=== PATIENT | male | born 1955 | race Caucasian/White ===

== ENCOUNTER 2020-10-16 17:35 | Inpatient (IN) | payer MEDICARE, OTHER ==
[2020-10-16] MEDS ORDERED: SODIUM CHLORIDE 0.9% 500 ML 500 ML IV STA (18:11)
[2020-10-16] MEDS ORDERED: LORazepam 2 MG/ML INJ IV STA (18:20)
--- NOTE | 2020-10-16 18:21 | ED ---
General Adult HPI - General Chief complaint: Back Pain/Injury Stated complaint: Kidney Failure Time Seen by Provider: 10/16/20 17:59 Source: patient, RN notes reviewed, old records reviewed Mode of arrival: ambulatory Limitations: no limitations - History of Present Illness Initial comments: 65-year-old male presenting from outside hospital with abnormal CT findings and concern for new diagnosis of cancer. He was seen at [facility] yesterday was transferred to [place]. He did leave AGAINST MEDICAL ADVICE. He states he is very anxious about this new diagnosis. He had initially developed right flank pain and has had an 11 pound weight loss over the last 2 weeks. He's had no appetite. He is able to urinate but is only getting very small amounts of urine out. - Related Data Home Medications Medication Instructions Recorded Confirmed Famotidine [Pepcid AC] 10 mg PO DAILY PRN 10/16/20 10/16/20 Allergies Allergy/AdvReac Type Severity Reaction Status Date / Time meperidine [From Demerol] Allergy head felt Verified 10/16/20 20:04 big Review of Systems ROS Statement: Those systems with pertinent positive or pertinent negative responses have been documented in the HPI. ROS Other: All systems not noted in ROS Statement are negative. Past Medical History Past Medical History: GERD/Reflux, Hypertension History of Any Multi-Drug Resistant Organisms: None Reported Past Surgical History: Hernia Repair Past Psychological History: Anxiety Smoking Status: Never smoker Past Alcohol Use History: None Reported Past Drug Use History: Marijuana General Exam Limitations: no limitations General appearance: alert, in no apparent distress ENT exam: Present: mucous membranes dry Neck exam: Present: normal inspection. Absent: tenderness, meningismus Respiratory exam: Present: normal lung sounds bilaterally. Absent: respiratory distress, wheezes Cardiovascular Exam: Present: regular rate, normal rhythm GI/Abdominal exam: Present: soft, distended, tenderness Extremities exam: Present: normal inspection, normal capillary refill. Absent: pedal edema Back exam: Present: normal inspection, CVA tenderness (R) Neurological exam: Present: alert, oriented X3, CN II-XII intact. Absent: motor sensory deficit Psychiatric exam: Present: anxious Skin exam: Present: warm, dry, intact. Absent: cyanosis, diaphoretic Course Vital Signs 10/16/20 17:39 Temperature 98.8 F Pulse Rate 70 Respiratory 18 Rate Blood Pressure 169/93 O2 Sat by Pulse 99 Oximetry Medical Decision Making - Medical Decision Making 65-year-old male with new diagnosis of abdominal mass and bladder mass. Imaging is repeated in this emergency department. As well as laboratory testing. He is anemic with acute renal failure. CT shows no bladder mass which is likely obstructing and a distended bladder. Additionally he has an abdominal mass with right-sided hydronephrosis. Estrada catheter, 14-Greenlandic is placed in the emergency department to relieve obstruction. I did discuss case with Dr. Kohli who will admit. Urology, Dr. Gan has been contacted, patient will be kept nothing by mouth. - Lab Data Result diagrams: 10/16/20 18:44 10/16/20 18:44 Lab Results 10/16/20 10/16/20 10/16/20 Range/Units 18:30 18:35 18:44 WBC 7.4 (3.8-10.6) k/uL RBC 4.49 (4.30-5.90) m/uL Hgb 8.8 L (13.0-17.5) gm/dL Hct 27.8 L (39.0-53.0) % MCV 62.0 L (80.0-100.0) fL MCH 19.5 L (25.0-35.0) pg MCHC 31.5 (31.0-37.0) g/dL RDW 17.3 H (11.5-15.5) % Plt Count 409 (150-450) k/uL MPV 7.0 Neutrophils % 72 % Lymphocytes % 14 % Monocytes % 9 % Eosinophils % 3 % Basophils % 1 % Neutrophils # 5.4 (1.3-7.7) k/uL Lymphocytes # 1.0 (1.0-4.8) k/uL Monocytes # 0.6 (0-1.0) k/uL Eosinophils # 0.2 (0-0.7) k/uL Basophils # 0.1 (0-0.2) k/uL Hypochromasia Marked Anisocytosis Slight Microcytosis Marked PT (9.0-12.0) sec INR (<1.2) APTT (22.0-30.0) sec Sodium (137-145) mmol/L Potassium (3.5-5.1) mmol/L Chloride (98-107) mmol/L Carbon Dioxide (22-30) mmol/L Anion Gap mmol/L BUN (9-20) mg/dL Creatinine (0.66-1.25) mg/dL Est GFR (CKD-EPI)AfAm (>60 ml/min/1.73 sqM) Est GFR (CKD-EPI)NonAf (>60 ml/min/1.73 sqM) Glucose (74-99) mg/dL Plasma Lactic Acid Lucian (0.7-2.0) mmol/L Calcium (8.4-10.2) mg/dL Total Bilirubin (0.2-1.3) mg/dL AST (17-59) U/L ALT (4-49) U/L Alkaline Phosphatase (38-126) U/L Total Protein (6.3-8.2) g/dL Albumin (3.5-5.0) g/dL Amylase (30-110) U/L Lipase (23-300) U/L Urine Color Urine Appearance (Clear) Urine pH (5.0-8.0) Ur Specific [place] (1.001-1.035) Urine Protein (Negative) Urine Glucose (UA) (Negative) Urine Ketones (Negative) Urine Blood (Negative) Urine Nitrite (Negative) Urine Bilirubin (Negative) Urine Urobilinogen (<2.0) mg/dL Ur Leukocyte Esterase (Negative) Urine RBC (0-5) /hpf Urine WBC (0-5) /hpf Blood Type A Negative Blood Type Confirm A Negative Blood Type Recheck No Previous Record Bld Type Recheck Status CABO Indicated Antibody Screen NEGATIVE Spec Expiration Date 10/19/2020234310/16/20 10/16/20 10/16/20 Range/Units 18:44 18:44 18:44 WBC (3.8-10.6) k/uL RBC (4.30-5.90) m/uL Hgb (13.0-17.5) gm/dL Hct (39.0-53.0) % MCV (80.0-100.0) fL MCH (25.0-35.0) pg MCHC (31.0-37.0) g/dL RDW (11.5-15.5) % Plt Count (150-450) k/uL MPV Neutrophils % % Lymphocytes % % Monocytes % % Eosinophils % % Basophils % % Neutrophils # (1.3-7.7) k/uL Lymphocytes # (1.0-4.8) k/uL Monocytes # (0-1.0) k/uL Eosinophils # (0-0.7) k/uL Basophils # (0-0.2) k/uL Hypochromasia Anisocytosis Microcytosis PT 10.9 (9.0-12.0) sec INR 1.0 (<1.2) APTT 22.8 (22.0-30.0) sec Sodium 137 (137-145) mmol/L Potassium 5.1 (3.5-5.1) mmol/L Chloride 108 H (98-107) mmol/L Carbon Dioxide 16 L (22-30) mmol/L Anion Gap 13 mmol/L BUN 85 H (9-20) mg/dL Creatinine 4.92 H (0.66-1.25) mg/dL Est GFR (CKD-EPI)AfAm 13 (>60 ml/min/1.73 sqM) Est GFR (CKD-EPI)NonAf 11 (>60 ml/min/1.73 sqM) Glucose 97 (74-99) mg/dL Plasma Lactic Acid Lucian (0.7-2.0) mmol/L Calcium 9.4 (8.4-10.2) mg/dL Total Bilirubin 0.2 (0.2-1.3) mg/dL AST 23 (17-59) U/L ALT 14 (4-49) U/L Alkaline Phosphatase 87 (38-126) U/L Total Protein 7.0 (6.3-8.2) g/dL Albumin 3.9 (3.5-5.0) g/dL Amylase 125 H (30-110) U/L Lipase 300 (23-300) U/L Urine Color Light Yellow Urine Appearance Clear (Clear) Urine pH 5.0 (5.0-8.0) Ur Specific [place] 1.011 (1.001-1.035) Urine Protein Trace H (Negative) Urine Glucose (UA) Negative (Negative) Urine Ketones Negative (Negative) Urine Blood Large H (Negative) Urine Nitrite Negative (Negative) Urine Bilirubin Negative (Negative) Urine Urobilinogen <2.0 (<2.0) mg/dL Ur Leukocyte Esterase Negative (Negative) Urine RBC 9 H (0-5) /hpf Urine WBC 2 (0-5) /hpf Blood Type Blood Type Confirm Blood Type Recheck Bld Type Recheck Status Antibody Screen Spec Expiration Date 10/16/20 Range/Units 18:44 WBC (3.8-10.6) k/uL RBC (4.30-5.90) m/uL Hgb (13.0-17.5) gm/dL Hct (39.0-53.0) % MCV (80.0-100.0) fL MCH (25.0-35.0) pg MCHC (31.0-37.0) g/dL RDW (11.5-15.5) % Plt Count (150-450) k/uL MPV Neutrophils % % Lymphocytes % % Monocytes % % Eosinophils % % Basophils % % Neutrophils # (1.3-7.7) k/uL Lymphocytes # (1.0-4.8) k/uL Monocytes # (0-1.0) k/uL Eosinophils # (0-0.7) k/uL Basophils # (0-0.2) k/uL Hypochromasia Anisocytosis Microcytosis PT (9.0-12.0) sec INR (<1.2) APTT (22.0-30.0) sec Sodium (137-145) mmol/L Potassium (3.5-5.1) mmol/L Chloride (98-107) mmol/L Carbon Dioxide (22-30) mmol/L Anion Gap mmol/L BUN (9-20) mg/dL Creatinine (0.66-1.25) mg/dL Est GFR (CKD-EPI)AfAm (>60 ml/min/1.73 sqM) Est GFR (CKD-EPI)NonAf (>60 ml/min/1.73 sqM) Glucose (74-99) mg/dL Plasma Lactic Acid Lucian 0.7 (0.7-2.0) mmol/L Calcium (8.4-10.2) mg/dL Total Bilirubin (0.2-1.3) mg/dL AST (17-59) U/L ALT (4-49) U/L Alkaline Phosphatase (38-126) U/L Total Protein (6.3-8.2) g/dL Albumin (3.5-5.0) g/dL Amylase (30-110) U/L Lipase (23-300) U/L Urine Color Urine Appearance (Clear) Urine pH (5.0-8.0) Ur Specific [place] (1.001-1.035) Urine Protein (Negative) Urine Glucose (UA) (Negative) Urine Ketones (Negative) Urine Blood (Negative) Urine Nitrite (Negative) Urine Bilirubin (Negative) Urine Urobilinogen (<2.0) mg/dL Ur Leukocyte Esterase (Negative) Urine RBC (0-5) /hpf Urine WBC (0-5) /hpf Blood Type Blood Type Confirm Blood Type Recheck Bld Type Recheck Status Antibody Screen Spec Expiration Date Disposition Clinical Impression: Acute renal failure, Bladder mass, Colonic mass Disposition: ADMITTED IP TO THIS [facility] Condition: Stable Is patient prescribed a controlled substance at d/c from ED?: No Referrals: None,Stated [Primary Care Provider] - 1-2 days Decision to Admit Reason: Admit from EC Decision Date: 10/16/20 Decision Time: 21:05
[2020-10-16 18:58] LABS: Anisocytosis Slight; Basophils # (A) 0.1 k/uL (0-0.2); Basophils % (A) 1 %; Eosinophils # (A) 0.2 k/uL (0-0.7); Eosinophils % (A) 3 %; HCT 27.8 % (39.0-53.0); HGB 8.8 gm/dL (13.0-17.5); Hypochromasia Marked; Lymphocytes % (A) 14 %; MCH 19.5 pg (25.0-35.0); MCHC 31.5 g/dL (31.0-37.0); Microcytosis Marked; Monocytes # (A) 0.6 k/uL (0-1.0); Monocytes % (A) 9 %; Neutrophils # (A) 5.4 k/uL (1.3-7.7); Neutrophils % (A) 72 %; Platelet Count 409 k/uL (150-450); RBC 4.49 m/uL (4.30-5.90); RDW 17.3 % (11.5-15.5); WBC 7.4 k/uL (3.8-10.6)
[2020-10-16 19:06] LABS: Partial Thromboplastin Time 22.8 sec (22.0-30.0); Prothrombin Time 10.9 sec (9.0-12.0)
[2020-10-16 19:09] LABS: Albumin 3.9 g/dL (3.5-5.0); Calcium 9.4 mg/dL (8.4-10.2); Potassium 5.1 mmol/L (3.5-5.1); Total Bilirubin 0.2 mg/dL (0.2-1.3)
[2020-10-16 19:33] LABS: Appearance,Urine Clear (Clear); Bilirubin,Urine Negative (Negative); Blood,Urine Large (Negative); Color,Urine Light Yellow; Glucose,Urine (UA) Negative (Negative); Ketones,Urine Negative (Negative); Leukocyte Esterase,Urine Negative (Negative); Nitrite,Urine Negative (Negative); Protein,Urine Trace (Negative); RBC,Urine 9 /hpf (0-5); Specific Gravity,Urine 1.011 (1.001-1.035); Urobilinogen,Urine <2.0 mg/dL (<2.0); WBC,Urine 2 /hpf (0-5)
--- NOTE | 2020-10-16 20:32 | CT ---
EXAMINATION TYPE: CT abdomen pelvis wo con DATE OF EXAM: 10/16/2020 COMPARISON: None HISTORY: abd pain CT DLP: 572.3 mGycm Automated exposure control for dose reduction was used. Images obtained from the diaphragm to the floor the pelvis without contrast. Lung bases are clear. There is no pleural effusion. Heart size is top normal. There is no pericardial effusion. There is hiatal hernia. Gallbladder is intact. Stomach is intact. Spleen is intact. There is no evidence of pancreatic mass. There is a large irregular soft tissue density mass in the right mid abdomen. This appears to be jan ing from the splenic flexure of the colon and measures 11 cm in diameter. The cecum is not well seen. This mass appears to also involve the cecum. Appendix is not seen. The terminal ileum is not dilated . There is no adrenal mass. There is 4 cm cortical cyst upper pole left kidney. There is left renal cor tical thinning. There is left-sided hydronephrosis and hydroureter. The right kidney shows mild to mo derate hydronephrosis and hydroureter. Prostate is enlarged with irregular rounded mass extending int o the urinary bladder from the prostate the base of the urinary bladder. This measures 4.6 cm in diam eter and probably tumor of the prostate gland. There is no inguinal hernia. There is no free fluid in the abdomen. There are some sigmoid diverticula without diverticulitis. The re is no ascites. There is some fat stranding in the right paracolic gutter. There is no evidence of free air. The lumbar vertebra have normal alignment. There is no compression fracture. The posterior elements a re intact. Hip joints are intact. There is no hip dysplasia. IMPRESSION: Large irregular mass involving the ascending colon and hepatic flexure of the colon and cecum that co uld be primary tumor. Acute extensive hemorrhage involving the right colon is also possible. There is bilateral hydronephrosis with more severe involvement of the left side with left renal signi ficant atrophy. There is mass in the urinary bladder at the base that could be tumor arising from the prostate. Distal ureteral obstruction is suspected secondary to the bladder mass.
[2020-10-16] MEDS ORDERED: HYDROmorphone 0.5 MG/0.5 ML SYRINGE IVP PRN (20:56)
[2020-10-16] MEDS ORDERED: HYDROmorphone 1 MG/ML 1 ML SYRINGE IVP PRN (20:56)
[2020-10-16] MEDS ORDERED: LORazepam 2 MG/ML INJ IV PRN (20:56)
[2020-10-16] MEDS ORDERED: NALOXONE 0.4 MG/ML 1 ML VIAL IV PRN (20:56)
[2020-10-16] MEDS: SODIUM CHLORIDE 0.9% 1,000 ML IV SCH (21:57)
--- NOTE | 2020-10-16 22:44 | P.HPIM ---
History of Present Illness H&P Date: 10/16/20 The patient is a 65 yo M with a PMH of HTN who presented to the ED w/ complaints of abdominal pain and difficulty urinating. The patient initially presented to [facility] yesterday and was subsequently transferred to [facility]. He however was supposedly not happy with the care and left AMA and presented at [place] emergency room. The patient reports that the symptoms started 2 weeks ago when he developed a right-sided cramping abdominal discomfort with radiation down to his groin. The pain was 8 out of 10 at maximal intensity, intermittent, with no clear alleviating or exacerbating features. Patient also reports that during this time he has had difficulty urinating and this having to strain more and more. Also reports poor appetite with subsequent 10-15 pound weight loss. He further reports noticing that his stools were dark black in color. Denied any of these symptoms prior to 2 weeks. Reports that he has not seen a physician in over 10 years. Reports undergoing a colonoscopy at age 39, but denied any history of colon cancer in the family. Did report a significant family history of bladder and kidney cancer with multiple first-degree relatives dying from the above. Denied noticing blood or clots in the urine. Denied chest pain, shortness of breath, fever, nausea, or vomiting. Reports having bowel movements daily. At time of interview, the patient reported that his right-sided abdominal pain had almost resolved. In the emergency room, CT abdomen and pelvis without contrast revealed a large irregular mass involving the ascending colon at the hepatic flexure along with bilateral hydronephrosis with left renal atrophy with a mass in the urinary bladder, possibly arising from the prostate. Vital signs were reviewed with BP 160/93, pulse 70, temp 98.8, and SpO2 99% on room air. Laboratory evaluation was remarkable for hemoglobin of 8.8, platelets 409, sodium 137, potassium 5.1, chloride 108, CO2 16, BUN 85, and creatinine 4.92. UA was positive for blood and RBCs. Review of systems: Pertinent positives and negatives as discussed in HPI, a complete review of systems was performed and all other systems are negative. Physical examination: General: non toxic, no distress, appears at stated age, normal weight Derm: no unusual rashes/lesions no unusual ecchymoses, warm, dry Head: atraumatic, normocephalic, symmetric Eyes: EOMI, no lid lag, anicteric sclera, pupils equal round reactive to light ENT: Nose and ears atraumatic, no thrush, no pharyngeal erythema Neck: No thyromegaly, no cervical lymphadenopathy, trachea midline, supple Mouth: no lip lesion, mucus membranes moist Cardiovascular: S1S2 reg, no murmur, positive posterior tibial pulse bilateral, no edema, capillary refill less than 2 seconds Lungs: CTA bilateral, no rhonchi, no rales , no accessory muscle use Abdominal: soft, right-sided tenderness to palpation with some nodularity palpated, some guarding, normal bowel sounds Ext: no gross muscle atrophy, muscle strength 5 out of 5 in all 4 extremities grossly, no contractures, Neuro: CN II-XI grossly intact, light touch intact all 4 extremities, finger to nose within normal limits, Psych: Alert, oriented, appropriate affect Assessment/plan Microcytic anemia, likely due to acute GI bleeding in setting of colonic mass -Continue to monitor CBC -Surgery consulted -Transfuse as needed -Nothing by mouth for now -IV fluids Newly diagnosed colonic and bladder masses -Estrada catheter inserted, patient passing urine -Urology consulted for nephrostomy tube insertion -Oncology consulted Kidney injury, acute versus chronic, likely secondary to bladder outlet obstruction -Monitor BMP -Status post Estrada insertion -Urology consulted as above DVT prophylaxis -IPCDs The patient is admitted with an anticipated greater than 2 midnight stay for evaluation of newly diagnosed malignancy CODE STATUS: Full Code Discussed with: Patient Anticipated discharge date: 3-[address]: Home A total of 55 minutes was spent on the care of this complex patient more than 50% of the time was spent in counseling and care coordination. Past Medical History Past Medical History: GERD/Reflux, Hypertension History of Any Multi-Drug Resistant Organisms: None Reported Past Surgical History: Hernia Repair Past Psychological History: Anxiety Smoking Status: Never smoker Past Alcohol Use History: None Reported Past Drug Use History: Marijuana Medications and Allergies Home Medications Medication Instructions Recorded Confirmed Type Famotidine [Pepcid AC] 10 mg PO DAILY PRN 10/16/20 10/16/20 History Allergies Allergy/AdvReac Type Severity Reaction Status Date / Time meperidine [From Demerol] Allergy head felt Verified 10/16/20 20:04 big Physical Exam Vitals: Vital Signs Temp Pulse Resp BP Pulse Ox 10/16/20 17:39 98.8 F 70 18 169/93 99 Intake and Output 10/16/20 10/16/20 10/16/20 06:59 14:59 22:59 Output Total 700 Balance -700 Output: Urine 700 Uretheral (Estrada) 700 Other: Weight 78.471 kg Results CBC & Chem 7: 10/16/20 18:44 10/16/20 18:44 Labs: Abnormal Lab Results - Last 24 Hours (Table) 10/16/20 10/16/20 10/16/20 Range/Units 18:44 18:44 18:44 Hgb 8.8 L (13.0-17.5) gm/dL Hct 27.8 L (39.0-53.0) % MCV 62.0 L (80.0-100.0) fL MCH 19.5 L (25.0-35.0) pg RDW 17.3 H (11.5-15.5) % Chloride 108 H (98-107) mmol/L Carbon Dioxide 16 L (22-30) mmol/L BUN 85 H (9-20) mg/dL Creatinine 4.92 H (0.66-1.25) mg/dL Amylase 125 H (30-110) U/L Urine Protein Trace H (Negative) Urine Blood Large H (Negative) Urine RBC 9 H (0-5) /hpf
[2020-10-17 05:47] LABS: Anisocytosis Slight; HCT 27.4 % (39.0-53.0); HGB 8.2 gm/dL (13.0-17.5); Hypochromasia Marked; MCH 18.9 pg (25.0-35.0); MCHC 30.1 g/dL (31.0-37.0); MCV 62.9 fL (80.0-100.0); Mean Platelet Volume 6.8; Microcytosis Marked; Platelet Count 423 k/uL (150-450); RBC 4.35 m/uL (4.30-5.90); RDW 17.6 % (11.5-15.5); WBC 6.2 k/uL (3.8-10.6)
[2020-10-17] MEDS: TAMSULOSIN 0.4 MG CAP.ER.24H PO SCH (08:46)
[2020-10-17] MEDS: FINASTERIDE 5 MG TAB PO SCH (08:46)
[2020-10-17 09:41] LABS: African American GFR (CKD) 16.4 (60.0-200.0); Albumin 3.6 g/dL (3.80-4.90); Albumin/Globulin Ratio 1.33 (1.60-3.17); Anion Gap 9.6 mmol/L (4.00-12.00); BUN/Creat Ratio 21.95 Ratio (12.00-20.00); Calcium 8.6 mg/dL (8.7-10.3); Carbon Dioxide 17.4 mmol/L (21.6-31.8); Globulin 2.7 g/dL (1.6-3.3); Non-African American GFR(CKD) 14.2 (60.0-200.0); Total Bilirubin 0.2 mg/dL (0.3-1.2); Total Protein 6.3 g/dL (6.2-8.2)
--- NOTE | 2020-10-17 11:45 | P.PN ---
Subjective Progress Note Date: 10/17/20 No new complaints today. Pending surgery for mass, oncology consult. Objective - Vital Signs Vital signs: Vital Signs Temp 98.5 F 10/17/20 04:49 Pulse 70 10/17/20 04:49 Resp 18 10/17/20 06:20 BP 175/87 10/17/20 04:49 Pulse Ox 97 10/17/20 04:49 Intake & Output 10/16/20 10/17/20 10/17/20 18:59 06:59 18:59 Output Total 1800 Balance -1800 Weight 78.471 kg 78.471 kg Output: Urine 1800 Uretheral (Serrano) 700 Other: Voiding Method Indwelling Catheter Indwelling Catheter - Exam Gen: awake, alert HEENT: normocephalic, atraumatic, good hearing acuity, moist mucous membranes Resp: good air exchange, breathing comfortably with no accessory muscle use CVS: good distal perfusion x 4, GI: soft, NTTP, ND : no SPT, no CVAT, serrano catheter not present MSK: no pitting edema, no clubbing Neuro: non-focal, moving all extremities Psych: cooperative, euthymic mood - Labs CBC & Chem 7: 10/17/20 05:32 10/17/20 05:32 Labs: Abnormal Lab Results - Last 24 Hours (Table) 10/16/20 10/16/20 10/16/20 Range/Units 18:44 18:44 18:44 Hgb 8.8 L (13.0-17.5) gm/dL Hct 27.8 L (39.0-53.0) % MCV 62.0 L (80.0-100.0) fL MCH 19.5 L (25.0-35.0) pg MCHC (31.0-37.0) g/dL RDW 17.3 H (11.5-15.5) % Chloride 108 H (98-107) mmol/L Carbon Dioxide 16 L (22-30) mmol/L BUN 85 H (9-20) mg/dL Creatinine 4.92 H (0.66-1.25) mg/dL Est GFR (CKD-EPI)AfAm (60.0-200.0) Est GFR (CKD-EPI)NonAf (60.0-200.0) BUN/Creatinine Ratio (12.00-20.00) Ratio Glucose (70-110) mg/dL Calcium (8.7-10.3) mg/dL Total Bilirubin (0.3-1.2) mg/dL AST (14-35) U/L Albumin (3.80-4.90) g/dL Albumin/Globulin Ratio (1.60-3.17) g/dL Amylase 125 H (30-110) U/L Urine Protein Trace H (Negative) Urine Blood Large H (Negative) Urine RBC 9 H (0-5) /hpf 10/17/20 10/17/20 Range/Units 05:32 05:32 Hgb 8.2 L (13.0-17.5) gm/dL Hct 27.4 L (39.0-53.0) % MCV 62.9 L (80.0-100.0) fL MCH 18.9 L (25.0-35.0) pg MCHC 30.1 L (31.0-37.0) g/dL RDW 17.6 H (11.5-15.5) % Chloride 112 H (98-107) mmol/L Carbon Dioxide 17.4 L (22-30) mmol/L BUN 90.0 H (9-20) mg/dL Creatinine 4.1 H (0.66-1.25) mg/dL Est GFR (CKD-EPI)AfAm 16.4 L (60.0-200.0) Est GFR (CKD-EPI)NonAf 14.2 L (60.0-200.0) BUN/Creatinine Ratio 21.95 H (12.00-20.00) Ratio Glucose 143 H (70-110) mg/dL Calcium 8.6 L (8.7-10.3) mg/dL Total Bilirubin 0.2 L (0.3-1.2) mg/dL AST 12 L (14-35) U/L Albumin 3.60 L (3.80-4.90) g/dL Albumin/Globulin Ratio 1.33 L (1.60-3.17) g/dL Amylase (30-110) U/L Urine Protein (Negative) Urine Blood (Negative) Urine RBC (0-5) /hpf Assessment and Plan Assessment: Lower GI Bleeding Colonic Mass Bladder Mass -Continue to monitor CBC daily -Surgery consulted -colectomy planned tomorrow AM -Transfuse as needed for Hgb > 7 -CLD --> NPO at midnight -IV fluids -Oncology consulted Acute Kidney injury Obstructive Uropathy -Monitor BMP daily -Serrano catheter inserted, patient passing urine -Urology consulted for nephrostomy tube insertion DVT prophylaxis -IPCDs CODE STATUS: Full Code Anticipated discharge place: Home
--- NOTE | 2020-10-17 12:44 | ECHOF ---
Referral Reason:Hypertensive heart disease MEASUREMENTS -------- HEIGHT: 175.3 cm WEIGHT: 78.5 kg BP: 175/87 RVIDd: 3.6 cm (< 3.3) IVSd: 1.3 cm (0.6 - 1.1) LVIDd: 4.3 cm (3.9 - 5.3) LVPWd: 1.2 cm (0.6 - 1.1) IVSs: 1.6 cm LVIDs: 3.8 cm LVPWs: 1.5 cm LA Diam: 4.4 cm (2.7 - 3.8) LAESV Index (A-L): 56.24 ml/m Ao Diam: 3.1 cm (2.0 - 3.7) AV Cusp: 1.8 cm (1.5 - 2.6) MV EXCURSION: 18.069 mm (> 18.000) MV EF SLOPE: 37 mm/s (70 - 150) EPSS: 1.4 cm MV E Roby: 1.10 m/s MV DecT: 232 ms MV A Roby: 1.11 m/s MV E/A Ratio: 0.99 AV maxP.43 mmHg AV maxP.43 mmHg AV meanP.06 mmHg RAP: 5.00 mmHg RVSP: 43.50 mmHg FINDINGS -------- Resting bradycardia (HR<60bpm). This was a technically good study. The left ventricular size is normal. There is mild concentric left ventricular hypertrophy. Overa ll left ventricular systolic function is low-normal with, an EF between 50 - 55 %. The right ventricle is mildly enlarged. LA is severely dilated >40 ml/m2 The right atrium is normal in size. Interatrial and interventricular septum intact. Aortic valve is trileaflet and is mildly thickened. There is mild to moderate aortic valve sclerosi s. Trace amount of aortic regurgitation. There is mild aortic stenosis present. Mild mitral annular calcification present. Mild mitral regurgitation is present. Trace tricuspid regurgitation present. There is mild pulmonary hypertension. The right ventricula r systolic pressure, as measured by Doppler, is 43.50mmHg. Trace/mild (physiologic) pulmonic regurgitation. The aortic root size is normal. Normal inferior vena cava with normal inspiratory collapse consistent with estimated right atrial pre ssure of 5 mmHg. The inferior vena cava is mildly dilated. There is no pericardial effusion. CONCLUSIONS -------- 1. Resting bradycardia (HR<60bpm). 2. The left ventricular size is normal. 3. There is mild concentric left ventricular hypertrophy. 4. Overall left ventricular systolic function is low-normal with, an EF between 50 - 55 %. 5. The right ventricle is mildly enlarged. 6. LA is severely dilated >40 ml/m2 7. Aortic valve is trileaflet and is mildly thickened. 8. Trace amount of aortic regurgitation. 9. There is mild aortic stenosis present. 10. Mild mitral annular calcification present. 11. Mild mitral regurgitation is present. 12. Trace tricuspid regurgitation present. 13. There is mild pulmonary hypertension. 14. The right ventricular systolic pressure, as measured by Doppler, is 43.50mmHg. 15. Trace/mild (physiologic) pulmonic regurgitation. 16. The inferior vena cava is mildly dilated. 17. There is no pericardial effusion. [employer]: Hallie Acosta RDCS
[2020-10-17 12:48] LABS: African American GFR (CKD) 18 (>60 ml/min/1.73 sqM); Anion Gap 6 mmol/L; Blood Urea Nitrogen 73 mg/dL (9-20); Calcium 8.4 mg/dL (8.4-10.2); Carbon Dioxide 19 mmol/L (22-30); Chloride 113 mmol/L (98-107); Glucose 113 mg/dL (74-99); Non-African American GFR(CKD) 15 (>60 ml/min/1.73 sqM); Potassium 4.6 mmol/L (3.5-5.1); Sodium 138 mmol/L (137-145)
--- NOTE | 2020-10-17 13:02 | P.GSCN ---
History of Present Illness Consult date: 10/17/20 Reason for Consult: Urinary retention, right sided hydronephrosis History of present illness: This is a 65 yo male present to the hospital with right sided abdominal pain, wt loss and difficulty voiding. He indicated he is been having significant straining with urination, weak stream and sensation of incomplete emptying for the past 2 weeks. Denies any dysuria or gross hematuria. on presentation he underwent a CT abd/pelvis which showed right sided colonic mass, distended bladder, bilateral hydronephrosis, possible bladder vs prostate mass. No family hx of malignancy. In the ED a serrano catheter was placed with return of 700 ml of urine. his Creat was 4.92 on presentation, baseline unknown, repeat BMP this am is 4.1. He had good urine output since serrano placement Review of Systems - Constitutional Reports weakness, Reports weight loss - EENT Ears, nose, mouth and throat: Denies dysphagia - Cardiovascular Denies chest pain, Denies shortness of breath - Respiratory Denies cough, Denies 7 - Gastrointestinal Reports abdominal pain, Reports hematochezia - Genitourinary Reports flank pain, Reports urinary retention, Denies incontinence - Neurological Denies headaches, Denies syncope Past Medical History Past Medical History: GERD/Reflux, Hypertension History of Any Multi-Drug Resistant Organisms: None Reported Past Surgical History: Hernia Repair Past Anesthesia/Blood Transfusion Reactions: No Reported Reaction Past Psychological History: Anxiety Smoking Status: Never smoker Past Alcohol Use History: None Reported Past Drug Use History: Marijuana Medications and Allergies Home Medications Medication Instructions Recorded Confirmed Type Famotidine [Pepcid AC] 10 mg PO DAILY PRN 10/16/20 10/16/20 History Allergies Allergy/AdvReac Type Severity Reaction Status Date / Time meperidine [From Demerol] Allergy head felt Verified 10/16/20 20:04 big Surgical - Exam Vital Signs Temp Pulse Resp BP Pulse Ox 98.8 F 70 18 169/93 99 10/16/20 17:39 10/16/20 17:39 10/16/20 17:39 10/16/20 17:39 10/16/20 17:39 - General well developed, well nourished, no distress, no pain - ENT normal nares, normal mucosa - Respiratory normal expansion, normal respiratory effort - Abdomen Abdomen: soft, tender (Right quadrant ) - Genitourinary serrano draining clear yellow urine - Psychiatric oriented to time, oriented to person, oriented to place Results - Labs 10/17/20 05:32 10/17/20 12:10 Abnormal Lab Results - Last 24 Hours (Table) 10/16/20 10/16/20 10/16/20 Range/Units 18:44 18:44 18:44 Hgb 8.8 L (13.0-17.5) gm/dL Hct 27.8 L (39.0-53.0) % MCV 62.0 L (80.0-100.0) fL MCH 19.5 L (25.0-35.0) pg MCHC (31.0-37.0) g/dL RDW 17.3 H (11.5-15.5) % Chloride 108 H (98-107) mmol/L Carbon Dioxide 16 L (22-30) mmol/L BUN 85 H (9-20) mg/dL Creatinine 4.92 H (0.66-1.25) mg/dL Est GFR (CKD-EPI)AfAm (60.0-200.0) Est GFR (CKD-EPI)NonAf (60.0-200.0) BUN/Creatinine Ratio (12.00-20.00) Ratio Glucose (70-110) mg/dL Calcium (8.7-10.3) mg/dL Total Bilirubin (0.3-1.2) mg/dL AST (14-35) U/L Albumin (3.80-4.90) g/dL Albumin/Globulin Ratio (1.60-3.17) g/dL Amylase 125 H (30-110) U/L Urine Protein Trace H (Negative) Urine Blood Large H (Negative) Urine RBC 9 H (0-5) /hpf 10/17/20 10/17/20 Range/Units 05:32 05:32 Hgb 8.2 L (13.0-17.5) gm/dL Hct 27.4 L (39.0-53.0) % MCV 62.9 L (80.0-100.0) fL MCH 18.9 L (25.0-35.0) pg MCHC 30.1 L (31.0-37.0) g/dL RDW 17.6 H (11.5-15.5) % Chloride 112 H (98-107) mmol/L Carbon Dioxide 17.4 L (22-30) mmol/L BUN 90.0 H (9-20) mg/dL Creatinine 4.1 H (0.66-1.25) mg/dL Est GFR (CKD-EPI)AfAm 16.4 L (60.0-200.0) Est GFR (CKD-EPI)NonAf 14.2 L (60.0-200.0) BUN/Creatinine Ratio 21.95 H (12.00-20.00) Ratio Glucose 143 H (70-110) mg/dL Calcium 8.6 L (8.7-10.3) mg/dL Total Bilirubin 0.2 L (0.3-1.2) mg/dL AST 12 L (14-35) U/L Albumin 3.60 L (3.80-4.90) g/dL Albumin/Globulin Ratio 1.33 L (1.60-3.17) g/dL Amylase (30-110) U/L Urine Protein (Negative) Urine Blood (Negative) Urine RBC (0-5) /hpf Diabetes panel 10/16/20 10/17/20 Range/Units 18:44 05:32 Sodium 137 139 (137-145) mmol/L Potassium 5.1 5.0 (3.5-5.1) mmol/L Chloride 108 H 112 H (98-107) mmol/L Carbon Dioxide 16 L 17.4 L (22-30) mmol/L BUN 85 H 90.0 H (9-20) mg/dL Creatinine 4.92 H 4.1 H (0.66-1.25) mg/dL Glucose 97 143 H (74-99) mg/dL Calcium 9.4 8.6 L (8.4-10.2) mg/dL AST 23 12 L (17-59) U/L ALT 14 11 (4-49) U/L Alkaline Phosphatase 87 78 (38-126) U/L Total Protein 7.0 6.3 (6.3-8.2) g/dL Albumin 3.9 3.60 L (3.5-5.0) g/dL Calcium panel 10/16/20 10/17/20 Range/Units 18:44 05:32 Calcium 9.4 8.6 L (8.4-10.2) mg/dL Albumin 3.9 3.60 L (3.5-5.0) g/dL Pituitary panel 10/16/20 10/17/20 Range/Units 18:44 05:32 Sodium 137 139 (137-145) mmol/L Potassium 5.1 5.0 (3.5-5.1) mmol/L Chloride 108 H 112 H (98-107) mmol/L Carbon Dioxide 16 L 17.4 L (22-30) mmol/L BUN 85 H 90.0 H (9-20) mg/dL Creatinine 4.92 H 4.1 H (0.66-1.25) mg/dL Glucose 97 143 H (74-99) mg/dL Calcium 9.4 8.6 L (8.4-10.2) mg/dL Adrenal panel 10/16/20 10/17/20 Range/Units 18:44 05:32 Sodium 137 139 (137-145) mmol/L Potassium 5.1 5.0 (3.5-5.1) mmol/L Chloride 108 H 112 H (98-107) mmol/L Carbon Dioxide 16 L 17.4 L (22-30) mmol/L BUN 85 H 90.0 H (9-20) mg/dL Creatinine 4.92 H 4.1 H (0.66-1.25) mg/dL Glucose 97 143 H (74-99) mg/dL Calcium 9.4 8.6 L (8.4-10.2) mg/dL Total Bilirubin 0.2 0.2 L (0.2-1.3) mg/dL AST 23 12 L (17-59) U/L ALT 14 11 (4-49) U/L Alkaline Phosphatase 87 78 (38-126) U/L Total Protein 7.0 6.3 (6.3-8.2) g/dL Albumin 3.9 3.60 L (3.5-5.0) g/dL Assessment and Plan Assessment: This is a 65 yo male present to the hospital with right sided abdominal pain, wt loss and difficulty voiding. He underwent a CT abd/pelvis which showed right sided colonic mass, distended bladder, bilateral hydronephrosis, left atrophic kidney possible bladder vs prostate mass. No family hx of malignancy. In the ED a serrano catheter was placed with return of 700 ml of urine. his Creat was 4 .92 on presentation, baseline unknown, repeat BMP this am is 4.1. He had good urine output since serrano placement. I reviewed the CT the ureter is dilated to the bladder, hydronephrosis is unlikely to be from colonic mass given the dilated ureter distal to the mass. The finding on CT is more likely an enlarged median lobe protruding into the bladder rather than a bladder mass -Keep serrano 7-10 days given volume of retention and renal failure, will start flomax and proscar -Continue to trend creat with bladder decompression. Will need RBUS in 72 hours to assess improvement of hydronephrosis with bladder decompression -will need cystoscopy as an outpatient given microscopic hematuria and to c onfirm finding of bladder mass vs median lobe. Will obtain PSA as an outpatient.
[2020-10-17] MEDS: amLODIPine 5 MG TAB PO SCH (13:45)
--- NOTE | 2020-10-17 13:57 | P.GSCN ---
<Leidy Stafford - Last Filed: 10/17/20 13:42> History of Present Illness Consult date: 10/17/20 History of present illness: CHIEF COMPLAINT: Abdominal pain and difficulty urinating HISTORY OF PRESENT ILLNESS: This is a 65-year-old male with a known past medical history of hypertension, GERD and hernia repair. Patient presented to the emergency room with complaints of right-sided abdominal pain and difficulty with urinating. Patient initially presented to [facility] and was transferred to [facility] yesterday. However patient left AGAINST MEDICAL ADVICE and came to [place] emergency room. Patient has had right-sided abdominal pain for about 2 weeks. He has been having difficulty with urinating. Patient also reported 11 pound weight loss over the last 2 weeks. It is been about 10 years since he seen a primary care physician. He apparently had a colonoscopy 8 age 39. He does have a family history of bladder and kidney cancer in multiple first-degree relatives. Patient's computed tomography scan of the abdomen and pelvis shows a large irregular mass involving the ascending colon and hepatic flexure of the colon and cecum that could be primary tumor. Active extensive hemorrhage involving the right colon is also possible. There is bilateral hydronephrosis with more severe involvement of the left side with left renal significant atrophy. There is a mass in the urinary bladder at the base that could be tumor arising from the prostate. Distal ureteral obstruction is suspected secondary to the bladder mass. Patient did require Estrada catheter to be inserted. Since then urine output has improved. Patient is also followed by urology. Oncology has also been consult at. Patient reports improvement in his right-sided pain. He denies any nausea or vomiting. He is anemic with a hemoglobin of 8.2 down from 8.8. Creatinine on admission was 4.42. Patient denies any fever, chills or sweats. He denies any difficulty with bowel movements. Denies any nausea or vomiting. PAST MEDICAL HISTORY: See list. PAST SURGICAL HISTORY: See list. MEDICATIONS: See list. ALLERGIES: See list. SOCIAL HISTORY: No illicit drug use. REVIEW OF SYSTEMS: CONSTITUTIONAL: Denies fever or chills. HEENT: Denies blurred vision, vision changes, or eye pain. Denies hemoptysis ENDOCRINE: Denies heat or cold intolerance. CARDIOVASCULAR: Denies chest pain or pressure. RESPIRATORY: No shortness of breath. GASTROINTESTINAL: Refer to HPI NEURO: Denies history of seizures. PSYCH: No depression or suicidal ideation HEMATOLOGIC: Denies bleeding disorders. LYMPHATIC: The patient denies any lumps and bumps around the neck. GENITOURINARY: Denies any blood in urine or increased urinary frequency. MUSCULOSKELETAL: Denies myalgias. Denies joint swelling. Denies decreased range of motion beyond patients baseline. SKIN: Denies pruitis. Denies rash. PHYSICAL EXAM: VITAL SIGNS: Reviewed GENERAL: Well-developed in no acute distress. HEENT: No sclera icterus. Extraocular movements grossly intact. Moist buccal mucosa. Head is atraumatic, normocephalic. Hears conversational speech. No nasal drainage. NECK: Supple without lymphadenopathy. CHEST: Non-labored respirations and equal bilateral excursions. CARDIOVASCULAR: Palpable 2+ radial pulses. ABDOMEN: Soft. Nondistended. MUSCULOSKELETAL: No clubbing or cyanosis. NEUROLOGIC: No focal or lateralizing signs. Cranial nerves II through XII grossly intact. PSYCH: Appropriate affect. Alert and oriented to person, place and time. SKIN: Well perfused. Good skin turgor. LABORATORY DATA: WBC is 6.2 hemoglobin is 8.2 platelets are 423 sodium is 138 potassium is 4.6 creatinine has come down from 4.92-3.83 AST 23 ALT 14 lipase 300 amylase 125 urinalysis shows a large amount of blood IMAGING: computed tomography scan of the abdomen and pelvis shows a large irregular mass involving the ascending colon and hepatic flexure of the colon and cecum that could be primary tumor. Active extensive hemorrhage involving the right colon is also possible. There is bilateral hydronephrosis with more severe involvement of the left side with left renal significant atrophy. There is a mass in the urinary bladder at the base that could be tumor arising from the prostate. Distal ureteral obstruction is suspected secondary to the bladder mass. ASSESSMENT: 1. Right-sided abdominal pain 2. Colon mass involving the ascending colon and hepatic flexure of the colon and cecum 3. Possible bladder mass 4. Bilateral hydronephrosis 5. Acute kidney injury due to obstructive uropathy PLAN: -Patient tentatively scheduled for open right colectomy with possible ostomy tomorrow, 10/18/[address] Pinzon -Cardiology consult for cardiac risk assessment -Check EKG and 2-D echo -Check tumor markers including CEA, AFP, PSA -Okay for regular diet today -Nothing by mouth after midnight Thank you for this consultation Physician Contracting Support Specialist note has been reviewed by physician. Signing provider agrees with the documented findings, assessment, and plan of care. Past Medical History Past Medical History: GERD/Reflux, Hypertension History of Any Multi-Drug Resistant Organisms: None Reported Past Surgical History: Hernia Repair Past Anesthesia/Blood Transfusion Reactions: No Reported Reaction Past Psychological History: Anxiety Smoking Status: Never smoker Past Alcohol Use History: None Reported Past Drug Use History: Marijuana Medications and Allergies Home Medications Medication Instructions Recorded Confirmed Type Famotidine [Pepcid AC] 10 mg PO DAILY PRN 10/16/20 10/16/20 History Allergies Allergy/AdvReac Type Severity Reaction Status Date / Time meperidine [From Demerol] Allergy head felt Verified 10/16/20 20:04 big Surgical - Exam Vital Signs Temp Pulse Resp BP Pulse Ox 98.8 F 70 18 169/93 99 10/16/20 17:39 10/16/20 17:39 10/16/20 17:39 10/16/20 17:39 10/16/20 17:39 Results - Labs 10/17/20 05:32 10/17/20 12:10 Abnormal Lab Results - Last 24 Hours (Table) 10/16/20 10/16/20 10/16/20 Range/Units 18:44 18:44 18:44 Hgb 8.8 L (13.0-17.5) gm/dL Hct 27.8 L (39.0-53.0) % MCV 62.0 L (80.0-100.0) fL MCH 19.5 L (25.0-35.0) pg MCHC (31.0-37.0) g/dL RDW 17.3 H (11.5-15.5) % Chloride 108 H (98-107) mmol/L Carbon Dioxide 16 L (22-30) mmol/L BUN 85 H (9-20) mg/dL Creatinine 4.92 H (0.66-1.25) mg/dL Est GFR (CKD-EPI)AfAm (60.0-200.0) Est GFR (CKD-EPI)NonAf (60.0-200.0) BUN/Creatinine Ratio (12.00-20.00) Ratio Glucose (70-110) mg/dL Calcium (8.7-10.3) mg/dL Total Bilirubin (0.3-1.2) mg/dL AST (14-35) U/L Albumin (3.80-4.90) g/dL Albumin/Globulin Ratio (1.60-3.17) g/dL Amylase 125 H (30-110) U/L Urine Protein Trace H (Negative) Urine Blood Large H (Negative) Urine RBC 9 H (0-5) /hpf 10/17/20 10/17/20 10/17/20 Range/Units 05:32 05:32 12:10 Hgb 8.2 L (13.0-17.5) gm/dL Hct 27.4 L (39.0-53.0) % MCV 62.9 L (80.0-100.0) fL MCH 18.9 L (25.0-35.0) pg MCHC 30.1 L (31.0-37.0) g/dL RDW 17.6 H (11.5-15.5) % Chloride 112 H 113 H (98-107) mmol/L Carbon Dioxide 17.4 L 19 L (22-30) mmol/L BUN 90.0 H 73 H (9-20) mg/dL Creatinine 4.1 H 3.83 H (0.66-1.25) mg/dL Est GFR (CKD-EPI)AfAm 16.4 L (60.0-200.0) Est GFR (CKD-EPI)NonAf 14.2 L (60.0-200.0) BUN/Creatinine Ratio 21.95 H (12.00-20.00) Ratio Glucose 143 H 113 H (70-110) mg/dL Calcium 8.6 L (8.7-10.3) mg/dL Total Bilirubin 0.2 L (0.3-1.2) mg/dL AST 12 L (14-35) U/L Albumin 3.60 L (3.80-4.90) g/dL Albumin/Globulin Ratio 1.33 L (1.60-3.17) g/dL Amylase (30-110) U/L Urine Protein (Negative) Urine Blood (Negative) Urine RBC (0-5) /hpf Diabetes panel 10/16/20 10/17/20 10/17/20 Range/Units 18:44 05:32 12:10 Sodium 137 139 138 (137-145) mmol/L Potassium 5.1 5.0 4.6 (3.5-5.1) mmol/L Chloride 108 H 112 H 113 H (98-107) mmol/L Carbon Dioxide 16 L 17.4 L 19 L (22-30) mmol/L BUN 85 H 90.0 H 73 H (9-20) mg/dL Creatinine 4.92 H 4.1 H 3.83 H (0.66-1.25) mg/dL Glucose 97 143 H 113 H (74-99) mg/dL Calcium 9.4 8.6 L 8.4 (8.4-10.2) mg/dL AST 23 12 L (17-59) U/L ALT 14 11 (4-49) U/L Alkaline Phosphatase 87 78 (38-126) U/L Total Protein 7.0 6.3 (6.3-8.2) g/dL Albumin 3.9 3.60 L (3.5-5.0) g/dL Calcium panel 10/16/20 10/17/20 10/17/20 Range/Units 18:44 05:32 12:10 Calcium 9.4 8.6 L 8.4 (8.4-10.2) mg/dL Albumin 3.9 3.60 L (3.5-5.0) g/dL Pituitary panel 10/16/20 10/17/20 10/17/20 Range/Units 18:44 05:32 12:10 Sodium 137 139 138 (137-145) mmol/L Potassium 5.1 5.0 4.6 (3.5-5.1) mmol/L Chloride 108 H 112 H 113 H (98-107) mmol/L Carbon Dioxide 16 L 17.4 L 19 L (22-30) mmol/L BUN 85 H 90.0 H 73 H (9-20) mg/dL Creatinine 4.92 H 4.1 H 3.83 H (0.66-1.25) mg/dL Glucose 97 143 H 113 H (74-99) mg/dL Calcium 9.4 8.6 L 8.4 (8.4-10.2) mg/dL Adrenal panel 10/16/20 10/17/20 10/17/20 Range/Units 18:44 05:32 12:10 Sodium 137 139 138 (137-145) mmol/L Potassium 5.1 5.0 4.6 (3.5-5.1) mmol/L Chloride 108 H 112 H 113 H (98-107) mmol/L Carbon Dioxide 16 L 17.4 L 19 L (22-30) mmol/L BUN 85 H 90.0 H 73 H (9-20) mg/dL Creatinine 4.92 H 4.1 H 3.83 H (0.66-1.25) mg/dL Glucose 97 143 H 113 H (74-99) mg/dL Calcium 9.4 8.6 L 8.4 (8.4-10.2) mg/dL Total Bilirubin 0.2 0.2 L (0.2-1.3) mg/dL AST 23 12 L (17-59) U/L ALT 14 11 (4-49) U/L Alkaline Phosphatase 87 78 (38-126) U/L Total Protein 7.0 6.3 (6.3-8.2) g/dL Albumin 3.9 3.60 L (3.5-5.0) g/dL <Deanna Pinzon N - Last Filed: 10/17/20 18:42> History of Present Illness History of present illness: As above. Patient seen and evaluated with above. CHIEF COMPLAINT: Colon mass HISTORY OF PRESENT ILLNESS: The patient is a 65 year old male admitted to the hospital with right-sided abdominal pain. CT of the abdomen pelvis demonstrated new colon mass. Patient also presented with acute renal failure. Patient's been seen by urology. Patient also presented with new anemia. He reports no prior follow-up with a primary care provider in over 10 years. He also reports multiple family members with urological cancers including of the kidney. Denies any recollection of family members with colon cancer. He has no colonoscopy over 10+ years. As a result of finding a computed tomography scan, Gen. surgery consulted. PAST MEDICAL HISTORY: See list and reviewed PAST SURGICAL HISTORY: See list and reviewed MEDICATIONS: See list and reviewed ALLERGIES: See list and reviewed SOCIAL HISTORY: See list and reviewed FAMILY HISTORY: See list and reviewed REVIEW OF ORGAN SYSTEMS: CONSTITUTIONAL: No fevers or chills. EYES: Denies any trouble with vision. No glasses. HEENT: No difficulties with hearing. No nosebleeds. No difficulty swallowing. RESPIRATORY: Denies pneumonia. Denies any troubles with breathing or dyspnea on exertion. CARDIOVASCULAR: Denies any chest pain, palpitations, or recent heart attacks. GASTROINTESTINAL: Denies fatty food intolerance. Reports change in bowel habits or blood in stools and dark stools. Also with abdominal pain per GENITOURINARY: Has blood in urine and increased urinary frequency. NEUROLOGICAL: Denies any numbness or tingling along the distal extremities. No seizure disorders or headaches. MUSCULOSKELETAL: Has back pain, stiffness or joint arthritis. SKIN: No current skin cancer. No rash. PSYCHIATRIC: Denies current depression or suicidal thoughts. Has anxiety. ENDOCRINE: Denies current thyroid disorders. Denies any blood sugar glucose intolerance. HEME/LYMPHATIC: Denies any lumps and bumps around the neck. No recent deep alyssa ous thrombosis. ALLERGY/IMMUNOLOGY: No immunoglobulin therapy. No immune deficiencies. BREAST: Denies current breast lumps, pain or nipple discharge. PHYSICAL EXAM: VITALS: Reviewed CONSTITUTIONAL: Well developed and in no acute distress. EYES: Conjuctivae without sclera icterus. Extraocular movements grossly intact. HEAD, EARS, NOSE, THROAT: Moist buccal mucosa. Head is atraumatic, normoce phalic. Hears conversational speech. No nasal drainage. NECK: Supple. No JV distention. No thyroidomegaly. RESPIRATORY: Non-labored respirations and equal bilateral excursions. No gross wheezes. CARDIOVASCULAR: Regular rate and rhythm. Extremities without moderate edema. Palpable 2+ radial pulses. ABDOMEN: No peritonitis. MUSCULOSKELETAL: No clubbing, cyanosis, or edema. SKIN: Warm and well perfused with good skin turgor. NEUROLOGIC: Cranial nerves II through XII grossly intact. No focal or lateralizing signs. PSYCH: Appropriate affect. Alert and oriented to person, place and time. Displays appropriate insight. CLINCAL LABS: Reviewed. WBC normal 6.2. Hemoglobin low 8.8 to 8.2. BUN and creatinine elevated 85 and 4.92 on admission. IMAGING: Independently reviewed CT of the abdomen and pelvis with over 8 cm mass involving the hepatic flexure to proximal transverse colon. Multiple lesions in the liver identified questionable for metastatic disease. Mass or tumor along the base of the bladder also identified. This is my independent interpretation. RADIOLOGY: Report reviewed of CT abdomen and pelvis with hydroureter along the right side. 11 cm colonic mass along the right upper abdomen. A large prostate almost 5 cm. Acute hemorrhage of the colonic mass identified. ASSESSMENT: 1. Right colon mass/hepatic flexure tumor 2. Bladder mass 3. Anemia PLAN: 1. On computed tomography scan, he has new lesion of the colon with possibility of metastatic disease, open colectomy described with possible ostomy creation as hemorrhagic lesion found. 2. Elevated tumor markers including CEA levels obtained. 3. Patient reports no prior medical management or workup. Recommend cardiac risk assessment. Echo has been ordered including 12-lead EKG. 4. Iron panel advised. Will need type and screen including iron infusion may be of benefit pending iron studies. 5. With bladder mass and a large prostate, urology following. 6. Regular diet with nothing by mouth after midnight reviewed. 7. Benefits and risks of surgical intervention thoroughly discussed. All questions were addressed. ADVANCE DIRECTIVE: Patient reports he has one that he has started. Thank you for this kind consultation. Surgical - Exam Vital Signs Temp Pulse Resp BP Pulse Ox 98.8 F 70 18 169/93 99 10/16/20 17:39 10/16/20 17:39 10/16/20 17:39 10/16/20 17:39 10/16/20 17:39 Results - Labs 10/17/20 05:32 10/17/20 12:10 Abnormal Lab Results - Last 24 Hours (Table) 10/16/20 10/16/20 10/16/20 Range/Units 18:44 18:44 18:44 Hgb 8.8 L (13.0-17.5) gm/dL Hct 27.8 L (39.0-53.0) % MCV 62.0 L (80.0-100.0) fL MCH 19.5 L (25.0-35.0) pg MCHC (31.0-37.0) g/dL RDW 17.3 H (11.5-15.5) % Chloride 108 H (98-107) mmol/L Carbon Dioxide 16 L (22-30) mmol/L BUN 85 H (9-20) mg/dL Creatinine 4.92 H (0.66-1.25) mg/dL Est GFR (CKD-EPI)AfAm (60.0-200.0) Est GFR (CKD-EPI)NonAf (60.0-200.0) BUN/Creatinine Ratio (12.00-20.00) Ratio Glucose (70-110) mg/dL Calcium (8.7-10.3) mg/dL Total Bilirubin (0.3-1.2) mg/dL AST (14-35) U/L Albumin (3.80-4.90) g/dL Albumin/Globulin Ratio (1.60-3.17) g/dL Amylase 125 H (30-110) U/L Urine Protein Trace H (Negative) Urine Blood Large H (Negative) Urine RBC 9 H (0-5) /hpf 10/17/20 10/17/20 10/17/20 Range/Units 05:32 05:32 12:10 Hgb 8.2 L (13.0-17.5) gm/dL Hct 27.4 L (39.0-53.0) % MCV 62.9 L (80.0-100.0) fL MCH 18.9 L (25.0-35.0) pg MCHC 30.1 L (31.0-37.0) g/dL RDW 17.6 H (11.5-15.5) % Chloride 112 H 113 H (98-107) mmol/L Carbon Dioxide 17.4 L 19 L (22-30) mmol/L BUN 90.0 H 73 H (9-20) mg/dL Creatinine 4.1 H 3.83 H (0.66-1.25) mg/dL Est GFR (CKD-EPI)AfAm 16.4 L (60.0-200.0) Est GFR (CKD-EPI)NonAf 14.2 L (60.0-200.0) BUN/Creatinine Ratio 21.95 H (12.00-20.00) Ratio Glucose 143 H 113 H (70-110) mg/dL Calcium 8.6 L (8.7-10.3) mg/dL Total Bilirubin 0.2 L (0.3-1.2) mg/dL AST 12 L (14-35) U/L Albumin 3.60 L (3.80-4.90) g/dL Albumin/Globulin Ratio 1.33 L (1.60-3.17) g/dL Amylase (30-110) U/L Urine Protein (Negative) Urine Blood (Negative) Urine RBC (0-5) /hpf Diabetes panel 10/16/20 10/17/20 10/17/20 Range/Units 18:44 05:32 12:10 Sodium 137 139 138 (137-145) mmol/L Potassium 5.1 5.0 4.6 (3.5-5.1) mmol/L Chloride 108 H 112 H 113 H (98-107) mmol/L Carbon Dioxide 16 L 17.4 L 19 L (22-30) mmol/L BUN 85 H 90.0 H 73 H (9-20) mg/dL Creatinine 4.92 H 4.1 H 3.83 H (0.66-1.25) mg/dL Glucose 97 143 H 113 H (74-99) mg/dL Calcium 9.4 8.6 L 8.4 (8.4-10.2) mg/dL AST 23 12 L (17-59) U/L ALT 14 11 (4-49) U/L Alkaline Phosphatase 87 78 (38-126) U/L Total Protein 7.0 6.3 (6.3-8.2) g/dL Albumin 3.9 3.60 L (3.5-5.0) g/dL Calcium panel 10/16/20 10/17/20 10/17/20 Range/Units 18:44 05:32 12:10 Calcium 9.4 8.6 L 8.4 (8.4-10.2) mg/dL Albumin 3.9 3.60 L (3.5-5.0) g/dL Pituitary panel 10/16/20 10/17/20 10/17/20 Range/Units 18:44 05:32 12:10 Sodium 137 139 138 (137-145) mmol/L Potassium 5.1 5.0 4.6 (3.5-5.1) mmol/L Chloride 108 H 112 H 113 H (98-107) mmol/L Carbon Dioxide 16 L 17.4 L 19 L (22-30) mmol/L BUN 85 H 90.0 H 73 H (9-20) mg/dL Creatinine 4.92 H 4.1 H 3.83 H (0.66-1.25) mg/dL Glucose 97 143 H 113 H (74-99) mg/dL Calcium 9.4 8.6 L 8.4 (8.4-10.2) mg/dL Adrenal panel 10/16/20 10/17/20 10/17/20 Range/Units 18:44 05:32 12:10 Sodium 137 139 138 (137-145) mmol/L Potassium 5.1 5.0 4.6 (3.5-5.1) mmol/L Chloride 108 H 112 H 113 H (98-107) mmol/L Carbon Dioxide 16 L 17.4 L 19 L (22-30) mmol/L BUN 85 H 90.0 H 73 H (9-20) mg/dL Creatinine 4.92 H 4.1 H 3.83 H (0.66-1.25) mg/dL Glucose 97 143 H 113 H (74-99) mg/dL Calcium 9.4 8.6 L 8.4 (8.4-10.2) mg/dL Total Bilirubin 0.2 0.2 L (0.2-1.3) mg/dL AST 23 12 L (17-59) U/L ALT 14 11 (4-49) U/L Alkaline Phosphatase 87 78 (38-126) U/L Total Protein 7.0 6.3 (6.3-8.2) g/dL Albumin 3.9 3.60 L (3.5-5.0) g/dL Assessment and Plan (1) Anemia Current Visit: Yes Status: Acute Code(s): D64.9 - ANEMIA, UNSPECIFIED SNOMED Code(s): 405797994 (2) Nonadministration of surgical and medical care Current Visit: Yes Status: Acute Code(s): Y66 - NONADMINISTRATION OF SURGICAL AND MEDICAL CARE SNOMED Code(s): 510101655 (3) Acute renal failure Current Visit: Yes Status: Acute Code(s): N17.9 - ACUTE KIDNEY FAILURE, UNSPECIFIED SNOMED Code(s): 52708395 (4) Bladder mass Current Visit: Yes Status: Acute Code(s): N32.89 - OTHER SPECIFIED DISORDERS OF BLADDER SNOMED Code(s): 487452727 (5) Colonic mass Current Visit: Yes Status: Acute Code(s): K63.89 - OTHER SPECIFIED DISEASES OF INTESTINE SNOMED Code(s): 483075163
[2020-10-17] MEDS: LORazepam 0.5 MG TAB PO PRN ×2 (14:18→21:48)
[2020-10-17] MEDS: FAMOTIDINE 20 MG TAB PO PRN (14:18)
[2020-10-17] MEDS: LACTATED RINGERS 1,000 ML IV SCH (16:51)
[2020-10-17] MEDS: SODIUM CHLORIDE 0.9% 1,000 ML IV SCH (21:48)
--- NOTE | 2020-10-18 00:54 | P.CONS ---
History of Present Illness - Reason for Consult Consult date: 10/17/20 Colon mass, Prostate mass, hydronephrosis - History of Present Illness the patient is a 65-year-old white male, was not seen a doctor for several years. The patient states that he was in his usual state of health until about 2-3 weeks ago. At that time he developed some cramping pain in the right abdomen, that was associated with difficulty in urinating. There also appeared to be some exacerbation with eating and bowel movements. Patient noted that he will have to strain.The pain became progressively more severe and persistent. He noted some black stools, as well as decrease in appetite. He lost about 10 pounds over the last past 2-3 weeks. [facility] and was apparently transferred to [facility]. However he left AMA as he was in today not satisfied with the care and came into the ER here. He had a CT of the abdomen and pelvis that showed a large mass, 11 cm plus associated with the right colon, involving the cecum and the hepatic flexure with possibly some associated perilesional hemorrhage. In addition he was noted to have a large wound of the prostate with masslike projection into the base of the bladder. Bilateral hydronephrosis, greater on the left compared to the right was noted. Patient was also noted to be in renal failure with creatinine greater than 4. He was therefore admitted for further management. He denied any prior history of malignancy. Last colonoscopy was at age 39. He Is not aware if he has ever had a PSA. Review of Systems Constitutional: Reports weakness, Reports weight loss Eyes: denies blurred vision, denies pain Ears: deny: decreased hearing, ear discharge, earache, tinnitus Ears, nose, mouth and throat: Denies headache, Denies sore throat Cardiovascular: Denies chest pain, Denies shortness of breath Respiratory: Denies cough Gastrointestinal: Reports abdominal pain, Reports change in bowel habits Genitourinary: Reports as per HPI, Reports urinary hesitancy Musculoskeletal: Denies myalgias Integumentary: Denies pruritus, Denies rash Neurological: Denies numbness, Denies weakness Psychiatric: Denies anxiety, Denies depression Endocrine: Reports fatigue, Reports weight change Hematologic/Lymphatic: Reports as per HPI Past Medical History Past Medical History: GERD/Reflux, Hypertension History of Any Multi-Drug Resistant Organisms: None Reported Past Surgical History: Hernia Repair Past Anesthesia/Blood Transfusion Reactions: No Reported Reaction Past Psychological History: Anxiety Smoking Status: Never smoker Past Alcohol Use History: None Reported Past Drug Use History: Marijuana Medications and Allergies Home Medications Medication Instructions Recorded Confirmed Type Famotidine [Pepcid AC] 10 mg PO DAILY PRN 10/16/20 10/16/20 History Allergies Allergy/AdvReac Type Severity Reaction Status Date / Time meperidine [From Demerol] Allergy head felt Verified 10/16/20 20:04 big Physical Exam Vitals: Vital Signs Temp Pulse Pulse Resp BP BP Pulse Ox 10/17/20 12:06 98.5 F 61 16 172/71 98 10/17/20 06:20 18 10/17/20 04:49 98.5 F 70 18 175/87 97 10/16/20 23:50 97.9 F 55 L 16 176/85 97 10/16/20 23:36 139/76 10/16/20 23:00 98.1 F 68 14 139/80 97 10/16/20 22:22 73 14 155/99 97 Intake and Output 10/17/20 10/17/20 10/17/20 06:59 14:59 22:59 Intake Total 600 Output Total 1100 1000 1000 Balance -1100 -1000 -400 Intake: Intake, IV Titration 600 Amount Sodium Chloride 0.9% 1, 600 000 ml @ 50 mls/hr IV . Q20H [facility] Rx#:[id number] Output: Urine 1100 1000 1000 Uretheral (Estrada) 1000 1000 Other: Voiding Method Indwelling Catheter Indwelling Catheter - Constitutional General appearance: no acute distress - EENT Eyes: EOMI, PERRLA ENT: hearing grossly normal, normal oropharynx - Neck Neck: no lymphadenopathy Thyroid: bilateral: normal size - Respiratory Respiratory: bilateral: CTA - Cardiovascular Rhythm: regular Heart sounds: normal: S1, S2 - Gastrointestinal General gastrointestinal: normal bowel sounds, soft Localized gastrointestinal: mass: RUQ (large indistinct mass occupying the right upper two thirds of the abdomen, mildly tender) - Integumentary Integumentary: normal - Neurologic Neurologic: CNII-XII intact - Musculoskeletal Musculoskeletal: generalized weakness, strength equal bilaterally - Psychiatric Psychiatric: A&O x's 3, intact judgment & insight Results CBC & Chem 7: 10/17/20 05:32 10/17/20 12:10 Labs: Abnormal Lab Results - Last 24 Hours (Table) 10/16/20 10/16/20 10/17/20 Range/Units 18:44 18:44 05:32 Hgb 8.2 L (13.0-17.5) gm/dL Hct 27.4 L (39.0-53.0) % MCV 62.9 L (80.0-100.0) fL MCH 18.9 L (25.0-35.0) pg MCHC 30.1 L (31.0-37.0) g/dL RDW 17.6 H (11.5-15.5) % Chloride 108 H (98-107) mmol/L Carbon Dioxide 16 L (22-30) mmol/L BUN 85 H (9-20) mg/dL Creatinine 4.92 H (0.66-1.25) mg/dL Est GFR (CKD-EPI)AfAm (60.0-200.0) Est GFR (CKD-EPI)NonAf (60.0-200.0) BUN/Creatinine Ratio (12.00-20.00) Ratio Glucose (70-110) mg/dL Calcium (8.7-10.3) mg/dL Total Bilirubin (0.3-1.2) mg/dL AST (14-35) U/L Albumin (3.80-4.90) g/dL Albumin/Globulin Ratio (1.60-3.17) g/dL Amylase 125 H (30-110) U/L Urine Protein Trace H (Negative) Urine Blood Large H (Negative) Urine RBC 9 H (0-5) /hpf 10/17/20 10/17/20 Range/Units 05:32 12:10 Hgb (13.0-17.5) gm/dL Hct (39.0-53.0) % MCV (80.0-100.0) fL MCH (25.0-35.0) pg MCHC (31.0-37.0) g/dL RDW (11.5-15.5) % Chloride 112 H 113 H (98-107) mmol/L Carbon Dioxide 17.4 L 19 L (22-30) mmol/L BUN 90.0 H 73 H (9-20) mg/dL Creatinine 4.1 H 3.83 H (0.66-1.25) mg/dL Est GFR (CKD-EPI)AfAm 16.4 L (60.0-200.0) Est GFR (CKD-EPI)NonAf 14.2 L (60.0-200.0) BUN/Creatinine Ratio 21.95 H (12.00-20.00) Ratio Glucose 143 H 113 H (70-110) mg/dL Calcium 8.6 L (8.7-10.3) mg/dL Total Bilirubin 0.2 L (0.3-1.2) mg/dL AST 12 L (14-35) U/L Albumin 3.60 L (3.80-4.90) g/dL Albumin/Globulin Ratio 1.33 L (1.60-3.17) g/dL Amylase (30-110) U/L Urine Protein (Negative) Urine Blood (Negative) Urine RBC (0-5) /hpf CT scan - abdomen: report reviewed CT scan - pelvis: report reviewed Assessment and Plan (1) Colonic mass Narrative/Plan: patient's imaging results and implications were discussed in detail with him. Clinical picture is highly suspicious for right-sided colon cancer. - Management recommendations for guidelines discussed with the patient. He was advised that typically if there was no evidence of metastatic disease on CT of the abdomen and pelvis, surgery would be the first line of treatment. However if metastatic disease were present, then surgery would be preferably avoided unless there was obstruction or uncontrolled bleeding. - And CT of the abdomen and pelvis does not show any obvious metastatic disease. However this was a noncontrast study, as the patient's creatinine was elevated. I my assessment the patient doesn't appear to be having obstruction or uncontrolled bleeding. Consult has been placed. If surgery is comfortable with the same, it would be reasonable to perform a contrast study first (once the patient's creatinine hopefully improves with placement of the Estrada catheter) prior to making a surgical decision. -Patient was advised that if he is a surgical candidate, then the need for any additional treatment would be determined by the pathologic stage. Current Visit: Yes Status: Acute Code(s): K63.89 - OTHER SPECIFIED DISEASES OF INTESTINE SNOMED Code(s): 840926131 (2) Bladder mass Narrative/Plan: based on the CAT scan this is more likely to be prostate enlargement involving the base of the bladder. This is also most likely the cause of the bilateral hydronephrosis, and not the colonic mass, since the colon mass is present on the right side only and the uterus appears to be dilated even distal to the mass. - Patient has had a Estrada placed, with drainage of clear urine. This will ho pefully help to improve his creatinine. Check PSA and bone scan. Urology consult has been requested Current Visit: Yes Status: Acute Code(s): N32.89 - OTHER SPECIFIED DISORDERS OF BLADDER SNOMED Code(s): 019400855 (3) Anemia Narrative/Plan: based on the patient's presentation this is likely due to blood loss and/or renal insufficiency. Iron studies will be ordered. hemoglobin is still in a safe range. Transfuse to keep above 7 Current Visit: Yes Status: Acute Code(s): D64.9 - ANEMIA, UNSPECIFIED SNOMED Code(s): 736204107
[2020-10-18 05:03] LABS: Anisocytosis Slight; Basophils % (A) 1 %; Eosinophils # (A) 0.1 k/uL (0-0.7); Eosinophils % (A) 2 %; HCT 24.2 % (39.0-53.0); HGB 7.7 gm/dL (13.0-17.5); Hypochromasia Marked; Lymphocytes # (A) 0.9 k/uL (1.0-4.8); Lymphocytes % (A) 16 %; MCH 19.7 pg (25.0-35.0); MCHC 31.8 g/dL (31.0-37.0); MCV 61.8 fL (80.0-100.0); Mean Platelet Volume 7.7; Microcytosis Marked; Monocytes # (A) 0.5 k/uL (0-1.0); Monocytes % (A) 8 %; Neutrophils # (A) 4.1 k/uL (1.3-7.7); Neutrophils % (A) 71 %; Platelet Count 330 k/uL (150-450); RBC 3.92 m/uL (4.30-5.90); RDW 17.7 % (11.5-15.5); WBC 5.8 k/uL (3.8-10.6)
[2020-10-18] MEDS ORDERED: Antibiotics per Pharmacy 1 EACH MISC MISCELLANE PRN (06:23)
[2020-10-18] MEDS ORDERED: HEPARIN SODIUM,PORCINE/PF 5,000 UNIT/0.5 ML SYRINGE SQ PRN (06:23)
[2020-10-18] MEDS ORDERED: metroNIDAZOLE-NS PMX 500 MG in SALINE 100 100ML.BAG IVPB PRN (07:00)
[2020-10-18] MEDS ORDERED: ACETAMINOPHEN TAB 500 MG TAB PO PRN (07:00)
[2020-10-18] MEDS ORDERED: ALVIMOPAN 12 MG CAPSULE PO PRN (07:00)
[2020-10-18] MEDS: TAMSULOSIN 0.4 MG CAP.ER.24H PO SCH (08:44)
[2020-10-18] MEDS: FINASTERIDE 5 MG TAB PO SCH (08:44)
[2020-10-18] MEDS: amLODIPine 5 MG TAB PO SCH ×2 (09:01→21:23)
[2020-10-18] MEDS: METOPROLOL TARTRATE 12.5 MG TAB PO SCH ×2 (09:01→21:23)
[2020-10-18] MEDS: LORazepam 0.5 MG TAB PO PRN ×3 (09:03→21:39)
[2020-10-18 09:41] LABS: % Iron Saturation 2.05 (15.00-50.00); African American GFR (CKD) 22.2 (60.0-200.0); Anion Gap 6.6 mmol/L (4.00-12.00); BUN/Creat Ratio 22.81 Ratio (12.00-20.00); Calcium 7.9 mg/dL (8.7-10.3); Carbon Dioxide 19.4 mmol/L (21.6-31.8); Magnesium 1.6 mg/dL (1.5-2.4); Non-African American GFR(CKD) 19.1 (60.0-200.0); Potassium 4.3 mmol/L (3.5-5.5)
[2020-10-18 09:54] LABS: Ferritin 22.2 ng/mL (22.0-322.0); PSA Annual Screen 4.2 ng/mL (0.0-4.0)
[2020-10-18] MEDS ORDERED: hydrALAZINE HCL 20 MG/ML 1 ML VIAL IVP PRN (12:40)
--- NOTE | 2020-10-18 12:40 | P.CRDCN ---
History of Present Illness History of present illness: HISTORY OF PRESENTING ILLNESS This is a pleasant 65-year-old male past medical history significant for hypertension. He does not follow with a disability benefits specialist. We have been asked to see in consultation for cardiac clearance. Patient presents emergency department with complaints of abdominal pain and difficulty urinating. He states that he initially presented to [facility] and was transferred his second hospital. He was not happy with the care there and left AMA percent to [facility] emergency room. Patient states that 2 weeks ago he developed a right-sided cramping abdominal discomfort with radiation down to his groin. He also has had difficulty urinating and this having to strain more. Also reports poor appetite with 10-15 pound un-intentional weight loss. CT abdomen and pelvis without contrast revealed a large irregular mass involving the ascending colon at the hepatic flexure along with bilateral hydronephrosis with left renal atrophy with a mass in the urinary bladder, possibly arising from the prostate. Estrada catheter was inserted. Urology consulted. Surgery is consulted for possible surgery on 10/18/2020. Patient denies any cardiac history. He has never seen a disability benefits specialist. He is never undergone a stress test or echocardiogram. He states he does have a history of hypertension and was on medication however stopped taking this medication on his own. He denies history of coronary artery disease, NE, diabetes, stroke. He denies family history of cardiac disease. He is a non/never smoker. He has used marijuana. He denies alcohol use. Denies illicit drug use. DIAGNOSTICS EKG reveals sinus rhythm, heart rate 73, premature atrial complexes, T-wave inversions in anterior lateral leads. LVH. Prolonged QT 489 ms Echocardiogram revealed an EF of 50-55%, RV is mildly enlarged, LA severely dilated, trace aortic regurgitation, mild to moderate aortic valve sclerosis, mild aortic stenosis, mild mitral regurgitation, trace tricuspid regurgitation, mild pulmonary hypertension with an RVSP of 43 mmHg Laboratory reviewed, WBC 6.2, hemoglobin 8.2, platelets 423, sodium 139, potassium 5.0, chloride 112, carbon dioxide 17.4, BUN 90, serum creatinine 4.1 Current home medications include Pepcid 10 mg when necessary REVIEW OF SYSTEMS At the time of my exam: CONSTITUTIONAL: Denies fever or chills. +weight loss CARDIOVASCULAR: Denies chest pain, shortness of breath, orthopnea, PND or palpitations. RESPIRATORY: Denies cough. GASTROINTESTINAL: +abdominal pain Denies diarrhea, constipation, nausea or vomiting. : Positive urinary retention MUSCULOSKELETAL: Denies myalgias. NEUROLOGIC: Denies numbness, tingling, headacbe or weakness. ENDOCRINE: Denies fatigue, weight change, polydipsia or polyurina. GENITOURINARY: Denies burning, hematuria or urgency with micturation. HEMATOLOGIC: Anemia PHYSICAL EXAMINATION Blood pressure 172/71 heart rate 61 afebrile and maintaining oxygen saturation 98% on room air CONSTITUTIONAL: No apparent distress. HEENT: Head is normocephalic. Pupils are equal, round. Sclerae anicteric. Mucous membranes of the mouth are moist. No JVD. No carotid bruit. CHEST EXAMINATION: Lungs are clear to auscultation. No chest wall tenderness is noted on palpation or with deep breathing. HEART EXAMINATION: Regular rate and rhythm. S1, S2 heard. Systolic murmur noted at right sternal border ABDOMEN: Soft, nontender. Positive bowel sounds. EXTREMITIES: 2+ peripheral pulses, no lower extremity edema and no calf tenderness. NEUROLOGIC EXAMINATION: Patient is awake, alert and oriented x3. ASSESSMENT Newly diagnosed colonic mass Newly diagnosed bladder mass, hydronephrosis Abnormal EKG Acute Kidney Injury Hypertension Anemia PLAN Continue amlodipine, Patient cannot have MEME/ARB due to renal function Start metoprolol tartrate 12.5mg BID From a cardiology perspective, patient is at high risk for surgery. At this time surgery has been placed on hold. Echocardiogram completed and reviewed. We will perform a Lexiscan stress test on Wednesday, prior to cardiac clearance for surgery Further recommendations based on clinical course Nurse Practitioner note has been reviewed, I agree with a documented findings and plan of care. Patient was seen and examined. Past Medical History Past Medical History: GERD/Reflux, Hypertension History of Any Multi-Drug Resistant Organisms: None Reported Past Surgical History: Hernia Repair Past Anesthesia/Blood Transfusion Reactions: No Reported Reaction Past Psychological History: Anxiety Smoking Status: Never smoker Past Alcohol Use History: None Reported Past Drug Use History: Marijuana Medications and Allergies Home Medications Medication Instructions Recorded Confirmed Type Famotidine [Pepcid AC] 10 mg PO DAILY PRN 10/16/20 10/16/20 History Allergies Allergy/AdvReac Type Severity Reaction Status Date / Time meperidine [From Demerol] Allergy head felt Verified 10/16/20 20:04 big hydromorphone [From Dilaudid] AdvReac Mild Nausea Verified 10/18/20 01:44 Physical Exam Vitals: Vital Signs Temp Pulse Pulse Resp BP BP Pulse Ox 10/17/20 12:06 98.5 F 61 16 172/71 98 10/17/20 06:20 18 10/17/20 04:49 98.5 F 70 18 175/87 97 10/16/20 23:50 97.9 F 55 L 16 176/85 97 10/16/20 23:36 139/76 10/16/20 23:00 98.1 F 68 14 139/80 97 10/16/20 22:22 73 14 155/99 97 10/16/20 17:39 98.8 F 70 18 169/93 99 Intake and Output 10/16/20 10/17/20 10/17/20 22:59 06:59 14:59 Output Total 700 1100 Balance -700 -1100 Output: Urine 700 1100 Uretheral (Estrada) 700 Other: Voiding Method Indwelling Catheter Indwelling Catheter Weight 78.471 kg Results 10/18/20 04:48 10/18/20 04:48 Cardiac Enzymes 10/16/20 10/17/20 Range/Units 18:44 05:32 AST 23 12 L (17-59) U/L Coagulation 10/16/20 Range/Units 18:44 PT 10.9 (9.0-12.0) sec APTT 22.8 (22.0-30.0) sec CBC 10/16/20 10/17/20 Range/Units 18:44 05:32 WBC 7.4 6.2 (3.8-10.6) k/uL RBC 4.49 4.35 (4.30-5.90) m/uL Hgb 8.8 L 8.2 L (13.0-17.5) gm/dL Hct 27.8 L 27.4 L (39.0-53.0) % Plt Count 409 423 (150-450) k/uL Comprehensive Metabolic Panel 10/16/20 10/17/20 Range/Units 18:44 05:32 Sodium 137 139 (137-145) mmol/L Potassium 5.1 5.0 (3.5-5.1) mmol/L Chloride 108 H 112 H (98-107) mmol/L Carbon Dioxide 16 L 17.4 L (22-30) mmol/L BUN 85 H 90.0 H (9-20) mg/dL Creatinine 4.92 H 4.1 H (0.66-1.25) mg/dL Glucose 97 143 H (74-99) mg/dL Calcium 9.4 8.6 L (8.4-10.2) mg/dL AST 23 12 L (17-59) U/L ALT 14 11 (4-49) U/L Alkaline Phosphatase 87 78 (38-126) U/L Total Protein 7.0 6.3 (6.3-8.2) g/dL Albumin 3.9 3.60 L (3.5-5.0) g/dL Current Medications Generic Name Dose Route Start Last Admin Trade Name Freq PRN Reason Stop Dose Admin Acetaminophen 650 mg 10/16/20 20:56 Acetaminophen Tab 325 Mg Tab PO Q6HR PRN Mild Pain or Fever > 100.5 Finasteride 5 mg 10/17/20 09:00 10/17/20 08:46 Finasteride 5 Mg Tab PO 5 mg DAILY DONG Administration Hydromorphone HCl 0.5 mg 10/16/20 20:56 Hydromorphone 0.5 Mg/0.5 Ml Syringe IVP Q3HR PRN Moderate Pain Hydromorphone HCl 1 mg 10/16/20 20:56 10/16/20 21:55 Hydromorphone 1 Mg/Ml 1 Ml Syringe IVP 1 mg Q3HR PRN Administration Severe Pain Sodium Chloride 1,000 mls @ 50 mls/hr 10/16/20 21:00 10/16/20 21:57 Saline 0.9% IV 50 mls/hr .Q20H DONG Administration Lorazepam 0.5 mg 10/16/20 20:56 10/17/20 05:26 Lorazepam 2 Mg/Ml Inj IV 0.5 mg Q6HR PRN Administration Anxiety Naloxone HCl 0.2 mg 10/16/20 20:56 Naloxone 0.4 Mg/Ml 1 Ml Vial IV Q2M PRN Opioid Reversal Tamsulosin HCl 0.8 mg 10/17/20 08:30 10/17/20 08:46 Tamsulosin 0.4 Mg Cap.Er.24h PO 0.8 mg [id number] DONG Administration Intake and Output 10/16/20 10/17/20 10/17/20 22:59 06:59 14:59 Output Total 700 1100 Balance -700 -1100 Output: Urine 700 1100 Uretheral (Estrada) 700 Other: Voiding Method Indwelling Catheter Indwelling Catheter Weight 78.471 kg 10/17/20 05:32 10/17/20 05:32
--- NOTE | 2020-10-18 12:43 | P.NPCON ---
History of Present Illness - Reason for Consult acute renal failure - History of Present Illness Reason for consultation: Acute kidney injury History of present illness: Patient is a 65-year-old female seen in renal consultation for acute kidney injury. Patient's creatinine on admission was 4.92 and is down to 3.2 today. Patient was recently diagnosed with colon cancer. CAT scan also showed bilateral hydronephrosis and he's being followed by urology. Currently is a Estrada catheter for the hydronephrosis and the urinary retention. Urine output is good. No vomiting. Doesn't loose bowel movements. Denies any prior history of kidney disease. Denies family history of kidney disease. Denies use of nonsteroidals. No fever or chills. No chest pain or shortness of breath. No edema. Denies any gross hematuria. He is currently maintained on IV fluids. Vital signs are stable. General: The patient appeared well nourished and normally developed. HEENT: Head exam is unremarkable. LUNGS: Breath sounds decreased. HEART: Rate and Rhythm are regular. ABDOMEN: Soft, no distention. EXTREMITITES: No edema. Past Medical History Past Medical History: GERD/Reflux, Hypertension History of Any Multi-Drug Resistant Organisms: None Reported Past Surgical History: Hernia Repair Past Anesthesia/Blood Transfusion Reactions: No Reported Reaction Past Psychological History: Anxiety Smoking Status: Never smoker Past Alcohol Use History: None Reported Past Drug Use History: Marijuana Medications and Allergies Home Medications Medication Instructions Recorded Confirmed Type Famotidine [Pepcid AC] 10 mg PO DAILY PRN 10/16/20 10/16/20 History Allergies Allergy/AdvReac Type Severity Reaction Status Date / Time meperidine [From Demerol] Allergy head felt Verified 10/16/20 20:04 big hydromorphone [From Dilaudid] AdvReac Mild Nausea Verified 10/18/20 01:44 Physical Exam Vitals: Vital Signs Temp Pulse Resp BP Pulse Ox 10/18/20 04:57 98.9 F 69 16 169/85 96 10/17/20 19:15 98.2 F 58 L 16 164/81 96 Intake and Output 10/17/20 10/18/20 10/18/20 22:59 06:59 14:59 Intake Total 600 600 Output Total 1000 2950 Balance -400 -2350 Intake: Intake, IV Titration 600 600 Amount Sodium Chloride 0.9% 1, 600 600 000 ml @ 50 mls/hr IV . Q20H [facility] Rx#:[id number] Output: Urine 1000 2950 Uretheral (Estrada) 1000 1200 Other: Voiding Method Indwelling Catheter Indwelling Catheter Results - Lab Results Most recent lab results Calcium 7.9 mg/dL (8.7-10.3) L 10/18/20 04:48 Magnesium 1.6 mg/dL (1.5-2.4) 10/18/20 04:48 10/18/20 04:48 10/18/20 04:48 Assessment and Plan Plan: Assessment: 1. Acute kidney injury secondary to obstructive uropathy and urinary retention. Creatinine was 4.921 admission and is down to 3.2 today. Unknown baseline renal function. 2. Recently diagnosed colon mass. 3. Metabolic acidosis secondary to acute kidney injury and IVFs. 4. Anemia. Severe iron deficiency noted. 5. Benign hypertension. Plan: Maintain IV fluids. Add IV iron. Add oral sodium bicarb. Maintain Estrada catheter per urology recommendations. Continue to monitor renal function and urine output. Increase amlodipine dose to 5 mg twice a day. Thank you for the consultation. I will continue to follow the patient with you during his hospital stay.
--- NOTE | 2020-10-18 13:06 | P.PN ---
<Leidy Stafford - Last Filed: 10/18/20 12:56> Subjective Progress Note Date: 10/18/20 CHIEF COMPLAINT: Abdominal pain HISTORY OF PRESENT ILLNESS: Surgical service is following in regards to patient's colon mass. Patient is lying in bed comfortably. Pain is controlled. Denies any nausea or vomiting. Patient seen by cardiology they're planning a stress test on Wednesday. Patient seen by oncology and appreciate their recommendations. At this time we are holding off on surgery. Continue to monitor patient's kidney function. Creatinine is trending down. Urine output is good. Patient is afebrile. WBC is 5.8 hemoglobin 7.7 platelets 3:30 sodium 138 potassium 4.3 creatinine down to 3.2 CEA 1.5 AST 3.3 and PSA 4.2 PHYSICAL EXAM: VITAL SIGNS: Reviewed GENERAL: Well-developed in no acute distress. HEENT: No sclera icterus. Extraocular movements grossly intact. Moist buccal mucosa. Head is atraumatic, normocephalic. Hears conversational speech. No nasal drainage. NECK: Supple without lymphadenopathy. CHEST: Non-labored respirations and equal bilateral excursions. CARDIOVASCULAR: Palpable 2+ radial pulses. ABDOMEN: Soft. Nondistended. MUSCULOSKELETAL: No clubbing or cyanosis. NEUROLOGIC: No focal or lateralizing signs. Cranial nerves II through XII grossly intact. PSYCH: Appropriate affect. Alert and oriented to person, place and time. SKIN: Well perfused. Good skin turgor. ASSESSMENT: 1. Right-sided abdominal pain 2. Colon mass involving the ascending colon and hepatic flexure of the colon and cecum 3. Possible bladder mass 4. Bilateral hydronephrosis 5. Acute kidney injury due to obstructive uropathy 6. Anemia PLAN: -Start patient on regular diet -We'll hold off on surgery at this time -Appreciate oncology recommendations and agree with proceeding with a computed tomography scan with contrast when patient's creatinine improves -Nephrology consult was regarding patient's acute kidney injury -Patient scheduled for stress test on Wednesday by cardiology -Continue Estrada catheter per urology -Patient can be discharged from a surgical standpoint and have further workup completed outpatient when medically cleared Physician Supervisor Residential note has been reviewed by physician. Signing provider agrees with the documented findings, assessment, and plan of care. Objective - Vital Signs Vital signs: Vital Signs Temp 98.9 F 10/18/20 04:57 Pulse 69 10/18/20 04:57 Resp 16 10/18/20 04:57 BP 169/85 10/18/20 04:57 Pulse Ox 96 10/18/20 04:57 Intake & Output 10/17/20 10/18/20 10/18/20 18:59 06:59 18:59 Intake Total 600 600 Output Total 1999 2950 Balance -1400 -2350 Intake: Intake, IV Titration 600 600 Amount Sodium Chloride 0.9% 1, 600 600 000 ml @ 50 mls/hr IV . [facility]H [facility] Rx[facility][id number] Output: Urine 1999 2950 Uretheral (Estrada) 1999 1200 Other: Voiding Method Indwelling Catheter Indwelling Catheter Indwelling Catheter - Labs CBC & Chem 7: 10/18/20 04:48 10/18/20 04:48 Labs: Abnormal Lab Results - Last 24 Hours (Table) 10/18/20 10/18/20 Range/Units 04:48 04:48 RBC 3.92 L (4.30-5.90) m/uL Hgb 7.7 L (13.0-17.5) gm/dL Hct 24.2 L (39.0-53.0) % MCV 61.8 L (80.0-100.0) fL MCH 19.7 L (25.0-35.0) pg RDW 17.7 H (11.5-15.5) % Lymphocytes # 0.9 L (1.0-4.8) k/uL Chloride 112 H (96-109) mmol/L Carbon Dioxide 19.4 L (21.6-31.8) mmol/L BUN 73.0 H (9.0-27.0) mg/dL Creatinine 3.2 H (0.6-1.5) mg/dL Est GFR (CKD-EPI)AfAm 22.2 L (60.0-200.0) Est GFR (CKD-EPI)NonAf 19.1 L (60.0-200.0) BUN/Creatinine Ratio 22.81 H (12.00-20.00) Ratio Calcium 7.9 L (8.7-10.3) mg/dL Iron 6 L (65-175) ug/dL % Saturation 2.05 L (15.00-50.00) PSA Screen 4.2 H (0.0-4.0) ng/mL <Deanna Pinzon N - Last Filed: 10/18/20 21:38> Subjective As above. Patient seen and evaluated with above. CHIEF COMPLAINT: Colon mass HISTORY OF PRESENT ILLNESS: The patient is a 65 year old male admitted to the hospital with right-sided abdominal pain. CT consistent with both colon mass including bladder mass. Patient denies any moderate abdominal pain today. Recommendations of oncology, including additional workup signs of metastatic disease. Additionally, discussion with cardiology recommended a stress test. REVIEW OF ORGAN SYSTEMS: No fevers or chills. No nausea or vomiting. PHYSICAL EXAM: VITALS: Reviewed CONSTITUTIONAL: Well developed and in no acute distress. EYES: Conjuctivae without sclera icterus. Extraocular movements grossly intact. HEAD, EARS, NOSE, THROAT: Moist buccal mucosa. Head is atraumatic, normocephalic. Hears conversational speech. No nasal drainage. RESPIRATORY: Non-labored respirations and equal bilateral excursions. No gross wheezes. CARDIOVASCULAR: Regular rate and rhythm. Extremities without moderate edema. Palpable 2+ radial pulses. ABDOMEN: No peritonitis. : Estrada present and clear. MUSCULOSKELETAL: No clubbing, cyanosis, or edema. SKIN: Warm and well perfused with good skin turgor. NEUROLOGIC: Cranial nerves II through XII grossly intact. No focal or lateralizing signs. PSYCH: Appropriate affect. Alert and oriented to person, place and time. Displays appropriate insight. CLINCAL LABS: Reviewed. Tumor markers within normal limits with exception of elevated prostate, PSA. Hemoglobin dropped 7.7. No signs of bleeding. ASSESSMENT: 1. Right colon mass/hepatic flexure tumor 2. Bladder mass 3. Anemia PLAN: 1. Upon discussion with cardiology including per oncology recommendation, surgery on hold. 2. Overall, patient demonstrates no overt signs of bleeding. 3. Agree with additional workup which may also be done as outpatient as he stable. 4. We'll defer surgical intervention pending additional workup. Objective - Vital Signs Vital signs: Vital Signs Temp 97.8 F 10/18/20 19:22 Pulse 59 L 10/18/20 19:22 Resp 16 10/18/20 19:22 BP 148/80 10/18/20 19:22 Pulse Ox 98 10/18/20 19:22 Intake & Output 10/18/20 10/18/2021 06:59 18:59 06:59 Intake Total 600 Output Total 2950 1500 Balance -2350 -1500 Intake: Intake, IV Titration 600 Amount Sodium Chloride 0.9% 1, 600 000 ml @ 50 mls/hr IV . Q20H [facility] Rx#:[id number] Output: Urine 2950 1500 Uretheral (Estrada) 1200 Other: Voiding Method Indwelling Catheter Indwelling Catheter - Labs CBC & Chem 7: 10/18/20 04:48 10/18/20 04:48 Labs: Abnormal Lab Results - Last 24 Hours (Table) 10/18/20 10/18/20 Range/Units 04:48 04:48 RBC 3.92 L (4.30-5.90) m/uL Hgb 7.7 L (13.0-17.5) gm/dL Hct 24.2 L (39.0-53.0) % MCV 61.8 L (80.0-100.0) fL MCH 19.7 L (25.0-35.0) pg RDW 17.7 H (11.5-15.5) % Lymphocytes # 0.9 L (1.0-4.8) k/uL Chloride 112 H (96-109) mmol/L Carbon Dioxide 19.4 L (21.6-31.8) mmol/L BUN 73.0 H (9.0-27.0) mg/dL Creatinine 3.2 H (0.6-1.5) mg/dL Est GFR (CKD-EPI)AfAm 22.2 L (60.0-200.0) Est GFR (CKD-EPI)NonAf 19.1 L (60.0-200.0) BUN/Creatinine Ratio 22.81 H (12.00-20.00) Ratio Calcium 7.9 L (8.7-10.3) mg/dL Iron 6 L (65-175) ug/dL % Saturation 2.05 L (15.00-50.00) PSA Screen 4.2 H (0.0-4.0) ng/mL Assessment and Plan (1) Anemia Current Visit: Yes Status: Acute Code(s): D64.9 - ANEMIA, UNSPECIFIED SNOMED Code(s): 525087208 (2) Nonadministration of surgical and medical care Current Visit: Yes Status: Acute Code(s): Y66 - NONADMINISTRATION OF SURGICAL AND MEDICAL CARE SNOMED Code(s): 930342853 (3) Acute renal failure Current Visit: Yes Status: Acute Code(s): N17.9 - ACUTE KIDNEY FAILURE, UNSPECIFIED SNOMED Code(s): 54441390 (4) Bladder mass Current Visit: Yes Status: Acute Code(s): N32.89 - OTHER SPECIFIED DISORDERS OF BLADDER SNOMED Code(s): 172028619 (5) Colonic mass Current Visit: Yes Status: Acute Code(s): K63.89 - OTHER SPECIFIED DISEASES OF INTESTINE SNOMED Code(s): 018834315
[2020-10-18] MEDS: SODIUM FERRIC GLUCONAT-SUCROSE 125 MG in SODIUM CHLORIDE 0.9% 100 ML IVPB SCH (13:26)
[2020-10-18] MEDS: SODIUM BICARBONATE TAB 650 MG TAB PO SCH ×2 (13:26→21:23)
--- NOTE | 2020-10-18 14:21 | P.PN ---
Subjective Progress Note Date: 10/18/20 No new complaints today. Kidney function ipmroving. Plan for CT A/P with IV contrast when Cr is improved, then discussion of surgical options. Objective - Vital Signs Vital signs: Vital Signs Temp 98.9 F 10/18/20 04:57 Pulse 69 10/18/20 04:57 Resp 16 10/18/20 04:57 BP 169/85 10/18/20 04:57 Pulse Ox 96 10/18/20 04:57 Intake & Output 10/17/20 10/18/20 10/18/20 18:59 06:59 18:59 Intake Total 600 600 Output Total 1999 2950 Balance -1400 -2350 Intake: Intake, IV Titration 600 600 Amount Sodium Chloride 0.9% 1, 600 600 000 ml @ 50 mls/hr IV . Q20H [facility] Rx#:[id number] Output: Urine 19990 Uretheral (Serrano) 1999 1200 Other: Voiding Method Indwelling Catheter Indwelling Catheter Indwelling Catheter - Exam Gen: awake, alert HEENT: normocephalic, atraumatic, good hearing acuity, moist mucous membranes Resp: good air exchange, breathing comfortably with no accessory muscle use CVS: good distal perfusion x 4, GI: soft, NTTP, ND : no SPT, no CVAT, serrano catheter not present MSK: no pitting edema, no clubbing Neuro: non-focal, moving all extremities Psych: cooperative, euthymic mood - Labs CBC & Chem 7: 10/18/20 04:48 10/18/20 04:48 Labs: Abnormal Lab Results - Last 24 Hours (Table) 10/18/20 10/18/20 Range/Units 04:48 04:48 RBC 3.92 L (4.30-5.90) m/uL Hgb 7.7 L (13.0-17.5) gm/dL Hct 24.2 L (39.0-53.0) % MCV 61.8 L (80.0-100.0) fL MCH 19.7 L (25.0-35.0) pg RDW 17.7 H (11.5-15.5) % Lymphocytes # 0.9 L (1.0-4.8) k/uL Chloride 112 H (96-109) mmol/L Carbon Dioxide 19.4 L (21.6-31.8) mmol/L BUN 73.0 H (9.0-27.0) mg/dL Creatinine 3.2 H (0.6-1.5) mg/dL Est GFR (CKD-EPI)AfAm 22.2 L (60.0-200.0) Est GFR (CKD-EPI)NonAf 19.1 L (60.0-200.0) BUN/Creatinine Ratio 22.81 H (12.00-20.00) Ratio Calcium 7.9 L (8.7-10.3) mg/dL Iron 6 L (65-175) ug/dL % Saturation 2.05 L (15.00-50.00) PSA Screen 4.2 H (0.0-4.0) ng/mL Assessment and Plan Assessment: Lower GI Bleeding Colonic Mass Bladder Mass -Continue to monitor CBC daily -Surgery consulted -Transfuse as needed for Hgb > 7 -CLD --> regular diet -IV fluids -Oncology consulted -CT A/P with IV contrast when Cr < 2.0 Acute Kidney injury Obstructive Uropathy -Monitor BMP daily, improving Cr -Serrano catheter inserted, patient passing urine -Urology consulted DVT prophylaxis -IPCDs CODE STATUS: Full Code Anticipated discharge place: Home
[2020-10-18] MEDS: ACETAMINOPHEN TAB 325 MG TAB PO PRN (14:59)
[2020-10-18] MEDS: LACTATED RINGERS 1,000 ML IV SCH (17:50)
--- NOTE | 2020-10-18 18:12 | P.PN ---
Progress Note - Text Progress Note Date: 10/18/20 The patient appeared comfortable when seen this morning. His serum creatinine level has decreased to 3.2. The Estrada catheter is draining clear yellow urine. He is currently taking tamsulosin. The Estrada catheter shall remain in place for approximately 1 week to allow detrusor function to return.
[2020-10-18] MEDS: FAMOTIDINE 20 MG TAB PO PRN (19:40)
[2020-10-18] MEDS ORDERED: ALPRAZolam 0.5 MG TAB PO STA (21:30)
--- NOTE | 2020-10-19 01:11 | P.PN ---
Subjective Progress Note Date: 10/18/20 the patient reports improvement in right-sided abdominal pain. For catheter remains in situ with drainage of clear yellow urine. Urine output is good. No nausea, vomiting, or blood in the stool or urine. Objective - Vital Signs Vital signs: Vital Signs Temp 97.8 F 10/18/20 19:22 Pulse 59 L 10/18/20 19:22 Resp 16 10/18/20 19:22 BP 148/80 10/18/20 19:22 Pulse Ox 98 10/18/20 19:22 Intake & Output 10/18/20 10/18/20 10/19/20 06:59 18:59 06:59 Intake Total 600 Output Total 2950 1500 Balance -2350 -1500 Intake: Intake, IV Titration 600 Amount Sodium Chloride 0.9% 1, 600 000 ml @ 50 mls/hr IV . Q20H [facility] Rx#:[id number] Output: Urine 2950 1500 Uretheral (Estrada) 1200 Other: Voiding Method Indwelling Catheter Indwelling Catheter Indwelling Catheter - Constitutional General appearance: Present: no acute distress - EENT Eyes: Present: EOMI ENT: Present: hearing grossly normal, normal oropharynx - Respiratory Respiratory: bilateral: CTA - Cardiovascular Rhythm: regular Heart sounds: normal: S1, S2 - Gastrointestinal General gastrointestinal: Present: soft Localized gastrointestinal: mass: RUQ - Integumentary Integumentary: Present: normal - Neurologic Neurologic: Present: CNII-XII intact - Musculoskeletal Musculoskeletal: Present: generalized weakness, strength equal bilaterally - Labs CBC & Chem 7: 10/18/20 04:48 10/18/20 04:48 Labs: Abnormal Lab Results - Last 24 Hours (Table) 10/17/20 10/18/20 10/18/20 Range/Units 12:14 04:48 04:48 RBC 3.92 L (4.30-5.90) m/uL Hgb 7.7 L (13.0-17.5) gm/dL Hct 24.2 L (39.0-53.0) % MCV 61.8 L (80.0-100.0) fL MCH 19.7 L (25.0-35.0) pg RDW 17.7 H (11.5-15.5) % Lymphocytes # 0.9 L (1.0-4.8) k/uL Chloride 112 H (96-109) mmol/L Carbon Dioxide 19.4 L (21.6-31.8) mmol/L BUN 73.0 H (9.0-27.0) mg/dL Creatinine 3.2 H (0.6-1.5) mg/dL Est GFR (CKD-EPI)AfAm 22.2 L (60.0-200.0) Est GFR (CKD-EPI)NonAf 19.1 L (60.0-200.0) BUN/Creatinine Ratio 22.81 H (12.00-20.00) Ratio Calcium 7.9 L (8.7-10.3) mg/dL Iron 6 L (65-175) ug/dL % Saturation 2.05 L (15.00-50.00) PSA Screen 4.2 H (0.0-4.0) ng/mL Total PSA 5.8 H (<=4.0) ng/mL Assessment and Plan Assessment: from the oncology standpoint, it was recommended in the initial consult that i t would be preferable to avoid surgery for the colonic mass, unless there was an emergent reason, so as to allow proper staging with a contrast scan. For that the patient's renal function has to improve. This is improving since placement of the Estrada catheter with creatinine down to 3.1 versus 4.9. - Clinically, at this time the patient doesn't appear to have any reasons for emergent surgery. He has no signs or symptoms of obstruction. There is no evidence of uncontrolled bleeding though he likely has had some blood loss from, and around the tumor. - Surgery note reviewed and there decision to hold off on surgery at this time greatly appreciated. - The rationale for the above was discussed in detail with the patient, and his family. Their questions were answered in detail. They expressed understanding of the rationale. - Order CT scan of the chest abdomen and pelvis with contrast as well as creatinine is sufficiently improved. If this is negative for evidence of metastatic disease, plan for surgical removal. Monitor for any evidence of developing obstruction and/or uncontrolled bleeding, in which case the patient will require surgery as soon as possible (1) Colonic mass Current Visit: Yes Status: Acute Code(s): K63.89 - OTHER SPECIFIED DISEASES OF INTESTINE SNOMED Code(s): 306694315 (2) Bladder mass Narrative/Plan: the patient's PSA was only mildly elevated. Therefore benign prostatic hypertrophy as well as early-stage prostate cancer are both in the differential. Urology is following. Defer to them as to type and timing of additional workup. The patient has responded well to poorly catheter placement with good urine output, and improvement in creatinine. Current Visit: Yes Status: Acute Code(s): N32.89 - OTHER SPECIFIED DISORDERS OF BLADDER SNOMED Code(s): 452091996 (3) Anemia Current Visit: Yes Status: Acute Code(s): D64.9 - ANEMIA, UNSPECIFIED SNOMED Code(s): 084812286
[2020-10-19] MEDS: SODIUM CHLORIDE 0.9% 1,000 ML IV SCH ×2 (01:48→11:34)
[2020-10-19 07:44] LABS: African American GFR (CKD) 29 (>60 ml/min/1.73 sqM); Anion Gap 5 mmol/L; Blood Urea Nitrogen 54 mg/dL (9-20); Calcium 8.7 mg/dL (8.4-10.2); Carbon Dioxide 22 mmol/L (22-30); Chloride 114 mmol/L (98-107); Glucose 101 mg/dL (74-99); Magnesium 1.6 mg/dL (1.6-2.3); Non-African American GFR(CKD) 25 (>60 ml/min/1.73 sqM); Potassium 4.5 mmol/L (3.5-5.1); Sodium 141 mmol/L (137-145)
[2020-10-19] MEDS: amLODIPine 5 MG TAB PO SCH ×2 (08:01→20:56)
[2020-10-19] MEDS: TAMSULOSIN 0.4 MG CAP.ER.24H PO SCH (08:01)
[2020-10-19] MEDS: FINASTERIDE 5 MG TAB PO SCH (08:01)
[2020-10-19] MEDS: ACETAMINOPHEN TAB 325 MG TAB PO PRN ×2 (08:03→20:58)
[2020-10-19] MEDS: SODIUM BICARBONATE TAB 650 MG TAB PO SCH ×2 (08:04→20:55)
[2020-10-19] MEDS: METOPROLOL TARTRATE 12.5 MG TAB PO SCH ×2 (08:04→20:55)
[2020-10-19] MEDS: SODIUM FERRIC GLUCONAT-SUCROSE 125 MG in SODIUM CHLORIDE 0.9% 100 ML IVPB SCH (08:34)
--- NOTE | 2020-10-19 10:26 | P.PN ---
Subjective Patient is seen in follow for acute kidney injury. Renal function continues to improve. Nonoliguric. Has a Estrada catheter. Oral intake is good. No chest pain or shortness of breath. Vital signs are stable. General: The patient appeared well nourished and normally developed. HEENT: Head exam is unremarkable. Neck is without jugular venous distension. LUNGS: Breath sounds decreased. HEART: Rate and Rhythm are regular. ABDOMEN: Soft, no distention. EXTREMITITES: No edema. Objective - Vital Signs Vital signs: Vital Signs Temp 98.1 F 10/19/20 05:05 Pulse 72 10/19/20 05:05 Resp 16 10/19/20 05:05 BP 158/82 10/19/20 05:05 Pulse Ox 97 10/19/20 05:05 Intake & Output 10/18/20 10/19/20 10/19/20 18:59 06:59 18:59 Output Total 1500 1200 Balance -1500 -1200 Output: Urine 1500 1200 Other: Voiding Method Indwelling Catheter Indwelling Catheter - Labs CBC & Chem 7: 10/18/20 04:48 10/19/20 07:04 Labs: Abnormal Lab Results - Last 24 Hours (Table) 10/17/20 10/19/20 Range/Units 12:14 07:04 Chloride 114 H (98-107) mmol/L BUN 54 H (9-20) mg/dL Creatinine 2.53 H (0.66-1.25) mg/dL Glucose 101 H (74-99) mg/dL Total PSA 5.8 H (<=4.0) ng/mL Assessment and Plan Plan: Assessment: 1. Acute kidney injury secondary to obstructive uropathy and urinary retention. Creatinine was 4.92 on admission and is down to 2.53 today. Unknown baseline renal function. 2. Recently diagnosed colon mass. 3. Metabolic acidosis secondary to acute kidney injury and IVFs. Maintain on oral bicarb. Better. 4. Anemia. Severe iron deficiency noted. 5. Benign hypertension. 6. Hypomagnesemia from poor intake. Plan: Hep-Lock IV fluids. Maintain IV iron. Maintain Estrada catheter per urology recommendations. Continue to monitor renal function and urine output. Encourage oral intake. Add oral magnesium oxide
--- NOTE | 2020-10-19 11:18 | P.PN ---
Subjective Progress Note Date: 10/19/20 Principal diagnosis: Colon mass Patient having an echo done currently. Denies abdominal pain. 2 bowel movement yesterday nonbloody. Creatinine improved at 2.5. Objective - Vital Signs Vital signs: Vital Signs Temp 98.1 F 10/19/20 05:05 Pulse 72 10/19/20 05:05 Resp 16 10/19/20 05:05 BP 158/82 10/19/20 05:05 Pulse Ox 97 10/19/20 05:05 Intake & Output 10/18/20 10/19/20 10/19/20 18:59 06:59 18:59 Output Total 1500 1200 Balance -1500 -1200 Output: Urine 1500 1200 Other: Voiding Method Indwelling Catheter Indwelling Catheter - Exam Abdomen: Soft, mild distention, mild right-sided tenderness - Labs CBC & Chem 7: 10/18/20 04:48 10/19/20 07:04 Labs: Abnormal Lab Results - Last 24 Hours (Table) 10/17/20 10/19/20 Range/Units 12:14 07:04 Chloride 114 H (98-107) mmol/L BUN 54 H (9-20) mg/dL Creatinine 2.53 H (0.66-1.25) mg/dL Glucose 101 H (74-99) mg/dL Total PSA 5.8 H (<=4.0) ng/mL Assessment and Plan (1) Colonic mass Narrative/Plan: Patient doing fairly well. Creatinine seems to be improving. Await nephrology clearance for CT chest abdomen and pelvis with contrast. We'll follow. Current Visit: Yes Status: Acute Code(s): K63.89 - OTHER SPECIFIED DISEASES OF INTESTINE SNOMED Code(s): 106203843
[2020-10-19] MEDS: MAGNESIUM OXIDE 400 MG TAB PO SCH ×2 (11:33→20:55)
--- NOTE | 2020-10-19 11:57 | P.PN ---
Progress Note - Text Progress Note Date: 10/19/20 The Estrada catheter continues to drain clear yellow urine. The serum creatinine level has improved to 2.53 today. Patient is awaiting a CT scan of the abdomen and pelvis for further evaluation of his colonic mass.
--- NOTE | 2020-10-19 13:06 | ECHOF ---
Referral Reason:Irregular EKG MEASUREMENTS -------- HEIGHT: 175.3 cm WEIGHT: 78.5 kg BP: IVSd: 1.3 cm (0.6 - 1.1) LVIDd: 5.2 cm (3.9 - 5.3) LVPWd: 1.4 cm (0.6 - 1.1) IVSs: 1.5 cm LVIDs: 4.0 cm LVPWs: 2.0 cm LAESV Index (A-L): 50.19 ml/m Ao Diam: 3.3 cm (2.0 - 3.7) AV Cusp: 1.7 cm (1.5 - 2.6) LA Diam: 4.3 cm (2.7 - 3.8) MV EXCURSION: 18.742 mm (> 18.000) MV EF SLOPE: 43 mm/s (70 - 150) EPSS: 1.4 cm MV E Roby: 0.74 m/s MV DecT: 364 ms MV A Roby: 0.94 m/s MV E/A Ratio: 0.79 RAP: 5.00 mmHg RVSP: 35.72 mmHg FINDINGS -------- Sinus rhythm. This was a technically good study. The left ventricular size is normal. There is borderline concentric left ventricular hypertrophy. Overall left ventricular systolic function is low-normal with, an EF between 50 - 55 %. Echo don :Repeat echo for irregular EKG. The right ventricle is normal in size. LA is severely dilated >40 ml/m2 The right atrial size is normal. The aortic valve is trileaflet, and appears structurally normal. No aortic stenosis or regurgitation. There is mild aortic valve sclerosis. Mild mitral regurgitation is present. Mild tricuspid regurgitation present. Right ventricular systolic pressure is normal at < 35 mmHg. There is no pulmonic regurgitation present. There is no pericardial effusion. CONCLUSIONS -------- 1. The left ventricular size is normal. 2. There is borderline concentric left ventricular hypertrophy. 3. Overall left ventricular systolic function is low-normal with, an EF between 50 - 55 %. 4. Echo don 10/18/20:Repeat echo for irregular EKG. 5. The right ventricle is normal in size. 6. LA is severely dilated >40 ml/m2 7. The right atrial size is normal. 8. The aortic valve is trileaflet, and appears structurally normal. No aortic stenosis or regurgitati on. 9. There is mild aortic valve sclerosis. 10. Mild mitral regurgitation is present. 11. Mild tricuspid regurgitation present. 12. There is no pulmonic regurgitation present. 13. There is no pericardial effusion. ROLL OFF DRIVER: Angelique Sweeney RDCS
--- NOTE | 2020-10-19 13:36 | P.PN ---
Subjective Progress Note Date: 10/19/20 No new complaints today. Cr improving. Pending CT A/P w contrast Objective - Vital Signs Vital signs: Vital Signs Temp 98.1 F 10/19/20 05:05 Pulse 72 10/19/20 05:05 Resp 16 10/19/20 05:05 BP 158/82 10/19/20 05:05 Pulse Ox 97 10/19/20 05:05 Intake & Output 10/18/20 10/19/20 10/19/20 18:59 06:59 18:59 Output Total 1500 1200 Balance -1500 -1200 Output: Urine 1500 1200 Other: Voiding Method Indwelling Catheter Indwelling Catheter Indwelling Catheter - Exam Gen: awake, alert HEENT: normocephalic, atraumatic, good hearing acuity, moist mucous membranes Resp: good air exchange, breathing comfortably with no accessory muscle use CVS: good distal perfusion x 4, GI: soft, NTTP, ND : no SPT, no CVAT, serrano catheter not present MSK: no pitting edema, no clubbing Neuro: non-focal, moving all extremities Psych: cooperative, euthymic mood - Labs CBC & Chem 7: 10/18/20 04:48 10/19/20 07:04 Labs: Abnormal Lab Results - Last 24 Hours (Table) 10/17/20 10/19/20 Range/Units 12:14 07:04 Chloride 114 H (98-107) mmol/L BUN 54 H (9-20) mg/dL Creatinine 2.53 H (0.66-1.25) mg/dL Glucose 101 H (74-99) mg/dL Total PSA 5.8 H (<=4.0) ng/mL Assessment and Plan Assessment: Lower GI Bleeding Colonic Mass Bladder Mass -Continue to monitor CBC daily -Surgery consulted -Transfuse as needed for Hgb > 7 -CLD --> regular diet -IV fluids -Oncology consulted -CT A/P with IV contrast when Cr < 2.0 Acute Kidney injury Obstructive Uropathy -Monitor BMP daily, improving Cr -Serrano catheter inserted, patient passing urine -Urology consulted DVT prophylaxis -IPCDs CODE STATUS: Full Code Anticipated discharge place: Home
--- NOTE | 2020-10-19 13:56 | CONS ---
CONSULTATION CHIEF COMPLAINT: Preop cardiac evaluation. HISTORY: Seymour is a 65-year-old gentleman with no significant past medical history is admitted to hospital with abdominal discomfort and underwent evaluation and was found to have colonic mass for which he was to undergo colon surgery, and Cardiology has been consulted for the same. At the time of my evaluation this morning patient appears comfortable at rest. He is ambulating without any issues. An EKG on him shows sinus rhythm with changes of left ventricular hypertrophy. He had an echocardiogram that showed normal LV systolic function with mild aortic stenosis and concentric left ventricular hypertrophy with mild pulmonary hypertension. The patient does not have any chest pain, difficulty in breathing, leg edema, PND or orthopnea. There is no prior history of coronary artery disease or congestive heart failure. PAST MEDICAL HISTORY: Negative for hypertension, diabetes or dyslipidemia. MEDICATIONS: None. ALLERGIES: To Demerol and Dilaudid. FAMILY HISTORY: Negative for premature coronary artery disease. SOCIAL HISTORY: Negative for smoking, EtOH abuse, or drug abuse. REVIEW OF SYSTEMS: HEENT is unremarkable. Cardiorespiratory as described above. Respiratory negative. GI as described above. Genitourinary negative. Allergy negative. Skin negative. Musculoskeletal significant for arthritis. Psychosocial negative. Endocrine negative. Constitutional and oncological negative. Rest of the system review is negative. EXAM: At rest heart rate is 72 beats per minute. Blood pressure is 158/80, respiratory rate is 16. There is no jugular venous distention. Chest exam reveals good air entry bilaterally. Heart exam reveals first and second heart sounds. Abdomen is soft. Extremities did not reveal any edema. Peripheral pulses are felt. LABS: Labs show BUN is elevated at 54, creatinine is 2.5. Hemoglobin is low at 7.7. ASSESSMENT: 1. Preop cardiac evaluation. 2. Hypertension. 3. Abnormal EKG. PLAN: I believe blood pressure will be better controlled as renal function improves. I do not see any contraindications for surgery under anesthesia at this time as the patient is not having ongoing chest pain heart failure. If we have more time than we can consider doing a Lexiscan on him as outpatient. MMODL / IJN: [id number] /
[2020-10-19] MEDS: LACTATED RINGERS 1,000 ML IV SCH (17:43)
[2020-10-19] MEDS: LORazepam 0.5 MG TAB PO PRN (20:58)
[2020-10-20 05:47] LABS: African American GFR (CKD) 31 (>60 ml/min/1.73 sqM); Anion Gap 5 mmol/L; Blood Urea Nitrogen 44 mg/dL (9-20); Calcium 8.5 mg/dL (8.4-10.2); Carbon Dioxide 24 mmol/L (22-30); Chloride 110 mmol/L (98-107); Glucose 101 mg/dL (74-99); Magnesium 1.6 mg/dL (1.6-2.3); Non-African American GFR(CKD) 27 (>60 ml/min/1.73 sqM); Potassium 4.1 mmol/L (3.5-5.1); Sodium 139 mmol/L (137-145)
[2020-10-20] MEDS: SODIUM BICARBONATE TAB 650 MG TAB PO SCH ×2 (07:56→23:06)
[2020-10-20] MEDS: TAMSULOSIN 0.4 MG CAP.ER.24H PO SCH (07:56)
[2020-10-20] MEDS: METOPROLOL TARTRATE 12.5 MG TAB PO SCH ×2 (07:57→23:05)
[2020-10-20] MEDS: amLODIPine 5 MG TAB PO SCH ×2 (07:57→23:05)
[2020-10-20] MEDS: MAGNESIUM OXIDE 400 MG TAB PO SCH ×2 (07:57→23:05)
[2020-10-20] MEDS: FINASTERIDE 5 MG TAB PO SCH (07:57)
[2020-10-20] MEDS: ACETAMINOPHEN TAB 325 MG TAB PO PRN ×2 (07:59→17:51)
[2020-10-20] MEDS: SODIUM FERRIC GLUCONAT-SUCROSE 125 MG in SODIUM CHLORIDE 0.9% 100 ML IVPB SCH (09:14)
--- NOTE | 2020-10-20 09:40 | P.PN ---
Subjective Progress Note Date: 10/20/20 Principal diagnosis: Colon mass Patient seems to be doing better today. He is ambulating in the room. Urinary function slightly improved. Urine is clear. He had 2 bowel movement yesterday. No bleeding. Tolerating regular diet. Objective - Vital Signs Vital signs: Vital Signs Temp 98.2 F 10/20/20 05:00 Pulse 57 L 10/20/20 05:00 Resp 16 10/20/20 05:00 BP 142/76 10/20/20 05:00 Pulse Ox 97 10/20/20 05:00 Intake & Output 10/19/20 10/20/20 10/20/20 18:59 06:59 18:59 Output Total 1400 1500 Balance -1400 -1500 Output: Urine 1400 1500 Other: Voiding Method Indwelling Catheter Indwelling Catheter # Voids 1 - Exam Abdomen: Soft, nondistended, mild right-sided tenderness - Labs CBC & Chem 7: 10/18/20 04:48 10/20/20 05:00 Labs: Abnormal Lab Results - Last 24 Hours (Table) 10/20/20 Range/Units 05:00 Chloride 110 H (98-107) mmol/L BUN 44 H (9-20) mg/dL Creatinine 2.40 H (0.66-1.25) mg/dL Glucose 101 H (74-99) mg/dL Assessment and Plan (1) Colonic mass Narrative/Plan: Patient doing better today. Continue regular diet. Monitor urinary function. Await CT chest abdomen and pelvis. Current Visit: Yes Status: Acute Code(s): K63.89 - OTHER SPECIFIED DISEASES OF INTESTINE SNOMED Code(s): 042747588
[2020-10-20 10:01] LABS: Anisocytosis Slight; Basophils # (A) 0.1 k/uL (0-0.2); Basophils % (A) 1 %; Eosinophils # (A) 0.4 k/uL (0-0.7); Eosinophils % (A) 6 %; HCT 24.9 % (39.0-53.0); HGB 7.7 gm/dL (13.0-17.5); Hypochromasia Marked; Lymphocytes # (A) 1.1 k/uL (1.0-4.8); Lymphocytes % (A) 17 %; MCH 19.7 pg (25.0-35.0); MCHC 30.8 g/dL (31.0-37.0); MCV 63.9 fL (80.0-100.0); Mean Platelet Volume 7.4; Microcytosis Marked; Monocytes # (A) 0.6 k/uL (0-1.0); Monocytes % (A) 9 %; Neutrophils # (A) 4.3 k/uL (1.3-7.7); Neutrophils % (A) 65 %; Platelet Count 353 k/uL (150-450); RBC 3.89 m/uL (4.30-5.90); RDW 18.8 % (11.5-15.5); WBC 6.7 k/uL (3.8-10.6)
--- NOTE | 2020-10-20 10:08 | P.PN ---
Subjective Patient is seen in follow for acute kidney injury. Renal function continues to improve. Nonoliguric. Has a Estrada catheter. Oral intake is good. No chest pain or shortness of breath. No changes overnight. Vital signs are stable. General: The patient appeared well nourished and normally developed. HEENT: Head exam is unremarkable. Neck is without jugular venous distension. LUNGS: Breath sounds decreased. HEART: Rate and Rhythm are regular. ABDOMEN: Soft, no distention. EXTREMITITES: No edema. Objective - Vital Signs Vital signs: Vital Signs Temp 98.2 F 10/20/20 05:00 Pulse 57 L 10/20/20 05:00 Resp 16 10/20/20 05:00 BP 142/76 10/20/20 05:00 Pulse Ox 97 10/20/20 05:00 Intake & Output 10/19/20 10/20/20 10/20/20 18:59 06:59 18:59 Output Total 1400 1500 Balance -1400 -1500 Output: Urine 1400 1500 Other: Voiding Method Indwelling Catheter Indwelling Catheter # Voids 1 - Labs CBC & Chem 7: 10/18/20 04:48 10/20/20 05:00 Labs: Abnormal Lab Results - Last 24 Hours (Table) 10/20/20 Range/Units 05:00 Chloride 110 H (98-107) mmol/L BUN 44 H (9-20) mg/dL Creatinine 2.40 H (0.66-1.25) mg/dL Glucose 101 H (74-99) mg/dL Assessment and Plan Plan: Assessment: 1. Acute kidney injury secondary to obstructive uropathy and urinary retention. Creatinine was 4.92 on admission and is down to 2.4 today. Unknown baseline renal function. 2. Recently diagnosed colon mass. Surgery following. CT pending. 3. Metabolic acidosis secondary to acute kidney injury and IVFs. Maintain on oral bicarb. Better. 4. Anemia. Severe iron deficiency noted. 5. Benign hypertension. 6. Hypomagnesemia from poor intake. Maintained on magnesium oxide. Plan: Remains off IV fluids. Maintain IV iron. Maintain Estrada catheter per urology recommendations. Continue to monitor renal function and urine output. Encourage oral intake.
--- NOTE | 2020-10-20 12:28 | P.PN ---
Subjective Progress Note Date: 10/20/20 No new complaints today Objective - Vital Signs Vital signs: Vital Signs Temp 98.2 F 10/20/20 05:00 Pulse 57 L 10/20/20 05:00 Resp 16 10/20/20 05:00 BP 142/76 10/20/20 05:00 Pulse Ox 97 10/20/20 05:00 Intake & Output 10/19/20 10/20/20 10/20/20 18:59 06:59 18:59 Output Total 1400 1500 Balance -1400 -1500 Output: Urine 1400 1500 Other: Voiding Method Indwelling Catheter Indwelling Catheter Indwelling Catheter # Voids 1 - Exam Gen: awake, alert HEENT: normocephalic, atraumatic, good hearing acuity, moist mucous membranes Resp: good air exchange, breathing comfortably with no accessory muscle use CVS: good distal perfusion x 4, GI: soft, NTTP, ND : no SPT, no CVAT, serrano catheter not present MSK: no pitting edema, no clubbing Neuro: non-focal, moving all extremities Psych: cooperative, euthymic mood - Labs CBC & Chem 7: 10/20/20 05:00 10/20/20 05:00 Labs: Abnormal Lab Results - Last 24 Hours (Table) 10/20/20 10/20/20 Range/Units 05:00 05:00 RBC 3.89 L (4.30-5.90) m/uL Hgb 7.7 L (13.0-17.5) gm/dL Hct 24.9 L (39.0-53.0) % MCV 63.9 L (80.0-100.0) fL MCH 19.7 L (25.0-35.0) pg MCHC 30.8 L (31.0-37.0) g/dL RDW 18.8 H (11.5-15.5) % Chloride 110 H (98-107) mmol/L BUN 44 H (9-20) mg/dL Creatinine 2.40 H (0.66-1.25) mg/dL Glucose 101 H (74-99) mg/dL Assessment and Plan Assessment: Lower GI Bleeding Colonic Mass Bladder Mass -Continue to monitor CBC daily -Surgery consulted -Transfuse as needed for Hgb > 7 -CLD --> regular diet -IV fluids -Oncology consulted -CT A/P with IV contrast when Cr < 2.0 Acute Kidney injury Obstructive Uropathy -Monitor BMP daily, improving Cr -Serrano catheter inserted, patient passing urine -Urology consulted DVT prophylaxis -IPCDs CODE STATUS: Full Code Anticipated discharge place: Home
--- NOTE | 2020-10-20 15:47 | P.PN ---
Subjective Progress Note Date: 10/20/20 UP in chair, anxious for discharge. Family at bedside. no new or acute complaints. We re-discussed the need of further imaging and then biopsy proven diagnosis. Objective - Vital Signs Vital signs: Vital Signs Temp 98.2 F 10/20/20 05:00 Pulse 57 L 10/20/20 05:00 Resp 16 10/20/20 05:00 BP 142/76 10/20/20 05:00 Pulse Ox 97 10/20/20 05:00 Intake & Output 10/19/20 10/20/20 10/20/20 18:59 06:59 18:59 Output Total 1400 1500 Balance -1400 -1500 Output: Urine 1400 1500 Other: Voiding Method Indwelling Catheter Indwelling Catheter # Voids 1 - Exam - Constitutional General appearance: Present: no acute distress - EENT Eyes: Present: EOMI ENT: Present: hearing grossly normal, normal oropharynx - Respiratory Respiratory: bilateral: CTA - Cardiovascular Rhythm: regular Heart sounds: normal: S1, S2 - Gastrointestinal General gastrointestinal: Present: soft Localized gastrointestinal: mass: RUQ - Integumentary Integumentary: Present: normal - Neurologic Neurologic: Present: CNII-XII intact - Musculoskeletal Musculoskeletal: Present: generalized weakness, strength equal bilaterally - Labs CBC & Chem 7: 10/20/20 05:00 10/20/20 05:00 Labs: Abnormal Lab Results - Last 24 Hours (Table) 10/20/20 Range/Units 05:00 Chloride 110 H (98-107) mmol/L BUN 44 H (9-20) mg/dL Creatinine 2.40 H (0.66-1.25) mg/dL Glucose 101 H (74-99) mg/dL Assessment and Plan Plan: Assessment and Plan (1) Colonic mass Current Visit: Yes Status: Acute Code(s): K63.89 - OTHER SPECIFIED DISEASES OF INTESTINE SNOMED Code(s): 186196997 (2) Bladder mass Narrative/Plan: - PSA was only mildly elevated. Therefore benign prostatic hypertrophy as well as early-stage prostate cancer are both in the differential. Urology is following. Defer to them as to type and timing of additional workup. - The patient has responded well to poorly catheter placement with good urine output, and improvement in creatinine. Current Visit: Yes Status: Acute Code(s): N32.89 - OTHER SPECIFIED DISORDERS OF BLADDER SNOMED Code(s): 503444326 (3) Anemia - COmponent of Iron Deficiency per labs, Parental Iron Ordered and infusing - Repeat CBC today and monitor daily Current Visit: Yes Status: Acute Code(s): D64.9 - ANEMIA, UNSPECIFIED SNOMED Code(s): 987019971 Urine is draining CLear, No complaints of pain, Renal function continues to trend down.
[2020-10-20] MEDS: LACTATED RINGERS 1,000 ML IV SCH (17:52)
[2020-10-21] MEDS ORDERED: REGADENOSON 0.4 MG/5 ML SYRINGE IV PRN (07:00)
[2020-10-21] MEDS ORDERED: CAFFEINE CITRATE 60 MG/3 ML VIAL IV PRN (07:00)
[2020-10-21] MEDS ORDERED: AMINOPHYLLINE 500 MG/20 ML VIAL IV PRN (07:00)
[2020-10-21 07:07] LABS: Anisocytosis Slight; Basophils % (A) 1 %; Eosinophils # (A) 0.3 k/uL (0-0.7); Eosinophils % (A) 5 %; HCT 26.4 % (39.0-53.0); HGB 8.1 gm/dL (13.0-17.5); Hypochromasia Marked; Lymphocytes # (A) 0.9 k/uL (1.0-4.8); Lymphocytes % (A) 14 %; MCH 19.4 pg (25.0-35.0); MCHC 30.9 g/dL (31.0-37.0); Mean Platelet Volume 6.8; Microcytosis Marked; Monocytes # (A) 0.5 k/uL (0-1.0); Monocytes % (A) 7 %; Neutrophils # (A) 4.8 k/uL (1.3-7.7); Neutrophils % (A) 71 %; Platelet Count 372 k/uL (150-450); RBC 4.19 m/uL (4.30-5.90); RDW 18.6 % (11.5-15.5); WBC 6.7 k/uL (3.8-10.6)
[2020-10-21 07:31] LABS: ALT 9 U/L (4-49); AST 17 U/L (17-59); African American GFR (CKD) 35 (>60 ml/min/1.73 sqM); Alkaline Phosphatase 68 U/L (38-126); Anion Gap 5 mmol/L; Blood Urea Nitrogen 37 mg/dL (9-20); Carbon Dioxide 25 mmol/L (22-30); Chloride 110 mmol/L (98-107); Globulin 2.9 g/dL; Glucose 100 mg/dL (74-99); Non-African American GFR(CKD) 30 (>60 ml/min/1.73 sqM); Potassium 4.5 mmol/L (3.5-5.1); Sodium 140 mmol/L (137-145); Total Bilirubin 0.1 mg/dL (0.2-1.3); Total Protein 5.9 g/dL (6.3-8.2)
[2020-10-21] MEDS: METOPROLOL TARTRATE 12.5 MG TAB PO SCH (07:57)
[2020-10-21] MEDS: FINASTERIDE 5 MG TAB PO SCH (07:58)
[2020-10-21] MEDS: SODIUM BICARBONATE TAB 650 MG TAB PO SCH (07:58)
[2020-10-21] MEDS: TAMSULOSIN 0.4 MG CAP.ER.24H PO SCH (07:58)
[2020-10-21] MEDS: amLODIPine 5 MG TAB PO SCH (07:58)
[2020-10-21] MEDS: MAGNESIUM OXIDE 400 MG TAB PO SCH (07:58)
[2020-10-21 08:03] VITALS: BP 144/85; PULSE 66; RESP 18; TEMP 98.1
[2020-10-21] MEDS: SODIUM FERRIC GLUCONAT-SUCROSE 125 MG in SODIUM CHLORIDE 0.9% 100 ML IVPB SCH (08:21)
[2020-10-21] MEDS: LORazepam 0.5 MG TAB PO PRN (08:24)
--- NOTE | 2020-10-21 13:22 | P.DS ---
Providers Date of admission: 10/16/20 20:57 Expected date of discharge: 10/21/20 Attending physician: Donna Kohli MD Consults: 10/16/20 21:00 Consult Physician Routine Consulting Provider: Brendan Saldaña Consult Reason/Comments: Colonic mass, bladder mass Do you want consulting provider notified?: Yes Consult Physician Routine Consulting Provider: Deanna Pinzon Consult Reason/Comments: Abdominal mass Do you want consulting provider notified?: Yes Consult Physician Urgent Consulting Provider: Jayro Gan Consult Reason/Comments: Bladder mass, obstruction Do you want consulting provider notified?: Yes 10/17/20 11:35 Consult Physician Urgent Consulting Provider: Ciaran Orlando Consult Reason/Comments: surgical clearance Do you want consulting provider notified?: Yes 10/18/20 06:25 Consult Physician Routine Consulting Provider: [facility] Consult Reason/Comments: Epidural Do you want consulting provider notified?: Yes 10/18/20 10:46 Consult Physician Routine Consulting Provider: Domo Olivas Consult Reason/Comments: BELTRAN Do you want consulting provider notified?: Yes Primary care physician: Stated None Hospital Course: Lower GI Bleeding Colonic Mass Bladder Mass Patient was admitted with Lower GI Bleeding, and was found to have a colonic mass on CT A/P without contrast. Oncology and general surgery consulted on the patient. Initial plan was to repeat CT A/P with contrast to ensure no metastasis, then to proceed with surgical removal of mass, however, due to ongoing kidney issues, patient was discharged with plan for outpatient follow up for continued management. Patient was started on iron for anemia from bleeding. Acute Kidney injury Obstructive Uropathy Patient was seen by urology and nephrology. Patient had serrano catheter placed for hydroureter bilaterally and BELTRAN. Patients kidney function improved daily, but was still at Creatining of 2.2 on day of discharge. Patient was started on tamsulosin and finasteride by urology as well as bicarb by nephrology. Discharged with serrano catheter in place with urology follow up. HTN Patient was started on amlodipine and metoprolol I spent 35 minutes coordinating this discharge. Assessment: Gen: awake, alert HEENT: normocephalic, atraumatic, good hearing acuity, moist mucous membranes Resp: good air exchange, breathing comfortably with no accessory muscle use CVS: good distal perfusion x 4, GI: soft, NTTP, ND : no SPT, no CVAT, serrano catheter not present MSK: no pitting edema, no clubbing Neuro: non-focal, moving all extremities Psych: cooperative, euthymic mood Patient Condition at Discharge: Stable Plan - Discharge Summary New Discharge Prescriptions: New Ferrous Gluconate 324 mg PO DAILY #30 tablet Tamsulosin [Flomax] 0.8 mg PO PC-BRKFST #30 cap.er.24h amLODIPine [Norvasc] 5 mg PO BID #60 tab Sodium Bicarbonate Tab 650 mg PO BID #60 tab Metoprolol Tartrate [Lopressor] 12.5 mg PO BID #60 tab Finasteride [Proscar] 5 mg PO DAILY #30 tab Continue Famotidine [Pepcid AC] 10 mg PO DAILY PRN PRN Reason: Heartburn Discharge Medication List Famotidine [Pepcid AC] 10 mg PO DAILY PRN 10/16/20 [History] Ferrous Gluconate 324 mg PO DAILY #30 tablet 10/21/20 [Rx] Finasteride [Proscar] 5 mg PO DAILY #30 tab 10/21/20 [Rx] Metoprolol Tartrate [Lopressor] 12.5 mg PO BID #60 tab 10/21/20 [Rx] Sodium Bicarbonate Tab 650 mg PO BID #60 tab 10/21/20 [Rx] Tamsulosin [Flomax] 0.8 mg PO PC-BRKFST #30 cap.er.24h 10/21/20 [Rx] amLODIPine [Norvasc] 5 mg PO BID #60 tab 10/21/20 [Rx] Follow up Appointment(s)/Referral(s): Jayro Gan MD [STAFF PHYSICIAN] - 2 Weeks (OFFICE WILL CALL YOU WITH APPOINTMENT DATE & TIME) Deanna Pinzon MD [STAFF PHYSICIAN] - 10/29/20 5:00 pm None,Stated [Primary Care Provider] - 1-2 days Rupesh Ugalde MD [STAFF PHYSICIAN] - 1 Week (OFFICE WILL CALL YOU WITH APPOINTMENT DATE & TIME) Patient Instructions/Handouts: Acute Kidney Injury (DC), Urinary Retention in Men (ED), Serrano Catheter Placement and Care (DC), Hydronephrosis (DC) Activity/Diet/Wound Care/Special Instructions: keep serrano catheter in at discharge, leg bag and education provided. Discharge Disposition: HOME SELF-CARE
--- NOTE | 2020-10-21 13:22 | P.PN ---
Subjective Progress Note Date: 10/21/20 CHIEF COMPLAINT: Abdominal pain HISTORY OF PRESENT ILLNESS: Surgical service is following in regards to gela bonds's colon mass. Patient is sitting in bedside chair. He denies any abdominal pain. He is tolerating diet. He has had no nausea or vomiting. He is having bowel movements. Patient would like to be discharged home and to complete workup outpatient. He refused stress test today because it made him very anxious. Afebrile. WBC 6.7 hemoglobin 8.1 platelets 372 creatinine to 2.19 he has Estrada catheter in place urine output adequate. PHYSICAL EXAM: VITAL SIGNS: Reviewed GENERAL: Well-developed in no acute distress. HEENT: No sclera icterus. Extraocular movements grossly intact. Moist buccal mucosa. Head is atraumatic, normocephalic. Hears conversational speech. No nasal drainage. NECK: Supple without lymphadenopathy. CHEST: Non-labored respirations and equal bilateral excursions. CARDIOVASCULAR: Palpable 2+ radial pulses. ABDOMEN: Soft. Nondistended. MUSCULOSKELETAL: No clubbing or cyanosis. NEUROLOGIC: No focal or lateralizing signs. Cranial nerves II through XII grossly intact. PSYCH: Appropriate affect. Alert and oriented to person, place and time. SKIN: Well perfused. Good skin turgor. ASSESSMENT: 1. Right-sided abdominal pain 2. Colon mass involving the ascending colon and hepatic flexure of the colon and cecum 3. Possible bladder mass 4. Bilateral hydronephrosis 5. Acute kidney injury due to obstructive uropathy 6. Anemia PLAN: -Patient can be discharge from surgical standpoint -Recommend surgical workup to be completed outpatient -Recommend repeat computed tomography scan abdomen and pelvis with contrast when patient's creatinine improves -Patient to continue to follow-up with urology and oncology -Patient following up with cardiology outpatient for stress test -We'll hold off on surgery at this time Physician Teacher'S Assistant note has been reviewed by physician. Signing provider agrees with the documented findings, assessment, and plan of care. Objective - Vital Signs Vital signs: Vital Signs Temp 98.1 F 10/21/20 08:01 Pulse 66 10/21/20 08:01 Resp 18 10/21/20 08:01 BP 144/85 10/21/20 08:01 Pulse Ox 98 10/21/20 08:01 Intake & Output 10/20/20 10/21/20 10/21/20 18:59 06:59 18:59 Intake Total 540 100 Output Total 1100 Balance 540 -1000 Intake: Oral 540 100 Output: Urine 1100 Uretheral (Estrada) 1100 Other: Voiding Method Indwelling Catheter Indwelling Catheter Indwelling Catheter # Voids 200 - Labs CBC & Chem 7: 10/21/20 06:25 10/21/20 06:25 Labs: Abnormal Lab Results - Last 24 Hours (Table) 10/21/20 10/21/20 Range/Units 06:25 06:25 RBC 4.19 L (4.30-5.90) m/uL Hgb 8.1 L (13.0-17.5) gm/dL Hct 26.4 L (39.0-53.0) % MCV 63.0 L (80.0-100.0) fL MCH 19.4 L (25.0-35.0) pg MCHC 30.9 L (31.0-37.0) g/dL RDW 18.6 H (11.5-15.5) % Lymphocytes # 0.9 L (1.0-4.8) k/uL Chloride 110 H (98-107) mmol/L BUN 37 H (9-20) mg/dL Creatinine 2.19 H (0.66-1.25) mg/dL Glucose 100 H (74-99) mg/dL Total Bilirubin 0.1 L (0.2-1.3) mg/dL Total Protein 5.9 L (6.3-8.2) g/dL Albumin 3.0 L (3.5-5.0) g/dL
--- NOTE | 2020-10-21 17:33 | PN ---
PROGRESS NOTE Patient is seen for followup for acute kidney injury. His renal function continues to improve. Serum creatinine is down to 2.1 today. PHYSICAL EXAMINATION: Blood pressure 150/74, heart rate 57 per minute. Patient is afebrile. Examination of the heart S1, S2. Examination of the lungs, bilateral breath sounds are heard. Abdomen is soft, nontender. Examination of lower extremities shows chronic skin changes, edema 1+ bilaterally. OIL DRILLING ENGINEER exam grossly intact. LAB: Show sodium 140, potassium 4.5, chloride 110, BUN 37, creatinine 2.19, hemoglobin 8.1 g/dL. ASSESSMENT: 1. Acute kidney injury associated with obstructive uropathy and urine retention currently with indwelling Estrada catheter with improving renal function. Continue with the Estrada catheter. Followup as outpatient. 2. Recently diagnosed colon mass, being followed by Surgery. 3. Metabolic acidosis associated with acute kidney injury. Maintained on oral sodium bicarb. 4. Benign hypertension. 5. Anemia with severe iron deficiency. 6. Hypomagnesemia status post replacement. PLAN: Repeat labs in a.m. As long as renal function continues to improve, we can proceed with CT with IV contrast with IV hydration. However, patient is reluctant at this time. MMODL / IJN: [id number] /
[2020-10-21] MEDS ORDERED: SODIUM CHLORIDE 0.9% 1,000 ML IV SCH (18:00)
== END 2020-10-21 14:18 | disposition home or self-care (01) | DRG 723 ==
LOC: EC 17:35 → 5NMEDONC 20:57
PROVIDERS: ADMIT Internal Medicine; ATTEND Internal Medicine
DX: C61 Malignant neoplasm of prostate (principal); N13.30 Unspecified hydronephrosis; K92.2 Gastrointestinal hemorrhage, unspecified; N17.9 Acute kidney failure, unspecified; N13.8 Other obstructive and reflux uropathy; C78.5 Secondary malignant neoplasm of large intestine and rectum; N13.1 Hydronephrosis with ureteral stricture, not elsewhere classified; E87.2 Acidosis; I10 Essential (primary) hypertension; R10.9 Unspecified abdominal pain; R63.0 Anorexia; R63.4 Abnormal weight loss; I35.0 Nonrheumatic aortic (valve) stenosis; I27.20 Pulmonary hypertension, unspecified; N32.9 Bladder disorder, unspecified; K21.9 Gastro-esophageal reflux disease without esophagitis; E83.42 Hypomagnesemia; N28.89 Other specified disorders of kidney and ureter; F41.9 Anxiety disorder, unspecified; R33.8 Other retention of urine; D50.9 Iron deficiency anemia, unspecified; R39.12 Poor urinary stream; N40.0 Benign prostatic hyperplasia without lower urinary tract symptoms; I49.1 Atrial premature depolarization; Z80.51 Family history of malignant neoplasm of kidney; Z88.5 Allergy status to narcotic agent; Z88.8 Allergy status to other drugs, medicaments and biological substances; Z87.19 Personal history of other diseases of the digestive system
CPT/HCPCS: 36415; 74176; 80048; 80053; 81001; 82105; 82150; 82378; 82728; 83540; 83550; 83605; 83690; 83735; 84153; 84154; 85025; 85027; 85610; 85730; 86850; 86900; 86901; 93005; 93306; 96361; 96374; 96375; 99285

== ENCOUNTER 2020-10-26 17:00 | Emergency (ER) | payer MEDICARE, OTHER ==
[2020-10-26 17:04] VITALS: BP 131/67; RESP 22; TEMP 98
[2020-10-26] MEDS ORDERED: BACITRACIN OINT 1 EACH PACKET TOPICAL ONE (17:52)
[2020-10-26 17:53] LABS: Anisocytosis Moderate; Basophils # (A) 0.1 k/uL (0-0.2); Basophils % (A) 1 %; Eosinophils # (A) 0.4 k/uL (0-0.7); Eosinophils % (A) 5 %; HCT 30.2 % (39.0-53.0); Hypochromasia Marked; Lymphocytes # (A) 1.5 k/uL (1.0-4.8); Lymphocytes % (A) 17 %; MCH 19.4 pg (25.0-35.0); MCHC 29.8 g/dL (31.0-37.0); Mean Platelet Volume 6.6; Microcytosis Marked; Monocytes # (A) 0.7 k/uL (0-1.0); Monocytes % (A) 8 %; Neutrophils # (A) 5.6 k/uL (1.3-7.7); Neutrophils % (A) 65 %; Platelet Count 485 k/uL (150-450); RBC 4.65 m/uL (4.30-5.90); RDW 20.7 % (11.5-15.5); WBC 8.6 k/uL (3.8-10.6)
[2020-10-26 18:07] LABS: Potassium 4.7 mmol/L (3.5-5.1)
[2020-10-26 18:08] LABS: Albumin 3.7 g/dL (3.5-5.0); Calcium 9.4 mg/dL (8.4-10.2); Total Bilirubin 0.2 mg/dL (0.2-1.3); Total Protein 6.9 g/dL (6.3-8.2)
--- NOTE | 2020-10-26 18:19 | ED ---
General Adult HPI - General Chief complaint: Recheck/Abnormal Lab/Rx Stated complaint: catheter problems Source: family, RN notes reviewed, old records reviewed Mode of arrival: ambulatory Limitations: no limitations - History of Present Illness Initial comments: 65-year-old well-appearing alert and oriented white male presents to the emergency room with his complaining of urinary catheter pain at the insertion site and not draining. Patient states that he was discharged on October 21 and has not had any drainage from the catheter since he left. Patient states that he is urinating around the catheter but nothing into the bag. He denies any fevers flank pain or abdominal pain. No nausea vomiting or diarrhea. He denies any hematuria. He states that the catheter has been pulling at his penis and is very sore. Catheter was placed for mass in his bladder which may have originated in his prostate in addition to a mass in his ascending colon. Patient states he has an appointment with urology and his surgeon on Wednesday. -: days(s) (5) Location: genitals (Penis) Radiation: non-radiation Severity scale (1-10): 9 Quality: burning, constant Consistency: constant Improves with: none Worsens with: movement (Palpation), other Associated Symptoms: denies other symptoms Treatments Prior to Arrival: none - Related Data Home Medications Medication Instructions Recorded Confirmed Famotidine [Pepcid AC] 10 mg PO DAILY PRN 10/16/20 10/16/20 Previous Rx's Medication Instructions Recorded Ferrous Gluconate 324 mg PO DAILY #30 tablet 10/21/20 Finasteride [Proscar] 5 mg PO DAILY #30 tab 10/21/20 Metoprolol Tartrate [Lopressor] 12.5 mg PO BID #60 tab 10/21/20 Sodium Bicarbonate Tab 650 mg PO BID #60 tab 10/21/20 Tamsulosin [Flomax] 0.8 mg PO PC-BRKFST #30 cap.er.24h 10/21/20 amLODIPine [Norvasc] 5 mg PO BID #60 tab 10/21/20 Allergies Allergy/AdvReac Type Severity Reaction Status Date / Time meperidine [From Demerol] Allergy head felt Verified 10/26/20 17:03 big hydromorphone [From Dilaudid] AdvReac Mild Nausea Verified 10/26/20 17:03 Review of Systems ROS Statement: Those systems with pertinent positive or pertinent negative responses have been documented in the HPI. ROS Other: All systems not noted in ROS Statement are negative. Past Medical History Past Medical History: GERD/Reflux, Hypertension History of Any Multi-Drug Resistant Organisms: None Reported Past Surgical History: Hernia Repair Past Anesthesia/Blood Transfusion Reactions: No Reported Reaction Past Psychological History: Anxiety Smoking Status: Never smoker Past Alcohol Use History: None Reported Past Drug Use History: Marijuana General Exam Limitations: no limitations General appearance: alert, in no apparent distress Head exam: Present: atraumatic, normocephalic, normal inspection Eye exam: Present: normal appearance, PERRL, EOMI. Absent: scleral icterus, conjunctival injection, periorbital swelling Pupils: Present: normal accommodation ENT exam: Present: normal exam, normal oropharynx, mucous membranes moist Neck exam: Present: normal inspection, full ROM. Absent: tenderness, meningismus, lymphadenopathy, thyromegaly Respiratory exam: Present: normal lung sounds bilaterally. Absent: respiratory distress, wheezes, rales, rhonchi, stridor, chest wall tenderness, accessory muscle use, decreased breath sounds, prolonged expiratory Cardiovascular Exam: Present: tachycardia. Absent: JVD GI/Abdominal exam: Present: soft, distended, normal bowel sounds. Absent: tenderness, guarding, rebound, rigid, mass exam: Present: urethral discharge (Erythema with clear exudate the urethral meatus), circumcision. Absent: testicular tenderness, scrotal swelling Extremities exam: Present: normal inspection, full ROM, normal capillary refill. Absent: tenderness, pedal edema, joint swelling, calf tenderness Back exam: Present: normal inspection, full ROM. Absent: tenderness, CVA tenderness (R), CVA tenderness (L), muscle spasm, paraspinal tenderness, vertebral tenderness Neurological exam: Present: alert, oriented X3, CN II-XII intact Psychiatric exam: Present: normal affect, normal mood Skin exam: Present: warm, dry, intact, normal color. Absent: rash, cyanosis, diaphoretic, erythema, petechiae, pallor, mottled Course Vital Signs 10/26/20 17:01 Temperature 98 F Pulse Rate 104 H Respiratory 22 Rate Blood Pressure 131/67 O2 Sat by Pulse 97 Oximetry Medical Decision Making - Medical Decision Making Estrada catheter bag was clamped upon patient's arrival. He had been urinating around the catheter site at the urethral meatus but not draining into the bag. Clamp was removed and the urine flow steph in color. Patient has been denying any fevers, nausea or vomiting. He denies any flank pain or abdominal pain. There is some erythema and exudate coming from the urethral meatus which appears to have related to catheter tugging. Bacetracin was placed to the site and the catheter secure tape was repositioned. WBC count is 8.6, hemoglobin and hematocrit is 9 and 30 respectively, BUN is 45 and creatinine is 2.41, no significant changes from October 21. Patient does have an appointment on Wednesday with urology and surgery. He'll be directed to continue his medications as previously prescribed return to the emergency room with any increased pain, fevers, hematuria, nausea vomiting. Spoke with Dr. Owens who recommended not treating urine with antibiotics, and discharging patient home. Patient is comfortable going home and returning with any complications. Case discussed with Dr. Ponce. - Lab Data Result diagrams: 10/26/20 17:45 10/26/20 17:45 Lab Results 10/26/20 10/26/20 10/26/20 Range/Units 17:45 17:45 18:07 WBC 8.6 (3.8-10.6) k/uL RBC 4.65 (4.30-5.90) m/uL Hgb 9.0 L (13.0-17.5) gm/dL Hct 30.2 L (39.0-53.0) % MCV 65.0 L (80.0-100.0) fL MCH 19.4 L (25.0-35.0) pg MCHC 29.8 L (31.0-37.0) g/dL RDW 20.7 H (11.5-15.5) % Plt Count 485 H (150-450) k/uL MPV 6.6 Neutrophils % 65 % Lymphocytes % 17 % Monocytes % 8 % Eosinophils % 5 % Basophils % 1 % Neutrophils # 5.6 (1.3-7.7) k/uL Lymphocytes # 1.5 (1.0-4.8) k/uL Monocytes # 0.7 (0-1.0) k/uL Eosinophils # 0.4 (0-0.7) k/uL Basophils # 0.1 (0-0.2) k/uL Hypochromasia Marked Anisocytosis Moderate Microcytosis Marked Sodium 139 (137-145) mmol/L Potassium 4.7 (3.5-5.1) mmol/L Chloride 104 (98-107) mmol/L Carbon Dioxide 25 (22-30) mmol/L Anion Gap 10 mmol/L BUN 45 H (9-20) mg/dL Creatinine 2.41 H (0.66-1.25) mg/dL Est GFR (CKD-EPI)AfAm 31 (>60 ml/min/1.73 sqM) Est GFR (CKD-EPI)NonAf 27 (>60 ml/min/1.73 sqM) Glucose 117 H (74-99) mg/dL Calcium 9.4 (8.4-10.2) mg/dL Total Bilirubin 0.2 (0.2-1.3) mg/dL AST 20 (17-59) U/L ALT 16 (4-49) U/L Alkaline Phosphatase 81 (38-126) U/L Total Protein 6.9 (6.3-8.2) g/dL Albumin 3.7 (3.5-5.0) g/dL Urine Color Yellow Urine Appearance Clear (Clear) Urine pH 5.5 (5.0-8.0) Ur Specific [place] 1.013 (1.001-1.035) Urine Protein 1+ H (Negative) Urine Glucose (UA) Negative (Negative) Urine Ketones Negative (Negative) Urine Blood Small H (Negative) Urine Nitrite Positive (Negative) Urine Bilirubin Negative (Negative) Urine Urobilinogen <2.0 (<2.0) mg/dL Ur Leukocyte Esterase Moderate H (Negative) Urine RBC 23 H (0-5) /hpf Urine WBC 9 H (0-5) /hpf Ur Squamous Epith Cells <1 (0-4) /hpf Urine Bacteria Rare H (None) /hpf Hyaline Casts 1 (0-2) /lpf Urine Mucus Rare H (None) /hpf Disposition Clinical Impression: Estrada catheter problem Disposition: HOME SELF-CARE Condition: Fair Additional Instructions: Return to the emergency room with fever, abdominal pain, nausea vomiting or no drainage in Estrada catheter. Keep your appointment with urology and surgery on Wednesday as already scheduled. Continue your home medications. Is patient prescribed a controlled substance at d/c from ED?: No Referrals: None,Stated [Primary Care Provider] - 1-2 days Time of Disposition: 19:03
[2020-10-26 18:25] LABS: Appearance,Urine Clear (Clear); Bacteria,Urine Rare /hpf; Bilirubin,Urine Negative (Negative); Blood,Urine Small (Negative); Color,Urine Yellow; Glucose,Urine (UA) Negative (Negative); Hyaline Casts,Urine 1 /lpf (0-2); Ketones,Urine Negative (Negative); Leukocyte Esterase,Urine Moderate (Negative); Mucus,Urine Rare /hpf; Nitrite,Urine Positive (Negative); PH, Urine 5.5 (5.0-8.0); Protein,Urine 1+ (Negative); RBC,Urine 23 /hpf (0-5); Specific Gravity,Urine 1.013 (1.001-1.035); Squamous Epithelial Cell,Urine <1 /hpf (0-4); Urobilinogen,Urine <2.0 mg/dL (<2.0); WBC,Urine 9 /hpf (0-5)
[2020-10-26] MEDS ORDERED: cefTRIAXone IN SWFI 1,000 MG/10 ML SYRINGE IVP STA (18:47)
[2020-10-26 19:34] VITALS: PULSE 85
== END 2020-10-26 19:34 | disposition home or self-care (01) ==
LOC: EC 17:00
DX: T83.098A Other mechanical complication of other urinary catheter, initial encounter (principal); K21.9 Gastro-esophageal reflux disease without esophagitis; I10 Essential (primary) hypertension; Z88.5 Allergy status to narcotic agent
CPT/HCPCS: 36415; 80053; 81001; 85025; 99283

== ENCOUNTER 2021-01-03 11:29 | Inpatient (IN) | payer MEDICARE, OTHER ==
[~2021-01-03 11:29] MED LIST: LACTATED RINGERS 1,000 ML IV ONE
[2021-01-03] MEDS ORDERED: LORazepam 2 MG/ML INJ IV STA (12:10)
[2021-01-03] MEDS ORDERED: MORPHINE SULFATE 4 MG/ML SYRINGE IVP STA (12:10)
[2021-01-03] MEDS ORDERED: ONDANSETRON 4 MG/2 ML VIAL IVP STA (12:10)
[2021-01-03] MEDS ORDERED: SODIUM CHLORIDE 0.9% 1,000 ML IV STA (12:11)
[2021-01-03 13:03] LABS: Albumin 3.4 g/dL (3.5-5.0); Calcium 9.2 mg/dL (8.4-10.2); Potassium 3.7 mmol/L (3.5-5.1); Total Bilirubin 0.8 mg/dL (0.2-1.3); Total Protein 6.6 g/dL (6.3-8.2)
[2021-01-03 13:07] LABS: INR 1.2 (<1.2); Partial Thromboplastin Time 25.2 sec (22.0-30.0); Prothrombin Time 12.6 sec (9.0-12.0)
[2021-01-03 13:23] LABS: Anisocytosis Moderate; HCT 33.5 % (39.0-53.0); HGB 10.3 gm/dL (13.0-17.5); Hypochromasia Slight; MCH 23.8 pg (25.0-35.0); MCHC 30.9 g/dL (31.0-37.0); MCV 77.1 fL (80.0-100.0); Mean Platelet Volume 7.8; Microcytosis Moderate; Platelet Count 342 k/uL (150-450); RBC 4.34 m/uL (4.30-5.90); RDW 22.2 % (11.5-15.5)
[2021-01-03 13:57] LABS: Band Neutrophils % 15 %; Lymphocytes # (M) 0.88 k/uL (1.0-4.8); Metamyelocytes # (M) 0.24 k/uL (0); Metamyelocytes % 3 %; Neutrophils % (M) 68 %; Nucleated Red Blood Cells 0 /100 WBC (0-0); Total Cells Counted 200
[2021-01-03] MEDS ORDERED: fentaNYL (PF) 50 MCG/ML 2 ML AMP IVP STA (14:01)
[2021-01-03] MEDS ORDERED: HYDROmorphone 0.5 MG/0.5 ML SYRINGE IVP STA (15:00)
--- NOTE | 2021-01-03 16:00 | CT ---
EXAMINATION TYPE: CT abdomen pelvis wo con DATE OF EXAM: 01/03/2021 HISTORY: severe abdominal pain CT DLP: 687.7 mGycm. Automated Exposure Control for Dose Reduction was Utilized. TECHNIQUE: CT scan of the abdomen and pelvis is performed without oral or IV contrast. COMPARISON: CT abdomen and pelvis October 16, 2020 FINDINGS: Within the limitations of a non-contrast study, the following observations are made. LUNG BASES: No significant abnormality is appreciated. LIVER/GB: New Pneumobilia. Finding likely on basis of new free air. A few hypodense lesions in the he patic dome presumed simple thin-walled cysts are redemonstrated. PANCREAS: Suboptimal visualization on noncontrast imaging. SPLEEN: No significant abnormality is seen. ADRENALS: Stable slight thickening to left adrenal gland.. KIDNEYS: Severe left-sided hydronephrosis redemonstrated. Abnormal hyperdense material in the dilated left ureter again seen. BOWEL: Suboptimal evaluation of bowel without enteric contrast. Large irregular thick walled right ce roberto mass occupying majority of the mid to lower abdomen just right of midline is redemonstrated with interval growth. This measures approximately 15 x 12 x 17 cm axial image 68 and coronal image 47 curr ent study. Some new fluid along the right aspect of mass. Significant new pneumoperitoneum secondary to suspected perforation along the superior left aspect axial image 51 and coronal image 45. This is near the site of greatest amount of free air. Occasional distal colonic diverticula. No suspicious sm all bowel dilatation. Small amount free fluid in the pelvis GENITAL ORGANS: Enlarged prostate consistent with BPH. There is either significant intraluminal exten vijay into the bladder posterior-inferior aspect, this is favored over bladder mass. LYMPH NODES: No greater than 1cm abdominal or pelvic lymph nodes are appreciated. OSSEOUS STRUCTURES: Straightening of spine. OTHER: No significant additional abnormality is seen. IMPRESSION: Enlarging cavitary mid to lower abdominal mass consistent with neoplasm of colonic origin shows new wall perforation and free air. Overall poor prognosis. Critical result called to emergency room given to time analysis clerk since the ER doctor was busy.
[2021-01-03] MEDS ORDERED: PIPERACILLIN-TAZOBACTAM 3.375 GM in SODIUM CHLORIDE 0.9% 100 ML IVPB STA (16:18)
--- NOTE | 2021-01-03 16:19 | ED ---
Abdominal Pain HPI - General Chief Complaint: Abdominal Pain Stated Complaint: Abdominal Pain Source: patient, family Mode of arrival: wheelchair Limitations: no limitations - History of Present Illness Initial Comments: 65-year-old male with diagnosed history of colon cancer in October of this year resents to the emergency department with diffuse abdominal pain. Patient states that he is supposed to be having surgery on January [address] Pinzon. He was diagnosed with colon cancer however has not had any chemo, radiation or surgical treatment. He is not on any medications. He had issues with urinary retention. States he no longer needs a catheter as he has been urinating on his own. He admits to nausea with vomiting for the past several hours. No hematemesis. Denies any changes in his bowel or bladder habits. No fevers. No other alleviating, precipitating or modifying factors - Related Data Home Medications Medication Instructions Recorded Confirmed Tamsulosin [Flomax] 0.4 mg PO BID 01/03/21 01/03/21 Previous Rx's Medication Instructions Recorded Finasteride [Proscar] 5 mg PO DAILY #30 tab 10/21/20 Ciprofloxacin HCl 500 mg PO BID 4 Days #8 tab 01/13/21 Ferrous Sulfate [Iron (65 MG 325 mg PO BID-W/MEALS #60 tab 01/13/21 Elemental)] HYDROcodone/APAP 7.5-325MG [[place] 1 tab PO Q4H PRN 3 Days #18 tab 01/13/21 7.5-325] Metoprolol Tartrate [Lopressor] 50 mg PO BID #60 tab 01/13/21 dilTIAZem HCL [dilTIAZem HCL 24Hr 180 mg PO DAILY #30 cap 01/13/21 ER (Xr)] metroNIDAZOLE [Flagyl] 500 mg PO TID 4 Days #12 tab 01/13/21 Allergies Allergy/AdvReac Type Severity Reaction Status Date / Time meperidine [From Demerol] Allergy head felt Verified 01/03/21 11:57 big hydromorphone [From Dilaudid] AdvReac Mild Nausea Verified 01/03/21 11:57 Review of Systems ROS Statement: Those systems with pertinent positive or pertinent negative responses have been documented in the HPI. ROS Other: All systems not noted in ROS Statement are negative. Past Medical History Past Medical History: Cancer, GERD/Reflux, Hypertension Additional Past Medical History / Comment(s): colon cancer History of Any Multi-Drug Resistant Organisms: None Reported Past Surgical History: Hernia Repair Additional Past Surgical History / Comment(s): jaw surgery Past Anesthesia/Blood Transfusion Reactions: No Reported Reaction Past Psychological History: Anxiety Smoking Status: Never smoker Past Alcohol Use History: None Reported Past Drug Use History: Marijuana - Past Family History Father Family Medical History: Unable to Obtain General Exam Limitations: no limitations General appearance: alert, in distress Head exam: Present: atraumatic, normocephalic, normal inspection Eye exam: Present: normal appearance, PERRL, EOMI. Absent: scleral icterus, conjunctival injection, periorbital swelling ENT exam: Present: normal exam, mucous membranes moist Neck exam: Present: normal inspection. Absent: tenderness, meningismus, lymphadenopathy Respiratory exam: Present: normal lung sounds bilaterally. Absent: respiratory distress, wheezes, rales, rhonchi, stridor Cardiovascular Exam: Present: regular rate, normal rhythm, normal heart sounds. Absent: systolic murmur, diastolic murmur, rubs, gallop, clicks GI/Abdominal exam: Present: distended, tenderness, guarding, rigid, hypoactive bowel sounds. Absent: rebound Extremities exam: Present: normal inspection, full ROM, normal capillary refill. Absent: tenderness, pedal edema, joint swelling, calf tenderness Back exam: Present: normal inspection Neurological exam: Present: alert, oriented X3, CN II-XII intact Psychiatric exam: Present: normal affect, normal mood Skin exam: Present: warm, dry, intact, normal color. Absent: rash Course Vital Signs 01/03/21 01/03/21 01/03/21 11:54 14:18 16:31 Temperature 98.6 F 98.8 F Pulse Rate 64 51 L 61 Pulse Rate [ Pulse Oximetery ] Respiratory 20 20 18 Rate Blood Pressure 104/69 113/69 96/58 Blood Pressure [Left Arm] O2 Sat by Pulse 99 98 96 Oximetry 01/03/21 16:41 Temperature 98.1 F Pulse Rate Pulse Rate [ 71 Pulse Oximetery ] Respiratory 16 Rate Blood Pressure Blood Pressure 120/70 [Left Arm] O2 Sat by Pulse 97 Oximetry - Reevaluation(s) Reevaluation #1: 01/03/21 16:[address] Nicole - viewing studies and will call back. Patient NPO and being prepped for OR Medical Decision Making - Medical Decision Making Arrival patient is placed into room 6. A thorough history and physical was performed. IV is established the patient is given 4 mg of morphine. Laboratory studies were conducted. Patient requesting Ativan and therefore is given 1 mg. Patient is reevaluated and continues to have abdominal pain therefore is given 50 mics of fentanyl. We did attempt to take the patient over for CT however he is refusing saying that he is unable to lay flat. Patient has a Dilaudid ALLERGY however did request to give him a half dose as I do need to have the CT performed to understand further the etiology of the patient's abdominal pain. He does agree to a half dose and we are able to get the CT completed. I did receive a call from radiology stating that the patient has diffuse free air secondary to perforation due to lower abdominal mass. I did speak with in regards to this. He given a dose of Zosyn, remains nothing by mouth and will be taken to the OR. Spoke with Dr. Peralta for medical management - Lab Data Result diagrams: 01/13/21 07:11 01/13/21 07:11 Lab Results 01/03/21 01/03/21 01/03/21 Range/Units 12:40 12:41 12:41 WBC 8.0 (3.8-10.6) k/uL RBC 4.34 (4.30-5.90) m/uL Hgb 10.3 L (13.0-17.5) gm/dL Hct 33.5 L (39.0-53.0) % MCV 77.1 L (80.0-100.0) fL MCH 23.8 L (25.0-35.0) pg MCHC 30.9 L (31.0-37.0) g/dL RDW 22.2 H (11.5-15.5) % Plt Count 342 (150-450) k/uL MPV 7.8 Neutrophils % (Manual) 68 % Band Neuts % (Manual) 15 % Lymphocytes % (Manual) 11 % Monocytes % (Manual) 5 % Metamyelocytes % 3 % Neutrophils # (Manual) 6.60 (1.3-7.7) k/uL Lymphocytes # (Manual) 0.88 L (1.0-4.8) k/uL Monocytes # (Manual) 0.40 (0-1.0) k/uL Metamyelocytes # (Man) 0.24 H (0) k/uL Nucleated RBCs 0 (0-0) /100 WBC Manual Slide Review Performed Hypochromasia Slight Anisocytosis Moderate Microcytosis Moderate PT 12.6 H (9.0-12.0) sec INR 1.2 H (<1.2) APTT 25.2 (22.0-30.0) sec Sodium (137-145) mmol/L Potassium (3.5-5.1) mmol/L Chloride (98-107) mmol/L Carbon Dioxide (22-30) mmol/L Anion Gap mmol/L BUN (9-20) mg/dL Creatinine (0.66-1.25) mg/dL Est GFR (CKD-EPI)AfAm (>60 ml/min/1.73 sqM) Est GFR (CKD-EPI)NonAf (>60 ml/min/1.73 sqM) Glucose (74-99) mg/dL Lactic Ac Sepsis Rflx Plasma Lactic Acid Lucian (0.7-2.0) mmol/L Calcium (8.4-10.2) mg/dL Total Bilirubin (0.2-1.3) mg/dL AST (17-59) U/L ALT (4-49) U/L Alkaline Phosphatase (38-126) U/L Total Protein (6.3-8.2) g/dL Albumin (3.5-5.0) g/dL Lipase (23-300) U/L Blood Type A Negative Blood Type Recheck A Neg Bld Type Recheck Status No Antibody Screen NEGATIVE Spec Expiration Date 01/06/2021 - 233901/03/21 01/03/21 01/03/21 Range/Units 12:41 12:41 13:14 WBC (3.8-10.6) k/uL RBC (4.30-5.90) m/uL Hgb (13.0-17.5) gm/dL Hct (39.0-53.0) % MCV (80.0-100.0) fL MCH (25.0-35.0) pg MCHC (31.0-37.0) g/dL RDW (11.5-15.5) % Plt Count (150-450) k/uL MPV Neutrophils % (Manual) % Band Neuts % (Manual) % Lymphocytes % (Manual) % Monocytes % (Manual) % Metamyelocytes % % Neutrophils # (Manual) (1.3-7.7) k/uL Lymphocytes # (Manual) (1.0-4.8) k/uL Monocytes # (Manual) (0-1.0) k/uL Metamyelocytes # (Man) (0) k/uL Nucleated RBCs (0-0) /100 WBC Manual Slide Review Hypochromasia Anisocytosis Microcytosis PT (9.0-12.0) sec INR (<1.2) APTT (22.0-30.0) sec Sodium 137 (137-145) mmol/L Potassium 3.7 (3.5-5.1) mmol/L Chloride 105 (98-107) mmol/L Carbon Dioxide 19 L (22-30) mmol/L Anion Gap 13 mmol/L BUN 52 H (9-20) mg/dL Creatinine 3.02 H (0.66-1.25) mg/dL Est GFR (CKD-EPI)AfAm 24 (>60 ml/min/1.73 sqM) Est GFR (CKD-EPI)NonAf 21 (>60 ml/min/1.73 sqM) Glucose 130 H (74-99) mg/dL Lactic Ac Sepsis Rflx Y Plasma Lactic Acid Lucian 3.1 H* (0.7-2.0) mmol/L Calcium 9.2 (8.4-10.2) mg/dL Total Bilirubin 0.8 (0.2-1.3) mg/dL AST 50 (17-59) U/L ALT 22 (4-49) U/L Alkaline Phosphatase 113 (38-126) U/L Total Protein 6.6 (6.3-8.2) g/dL Albumin 3.4 L (3.5-5.0) g/dL Lipase 27 (23-300) U/L Blood Type Blood Type Recheck Bld Type Recheck Status Antibody Screen Spec Expiration Date Critical Care Time Critical Care Time: Yes Critical Care Time: 35 mins Disposition Clinical Impression: Acute abdomen, Colonic mass, Pneumoperitoneum Disposition: ADMITTED IP TO THIS [facility] Condition: Stable Is patient prescribed a controlled substance at d/c from ED?: No Decision to Admit Reason: Admit from EC Decision Date: 01/03/21 Decision Time: 16:22
[2021-01-03] MEDS ORDERED: NALOXONE 0.4 MG/ML 1 ML VIAL IV PRN (16:22)
[2021-01-03] MEDS ORDERED: fentaNYL PCA 500 MCG/50 ML BAG IV PRN (16:32)
[2021-01-03] MEDS: SODIUM CHLORIDE 0.9% 1,000 ML IV SCH (16:33)
[2021-01-03] MEDS ORDERED: METOPROLOL TARTRATE 5 MG/5 ML VIAL IVP SCH (16:45)
[2021-01-03 16:53] LABS: Anisocytosis Moderate; HCT 34.4 % (39.0-53.0); HGB 10.5 gm/dL (13.0-17.5); Hypochromasia Slight; MCH 24.1 pg (25.0-35.0); MCHC 30.6 g/dL (31.0-37.0); MCV 78.8 fL (80.0-100.0); Mean Platelet Volume 7.7; Microcytosis Moderate; Platelet Count 331 k/uL (150-450); RBC 4.37 m/uL (4.30-5.90); RDW 22.2 % (11.5-15.5); WBC 5.8 k/uL (3.8-10.6)
--- NOTE | 2021-01-03 16:58 | P.CONS ---
History of Present Illness - Reason for Consult Consult date: 01/03/21 - Chief Complaint Abdominal Pain - History of Present Illness 65 year old man with history of HTN, CKD III, BPH, abdominal mass who presented with abdominal pain. Pt was scheduled for surgery with Dr. Xiao on Jan 24, but started to develop abdominal pain over the last several days which got acutely worse in the last 24 hours. This is associated with n/v. Denies f/c, cp, palps, syncope, dysuria, dyschezia, numbness/weakness. Pt had trouble with obstructive uropathy from bladder mass and BPH during his prior admission in October which caused acute kidney dysfunction, and consequently, plan for his colonic mass removal was deferred to outpatient. However, patient returned today prior to scheduled elective procedure with CT A/P concerning for bowel perforation and free air. Medicine was consulted by surgery for medical management. Review of Systems All Systems reviewed and pertinent positives and negatives noted in HPI, all other symptoms are negative Past Medical History Past Medical History: Cancer, GERD/Reflux, Hypertension Additional Past Medical History / Comment(s): colon cancer History of Any Multi-Drug Resistant Organisms: None Reported Past Surgical History: Hernia Repair Additional Past Surgical History / Comment(s): jaw surgery Past Anesthesia/Blood Transfusion Reactions: No Reported Reaction Past Psychological History: Anxiety Smoking Status: Never smoker Past Alcohol Use History: None Reported Past Drug Use History: Marijuana Medications and Allergies Home Medications Medication Instructions Recorded Confirmed Type RX: Finasteride [Proscar] 5 mg PO DAILY #30 tab 10/21/20 01/03/21 Rx RX: amLODIPine [Norvasc] 5 mg PO BID #60 tab 10/21/20 01/03/21 Rx Metoprolol Tartrate [Lopressor] 12.5 mg PO BID 01/03/21 01/03/21 History RX: Tamsulosin [Flomax] 0.4 mg PO BID 01/03/21 01/03/21 History Allergies Allergy/AdvReac Type Severity Reaction Status Date / Time meperidine [From Demerol] Allergy head felt Verified 01/03/21 11:57 big hydromorphone [From Dilaudid] AdvReac Mild Nausea Verified 01/03/21 11:57 Physical Exam Osteopathic Statement: *. No significant issues noted on an osteopathic structural exam other than those noted in the History and Physical/Consult. Vitals: Vital Signs Temp Pulse Resp BP Pulse Ox 01/03/21 16:31 98.8 F 61 18 96/58 96 01/03/21 14:18 51 L 20 113/69 98 01/03/21 11:54 98.6 F 64 20 104/69 99 Intake and Output 01/03/21 01/03/21 01/03/21 06:59 14:59 22:59 Other: Weight 72.575 kg Gen: awake, alert HEENT: normocephalic, atraumatic, good hearing acuity, moist mucous membranes Resp: good air exchange, breathing comfortably with no accessory muscle use, CTAB no wheezes or crackles CVS: good distal perfusion x 4, RRR, no murmurs GI: Exquisitely tender to palpation diffusely, distended, rebound tenderness present, involuntary guarding : no SPT, no CVAT, serrano catheter not present MSK: no pitting edema, no clubbing Neuro: non-focal, moving all extremities Results CBC & Chem 7: 01/03/21 12:41 01/03/21 12:41 Labs: Abnormal Lab Results - Last 24 Hours (Table) 01/03/21 01/03/21 01/03/21 Range/Units 12:41 12:41 12:41 Hgb 10.3 L (13.0-17.5) gm/dL Hct 33.5 L (39.0-53.0) % MCV 77.1 L (80.0-100.0) fL MCH 23.8 L (25.0-35.0) pg MCHC 30.9 L (31.0-37.0) g/dL RDW 22.2 H (11.5-15.5) % Lymphocytes # (Manual) 0.88 L (1.0-4.8) k/uL Metamyelocytes # (Man) 0.24 H (0) k/uL PT 12.6 H (9.0-12.0) sec INR 1.2 H (<1.2) Carbon Dioxide 19 L (22-30) mmol/L BUN 52 H (9-20) mg/dL Creatinine 3.02 H (0.66-1.25) mg/dL Glucose 130 H (74-99) mg/dL Plasma Lactic Acid Lucian (0.7-2.0) mmol/L Albumin 3.4 L (3.5-5.0) g/dL 01/03/21 Range/Units 12:41 Hgb (13.0-17.5) gm/dL Hct (39.0-53.0) % MCV (80.0-100.0) fL MCH (25.0-35.0) pg MCHC (31.0-37.0) g/dL RDW (11.5-15.5) % Lymphocytes # (Manual) (1.0-4.8) k/uL Metamyelocytes # (Man) (0) k/uL PT (9.0-12.0) sec INR (<1.2) Carbon Dioxide (22-30) mmol/L BUN (9-20) mg/dL Creatinine (0.66-1.25) mg/dL Glucose (74-99) mg/dL Plasma Lactic Acid Lucian 3.1 H* (0.7-2.0) mmol/L Albumin (3.5-5.0) g/dL Assessment and Plan Assessment: Perforated Bowel Colonic Mass -surgery team to take pt to OR -strict NPO -hold all oral home meds; will not convert metoprolol to IV at this time given borderline low HR -fentanyl [employer] started for pain control -zosyn started, consider adding fluconazole Left Hydronephrosis CKD III -urology, nephrology consults -avoid nephrotoxins -IVF HTN BPH -holding home meds as above Medicine will continue to follow. Please reach out to a member of [employer] via [employer] if there are any questions/concerns.
[2021-01-03 17:03] LABS: Calcium 8.7 mg/dL (8.4-10.2); Magnesium 1.9 mg/dL (1.6-2.3); Potassium 4.5 mmol/L (3.5-5.1)
[2021-01-03 17:53] LABS: Band Neutrophils % 31 %; Lymphocytes # (M) 0.64 k/uL (1.0-4.8); Metamyelocytes # (M) 0.23 k/uL (0); Metamyelocytes % 4 %; Monocytes # (M) 0.29 k/uL (0-1.0); Neutrophils % (M) 49 %; Nucleated Red Blood Cells 0 /100 WBC (0-0); Total Cells Counted 100
[2021-01-03] MEDS: HYDROmorphone 0.5 MG/0.5 ML SYRINGE IVP PRN (17:53)
[2021-01-03] MEDS ORDERED: SODIUM CHLORIDE 0.9% 1,000 ML IV ONE (20:11)
[2021-01-03 20:33] LABS: Glucose,Whole Blood 104 mg/dL (75-99)
[2021-01-03] MEDS ORDERED: METOPROLOL TARTRATE 25 MG TAB PO SCH (21:00)
[2021-01-03] MEDS ORDERED: TAMSULOSIN 0.4 MG CAP.ER.24H PO SCH (21:00)
--- NOTE | 2021-01-03 21:11 | P.GSCN ---
History of Present Illness Consult date: 01/03/21 Reason for Consult: Left hydronephrosis Requesting physician: Braulio Nicole History of present illness: The patient is a 65 yo male hospitalized in October 2020 with right-sided abdominal pain, weight loss, and difficulty voiding. He reported a weak urinary stream, straining, and feeling of incomplete bladder emptying. A computed tomography scan revealed a right-sided colonic mass, bladder distention, and bilateral hy dronephrosis. Additionally, there was a possible bladder mass, but cystoscopy performed by Dr. mcfadden in 10/29/2020 revealed this to be a large intravesical prostatic median lobe. The serum creatinine level was 4.92 at the time of admission in October, but with Estrada catheter drainage the serum creatinine level decreased to 2.53. He was scheduled to undergo colon surgery next month, but is now admitted with increased abdominal pain. He was last seen in our office on November 06. He was taking finasteride and tamsulosin at that time, and the postvoid residual was 276 mL. Review of Systems - Constitutional Reports weight loss, Denies chills, Denies fever - Gastrointestinal Reports abdominal pain - Genitourinary Reports as per HPI Past Medical History Past Medical History: Cancer, GERD/Reflux, Hypertension Additional Past Medical History / Comment(s): colon cancer History of Any Multi-Drug Resistant Organisms: None Reported Past Surgical History: Hernia Repair Additional Past Surgical History / Comment(s): jaw surgery Past Anesthesia/Blood Transfusion Reactions: No Reported Reaction Past Psychological History: Anxiety Smoking Status: Never smoker Past Alcohol Use History: None Reported Past Drug Use History: Marijuana Medications and Allergies Home Medications Medication Instructions Recorded Confirmed Type Finasteride [Proscar] 5 mg PO DAILY #30 tab 10/21/20 01/03/21 Rx amLODIPine [Norvasc] 5 mg PO BID #60 tab 10/21/20 01/03/21 Rx Metoprolol Tartrate [Lopressor] 12.5 mg PO BID 01/03/21 01/03/21 History Tamsulosin [Flomax] 0.4 mg PO BID 01/03/21 01/03/21 History Allergies Allergy/AdvReac Type Severity Reaction Status Date / Time meperidine [From Demerol] Allergy head felt Verified 01/03/21 11:57 big hydromorphone [From Dilaudid] AdvReac Mild Nausea Verified 01/03/21 11:57 Surgical - Exam Vital Signs Temp Pulse Resp BP Pulse Ox 98.6 F 64 20 104/69 99 01/03/21 11:54 01/03/21 11:54 01/03/21 11:54 01/03/21 11:54 01/03/21 11:54 - General well developed, well nourished, moderate distress - Respiratory normal respiratory effort - Abdomen Soft, diffusely tender, mildly distended. - Genitourinary normal penis with no external lesions, testicles non-tender - Psychiatric oriented to time, oriented to person, oriented to place, speech is normal, memory intact Results - Labs 01/03/21 16:32 01/03/21 16:32 Abnormal Lab Results - Last 24 Hours (Table) 01/03/21 01/03/21 01/03/21 Range/Units 12:41 12:41 12:41 Hgb 10.3 L (13.0-17.5) gm/dL Hct 33.5 L (39.0-53.0) % MCV 77.1 L (80.0-100.0) fL MCH 23.8 L (25.0-35.0) pg MCHC 30.9 L (31.0-37.0) g/dL RDW 22.2 H (11.5-15.5) % Lymphocytes # (Manual) 0.88 L (1.0-4.8) k/uL Metamyelocytes # (Man) 0.24 H (0) k/uL PT 12.6 H (9.0-12.0) sec INR 1.2 H (<1.2) Carbon Dioxide 19 L (22-30) mmol/L BUN 52 H (9-20) mg/dL Creatinine 3.02 H (0.66-1.25) mg/dL Glucose 130 H (74-99) mg/dL Plasma Lactic Acid Lucian (0.7-2.0) mmol/L Albumin 3.4 L (3.5-5.0) g/dL 01/03/21 01/03/21 01/03/21 Range/Units 12:41 16:32 16:32 Hgb 10.5 L (13.0-17.5) gm/dL Hct 34.4 L (39.0-53.0) % MCV 78.8 L (80.0-100.0) fL MCH 24.1 L (25.0-35.0) pg MCHC 30.6 L (31.0-37.0) g/dL RDW 22.2 H (11.5-15.5) % Lymphocytes # (Manual) 0.64 L (1.0-4.8) k/uL Metamyelocytes # (Man) 0.23 H (0) k/uL PT (9.0-12.0) sec INR (<1.2) Carbon Dioxide 18 L (22-30) mmol/L BUN 55 H (9-20) mg/dL Creatinine 3.28 H (0.66-1.25) mg/dL Glucose 126 H (74-99) mg/dL Plasma Lactic Acid Lucian 3.1 H* (0.7-2.0) mmol/L Albumin (3.5-5.0) g/dL 01/03/21 Range/Units 16:46 Hgb (13.0-17.5) gm/dL Hct (39.0-53.0) % MCV (80.0-100.0) fL MCH (25.0-35.0) pg MCHC (31.0-37.0) g/dL RDW (11.5-15.5) % Lymphocytes # (Manual) (1.0-4.8) k/uL Metamyelocytes # (Man) (0) k/uL PT (9.0-12.0) sec INR (<1.2) Carbon Dioxide (22-30) mmol/L BUN (9-20) mg/dL Creatinine (0.66-1.25) mg/dL Glucose (74-99) mg/dL Plasma Lactic Acid Lucian 3.2 H* (0.7-2.0) mmol/L Albumin (3.5-5.0) g/dL Diabetes panel 01/03/21 01/03/21 Range/Units 12:41 16:32 Sodium 137 138 (137-145) mmol/L Potassium 3.7 4.5 (3.5-5.1) mmol/L Chloride 105 107 (98-107) mmol/L Carbon Dioxide 19 L 18 L (22-30) mmol/L BUN 52 H 55 H (9-20) mg/dL Creatinine 3.02 H 3.28 H (0.66-1.25) mg/dL Glucose 130 H 126 H (74-99) mg/dL Calcium 9.2 8.7 (8.4-10.2) mg/dL AST 50 (17-59) U/L ALT 22 (4-49) U/L Alkaline Phosphatase 113 (38-126) U/L Total Protein 6.6 (6.3-8.2) g/dL Albumin 3.4 L (3.5-5.0) g/dL Calcium panel 01/03/21 01/03/21 Range/Units 12:41 16:32 Calcium 9.2 8.7 (8.4-10.2) mg/dL Albumin 3.4 L (3.5-5.0) g/dL Pituitary panel 01/03/21 01/03/21 Range/Units 12:41 16:32 Sodium 137 138 (137-145) mmol/L Potassium 3.7 4.5 (3.5-5.1) mmol/L Chloride 105 107 (98-107) mmol/L Carbon Dioxide 19 L 18 L (22-30) mmol/L BUN 52 H 55 H (9-20) mg/dL Creatinine 3.02 H 3.28 H (0.66-1.25) mg/dL Glucose 130 H 126 H (74-99) mg/dL Calcium 9.2 8.7 (8.4-10.2) mg/dL Adrenal panel 01/03/21 01/03/21 Range/Units 12:41 16:32 Sodium 137 138 (137-145) mmol/L Potassium 3.7 4.5 (3.5-5.1) mmol/L Chloride 105 107 (98-107) mmol/L Carbon Dioxide 19 L 18 L (22-30) mmol/L BUN 52 H 55 H (9-20) mg/dL Creatinine 3.02 H 3.28 H (0.66-1.25) mg/dL Glucose 130 H 126 H (74-99) mg/dL Calcium 9.2 8.7 (8.4-10.2) mg/dL Total Bilirubin 0.8 (0.2-1.3) mg/dL AST 50 (17-59) U/L ALT 22 (4-49) U/L Alkaline Phosphatase 113 (38-126) U/L Total Protein 6.6 (6.3-8.2) g/dL Albumin 3.4 L (3.5-5.0) g/dL - Imaging CT scan - abdomen: report reviewed, image reviewed Assessment and Plan (1) Unspecified hydronephrosis Current Visit: Yes Status: Acute Code(s): N13.30 - UNSPECIFIED HYDRONEPHROSIS SNOMED Code(s): 09083711 Plan: I reviewed the patient's urologic status with him in detail. The left hydroureteronephrosis is chronic, presumably due to obstruction. The left renal parenchyma is very thin, and thus relief of obstruction will not result in improved renal function. The density of fluid within the dilated left ureter is increased, the etiology and significance of which is unclear. Though the CT scan suggests the presence of a bladder mass, cystoscopy has shown this to be a large intravesical prostatic median lobe. There is no indication for urologic intervention at this time. Time with Patient: Greater than 30
[2021-01-03] MEDS ORDERED: DILTIAZEM DRIP BOLUS FROM BAG 1 MG SOLN IV ONE (21:39)
--- NOTE | 2021-01-03 22:15 | P.GSHP ---
History of Present Illness H&P Date: 01/03/21 Chief Complaint: Colon perforation 65-year-old male diagnosed with a right-sided colon mass 2-3 months ago. He is scheduled for colonoscopy and subsequent resection in January. Patient admits that he has been avoiding further workup to a large degree because of his fear of additional testing. He has not had a recent colonoscopy. He has been seen by oncology but no diagnosis has been made and no neoadjuvant treatment has been initiated. Patient describes intermittent nausea and intermittent constipation. Yesterday had episodes of nausea and vomiting. After vomiting had some relief. Following that however he has had gradual increase in abdominal discomfort. Came to the ER today. Apparently he was again very reluctant to proceed with CAT scan of the abdomen while he was in the ER. It took the ER physicians approximately 4 hours to convince him to have the repeat CAT scan performed. Once the CAT scan was performed a large right-sided abdominal mass was i dentified that has the appearance of an abscess at this point. There is free perforation with extensive pneumoperitoneum present as well. This appears to likely involve the right side of his colon however the course of the duodenum is not well delineated and could be partially involved in this mass. Patient was admitted to the floor. Consults were placed to medicine, nephrology, urology, and subsequently cardiology. Patient was found to be hypotensive and had evidence of tachycardia. Patient is seen in preop with his fianc present. Patient says his pain is improved from his presentation. Patient's lactic acid is elevated. His white blood cell count is normal however he has significant bandemia. - Review of Systems Comment: The patient denies any acute changes in vision or hearing, no dysphagia or odynophagia, no chest pain or shortness of breath, no dysuria or hematuria, no headache, no runny nose, no rectal bleeding or melena Past Medical History Past Medical History: Cancer, GERD/Reflux, Hypertension Additional Past Medical History / Comment(s): colon cancer History of Any Multi-Drug Resistant Organisms: None Reported Past Surgical History: Hernia Repair Additional Past Surgical History / Comment(s): jaw surgery Past Anesthesia/Blood Transfusion Reactions: No Reported Reaction Past Psychological History: Anxiety Smoking Status: Never smoker Past Alcohol Use History: None Reported Past Drug Use History: Marijuana Medications and Allergies Home Medications Medication Instructions Recorded Confirmed Type Finasteride [Proscar] 5 mg PO DAILY #30 tab 10/21/20 01/03/21 Rx amLODIPine [Norvasc] 5 mg PO BID #60 tab 10/21/20 01/03/21 Rx Metoprolol Tartrate [Lopressor] 12.5 mg PO BID 01/03/21 01/03/21 History Tamsulosin [Flomax] 0.4 mg PO BID 01/03/21 01/03/21 History Allergies Allergy/AdvReac Type Severity Reaction Status Date / Time meperidine [From Demerol] Allergy head felt Verified 01/03/21 11:57 big hydromorphone [From Dilaudid] AdvReac Mild Nausea Verified 01/03/21 11:57 Surgical - Exam Vital Signs Temp Pulse Resp BP Pulse Ox 98.6 F 64 20 104/69 99 01/03/21 11:54 01/03/21 11:54 01/03/21 11:54 01/03/21 11:54 01/03/21 11:54 Physical exam: General: Well-developed, somewhat malnourished appearing, overall appears somewhat better than expected given the patient's CAT scan and vitals HEENT: Normocephalic, sclerae nonicteric Abdomen: Diffuse tenderness, distended Extremities: No edema Neuro: Alert and oriented, appears anxious and in mild distress Results - Labs 01/03/21 16:32 01/03/21 16:32 Abnormal Lab Results - Last 24 Hours (Table) 01/03/21 01/03/21 01/03/21 Range/Units 12:41 12:41 12:41 Hgb 10.3 L (13.0-17.5) gm/dL Hct 33.5 L (39.0-53.0) % MCV 77.1 L (80.0-100.0) fL MCH 23.8 L (25.0-35.0) pg MCHC 30.9 L (31.0-37.0) g/dL RDW 22.2 H (11.5-15.5) % Lymphocytes # (Manual) 0.88 L (1.0-4.8) k/uL Metamyelocytes # (Man) 0.24 H (0) k/uL PT 12.6 H (9.0-12.0) sec INR 1.2 H (<1.2) Carbon Dioxide 19 L (22-30) mmol/L BUN 52 H (9-20) mg/dL Creatinine 3.02 H (0.66-1.25) mg/dL Glucose 130 H (74-99) mg/dL POC Glucose (mg/dL) (75-99) mg/dL Plasma Lactic Acid Lucian (0.7-2.0) mmol/L Albumin 3.4 L (3.5-5.0) g/dL 01/03/21 01/03/21 01/03/21 Range/Units 12:41 16:32 16:32 Hgb 10.5 L (13.0-17.5) gm/dL Hct 34.4 L (39.0-53.0) % MCV 78.8 L (80.0-100.0) fL MCH 24.1 L (25.0-35.0) pg MCHC 30.6 L (31.0-37.0) g/dL RDW 22.2 H (11.5-15.5) % Lymphocytes # (Manual) 0.64 L (1.0-4.8) k/uL Metamyelocytes # (Man) 0.23 H (0) k/uL PT (9.0-12.0) sec INR (<1.2) Carbon Dioxide 18 L (22-30) mmol/L BUN 55 H (9-20) mg/dL Creatinine 3.28 H (0.66-1.25) mg/dL Glucose 126 H (74-99) mg/dL POC Glucose (mg/dL) (75-99) mg/dL Plasma Lactic Acid Lucian 3.1 H* (0.7-2.0) mmol/L Albumin (3.5-5.0) g/dL 01/03/21 01/03/21 01/03/21 Range/Units 16:46 19:47 20:30 Hgb (13.0-17.5) gm/dL Hct (39.0-53.0) % MCV (80.0-100.0) fL MCH (25.0-35.0) pg MCHC (31.0-37.0) g/dL RDW (11.5-15.5) % Lymphocytes # (Manual) (1.0-4.8) k/uL Metamyelocytes # (Man) (0) k/uL PT (9.0-12.0) sec INR (<1.2) Carbon Dioxide (22-30) mmol/L BUN (9-20) mg/dL Creatinine (0.66-1.25) mg/dL Glucose (74-99) mg/dL POC Glucose (mg/dL) 104 H (75-99) mg/dL Plasma Lactic Acid Lucian 3.2 H* 3.1 H* (0.7-2.0) mmol/L Albumin (3.5-5.0) g/dL Diabetes panel 01/03/21 01/03/21 Range/Units 12:41 16:32 Sodium 137 138 (137-145) mmol/L Potassium 3.7 4.5 (3.5-5.1) mmol/L Chloride 105 107 (98-107) mmol/L Carbon Dioxide 19 L 18 L (22-30) mmol/L BUN 52 H 55 H (9-20) mg/dL Creatinine 3.02 H 3.28 H (0.66-1.25) mg/dL Glucose 130 H 126 H (74-99) mg/dL Calcium 9.2 8.7 (8.4-10.2) mg/dL AST 50 (17-59) U/L ALT 22 (4-49) U/L Alkaline Phosphatase 113 (38-126) U/L Total Protein 6.6 (6.3-8.2) g/dL Albumin 3.4 L (3.5-5.0) g/dL Calcium panel 01/03/21 01/03/21 Range/Units 12:41 16:32 Calcium 9.2 8.7 (8.4-10.2) mg/dL Albumin 3.4 L (3.5-5.0) g/dL Pituitary panel 01/03/21 01/03/21 Range/Units 12:41 16:32 Sodium 137 138 (137-145) mmol/L Potassium 3.7 4.5 (3.5-5.1) mmol/L Chloride 105 107 (98-107) mmol/L Carbon Dioxide 19 L 18 L (22-30) mmol/L BUN 52 H 55 H (9-20) mg/dL Creatinine 3.02 H 3.28 H (0.66-1.25) mg/dL Glucose 130 H 126 H (74-99) mg/dL Calcium 9.2 8.7 (8.4-10.2) mg/dL Adrenal panel 01/03/21 01/03/21 Range/Units 12:41 16:32 Sodium 137 138 (137-145) mmol/L Potassium 3.7 4.5 (3.5-5.1) mmol/L Chloride 105 107 (98-107) mmol/L Carbon Dioxide 19 L 18 L (22-30) mmol/L BUN 52 H 55 H (9-20) mg/dL Creatinine 3.02 H 3.28 H (0.66-1.25) mg/dL Glucose 130 H 126 H (74-99) mg/dL Calcium 9.2 8.7 (8.4-10.2) mg/dL Total Bilirubin 0.8 (0.2-1.3) mg/dL AST 50 (17-59) U/L ALT 22 (4-49) U/L Alkaline Phosphatase 113 (38-126) U/L Total Protein 6.6 (6.3-8.2) g/dL Albumin 3.4 L (3.5-5.0) g/dL Assessment and Plan (1) Pneumoperitoneum Narrative/Plan: 65-year-old male with abdominal abscess and suspected perforation of the right colon. Clinical scenario discussed in detail with the patient and his fiance. Recommend exploratory laparotomy with drainage of abscess, possible bowel resection, probable ostomy. Discussed that resection of the colonic mass may not be possible given the size and extent of the mass. In that case drainage with diversion will take place. Risks of bleeding, persistent infection, leak, abscess, fistula, persistent cancer, duodenal leak or injury, ureteral injury, hernia, wound infection, respiratory and cardiac complications, . Patient is considered very high risk for this procedure and intraoperative mortality discussed. They understand and wish to proceed. Current Visit: Yes Status: Acute Code(s): K66.8 - OTHER SPECIFIED DISORDERS OF PERITONEUM SNOMED Code(s): 07660577
[2021-01-03] MEDS ORDERED: SODIUM CHLORIDE 0.9% 100 ML with ceFAZolin 2,000 MG IV ONE ×2 (23:23)
[2021-01-03] MEDS ORDERED: IV FLUID CONTINUATION 1,000 ML IV ONE (23:23)
--- NOTE | 2021-01-03 23:28 | XR ---
EXAMINATION TYPE: XR chest 1V confirm line [facility] DATE OF EXAM: 01/03/2021 COMPARISON: NONE HISTORY: Central line placement TECHNIQUE: FINDINGS: There is right jugular catheter with tip in the superior vena cava. There are chest leads. There is pneumoperitoneum. There is some mild subsegmental atelectasis at the lung bases. There is no heart failure. IMPRESSION: There is pneumoperitoneum not changed compared to exam [address] scan. Minima l atelectasis at the lung bases.
[2021-01-03] MEDS ORDERED: MIDAZOLAM 2 MG/2 ML VIAL ONE (23:30)
[2021-01-03] MEDS ORDERED: LIDOCAINE 1% INJ 10MG/ML (20 ML MDV) ONE (23:30)
[2021-01-03] MEDS ORDERED: ALBUMIN HUMAN 5% (25gm) 500 ML VIAL IVPB ONE (23:30)
[2021-01-03] MEDS ORDERED: ROCURONIUM 10 MG/ML (5 ML VIAL) IV ONE (23:30)
[2021-01-03] MEDS ORDERED: SUCCINYLCHOLINE CHLORIDE 100 MG/5 ML SYR IV ONE (23:30)
[2021-01-03] MEDS ORDERED: fentaNYL (PF) 50 MCG/ML 2 ML AMP ONE (23:30)
[2021-01-03] MEDS ORDERED: PHENYLEPHRINE-0.9% NACL SYG 1,000 MCG/10 ML SYRINGE ONE (23:30)
[2021-01-03] MEDS ORDERED: ETOMIDATE 2 MG/ML 10 ML VIAL ONE (23:30)
[2021-01-04] MEDS ORDERED: PIPERACILLIN-TAZOBACTAM 3.375 GM in SODIUM CHLORIDE 0.9% 100 ML IVPB SCH ×2
--- NOTE | 2021-01-04 00:32 | P.ANPRN ---
Procedure Note - Anesthesia - Invasive Line Left Arterial Line Time Out Performed: Yes (2209) Date of Procedure: 01/04/21 Time of Procedure: 22:11 Location of Patient: Phase I Preparation: Sterile Prep, Sterile Dressing Arterial Line Location: Radial Ultrasound Used: Yes Purpose - Visualization and Identification of Vasculature: Yes Needle Guage: 20g Image Stored and Saved: Yes Narrative: Central line placement per sterile protocol utilized. Right Central Line Time Out Performed: Yes (2209) Date of Procedure: 01/04/21 Time of Procedure: 22:24 Location of Patient: Phase I Preparation: Sterile Prep, Sterile Dressing Arterial Line Location: Radial Ultrasound Used: Yes Purpose - Visualization and Identification of Vasculature: Yes Needle Guage: 18g angio Image Stored and Saved: Yes Narrative: Central line placement per sterile protocol utilized. +local +angio +cvp +jwire +uneventful dilation and introduction right IJ TLC. All lumens bled and flushed.
[2021-01-04] MEDS ORDERED: LACTATED RINGERS 1,000 ML IV ONE (01:00)
[2021-01-04] MEDS ORDERED: ONDANSETRON 4 MG/2 ML VIAL IVP PRN (01:01)
[2021-01-04] MEDS ORDERED: ACETAMINOPHEN IV (For NPO) 1,000 MG in EMPTY BAG 1 BAG IVPB ONE (01:01)
--- NOTE | 2021-01-04 01:08 | P.OP ---
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 Patient was placed under general anesthesia. Estrada catheter was placed. Abdomen was prepped and draped sterilely. The patient had a large palpable mass right mid abdomen. Vertical incision was made using scalpel. Subcutaneous tissues and fascia divided using electrocautery. Once we entered the peritoneal cavity there was a brown extremely foul-smelling necrotic fluid that was evacuated. The patient had a large mass on the right side was abdomen that likely initially began in the cecum or ascending colon. This was nonresectable and densely adherent to the lateral pelvis and retroperitoneum. The abscess was present beneath the omentum and involving the tumor itself. This was fully opened using electrocautery and blunt dissection. The tumor was extremely necrotic. Irrigation took place. No residual abscess was felt to be undrained at this point. No significant bleeding was identified. The abdomen was irrigated with 5 L of saline. 2 drains were placed on the right side of the abdomen within the abscess cavity and along the anterior aspect of the colon. A loop ileostomy was then created in the left midabdomen. A circular portion of skin was excised. The subcutaneous tissues and fascia were divided vertically. The loop of ileum was brought up through the abdominal wall. A 22-Welsh red rubber catheter was used as a bridge. This was sutured to the skin using a 3-0 silk stitch. The ostomy was later matured in a [place] fashion with the proximal loop using an up to 3-0 Vicryl sutures. Prior to doing so the midline fascia was reapproximated using 2 separate double-stranded #1 PDS sutures. The skin was closed loosely with ryan. Sterile dressings were applied. DISPOSITION: Critical to ICU on ventilator. Case was discussed in detail with his fiance. The palliative nature of this procedure was reviewed. Case was also reviewed with assembler motor vehicle on-call.
[2021-01-04] MEDS ORDERED: propofoL 100 ML IV ONE (01:17)
[2021-01-04 01:18] LABS: Glucose,Whole Blood 106 mg/dL (75-99)
[2021-01-04 01:18] LABS: Glucose,Whole Blood 65 mg/dL (75-99)
--- NOTE | 2021-01-04 01:48 | XR ---
EXAMINATION TYPE: XR chest 1V portable DATE OF EXAM: 01/04/2021 COMPARISON: Yesterday HISTORY: Line placement TECHNIQUE: FINDINGS: There is nasogastric tube with the tip looped in the gastric fundus. There is right jugular catheter with tip in the superior vena cava. There is no gross heart failure. There is clearing of t he pneumoperitoneum to a large extent compared to exam yesterday. Endotracheal tube is 2.5 cm from th e buster. IMPRESSION: No pulmonary consolidation or heart failure. Tubing in good position.
[2021-01-04 01:51] LABS: ABG Base Excess -10.8 mmol/L; ABG HCO3 17 mmol/L (21-25); ABG Oxygen Saturation 99.9 % (94-97); ABG PCO2 44 mmHg (35-45); ABG PO2 389 mmHg (83-108); ABG TCO2 19 mmol/L (19-24); Allen Test Performed? Yes
[2021-01-04] MEDS: DILTIAZEM 125 MG in SODIUM CHLORIDE 0.9% 100 ML IV SCH ×2 (01:54→21:33)
[2021-01-04] MEDS: metroNIDAZOLE-NS PMX 500 MG in SALINE 1 100ML.BAG IVPB SCH ×4 (02:00→23:51)
[2021-01-04 02:36] LABS: Calcium 7.2 mg/dL (8.4-10.2); Potassium 3.8 mmol/L (3.5-5.1)
[2021-01-04 02:44] LABS: Anisocytosis Moderate; HCT 28.9 % (39.0-53.0); Hypochromasia Moderate; MCH 24.3 pg (25.0-35.0); MCHC 30.8 g/dL (31.0-37.0); Mean Platelet Volume 8.4; Microcytosis Moderate; Platelet Count 244 k/uL (150-450); RBC 3.66 m/uL (4.30-5.90); RDW 22.1 % (11.5-15.5); WBC 3.6 k/uL (3.8-10.6)
[2021-01-04 02:45] LABS: HGB 8.9 gm/dL (13.0-17.5)
[2021-01-04 03:15] LABS: Band Neutrophils % 16 %; Lymphocytes # (M) 0.43 k/uL (1.0-4.8); Metamyelocytes # (M) 0.18 k/uL (0); Metamyelocytes % 5 %; Monocytes # (M) 0.32 k/uL (0-1.0); Myelocytes # (M) 0.04 k/uL (0); Myelocytes % 1 %; Neutrophils % (M) 57 %; Nucleated Red Blood Cells 0 /100 WBC (0-0); Total Cells Counted 100
[2021-01-04 03:16] LABS: Anisocytosis (M) Present; Crenated RBC Present; Poikilocytosis (M) Present; Toxic Vacuolation Present
[2021-01-04 05:16] LABS: ABG Base Excess -10.5 mmol/L; ABG HCO3 17 mmol/L (21-25); ABG Oxygen Saturation 99.1 % (94-97); ABG PCO2 39 mmHg (35-45); ABG PH 7.25 (7.35-7.45); ABG PO2 128 mmHg (83-108); ABG TCO2 18 mmol/L (19-24); Allen Test Performed? Yes
[2021-01-04 06:22] LABS: Glucose,Whole Blood 101 mg/dL (75-99)
[2021-01-04 07:04] LABS: Anisocytosis Moderate; HCT 30.2 % (39.0-53.0); HGB 9.2 gm/dL (13.0-17.5); Hypochromasia Moderate; MCH 24.3 pg (25.0-35.0); MCHC 30.6 g/dL (31.0-37.0); MCV 79.4 fL (80.0-100.0); Microcytosis Moderate; Platelet Count 227 k/uL (150-450); RDW 22.3 % (11.5-15.5); WBC 5.4 k/uL (3.8-10.6)
[2021-01-04 07:16] LABS: Amorphous Sediment,Urine Rare /hpf; Appearance,Urine Cloudy (Clear); Bilirubin,Urine Negative (Negative); Blood,Urine Large (Negative); Color,Urine Yellow; Glucose,Urine (UA) Negative (Negative); Ketones,Urine Negative (Negative); Leukocyte Esterase,Urine Negative (Negative); Mucus,Urine Rare /hpf; Nitrite,Urine Negative (Negative); PH, Urine 5.5 (5.0-8.0); Protein,Urine 2+ (Negative); RBC,Urine 66 /hpf (0-5); Specific Gravity,Urine 1.016 (1.001-1.035); Squamous Epithelial Cell,Urine <1 /hpf (0-4); Urobilinogen,Urine <2.0 mg/dL (<2.0); WBC,Urine 45 /hpf (0-5)
[2021-01-04 08:01] LABS: Band Neutrophils % 23 %; Lymphocytes # (M) 1.46 k/uL (1.0-4.8); Metamyelocytes # (M) 0.16 k/uL (0); Metamyelocytes % 3 %; Myelocytes # (M) 0.05 k/uL (0); Myelocytes % 1 %; Neutrophils % (M) 46 %; Nucleated Red Blood Cells 0 /100 WBC (0-0); Polychromasia Present; Total Cells Counted 100
--- NOTE | 2021-01-04 08:21 | P.NPCON ---
History of Present Illness - Reason for Consult Consult date: 01/04/21 acute renal failure - Chief Complaint Colonic perforation - History of Present Illness This is a 65-year-old male seen in consultation because of acute kidney injury, chronic kidney disease possibly and non-gap metabolic acidosis. He underwent surgery last night, for a perforated necrotic cecal tumor with abscess and now has drainage on the right side for the abscess cecal tumor biopsy diverting loop ileostomy. He is known with hypertension, bilateral hydronephrosis recently with a Estrada ca theter that was diagnosed 2 months ago. Currently he is intubated on 40% FiO2 5 of PEEP not on any vasopressors blood pressure and vital signs are stable. Is awake and alert Past Medical History Past Medical History: Cancer, GERD/Reflux, Hypertension Additional Past Medical History / Comment(s): colon cancer History of Any Multi-Drug Resistant Organisms: None Reported Past Surgical History: Hernia Repair Additional Past Surgical History / Comment(s): jaw surgery Past Anesthesia/Blood Transfusion Reactions: No Reported Reaction Past Psychological History: Anxiety Smoking Status: Never smoker Past Alcohol Use History: None Reported Past Drug Use History: Marijuana Medications and Allergies Home Medications Medication Instructions Recorded Confirmed Type RX: Finasteride [Proscar] 5 mg PO DAILY #30 tab 10/21/20 01/03/21 Rx RX: amLODIPine [Norvasc] 5 mg PO BID #60 tab 10/21/20 01/03/21 Rx Metoprolol Tartrate [Lopressor] 12.5 mg PO BID 01/03/21 01/03/21 History RX: Tamsulosin [Flomax] 0.4 mg PO BID 01/03/21 01/03/21 History Allergies Allergy/AdvReac Type Severity Reaction Status Date / Time meperidine [From Demerol] Allergy head felt Verified 01/03/21 11:57 big hydromorphone [From Dilaudid] AdvReac Mild Nausea Verified 01/03/21 11:57 Physical Exam Vitals: Vital Signs Temp Pulse Pulse Resp BP BP Pulse Ox 01/04/21 07:00 76 20 100 01/04/21 06:45 85 20 98 01/04/21 06:30 80 18 01/04/21 06:15 86 18 99 01/04/21 06:00 92 19 100 01/04/21 05:45 84 19 100 01/04/21 05:30 83 20 98 01/04/21 05:15 92 18 98 01/04/21 05:00 67 18 100 01/04/21 04:45 67 18 99 01/04/21 04:30 68 18 97 01/04/21 04:15 67 18 85/55 100 01/04/21 04:00 98.1 F 67 18 100 01/04/21 03:45 97 19 100 01/04/21 03:30 110 H 19 100 01/04/21 03:15 101 H 18 99 01/04/21 03:01 18 01/04/21 03:00 91 18 99 01/04/21 02:45 87 18 01/04/21 02:30 88 18 01/04/21 02:15 100 18 99 01/04/21 02:00 99 18 100 01/04/21 01:45 106 H 18 129/86 100 01/04/21 01:30 122 H 18 144/86 100 01/04/21 01:15 98.1 F 113 H 18 100 01/03/21 21:00 97.8 F 150 H 24 97/54 92 L 01/03/21 20:15 68 82/55 01/03/21 20:00 150 H 24 80/50 93 L 01/03/21 18:38 71 16 01/03/21 16:41 98.1 F 71 16 120/70 97 01/03/21 16:31 98.8 F 61 18 96/58 96 01/03/21 14:18 51 L 20 113/69 98 01/03/21 11:54 98.6 F 64 20 104/69 99 Intake and Output 01/03/21 01/04/21 01/04/21 22:59 06:59 14:59 Intake Total 2035.073 135 Output Total 430 10 Balance 1605.073 125 Intake: IV 2035 135 Lactated Ringers 1,000 ml 625 125 @ 125 mls/hr IV .Q8H [facility] Rx#:[id number] Piperacillin-Tazobactam 3 100 0 .375 gm In Sodium Chloride 0.9% 100 ml @ 25 mls/hr IVPB Q8HR [facility] Rx# :[id number] Sodium Chloride 0.9% 1, 110 10 000 ml @ 999 mls/hr IV . Q1H1M [facility] Rx#:[id number] metroNIDAZOLE-NS PMX 500 100 mg In Saline 1 100ml.bag @ 100 mls/hr IVPB Q8H [facility] Rx#:[id number] Intake, IV Titration 0.073 Amount Diltiazem 125 mg In 0 Sodium Chloride 0.9% 100 ml @ 5 MG/HR 5 mls/hr IV .Q24H [facility] Rx#:[id number] propofoL 1,000 mg In 0.073 Empty Bag 1 bag @ Titrate IV .Q0M [facility] Rx#: [id number] Output: Drainage 300 Right Lower Abdomen 100 Right Upper Abdomen 200 Urine 130 10 Other: Voiding Method Indwelling Catheter Weight 72.575 kg ABP, PAP, CO, CI - Last 8 Hours Arterial Blood Pressure 113/60 Arterial Blood Pressure 127/63 Arterial Blood Pressure 114/51 Arterial Blood Pressure 138/69 Arterial Blood Pressure 142/67 Arterial Blood Pressure 132/67 Arterial Blood Pressure 138/76 Arterial Blood Pressure 90/51 Arterial Blood Pressure 91/49 Arterial Blood Pressure 88/52 Arterial Blood Pressure 93/53 Arterial Blood Pressure 87/50 Arterial Blood Pressure 94/48 Arterial Blood Pressure 139/66 Arterial Blood Pressure 153/71 Arterial Blood Pressure 132/70 Arterial Blood Pressure 107/54 Arterial Blood Pressure 112/57 Arterial Blood Pressure 110/56 Arterial Blood Pressure 108/55 Arterial Blood Pressure 126/66 Arterial Blood Pressure 141/65 Arterial Blood Pressure 148/74 Arterial Blood Pressure 170/65 On examination is awake alert but profoundly weak. Looks cachectic HEENT exam no JVP is noted Lungs are clear to auscultation fair air entry bilaterally Heart sounds unremarkable. Monitor shows some extrasystoles. Abdomen is significant for dressings with drainage on the right side and a diverting ileostomy. Extremity exam was trace edema Neurologically awake alert but profoundly weak Results - Lab Results Most recent lab results ABG pH 7.25 (7.35-7.45) L 01/04/21 05:10 ABG pCO2 39 mmHg (35-45) 01/04/21 05:10 ABG pO2 128 mmHg (83-108) H 01/04/21 05:10 ABG HCO3 17 mmol/L (21-25) L 01/04/21 05:10 ABG O2 Saturation 99.1 % (94-97) H 01/04/21 05:10 Calcium 7.2 mg/dL (8.4-10.2) L 01/04/21 02:10 Magnesium 2.0 mg/dL (1.6-2.3) 01/04/21 06:00 01/04/21 06:35 01/04/21 02:10 Assessment and Plan Assessment: Impression 1. Chronic kidney disease, secondary to obstructive nephropathy. Creatinine was 4.9-1 10/16/2020 2 months ago went down to 2.19 on 10/21/2020. He was admitted with a creatinine of 3 yesterday and this morning is 3.29. Previous creatinines earlier than September 2020 are not available. 2. Mild degree of non-gap metabolic acidosis with a bicarb of 17, gap of 10, etiology is acute kidney injury and chronic kidney disease 3. History of bilateral hydronephrosis, severe left-sided hydronephrosis of the kidney demonstrated on computed tomography scan done yesterday 01/03/2021. 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 4. Ventilator dependent respiratory failure. 5. Anemia off chronic illness Recommendation 1. Agree with IV fluids currently with lactated Ringer's. 2. Continue antibiotics for perforation. 3. Will monitor labs intake and output were pressure 4. Avoid any nephrotoxic medications. Thank you for this consultation and we will continue to follow closely
[2021-01-04] MEDS: PIPERACILLIN-TAZOBACTAM 3.375 GM in SODIUM CHLORIDE 0.9% 100 ML IVPB SCH ×2 (08:36→17:05)
[2021-01-04] MEDS: HEPARIN SODIUM,PORCINE/PF 5,000 UNIT/0.5 ML SYRINGE SQ SCH ×3 (08:37→23:51)
[2021-01-04] MEDS: PANTOPRAZOLE 40 MG/10 ML VIAL IV SCH (08:37)
[2021-01-04] MEDS: CHLORHEXIDINE GLUCONATE 15 ML CUP MUCOUS MEM SCH ×2 (08:37→21:26)
[2021-01-04] MEDS: HYDROmorphone 0.5 MG/0.5 ML SYRINGE IVP PRN (08:48)
[2021-01-04] MEDS ORDERED: SODIUM CHLORIDE 0.9% 1,000 ML IV ONE (10:26)
[2021-01-04] MEDS: IPRATROPIUM-ALBUTEROL 3 ML NEB INHALATION SCH ×3 (11:56→18:58)
--- NOTE | 2021-01-04 11:59 | P.PN ---
Subjective Progress Note Date: 01/04/21 Principal diagnosis: Perforated necrotizing colonic mass Patient remains on the ventilator. The patient is slightly sedated. No obvious discomfort. Patient's urine output has been marginal this morning. White blood cell count is normal, hemoglobin 9.2. PELON drains are foul-smelling brownish color. Objective - Vital Signs Vital signs: Vital Signs Temp 98.1 F 01/04/21 04:00 Pulse 75 01/04/21 11:00 Resp 30 H 01/04/21 11:00 BP 89/62 01/04/21 09:45 Pulse Ox 82 L 01/04/21 11:00 Intake & Output 01/03/21 01/04/21 01/04/21 18:59 06:59 18:59 Intake Total 2035.073 1887.684 Output Total 430 25 Balance 9319.924 6797.684 Weight 72.575 kg Intake: IV 2035 1660 Lactated Ringers 1,000 ml 625 625 @ 125 mls/hr IV .Q8H [facility] Rx#:[id number] Piperacillin-Tazobactam 3 100 25 .375 gm In Sodium Chloride 0.9% 100 ml @ 25 mls/hr IVPB Q8HR [facility] Rx# :[id number] Sodium Chloride 0.9% 1, 110 1010 000 ml @ 999 mls/hr IV . Q1H1M [facility] Rx#:[id number] metroNIDAZOLE-NS PMX 500 100 mg In Saline 1 100ml.bag @ 100 mls/hr IVPB Q8H [facility] Rx#:[id number] Intake, IV Titration 0.073 227.684 Amount Diltiazem 125 mg In 0 82.25 Sodium Chloride 0.9% 100 ml @ 5 MG/HR 5 mls/hr IV .Q24H [facility] Rx#:[id number] metroNIDAZOLE-NS PMX 500 100 mg In Saline 1 100ml.bag @ 100 mls/hr IVPB Q8H [facility] Rx#:[id number] propofoL 1,000 mg In 0.073 45.434 Empty Bag 1 bag @ Titrate IV .Q0M [facility] Rx#: [id number] Output: Drainage 300 Right Lower Abdomen 100 Right Upper Abdomen 200 Urine 130 25 Other: Voiding Method Indwelling Catheter Indwelling Catheter ABP, PAP, CO, CI - Last Documented Arterial Blood Pressure 122/67 - Exam Abdomen: Soft, mild distention, dressing clean and dry, ostomy pink, PELON drains with thin brownish fluid - Labs CBC & Chem 7: 01/04/21 06:35 01/04/21 02:10 Labs: Abnormal Lab Results - Last 24 Hours (Table) 01/03/21 01/03/21 01/03/21 Range/Units 12:41 12:41 12:41 WBC (3.8-10.6) k/uL RBC (4.30-5.90) m/uL Hgb 10.3 L (13.0-17.5) gm/dL Hct 33.5 L (39.0-53.0) % MCV 77.1 L (80.0-100.0) fL MCH 23.8 L (25.0-35.0) pg MCHC 30.9 L (31.0-37.0) g/dL RDW 22.2 H (11.5-15.5) % Lymphocytes # (Manual) 0.88 L (1.0-4.8) k/uL Metamyelocytes # (Man) 0.24 H (0) k/uL Myelocytes # (Manual) (0) k/uL PT 12.6 H (9.0-12.0) sec INR 1.2 H (<1.2) ABG pH (7.35-7.45) ABG pO2 (83-108) mmHg ABG HCO3 (21-25) mmol/L ABG Total CO2 (19-24) mmol/L ABG O2 Saturation (94-97) % Chloride (98-107) mmol/L Carbon Dioxide 19 L (22-30) mmol/L BUN 52 H (9-20) mg/dL Creatinine 3.02 H (0.66-1.25) mg/dL Glucose 130 H (74-99) mg/dL POC Glucose (mg/dL) (75-99) mg/dL Plasma Lactic Acid Lucian (0.7-2.0) mmol/L Calcium (8.4-10.2) mg/dL Albumin 3.4 L (3.5-5.0) g/dL Urine Protein (Negative) Urine Blood (Negative) Urine RBC (0-5) /hpf Urine WBC (0-5) /hpf Urine WBC Clumps (None) /hpf Amorphous Sediment (None) /hpf Urine Mucus (None) /hpf 01/03/21 01/03/21 01/03/21 Range/Units 12:41 16:32 16:32 WBC (3.8-10.6) k/uL RBC (4.30-5.90) m/uL Hgb 10.5 L (13.0-17.5) gm/dL Hct 34.4 L (39.0-53.0) % MCV 78.8 L (80.0-100.0) fL MCH 24.1 L (25.0-35.0) pg MCHC 30.6 L (31.0-37.0) g/dL RDW 22.2 H (11.5-15.5) % Lymphocytes # (Manual) 0.64 L (1.0-4.8) k/uL Metamyelocytes # (Man) 0.23 H (0) k/uL Myelocytes # (Manual) (0) k/uL PT (9.0-12.0) sec INR (<1.2) ABG pH (7.35-7.45) ABG pO2 (83-108) mmHg ABG HCO3 (21-25) mmol/L ABG Total CO2 (19-24) mmol/L ABG O2 Saturation (94-97) % Chloride (98-107) mmol/L Carbon Dioxide 18 L (22-30) mmol/L BUN 55 H (9-20) mg/dL Creatinine 3.28 H (0.66-1.25) mg/dL Glucose 126 H (74-99) mg/dL POC Glucose (mg/dL) (75-99) mg/dL Plasma Lactic Acid Lucian 3.1 H* (0.7-2.0) mmol/L Calcium (8.4-10.2) mg/dL Albumin (3.5-5.0) g/dL Urine Protein (Negative) Urine Blood (Negative) Urine RBC (0-5) /hpf Urine WBC (0-5) /hpf Urine WBC Clumps (None) /hpf Amorphous Sediment (None) /hpf Urine Mucus (None) /hpf 01/03/21 01/03/21 01/03/21 Range/Units 16:46 19:47 20:30 WBC (3.8-10.6) k/uL RBC (4.30-5.90) m/uL Hgb (13.0-17.5) gm/dL Hct (39.0-53.0) % MCV (80.0-100.0) fL MCH (25.0-35.0) pg MCHC (31.0-37.0) g/dL RDW (11.5-15.5) % Lymphocytes # (Manual) (1.0-4.8) k/uL Metamyelocytes # (Man) (0) k/uL Myelocytes # (Manual) (0) k/uL PT (9.0-12.0) sec INR (<1.2) ABG pH (7.35-7.45) ABG pO2 (83-108) mmHg ABG HCO3 (21-25) mmol/L ABG Total CO2 (19-24) mmol/L ABG O2 Saturation (94-97) % Chloride (98-107) mmol/L Carbon Dioxide (22-30) mmol/L BUN (9-20) mg/dL Creatinine (0.66-1.25) mg/dL Glucose (74-99) mg/dL POC Glucose (mg/dL) 104 H (75-99) mg/dL Plasma Lactic Acid Lucian 3.2 H* 3.1 H* (0.7-2.0) mmol/L Calcium (8.4-10.2) mg/dL Albumin (3.5-5.0) g/dL Urine Protein (Negative) Urine Blood (Negative) Urine RBC (0-5) /hpf Urine WBC (0-5) /hpf Urine WBC Clumps (None) /hpf Amorphous Sediment (None) /hpf Urine Mucus (None) /hpf 01/04/21 01/04/21 01/04/21 Range/Units 01:14 01:16 01:45 WBC (3.8-10.6) k/uL RBC (4.30-5.90) m/uL Hgb (13.0-17.5) gm/dL Hct (39.0-53.0) % MCV (80.0-100.0) fL MCH (25.0-35.0) pg MCHC (31.0-37.0) g/dL RDW (11.5-15.5) % Lymphocytes # (Manual) (1.0-4.8) k/uL Metamyelocytes # (Man) (0) k/uL Myelocytes # (Manual) (0) k/uL PT (9.0-12.0) sec INR (<1.2) ABG pH 7.20 L (7.35-7.45) ABG pO2 389 H (83-108) mmHg ABG HCO3 17 L (21-25) mmol/L ABG Total CO2 (19-24) mmol/L ABG O2 Saturation 99.9 H (94-97) % Chloride (98-107) mmol/L Carbon Dioxide (22-30) mmol/L BUN (9-20) mg/dL Creatinine (0.66-1.25) mg/dL Glucose (74-99) mg/dL POC Glucose (mg/dL) 65 L 106 H (75-99) mg/dL Plasma Lactic Acid Lucian (0.7-2.0) mmol/L Calcium (8.4-10.2) mg/dL Albumin (3.5-5.0) g/dL Urine Protein (Negative) Urine Blood (Negative) Urine RBC (0-5) /hpf Urine WBC (0-5) /hpf Urine WBC Clumps (None) /hpf Amorphous Sediment (None) /hpf Urine Mucus (None) /hpf 01/04/21 01/04/21 01/04/21 Range/Units 02:10 02:10 05:10 WBC 3.6 L (3.8-10.6) k/uL RBC 3.66 L (4.30-5.90) m/uL Hgb 8.9 L D (13.0-17.5) gm/dL Hct 28.9 L (39.0-53.0) % MCV 79.0 L (80.0-100.0) fL MCH 24.3 L (25.0-35.0) pg MCHC 30.8 L (31.0-37.0) g/dL RDW 22.1 H (11.5-15.5) % Lymphocytes # (Manual) 0.43 L (1.0-4.8) k/uL Metamyelocytes # (Man) 0.18 H (0) k/uL Myelocytes # (Manual) 0.04 H (0) k/uL PT (9.0-12.0) sec INR (<1.2) ABG pH 7.25 L (7.35-7.45) ABG pO2 128 H (83-108) mmHg ABG HCO3 17 L (21-25) mmol/L ABG Total CO2 18 L (19-24) mmol/L ABG O2 Saturation 99.1 H (94-97) % Chloride 111 H (98-107) mmol/L Carbon Dioxide 17 L (22-30) mmol/L BUN 60 H (9-20) mg/dL Creatinine 3.29 H (0.66-1.25) mg/dL Glucose 107 H (74-99) mg/dL POC Glucose (mg/dL) (75-99) mg/dL Plasma Lactic Acid Lucian (0.7-2.0) mmol/L Calcium 7.2 L (8.4-10.2) mg/dL Albumin (3.5-5.0) g/dL Urine Protein (Negative) Urine Blood (Negative) Urine RBC (0-5) /hpf Urine WBC (0-5) /hpf Urine WBC Clumps (None) /hpf Amorphous Sediment (None) /hpf Urine Mucus (None) /hpf 01/04/21 01/04/21 01/04/21 Range/Units 06:20 06:35 06:35 WBC (3.8-10.6) k/uL RBC 3.80 L (4.30-5.90) m/uL Hgb 9.2 L (13.0-17.5) gm/dL Hct 30.2 L (39.0-53.0) % MCV 79.4 L (80.0-100.0) fL MCH 24.3 L (25.0-35.0) pg MCHC 30.6 L (31.0-37.0) g/dL RDW 22.3 H (11.5-15.5) % Lymphocytes # (Manual) (1.0-4.8) k/uL Metamyelocytes # (Man) 0.16 H (0) k/uL Myelocytes # (Manual) 0.05 H (0) k/uL PT (9.0-12.0) sec INR (<1.2) ABG pH (7.35-7.45) ABG pO2 (83-108) mmHg ABG HCO3 (21-25) mmol/L ABG Total CO2 (19-24) mmol/L ABG O2 Saturation (94-97) % Chloride (98-107) mmol/L Carbon Dioxide (22-30) mmol/L BUN (9-20) mg/dL Creatinine (0.66-1.25) mg/dL Glucose (74-99) mg/dL POC Glucose (mg/dL) 101 H (75-99) mg/dL Plasma Lactic Acid Lucian (0.7-2.0) mmol/L Calcium (8.4-10.2) mg/dL Albumin (3.5-5.0) g/dL Urine Protein 2+ H (Negative) Urine Blood Large H (Negative) Urine RBC 66 H (0-5) /hpf Urine WBC 45 H (0-5) /hpf Urine WBC Clumps Moderate H (None) /hpf Amorphous Sediment Rare H (None) /hpf Urine Mucus Rare H (None) /hpf Assessment and Plan (1) Pneumoperitoneum Narrative/Plan: Continue weaning from ventilator per pulmonary. Monitor urine output. Ostomy care. Continue antibiotics. Nephrology and cardiology evaluation this morning. Current Visit: Yes Status: Acute Code(s): K66.8 - OTHER SPECIFIED DISORDERS OF PERITONEUM SNOMED Code(s): 09405876
[2021-01-04 12:02] LABS: Glucose,Whole Blood 95 mg/dL (75-99)
--- NOTE | 2021-01-04 12:47 | P.PN ---
Subjective Progress Note Date: 01/04/21 Pt underwent ex lap on 01/03 and had large necrotic cecal mass removed with component of abscess. Now on vent in ICU Objective - Vital Signs Vital signs: Vital Signs Temp 98.2 F 01/04/21 12:00 Pulse 97 01/04/21 12:15 Resp 13 01/04/21 12:15 BP 129/79 01/04/21 12:15 Pulse Ox 94 L 01/04/21 12:15 Intake & Output 01/03/21 01/04/21 01/04/21 18:59 06:59 18:59 Intake Total 2035.073 2012.011 Output Total 430 65 Balance 3994.379 8114.011 Weight 72.575 kg Intake: IV 2034 1785 Lactated Ringers 1,000 ml 625 750 @ 125 mls/hr IV .Q8H [facility] Rx#:[id number] Piperacillin-Tazobactam 3 100 25 .375 gm In Sodium Chloride 0.9% 100 ml @ 25 mls/hr IVPB Q8HR [facility] Rx# :[id number] Sodium Chloride 0.9% 1, 110 1010 000 ml @ 999 mls/hr IV . Q1H1M [facility] Rx#:[id number] metroNIDAZOLE-NS PMX 500 100 mg In Saline 1 100ml.bag @ 100 mls/hr IVPB Q8H [facility] Rx#:[id number] Intake, IV Titration 0.073 228.011 Amount Diltiazem 125 mg In 0 82.25 Sodium Chloride 0.9% 100 ml @ 5 MG/HR 5 mls/hr IV .Q24H [facility] Rx#:[id number] metroNIDAZOLE-NS PMX 500 100 mg In Saline 1 100ml.bag @ 100 mls/hr IVPB Q8H [facility] Rx#:[id number] propofoL 1,000 mg In 0.073 45.761 Empty Bag 1 bag @ Titrate IV .Q0M [facility] Rx#: [id number] Output: Drainage 300 Right Lower Abdomen 100 Right Upper Abdomen 200 Urine 130 65 Other: Voiding Method Indwelling Catheter Indwelling Catheter ABP, PAP, CO, CI - Last Documented Arterial Blood Pressure 131/53 - Exam Gen: awake, following commands, ventilator Resp: good air exchange, ventilator, undergoing SBT CVS: good distal perfusion x 4, GI: Exquisitely tender to palpation diffusely, distended, rebound tenderness present, involuntary guarding : no SPT, no CVAT, serrano catheter is present MSK: no pitting edema, no clubbing Neuro: non-focal, moving all extremities - Labs CBC & Chem 7: 01/04/21 06:35 01/04/21 02:10 Labs: Abnormal Lab Results - Last 24 Hours (Table) 01/03/21 01/03/21 01/03/21 Range/Units 12:41 12:41 12:41 WBC (3.8-10.6) k/uL RBC (4.30-5.90) m/uL Hgb 10.3 L (13.0-17.5) gm/dL Hct 33.5 L (39.0-53.0) % MCV 77.1 L (80.0-100.0) fL MCH 23.8 L (25.0-35.0) pg MCHC 30.9 L (31.0-37.0) g/dL RDW 22.2 H (11.5-15.5) % Lymphocytes # (Manual) 0.88 L (1.0-4.8) k/uL Metamyelocytes # (Man) 0.24 H (0) k/uL Myelocytes # (Manual) (0) k/uL PT 12.6 H (9.0-12.0) sec INR 1.2 H (<1.2) ABG pH (7.35-7.45) ABG pO2 (83-108) mmHg ABG HCO3 (21-25) mmol/L ABG Total CO2 (19-24) mmol/L ABG O2 Saturation (94-97) % Chloride (98-107) mmol/L Carbon Dioxide 19 L (22-30) mmol/L BUN 52 H (9-20) mg/dL Creatinine 3.02 H (0.66-1.25) mg/dL Glucose 130 H (74-99) mg/dL POC Glucose (mg/dL) (75-99) mg/dL Plasma Lactic Acid Lucian (0.7-2.0) mmol/L Calcium (8.4-10.2) mg/dL Albumin 3.4 L (3.5-5.0) g/dL Urine Protein (Negative) Urine Blood (Negative) Urine RBC (0-5) /hpf Urine WBC (0-5) /hpf Urine WBC Clumps (None) /hpf Amorphous Sediment (None) /hpf Urine Mucus (None) /hpf 01/03/21 01/03/21 01/03/21 Range/Units 12:41 16:32 16:32 WBC (3.8-10.6) k/uL RBC (4.30-5.90) m/uL Hgb 10.5 L (13.0-17.5) gm/dL Hct 34.4 L (39.0-53.0) % MCV 78.8 L (80.0-100.0) fL MCH 24.1 L (25.0-35.0) pg MCHC 30.6 L (31.0-37.0) g/dL RDW 22.2 H (11.5-15.5) % Lymphocytes # (Manual) 0.64 L (1.0-4.8) k/uL Metamyelocytes # (Man) 0.23 H (0) k/uL Myelocytes # (Manual) (0) k/uL PT (9.0-12.0) sec INR (<1.2) ABG pH (7.35-7.45) ABG pO2 (83-108) mmHg ABG HCO3 (21-25) mmol/L ABG Total CO2 (19-24) mmol/L ABG O2 Saturation (94-97) % Chloride (98-107) mmol/L Carbon Dioxide 18 L (22-30) mmol/L BUN 55 H (9-20) mg/dL Creatinine 3.28 H (0.66-1.25) mg/dL Glucose 126 H (74-99) mg/dL POC Glucose (mg/dL) (75-99) mg/dL Plasma Lactic Acid Lucian 3.1 H* (0.7-2.0) mmol/L Calcium (8.4-10.2) mg/dL Albumin (3.5-5.0) g/dL Urine Protein (Negative) Urine Blood (Negative) Urine RBC (0-5) /hpf Urine WBC (0-5) /hpf Urine WBC Clumps (None) /hpf Amorphous Sediment (None) /hpf Urine Mucus (None) /hpf 01/03/21 01/03/21 01/03/21 Range/Units 16:46 19:47 20:30 WBC (3.8-10.6) k/uL RBC (4.30-5.90) m/uL Hgb (13.0-17.5) gm/dL Hct (39.0-53.0) % MCV (80.0-100.0) fL MCH (25.0-35.0) pg MCHC (31.0-37.0) g/dL RDW (11.5-15.5) % Lymphocytes # (Manual) (1.0-4.8) k/uL Metamyelocytes # (Man) (0) k/uL Myelocytes # (Manual) (0) k/uL PT (9.0-12.0) sec INR (<1.2) ABG pH (7.35-7.45) ABG pO2 (83-108) mmHg ABG HCO3 (21-25) mmol/L ABG Total CO2 (19-24) mmol/L ABG O2 Saturation (94-97) % Chloride (98-107) mmol/L Carbon Dioxide (22-30) mmol/L BUN (9-20) mg/dL Creatinine (0.66-1.25) mg/dL Glucose (74-99) mg/dL POC Glucose (mg/dL) 104 H (75-99) mg/dL Plasma Lactic Acid Lucian 3.2 H* 3.1 H* (0.7-2.0) mmol/L Calcium (8.4-10.2) mg/dL Albumin (3.5-5.0) g/dL Urine Protein (Negative) Urine Blood (Negative) Urine RBC (0-5) /hpf Urine WBC (0-5) /hpf Urine WBC Clumps (None) /hpf Amorphous Sediment (None) /hpf Urine Mucus (None) /hpf 01/04/21 01/04/21 01/04/21 Range/Units 01:14 01:16 01:45 WBC (3.8-10.6) k/uL RBC (4.30-5.90) m/uL Hgb (13.0-17.5) gm/dL Hct (39.0-53.0) % MCV (80.0-100.0) fL MCH (25.0-35.0) pg MCHC (31.0-37.0) g/dL RDW (11.5-15.5) % Lymphocytes # (Manual) (1.0-4.8) k/uL Metamyelocytes # (Man) (0) k/uL Myelocytes # (Manual) (0) k/uL PT (9.0-12.0) sec INR (<1.2) ABG pH 7.20 L (7.35-7.45) ABG pO2 389 H (83-108) mmHg ABG HCO3 17 L (21-25) mmol/L ABG Total CO2 (19-24) mmol/L ABG O2 Saturation 99.9 H (94-97) % Chloride (98-107) mmol/L Carbon Dioxide (22-30) mmol/L BUN (9-20) mg/dL Creatinine (0.66-1.25) mg/dL Glucose (74-99) mg/dL POC Glucose (mg/dL) 65 L 106 H (75-99) mg/dL Plasma Lactic Acid Lucian (0.7-2.0) mmol/L Calcium (8.4-10.2) mg/dL Albumin (3.5-5.0) g/dL Urine Protein (Negative) Urine Blood (Negative) Urine RBC (0-5) /hpf Urine WBC (0-5) /hpf Urine WBC Clumps (None) /hpf Amorphous Sediment (None) /hpf Urine Mucus (None) /hpf 01/04/21 01/04/21 01/04/21 Range/Units 02:10 02:10 05:10 WBC 3.6 L (3.8-10.6) k/uL RBC 3.66 L (4.30-5.90) m/uL Hgb 8.9 L D (13.0-17.5) gm/dL Hct 28.9 L (39.0-53.0) % MCV 79.0 L (80.0-100.0) fL MCH 24.3 L (25.0-35.0) pg MCHC 30.8 L (31.0-37.0) g/dL RDW 22.1 H (11.5-15.5) % Lymphocytes # (Manual) 0.43 L (1.0-4.8) k/uL Metamyelocytes # (Man) 0.18 H (0) k/uL Myelocytes # (Manual) 0.04 H (0) k/uL PT (9.0-12.0) sec INR (<1.2) ABG pH 7.25 L (7.35-7.45) ABG pO2 128 H (83-108) mmHg ABG HCO3 17 L (21-25) mmol/L ABG Total CO2 18 L (19-24) mmol/L ABG O2 Saturation 99.1 H (94-97) % Chloride 111 H (98-107) mmol/L Carbon Dioxide 17 L (22-30) mmol/L BUN 60 H (9-20) mg/dL Creatinine 3.29 H (0.66-1.25) mg/dL Glucose 107 H (74-99) mg/dL POC Glucose (mg/dL) (75-99) mg/dL Plasma Lactic Acid Lucian (0.7-2.0) mmol/L Calcium 7.2 L (8.4-10.2) mg/dL Albumin (3.5-5.0) g/dL Urine Protein (Negative) Urine Blood (Negative) Urine RBC (0-5) /hpf Urine WBC (0-5) /hpf Urine WBC Clumps (None) /hpf Amorphous Sediment (None) /hpf Urine Mucus (None) /hpf 01/04/21 01/04/21 01/04/21 Range/Units 06:20 06:35 06:35 WBC (3.8-10.6) k/uL RBC 3.80 L (4.30-5.90) m/uL Hgb 9.2 L (13.0-17.5) gm/dL Hct 30.2 L (39.0-53.0) % MCV 79.4 L (80.0-100.0) fL MCH 24.3 L (25.0-35.0) pg MCHC 30.6 L (31.0-37.0) g/dL RDW 22.3 H (11.5-15.5) % Lymphocytes # (Manual) (1.0-4.8) k/uL Metamyelocytes # (Man) 0.16 H (0) k/uL Myelocytes # (Manual) 0.05 H (0) k/uL PT (9.0-12.0) sec INR (<1.2) ABG pH (7.35-7.45) ABG pO2 (83-108) mmHg ABG HCO3 (21-25) mmol/L ABG Total CO2 (19-24) mmol/L ABG O2 Saturation (94-97) % Chloride (98-107) mmol/L Carbon Dioxide (22-30) mmol/L BUN (9-20) mg/dL Creatinine (0.66-1.25) mg/dL Glucose (74-99) mg/dL POC Glucose (mg/dL) 101 H (75-99) mg/dL Plasma Lactic Acid Lucian (0.7-2.0) mmol/L Calcium (8.4-10.2) mg/dL Albumin (3.5-5.0) g/dL Urine Protein 2+ H (Negative) Urine Blood Large H (Negative) Urine RBC 66 H (0-5) /hpf Urine WBC 45 H (0-5) /hpf Urine WBC Clumps Moderate H (None) /hpf Amorphous Sediment Rare H (None) /hpf Urine Mucus Rare H (None) /hpf Assessment and Plan Assessment: Perforated Bowel Colonic Mass -surgery team to take pt to OR -strict NPO -hold all oral home meds; will not convert metoprolol to IV at this time given borderline low HR -fentanyl [facility] started for pain control -zosyn started, consider adding fluconazole Left Hydronephrosis CKD III -urology, nephrology consults -avoid nephrotoxins -IVF HTN BPH -holding home meds as above Medicine will continue to follow. Please reach out to a member of [employer] via [employer] if there are any questions/concerns.
--- NOTE | 2021-01-04 13:16 | P.CNPUL ---
History of Present Illness Consult date: 01/04/21 Requesting physician: Braulio Nicole Reason for consult: other (Ventilator/Critical Care Management) Chief complaint: Abdominal pain History of present illness: This is a very frail, very cachectic 65-year-old male patient with a history of colon cancer, hypertension, gastroesophageal reflux disease, anxiety, marijuana use. He was diagnosed with colon cancer in October of this year and was scheduled to have surgery on January [address] Pinzon. No other treatment guided up to this point. He presented to the emergency room yesterday with acute abdominal pain. He had been having issues with nausea and vomiting for several hours prior to his arrival. No hematemesis. The CAT scan of the abdomen revealed enlarging cavitary mid to lower abdominal mass consistent with neoplasm of colonic origin with new wall perforation and free air. He was taken urgently to the operating room last evening by Dr. Nicole. He had undergone an exploratory laparotomy, drainage of the right-sided abdominal abscess, I See of cecal tumor, diverting loop ileostomy, excision abdominal wall nodule. 2 PELON drains were placed on the right side. Loop ileostomy in the left mid abdomen. He is seen today in consultation in the intensive care unit. He remains intubated and on the mechanical ventilator. Assist-control mode at a rate of 18, tidal M4 50, FiO2 40% and a PEEP of 5. Morning blood gases revealed a PaO2 of 128, pCO2 39, pH 7.25. He has lactated Ringer's running at 125 ML's per hour. Propofol at 10 mcg/kg/m. Initiated on Cardizem drip which is currently off. He did receive 4 L of fluid resuscitation. Blood pressure stable. He's afebrile. White count 5.4. Hemoglobin 9.2. Sodium 138. Potassium 3.8. Creatinine 3.29. Glucose 107. Duncan virus not detected. Chest x-ray shows no acute pulmonary process. Endotracheal tube in good position. Nasogastric tube in position. He is currently on Zosyn and Flagyl. Heparin for DVT prophylaxis. Protonix for GI prophylaxis. Review of Systems ROS unobtainable: due to endotracheal tube Past Medical History Past Medical History: Cancer, GERD/Reflux, Hypertension Additional Past Medical History / Comment(s): colon cancer History of Any Multi-Drug Resistant Organisms: None Reported Past Surgical History: Hernia Repair Additional Past Surgical History / Comment(s): jaw surgery Past Anesthesia/Blood Transfusion Reactions: No Reported Reaction Past Psychological History: Anxiety Smoking Status: Never smoker Past Alcohol Use History: None Reported Past Drug Use History: Marijuana Medications and Allergies Home Medications Medication Instructions Recorded Confirmed Type Finasteride [Proscar] 5 mg PO DAILY #30 tab 10/21/20 01/03/21 Rx amLODIPine [Norvasc] 5 mg PO BID #60 tab 10/21/20 01/03/21 Rx Metoprolol Tartrate [Lopressor] 12.5 mg PO BID 01/03/21 01/03/21 History Tamsulosin [Flomax] 0.4 mg PO BID 01/03/21 01/03/21 History Allergies Allergy/AdvReac Type Severity Reaction Status Date / Time meperidine [From Demerol] Allergy head felt Verified 01/03/21 11:57 big hydromorphone [From Dilaudid] AdvReac Mild Nausea Verified 01/03/21 11:57 Physical Exam Vitals: Vital Signs Temp Pulse Pulse Resp BP BP Pulse Ox 01/04/21 12:15 97 13 129/79 94 L 01/04/21 12:00 98.2 F 87 9 L 93 L 01/04/21 11:56 90 01/04/21 11:45 92 25 H 90 L 01/04/21 11:30 84 26 H 94 L 01/04/21 11:15 73 29 H 89/62 95 01/04/21 11:00 75 30 H 82 L 01/04/21 10:45 78 23 95 01/04/21 10:30 75 19 100 01/04/21 10:15 70 19 100 01/04/21 10:00 76 18 100 01/04/21 09:45 75 23 89/62 100 01/04/21 09:30 75 26 H 100 01/04/21 09:15 72 18 78/55 98 01/04/21 09:00 82 21 98 01/04/21 08:45 80 19 99 01/04/21 08:30 80 25 H 100 01/04/21 08:15 75 19 99/69 99 01/04/21 08:00 77 18 98 01/04/21 07:45 76 18 100 01/04/21 07:30 75 18 98 01/04/21 07:15 75 18 85/55 99 01/04/21 07:00 76 20 100 01/04/21 06:45 85 20 98 01/04/21 06:30 80 18 01/04/21 06:15 86 18 99 01/04/21 06:00 92 19 100 01/04/21 05:45 84 19 100 01/04/21 05:30 83 20 98 01/04/21 05:15 92 18 98 01/04/21 05:00 67 18 100 01/04/21 04:45 67 18 99 01/04/21 04:30 68 18 97 01/04/21 04:15 67 18 85/55 100 01/04/21 04:00 98.1 F 67 18 100 01/04/21 03:45 97 19 100 01/04/21 03:30 110 H 19 100 01/04/21 03:15 101 H 18 99 01/04/21 03:01 18 01/04/21 03:00 91 18 99 01/04/21 02:45 87 18 01/04/21 02:30 88 18 01/04/21 02:15 100 18 99 01/04/21 02:00 99 18 100 01/04/21 01:45 106 H 18 129/86 100 01/04/21 01:30 122 H 18 144/86 100 01/04/21 01:15 98.1 F 113 H 18 100 01/03/21 21:00 97.8 F 150 H 24 97/54 92 L 01/03/21 20:15 68 82/55 01/03/21 20:00 150 H 24 80/50 93 L 01/03/21 18:38 71 16 01/03/21 16:41 98.1 F 71 16 120/70 97 01/03/21 16:31 98.8 F 61 18 96/58 96 01/03/21 14:18 51 L 20 113/69 98 Intake and Output 01/03/21 01/04/21 01/04/21 22:59 06:59 14:59 Intake Total 07 Output Total 430 65 Balance 5784.820 6669.011 Intake: IV 2034 1785 Lactated Ringers 1,000 ml 625 750 @ 125 mls/hr IV .Q8H [facility] Rx#:[id number] Piperacillin-Tazobactam 3 100 25 .375 gm In Sodium Chloride 0.9% 100 ml @ 25 mls/hr IVPB Q8HR [facility] Rx# :[id number] Sodium Chloride 0.9% 1, 110 1010 000 ml @ 999 mls/hr IV . Q1H1M [facility] Rx#:[id number] metroNIDAZOLE-NS PMX 500 100 mg In Saline 1 100ml.bag @ 100 mls/hr IVPB Q8H [facility] Rx#:[id number] Intake, IV Titration 0.073 228.011 Amount Diltiazem 125 mg In 0 82.25 Sodium Chloride 0.9% 100 ml @ 5 MG/HR 5 mls/hr IV .Q24H [facility] Rx#:[id number] metroNIDAZOLE-NS PMX 500 100 mg In Saline 1 100ml.bag @ 100 mls/hr IVPB Q8H [facility] Rx#:[id number] propofoL 1,000 mg In 0.073 45.761 Empty Bag 1 bag @ Titrate IV .Q0M [facility] Rx#: [id number] Output: Drainage 300 Right Lower Abdomen 100 Right Upper Abdomen 200 Urine 130 65 Other: Voiding Method Indwelling Catheter Indwelling Catheter Weight 72.575 kg ABP, PAP, CO, CI - Last 8 Hours Arterial Blood Pressure 131/53 Arterial Blood Pressure 131/57 Arterial Blood Pressure 135/58 Arterial Blood Pressure 117/62 Arterial Blood Pressure 121/63 Arterial Blood Pressure 122/67 Arterial Blood Pressure 125/62 Arterial Blood Pressure 74/42 Arterial Blood Pressure 73/43 Arterial Blood Pressure 77/45 Arterial Blood Pressure 107/56 Arterial Blood Pressure 105/59 Arterial Blood Pressure 76/45 Arterial Blood Pressure 99/53 Arterial Blood Pressure 136/67 Arterial Blood Pressure 121/62 Arterial Blood Pressure 94/53 Arterial Blood Pressure 97/57 Arterial Blood Pressure 83/45 Arterial Blood Pressure 88/52 Arterial Blood Pressure 111/59 Arterial Blood Pressure 113/60 Arterial Blood Pressure 127/63 Arterial Blood Pressure 114/51 Arterial Blood Pressure 138/69 Arterial Blood Pressure 142/67 Arterial Blood Pressure 132/67 Arterial Blood Pressure 138/76 Arterial Blood Pressure 90/51 Arterial Blood Pressure 91/49 GENERAL EXAM: Intubated, sedated frail cachectic 65-year-old gentleman. HEAD: Normocephalic. EYES: Sluggish reaction of pupils, equal size. NOSE: Clear with pink turbinates. THROAT: Oral endotracheal and gastric tube secured in place.No erythema or exudates. NECK: No masses, no JVD. CHEST: No chest wall deformity. LUNGS: Equal air entry with no crackles, wheeze, rhonchi or dullness. CVS: S1 and S2 normal with no audible murmur, regular rhythm. ABDOMEN: Abdominal dressing, stoma pink, no output. PELON drains in place 2. SPINE: No scoliosis or deformity SKIN: No rashes CENTRAL NERVOUS SYSTEM: No focal deficits, tone is normal in all 4 extremities. EXTREMITIES: There is no peripheral edema. No clubbing, no cyanosis. Peripheral pulses are intact. Results - Laboratory Findings CBC and BMP: 01/04/21 06:35 01/04/21 02:10 ABG ABG pH 7.25 (7.35-7.45) L 01/04/21 05:10 ABG pCO2 39 mmHg (35-45) 01/04/21 05:10 ABG pO2 128 mmHg (83-108) H 01/04/21 05:10 ABG O2 Saturation 99.1 % (94-97) H 01/04/21 05:10 PT/INR, D-dimer PT 12.6 sec (9.0-12.0) H 01/03/21 12:41 INR 1.2 (<1.2) H 01/03/21 12:41 Abnormal lab findings: Abnormal Labs 01/03/21 01/03/21 01/03/21 12:41 12:41 12:41 WBC RBC Hgb 10.3 L Hct 33.5 L MCV 77.1 L MCH 23.8 L MCHC 30.9 L RDW 22.2 H Lymphocytes # (Manual) 0.88 L Metamyelocytes # (Man) 0.24 H Myelocytes # (Manual) PT 12.6 H INR 1.2 H ABG pH ABG pO2 ABG HCO3 ABG Total CO2 ABG O2 Saturation Chloride Carbon Dioxide 19 L BUN 52 H Creatinine 3.02 H Glucose 130 H POC Glucose (mg/dL) Plasma Lactic Acid Lucian Calcium Albumin 3.4 L Urine Protein Urine Blood Urine RBC Urine WBC Urine WBC Clumps Amorphous Sediment Urine Mucus 01/03/21 01/03/21 01/03/21 12:41 16:32 16:32 WBC RBC Hgb 10.5 L Hct 34.4 L MCV 78.8 L MCH 24.1 L MCHC 30.6 L RDW 22.2 H Lymphocytes # (Manual) 0.64 L Metamyelocytes # (Man) 0.23 H Myelocytes # (Manual) PT INR ABG pH ABG pO2 ABG HCO3 ABG Total CO2 ABG O2 Saturation Chloride Carbon Dioxide 18 L BUN 55 H Creatinine 3.28 H Glucose 126 H POC Glucose (mg/dL) Plasma Lactic Acid Lucian 3.1 H* Calcium Albumin Urine Protein Urine Blood Urine RBC Urine WBC Urine WBC Clumps Amorphous Sediment Urine Mucus 01/03/21 01/03/21 01/03/21 16:46 19:47 20:30 WBC RBC Hgb Hct MCV MCH MCHC RDW Lymphocytes # (Manual) Metamyelocytes # (Man) Myelocytes # (Manual) PT INR ABG pH ABG pO2 ABG HCO3 ABG Total CO2 ABG O2 Saturation Chloride Carbon Dioxide BUN Creatinine Glucose POC Glucose (mg/dL) 104 H Plasma Lactic Acid Lucian 3.2 H* 3.1 H* Calcium Albumin Urine Protein Urine Blood Urine RBC Urine WBC Urine WBC Clumps Amorphous Sediment Urine Mucus 01/04/21 01/04/21 01/04/21 01:14 01:16 01:45 WBC RBC Hgb Hct MCV MCH MCHC RDW Lymphocytes # (Manual) Metamyelocytes # (Man) Myelocytes # (Manual) PT INR ABG pH 7.20 L ABG pO2 389 H ABG HCO3 17 L ABG Total CO2 ABG O2 Saturation 99.9 H Chloride Carbon Dioxide BUN Creatinine Glucose POC Glucose (mg/dL) 65 L 106 H Plasma Lactic Acid Lucian Calcium Albumin Urine Protein Urine Blood Urine RBC Urine WBC Urine WBC Clumps Amorphous Sediment Urine Mucus 01/04/21 01/04/21 01/04/21 02:10 02:10 05:10 WBC 3.6 L RBC 3.66 L Hgb 8.9 L D Hct 28.9 L MCV 79.0 L MCH 24.3 L MCHC 30.8 L RDW 22.1 H Lymphocytes # (Manual) 0.43 L Metamyelocytes # (Man) 0.18 H Myelocytes # (Manual) 0.04 H PT INR ABG pH 7.25 L ABG pO2 128 H ABG HCO3 17 L ABG Total CO2 18 L ABG O2 Saturation 99.1 H Chloride 111 H Carbon Dioxide 17 L BUN 60 H Creatinine 3.29 H Glucose 107 H POC Glucose (mg/dL) Plasma Lactic Acid Lucian Calcium 7.2 L Albumin Urine Protein Urine Blood Urine RBC Urine WBC Urine WBC Clumps Amorphous Sediment Urine Mucus 01/04/21 01/04/21 01/04/21 06:20 06:35 06:35 WBC RBC 3.80 L Hgb 9.2 L Hct 30.2 L MCV 79.4 L MCH 24.3 L MCHC 30.6 L RDW 22.3 H Lymphocytes # (Manual) Metamyelocytes # (Man) 0.16 H Myelocytes # (Manual) 0.05 H PT INR ABG pH ABG pO2 ABG HCO3 ABG Total CO2 ABG O2 Saturation Chloride Carbon Dioxide BUN Creatinine Glucose POC Glucose (mg/dL) 101 H Plasma Lactic Acid Lucian Calcium Albumin Urine Protein 2+ H Urine Blood Large H Urine RBC 66 H Urine WBC 45 H Urine WBC Clumps Moderate H Amorphous Sediment Rare H Urine Mucus Rare H - Diagnostic Findings Chest x-ray: image reviewed Assessment and Plan Assessment: 1 Abdominal pain secondary to a large right-sided abdominal mass with an appearance of abscess, free perforation with extensive pneumoperitoneum present. Status post exploratory laparotomy, drainage of the right-sided abdominal abscess, biopsy of cecal tumor, diverting loop ileostomy, excision abdominal wall nodule. Postoperative day #1. 2 Acute hypoxemic respiratory failure secondary to above requiring continued int ubation mechanical ventilatory support 3 Hypotension secondary to sepsis 4 Known history of right-sided colonic mass 2-3 months ago with pending surgery in January 2021 no other treatment thus far. 5 Acute on chronic kidney disease 6 History of hypertension 7 History of gastroesophageal reflux disease 8 History of anxiety Plan: The patient was seen and evaluated by Dr. Loza Chest x-ray, ABGs and labs reviewed Daily interruption of sedation with spontaneous breathing trials to be performed daily Decreased FiO2 to 30% Continued on Zosyn and Flagyl Obtain cortisol level 1-2 L more fluid resuscitation Norepinephrine if no improvement We will continue to follow and make further recommendations based on his clinical status I, the cosigning physician, performed a history & physical examination of the patient. Lungs sounds are clear. Maintaining good O2 saturations in the 90s on 30% FiO2 via the mechanical ventilator. I discussed the assessment and plan of care with my nurse practitioner, Waleska Myaa. I attest to the above consultation as dictated by her. Time with Patient: Greater than 30
--- NOTE | 2021-01-04 17:12 | P.CRDCN ---
History of Present Illness Consult date: 01/04/21 History of present illness: This is a 65-year-old gentleman who is frail and cachectic with history of colon cancer, hypertension, GI reflux disease and also marijuana use who was admitted to the hospital with abdominal pain. Computed tomography scan showed possible mass consistent with neoplasm of chronic origin with a new wall perforation and free air. He was taken to the OR for expiratory laparotomy. He underwent drainage of the right side abdominal abscess, resection of the cecal tumor, diverticula loop ileostomy and excision of abdominal wall nodule. 2 PELON drains were placed on the right side, loop ileostomy in the left midabdomen. Patient had a cardiac arrhythmia consistent with atrial fibrillation. Patient was on IV Cardizem. Currently patient seemed to be in sinus rhythm with APCs are multifocal atrial rhythm. Recent echo Cardigan showed an ejection fraction of 50-50%. This is currently intubated. Chest x-ray showed no acute pulmonary process. Patient also has NG tube. We'll continue his current medical therapy. We'll make consider starting him on small dose of beta brad as needed Review of Systems Not obtained Past Medical History Past Medical History: Cancer, GERD/Reflux, Hypertension Additional Past Medical History / Comment(s): colon cancer History of Any Multi-Drug Resistant Organisms: None Reported Past Surgical History: Hernia Repair Additional Past Surgical History / Comment(s): jaw surgery Past Anesthesia/Blood Transfusion Reactions: No Reported Reaction Past Psychological History: Anxiety Smoking Status: Never smoker Past Alcohol Use History: None Reported Past Drug Use History: Marijuana Medications and Allergies Home Medications Medication Instructions Recorded Confirmed Type Finasteride [Proscar] 5 mg PO DAILY #30 tab 10/21/20 01/03/21 Rx amLODIPine [Norvasc] 5 mg PO BID #60 tab 10/21/20 01/03/21 Rx Metoprolol Tartrate [Lopressor] 12.5 mg PO BID 01/03/21 01/03/21 History Tamsulosin [Flomax] 0.4 mg PO BID 01/03/21 01/03/21 History Allergies Allergy/AdvReac Type Severity Reaction Status Date / Time meperidine [From Demerol] Allergy head felt Verified 01/03/21 11:57 big hydromorphone [From Dilaudid] AdvReac Mild Nausea Verified 01/03/21 11:57 Physical Exam Vitals: Vital Signs Temp Pulse Pulse Resp BP BP Pulse Ox 01/04/21 16:20 90 01/04/21 16:15 82 18 100/58 98 01/04/21 16:01 88 01/04/21 16:00 70 22 87/50 97 01/04/21 15:45 78 19 87/50 97 01/04/21 15:30 66 16 87/50 97 01/04/21 15:15 84 15 87/50 98 01/04/21 15:00 67 19 87/50 97 01/04/21 14:45 72 20 82/69 97 01/04/21 14:30 73 24 129/79 98 01/04/21 14:15 85 23 129/79 97 01/04/21 14:00 80 27 H 129/79 97 01/04/21 13:45 81 15 129/79 97 01/04/21 13:30 82 13 129/79 97 01/04/21 13:15 82 20 129/79 97 01/04/21 13:00 85 14 129/79 95 01/04/21 12:45 86 25 H 96 01/04/21 12:30 80 15 96 01/04/21 12:15 97 13 129/79 94 L 01/04/21 12:00 98.2 F 87 9 L 93 L 01/04/21 11:56 90 01/04/21 11:45 92 25 H 90 L 01/04/21 11:30 84 26 H 94 L 01/04/21 11:15 73 29 H 89/62 95 01/04/21 11:00 75 30 H 82 L 01/04/21 10:45 78 23 95 01/04/21 10:30 75 19 100 01/04/21 10:15 70 19 100 01/04/21 10:00 76 18 100 01/04/21 09:45 75 23 89/62 100 01/04/21 09:30 75 26 H 100 01/04/21 09:15 72 18 78/55 98 01/04/21 09:00 82 21 98 01/04/21 08:45 80 19 99 01/04/21 08:30 80 25 H 100 01/04/21 08:15 75 19 99/69 99 01/04/21 08:00 77 18 98 01/04/21 07:45 76 18 100 01/04/21 07:30 75 18 98 09/25/21 07:15 75 18 85/55 99 01/04/21 07:00 76 20 100 01/04/21 06:45 85 20 98 01/04/21 06:30 80 18 01/04/21 06:15 86 18 99 01/04/21 06:00 92 19 100 01/04/21 05:45 84 19 100 01/04/21 05:30 83 20 98 01/04/21 05:15 92 18 98 01/04/21 05:00 67 18 100 01/04/21 04:45 67 18 99 01/04/21 04:30 68 18 97 01/04/21 04:15 67 18 85/55 100 01/04/21 04:00 98.1 F 67 18 100 01/04/21 03:45 97 19 100 01/04/21 03:30 110 H 19 100 01/04/21 03:15 101 H 18 99 01/04/21 03:01 18 01/04/21 03:00 91 18 99 01/04/21 02:45 87 18 01/04/21 02:30 88 18 01/04/21 02:15 100 18 99 01/04/21 02:00 99 18 100 01/04/21 01:45 106 H 18 129/86 100 01/04/21 01:30 122 H 18 144/86 100 01/04/21 01:15 98.1 F 113 H 18 100 01/03/21 21:00 97.8 F 150 H 24 97/54 92 L 01/03/21 20:15 68 82/55 01/03/21 20:00 150 H 24 80/50 93 L 01/03/21 18:38 71 16 Intake and Output 01/04/21 01/04/21 01/04/21 06:59 14:59 22:59 Intake Total 5.073 2019.342 19.596 Output Total 430 80 15 Balance 1705.317 8244.342 4.596 Intake: IV 2034 1785 Lactated Ringers 1,000 ml 625 750 @ 125 mls/hr IV .Q8H [facility] Rx#:[id number] Piperacillin-Tazobactam 3 100 25 .375 gm In Sodium Chloride 0.9% 100 ml @ 25 mls/hr IVPB Q8HR [facility] Rx# :[id number] Sodium Chloride 0.9% 1, 110 1010 000 ml @ 999 mls/hr IV . Q1H1M [facility] Rx#:[id number] metroNIDAZOLE-NS PMX 500 100 mg In Saline 1 100ml.bag @ 100 mls/hr IVPB Q8H [facility] Rx#:[id number] Intake, IV Titration 0.073 235.342 19.596 Amount Diltiazem 125 mg In 0 82.25 Sodium Chloride 0.9% 100 ml @ 5 MG/HR 5 mls/hr IV .Q24H [facility] Rx#:[id number] metroNIDAZOLE-NS PMX 500 100 mg In Saline 1 100ml.bag @ 100 mls/hr IVPB Q8H [facility] Rx#:[id number] propofoL 1,000 mg In 0.073 53.092 19.596 Empty Bag 1 bag @ Titrate IV .Q0M [facility] Rx#: [id number] Output: Drainage 300 Right Lower Abdomen 100 Right Upper Abdomen 200 Urine 130 80 15 Other: Voiding Method Indwelling Catheter Indwelling Catheter Indwelling Catheter Weight 72.575 kg ABP, PAP, CO, CI - Last 8 Hours Arterial Blood Pressure 101/43 Arterial Blood Pressure 107/45 Arterial Blood Pressure 96/40 Arterial Blood Pressure 88/38 Arterial Blood Pressure 79/34 Arterial Blood Pressure 80/34 Arterial Blood Pressure 49/37 Arterial Blood Pressure 84/77 Arterial Blood Pressure 88/39 Arterial Blood Pressure 96/42 Arterial Blood Pressure 96/43 Arterial Blood Pressure 82/39 Arterial Blood Pressure 87/40 Arterial Blood Pressure 97/45 Arterial Blood Pressure 93/43 Arterial Blood Pressure 114/50 Arterial Blood Pressure 131/53 Arterial Blood Pressure 131/57 Arterial Blood Pressure 135/58 Arterial Blood Pressure 117/62 Arterial Blood Pressure 121/63 Arterial Blood Pressure 122/67 Arterial Blood Pressure 125/62 Arterial Blood Pressure 74/42 Arterial Blood Pressure 73/43 Arterial Blood Pressure 77/45 Arterial Blood Pressure 107/56 Arterial Blood Pressure 105/59 Arterial Blood Pressure 76/45 GENERAL EXAM: Patient is intubated and sedated, cachectic HEENT: Normocephalic. NECK: No masses, no nuchal rigidity. CHEST: No chest wall deformity. LUNGS: Rhonchi HEART: S1 and S2 normal ABDOMEN: Postsurgical SKIN: No rashes CENTRAL NERVOUS SYSTEM: Deferred EXTREMITIES: No cyanosis, clubbing or edema. Results 01/04/21 06:35 01/04/21 02:10 CBC 01/04/21 01/04/21 Range/Units 02:10 06:35 WBC 3.6 L 5.4 (3.8-10.6) k/uL RBC 3.66 L 3.80 L (4.30-5.90) m/uL Hgb 8.9 L D 9.2 L (13.0-17.5) gm/dL Hct 28.9 L 30.2 L (39.0-53.0) % Plt Count 244 227 (150-450) k/uL Comprehensive Metabolic Panel 01/04/21 Range/Units 02:10 Sodium 138 (137-145) mmol/L Potassium 3.8 (3.5-5.1) mmol/L Chloride 111 H (98-107) mmol/L Carbon Dioxide 17 L (22-30) mmol/L BUN 60 H (9-20) mg/dL Creatinine 3.29 H (0.66-1.25) mg/dL Glucose 107 H (74-99) mg/dL Calcium 7.2 L (8.4-10.2) mg/dL Current Medications Generic Name Dose Route Start Last Admin Trade Name Freq PRN Reason Stop Dose Admin Albuterol/Ipratropium 3 ml 01/04/21 12:00 01/04/21 15:59 Ipratropium-Albuterol 3 Ml Neb INHALATION 3 ml RT-Q4H DONG Administration Chlorhexidine Gluconate 15 ml 01/04/21 09:00 01/04/21 08:37 Chlorhexidine Gluconate 15 Ml Cup MUCOUS MEM 15 ml BID DONG Administration Heparin Sodium (Porcine) 5,000 unit 01/04/21 08:00 01/04/21 17:05 Heparin Sodium,Porcine/Pf 5,000 Unit/0.5 Ml Syringe SQ 5,000 unit Q8HR DONG Administration Hydromorphone HCl 0.5 mg 01/03/21 16:22 01/04/21 08:48 Hydromorphone 0.5 Mg/0.5 Ml Syringe IVP 0.5 mg Q3HR PRN Administration Moderate Pain Diltiazem HCl 125 mg/ Sodium 125 mls @ 5 mls/hr 01/03/21 21:45 01/04/21 10:15 Chloride IV 0 mg/hr .Q24H DONG 0 mls/hr Infusion 5 MG/HR Piperacillin Sod/Tazobactam 100 mls @ 25 mls/hr 01/04/21 10:00 01/04/21 17:05 Sod 3.375 gm/ Sodium Chloride IVPB 25 mls/hr Q8H DONG Administration Metronidazole 500 mg/ IV 100 mls @ 100 mls/hr 01/04/21 01:15 01/04/21 17:05 Solution IVPB 100 mls/hr Q8H DONG Administration Propofol 1,000 mg/ IV Solution 100 mls @ 0 mls/hr 01/04/21 02:00 01/04/21 17:05 IV 15 mcg/kg/min .Q0M DONG 6.532 mls/hr Administration Protocol Titrate Naloxone HCl 0.2 mg 01/03/21 16:22 Naloxone 0.4 Mg/Ml 1 Ml Vial IV Q2M PRN Opioid Reversal Ondansetron HCl 4 mg 01/04/21 01:01 Ondansetron 4 Mg/2 Ml Vial IVP Q8HR PRN Nausea And Vomiting Pantoprazole Sodium 40 mg 01/04/21 09:00 01/04/21 08:37 Pantoprazole 40 Mg/10 Ml Vial IV 40 mg DAILY DONG Administration Intake and Output 01/04/21 01/04/21 01/04/21 06:59 14:59 22:59 Intake Total 2035.073 2020.342 19.596 Output Total 430 80 15 Balance 8584.034 9049.342 4.596 Intake: IV 2035 1785 Lactated Ringers 1,000 ml 625 750 @ 125 mls/hr IV .Q8H [facility] Rx#:[id number] Piperacillin-Tazobactam 3 100 25 .375 gm In Sodium Chloride 0.9% 100 ml @ 25 mls/hr IVPB Q8HR [facility] Rx# :[id number] Sodium Chloride 0.9% 1, 110 1010 000 ml @ 999 mls/hr IV . Q1H1M [facility] Rx#:[id number] metroNIDAZOLE-NS PMX 500 100 mg In Saline 1 100ml.bag @ 100 mls/hr IVPB Q8H [facility] Rx#:[id number] Intake, IV Titration 0.073 235.342 19.596 Amount Diltiazem 125 mg In 0 82.25 Sodium Chloride 0.9% 100 ml @ 5 MG/HR 5 mls/hr IV .Q24H [facility] Rx#:[id number] metroNIDAZOLE-NS PMX 500 100 mg In Saline 1 100ml.bag @ 100 mls/hr IVPB Q8H [facility] Rx#:[id number] propofoL 1,000 mg In 0.073 53.092 19.596 Empty Bag 1 bag @ Titrate IV .Q0M [facility] Rx#: [id number] Output: Drainage 300 Right Lower Abdomen 100 Right Upper Abdomen 200 Urine 130 80 15 Other: Voiding Method Indwelling Catheter Indwelling Catheter Indwelling Catheter Weight 72.575 kg Patient Weight 01/05/21 06:59 Weight 72.575 kg 01/04/21 06:35 01/04/21 02:10 EKG Interpretations (text) Initial EKG was suggestive of atrial fibrillation Assessment and Plan (1) Intra-abdominal abscess Current Visit: Yes Status: Acute Code(s): K65.1 - PERITONEAL ABSCESS SNOMED Code(s): 91724084 (2) Cecal cancer Current Visit: Yes Status: Acute Code(s): C18.0 - MALIGNANT NEOPLASM OF CECUM SNOMED Code(s): 554832100 (3) Atrial fibrillation Current Visit: Yes Status: Acute Code(s): I48.91 - UNSPECIFIED ATRIAL FIBRILLATION SNOMED Code(s): 82337958 (4) Acute renal failure Current Visit: No Status: Acute Code(s): N17.9 - ACUTE KIDNEY FAILURE, UNSPE CIFIED SNOMED Code(s): 03971740 Plan: Continue beta brad and amlodipine. Continue to monitor for cardiac arrhythmias. Rest of the management to be continued. We'll follow
[2021-01-04 17:59] LABS: Glucose,Whole Blood 73 mg/dL (75-99)
[2021-01-04] MEDS: NOREPINEPHRINE 4 MG in SODIUM CHLORIDE 0.9% 250 ML IV SCH (19:45)
[2021-01-05] MEDS ORDERED: DEXTROSE 50% SYRINGE 50 ML IVP STA
[2021-01-05] MEDS: IPRATROPIUM-ALBUTEROL 3 ML NEB INHALATION SCH ×6 (00:04→19:25)
[2021-01-05 00:11] LABS: Glucose,Whole Blood 65 mg/dL (75-99)
[2021-01-05 00:27] LABS: Glucose,Whole Blood 145 mg/dL (75-99)
[2021-01-05] MEDS: DILTIAZEM 125 MG in SODIUM CHLORIDE 0.9% 100 ML IV SCH ×2 (00:57→12:40)
[2021-01-05] MEDS: NOREPINEPHRINE 4 MG in SODIUM CHLORIDE 0.9% 250 ML IV SCH ×4 (01:19→12:39)
[2021-01-05] MEDS: PIPERACILLIN-TAZOBACTAM 3.375 GM in SODIUM CHLORIDE 0.9% 100 ML IVPB SCH ×2 (01:19→12:41)
[2021-01-05 05:13] LABS: Glucose,Whole Blood 84 mg/dL (75-99)
[2021-01-05 05:31] LABS: ABG HCO3 14 mmol/L (21-25); ABG Oxygen Saturation 98.4 % (94-97); ABG PCO2 28 mmHg (35-45); ABG PH 7.31 (7.35-7.45); ABG PO2 109 mmHg (83-108); ABG TCO2 15 mmol/L (19-24); Allen Test Performed? Yes
[2021-01-05 05:36] LABS: Anisocytosis Moderate; Basophils % (A) 0 %; Eosinophils % (A) 0 %; HCT 27.5 % (39.0-53.0); HGB 8.9 gm/dL (13.0-17.5); Hypochromasia Slight; Lymphocytes # (A) 0.6 k/uL (1.0-4.8); Lymphocytes % (A) 6 %; MCH 24.7 pg (25.0-35.0); MCHC 32.4 g/dL (31.0-37.0); MCV 76.2 fL (80.0-100.0); Mean Platelet Volume 8.3; Microcytosis Moderate; Monocytes # (A) 0.3 k/uL (0-1.0); Monocytes % (A) 3 %; Neutrophils # (A) 8.2 k/uL (1.3-7.7); Neutrophils % (A) 89 %; Platelet Count 256 k/uL (150-450); RBC 3.61 m/uL (4.30-5.90); RDW 22.9 % (11.5-15.5); WBC 9.2 k/uL (3.8-10.6)
[2021-01-05 05:47] LABS: Calcium 6.9 mg/dL (8.4-10.2)
--- NOTE | 2021-01-05 06:41 | XR ---
EXAMINATION TYPE: XR chest 1V portable DATE OF EXAM: 01/05/2021 COMPARISON: 01/04/2021 HISTORY: Tube placement TECHNIQUE: Single frontal view of the chest is obtained. FINDINGS: There is an ET tube approximately 2.4 cm above the buster. There is an NG tube within the stomach. There is a small central venous catheter entering the right jugular vein and terminating in the SVC/RA junction. The heart size is enlarged. There are small bilateral pleural effusions. There is a retrocardiac opac ity likely reflecting atelectasis or airspace disease. There is mild scattered multifocal airspace op acities (right most likely reflecting pulmonary edema. The osseous structures are intact IMPRESSION: ET tube 2.4 cm above the buster. Mild interval worsening in the appearance of the chest with increasing airspace opacity likely reflecting edema. Small bilateral pleural effusions persist.
--- NOTE | 2021-01-05 07:52 | P.PN ---
Subjective Progress Note Date: 01/05/21 Principal diagnosis: This is a 65-year-old male seen in consultation because of acute kidney injury, chronic kidney disease possibly and non-gap metabolic acidosis. No previous c reatinines available He underwent surgery 2 days ago, for a perforated necrotic cecal tumor with ab scess and now has drainage on the right side for the abscess cecal tumor biopsy diverting loop ileostomy. He is known with hypertension, bilateral hydronephrosis recently with a Estrada catheter that was diagnosed 2 months ago. Currently he is intubated on 30% FiO2 5 of PEEP on levo fed, blood pressure is slightly low is awake and alert but urine output has gone down her creatinine was going up Objective - Vital Signs Vital signs: Vital Signs Temp 98 F 01/05/21 04:00 Pulse 80 01/05/21 07:29 Resp 19 01/05/21 07:00 BP 100/58 01/04/21 20:00 Pulse Ox 98 01/05/21 07:00 Intake & Output 01/04/21 01/05/21 01/05/21 18:59 06:59 18:59 Intake Total 3439.938 2218.279 125 Output Total 135 360 10 Balance 3304.938 1858.279 115 Weight 72.575 kg 82.1 kg Intake: IV 3185 1700 125 Lactated Ringers 1,000 ml 1000 1500 125 @ 125 mls/hr IV .Q8H [facility] Rx#:[id number] Piperacillin-Tazobactam 3 75 100 .375 gm In Sodium Chloride 0.9% 100 ml @ 25 mls/hr IVPB Q8HR [facility] Rx# :[id number] Sodium Chloride 0.9% 1, 2010 000 ml @ 999 mls/hr IV . Q1H1M [facility] Rx#:[id number] metroNIDAZOLE-NS PMX 500 100 100 mg In Saline 1 100ml.bag @ 100 mls/hr IVPB Q8H [facility] Rx#:[id number] Intake, IV Titration 254.938 518.279 Amount Diltiazem 125 mg In 82.25 0 Sodium Chloride 0.9% 100 ml @ 5 MG/HR 5 mls/hr IV .Q24H [facility] Rx#:[id number] Norepinephrine 4 mg In 440.623 Sodium Chloride 0.9% 250 ml @ 0.05 MCG/KG/MIN 13. 826 mls/hr IV .[id number] [facility] Rx#:[id number] metroNIDAZOLE-NS PMX 500 100 mg In Saline 1 100ml.bag @ 100 mls/hr IVPB Q8H [facility] Rx#:[id number] propofoL 1,000 mg In 72.688 77.656 Empty Bag 1 bag @ Titrate IV .Q0M [facility] Rx#: [id number] Output: Drainage 95 Right Upper Abdomen 95 Urine 135 265 10 Other: Voiding Method Indwelling Catheter Indwelling Catheter ABP, PAP, CO, CI - Last Documented Arterial Blood Pressure 96/55 Examination is awake alert makes eye contact. HEENT exam no JVP no facial asymmetry Lungs are clear to auscultation good air entry bilaterally Heart sounds unremarkable for any murmur rub gallop seems to be in fibrillation flutter on the monitor Abdomen soft. Extremities are warm no edema noted Neurologically awake alert makes eye contact. - Labs CBC & Chem 7: 01/05/21 05:00 01/05/21 05:00 Labs: Abnormal Lab Results - Last 24 Hours (Table) 01/04/21 01/04/21 01/04/21 Range/Units 06:35 17:58 23:59 RBC (4.30-5.90) m/uL Hgb (13.0-17.5) gm/dL Hct (39.0-53.0) % MCV (80.0-100.0) fL MCH (25.0-35.0) pg RDW (11.5-15.5) % Neutrophils # (1.3-7.7) k/uL Lymphocytes # (1.0-4.8) k/uL Metamyelocytes # (Man) 0.16 H (0) k/uL Myelocytes # (Manual) 0.05 H (0) k/uL ABG pH (7.35-7.45) ABG pCO2 (35-45) mmHg ABG pO2 (83-108) mmHg ABG HCO3 (21-25) mmol/L ABG Total CO2 (19-24) mmol/L ABG O2 Saturation (94-97) % Sodium (137-145) mmol/L Chloride (98-107) mmol/L Carbon Dioxide (22-30) mmol/L BUN (9-20) mg/dL Creatinine (0.66-1.25) mg/dL POC Glucose (mg/dL) 73 L 65 L (75-99) mg/dL Calcium (8.4-10.2) mg/dL 01/05/21 01/05/21 01/05/21 Range/Units 00:24 05:00 05:00 RBC 3.61 L (4.30-5.90) m/uL Hgb 8.9 L (13.0-17.5) gm/dL Hct 27.5 L (39.0-53.0) % MCV 76.2 L (80.0-100.0) fL MCH 24.7 L (25.0-35.0) pg RDW 22.9 H (11.5-15.5) % Neutrophils # 8.2 H (1.3-7.7) k/uL Lymphocytes # 0.6 L (1.0-4.8) k/uL Metamyelocytes # (Man) (0) k/uL Myelocytes # (Manual) (0) k/uL ABG pH (7.35-7.45) ABG pCO2 (35-45) mmHg ABG pO2 (83-108) mmHg ABG HCO3 (21-25) mmol/L ABG Total CO2 (19-24) mmol/L ABG O2 Saturation (94-97) % Sodium 136 L (137-145) mmol/L Chloride 113 H (98-107) mmol/L Carbon Dioxide 14 L (22-30) mmol/L BUN 66 H (9-20) mg/dL Creatinine 4.14 H (0.66-1.25) mg/dL POC Glucose (mg/dL) 145 H (75-99) mg/dL Calcium 6.9 L (8.4-10.2) mg/dL 01/05/21 Range/Units 05:25 RBC (4.30-5.90) m/uL Hgb (13.0-17.5) gm/dL Hct (39.0-53.0) % MCV (80.0-100.0) fL MCH (25.0-35.0) pg RDW (11.5-15.5) % Neutrophils # (1.3-7.7) k/uL Lymphocytes # (1.0-4.8) k/uL Metamyelocytes # (Man) (0) k/uL Myelocytes # (Manual) (0) k/uL ABG pH 7.31 L (7.35-7.45) ABG pCO2 28 L (35-45) mmHg ABG pO2 109 H (83-108) mmHg ABG HCO3 14 L (21-25) mmol/L ABG Total CO2 15 L (19-24) mmol/L ABG O2 Saturation 98.4 H (94-97) % Sodium (137-145) mmol/L Chloride (98-107) mmol/L Carbon Dioxide (22-30) mmol/L BUN (9-20) mg/dL Creatinine (0.66-1.25) mg/dL POC Glucose (mg/dL) (75-99) mg/dL Calcium (8.4-10.2) mg/dL Microbiology - Last 24 Hours (Table) 01/04/21 06:35 Urine Culture - Preliminary Urine,Voided Assessment and Plan Assessment: Impression 1. Acute kidney injury secondary to septic syndrome, perforated colon with abscess. Status post exploratory laparotomy and drainage of right-sided abdominal abscess biopsy of cecal tumor diverting loop ileostomy dated 01/04/2021 2. Chronic kidney disease, secondary to obstructive nephropathy. Creatinine was 4.9- 10/16/2020 2 months ago went down to 2.19 on 10/21/2020. Prior creatinines not available 2. Worsening non-gap acidosis from acute kidney injury, on sodium bicarb drip 3. History of bilateral hydronephrosis, severe left-sided hydronephrosis of the kidney demonstrated on computed tomography scan done 01/03/2021. 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 4. Ventilator dependent respiratory failure. On 30% FiO2 5. Anemia off chronic illness Recommendation 1. Start sodium bicarb 3 ampules in thousand cc of D5W at 75 mL an hour 2. May need dialysis by tomorrow. 3. Continue antibiotics for perforation. 3. Will monitor labs intake and output were pressure 4. Avoid any nephrotoxic medications. Thank you for this consultation and we will continue to follow closely
[2021-01-05] MEDS ORDERED: DEXTROSE 5% IN WATER 1,000 ML with SODIUM BICARB (1 MEQ/ML) 150 ML IV ONE (09:00)
[2021-01-05] MEDS: CHLORHEXIDINE GLUCONATE 15 ML CUP MUCOUS MEM SCH (09:37)
[2021-01-05] MEDS: PANTOPRAZOLE 40 MG/10 ML VIAL IV SCH (09:37)
[2021-01-05] MEDS: metroNIDAZOLE-NS PMX 500 MG in SALINE 1 100ML.BAG IVPB SCH ×3 (09:37→23:54)
[2021-01-05] MEDS: HEPARIN SODIUM,PORCINE/PF 5,000 UNIT/0.5 ML SYRINGE SQ SCH ×3 (09:37→23:54)
--- NOTE | 2021-01-05 09:57 | P.PN ---
Subjective Progress Note Date: 01/05/21 Pt is in bed with ventilator, saturating 97%, undergoing SBT at the time of my evaluation. Follows commands, appears to indicate desires and localizes pain. BP 115/55, HR 92; on 5mcg of levophed, cardizem gtt at 5. CBC without elevated WBC; on zosyn, flagyl; 2 x PELON drains in abdomen with output of 95cc and minimal, respectively. BUN/Cr are worsening to 66/4.14; I/O balance in last 24 hours is +476cc. Objective - Vital Signs Vital signs: Vital Signs Temp 98.1 F 01/05/21 08:00 Pulse 92 01/05/21 09:15 Resp 24 01/05/21 09:15 BP 111/88 01/05/21 08:30 Pulse Ox 97 01/05/21 09:15 Intake & Output 01/04/21 01/05/21 01/05/21 18:59 06:59 18:59 Intake Total 3439.938 2218.279 576.405 Output Total 135 360 100 Balance 3304.938 1858.279 476.405 Weight 72.575 kg 82.1 kg Intake: IV 3185 1700 250 Lactated Ringers 1,000 ml 1000 1500 250 @ 125 mls/hr IV .Q8H [facility] Rx#:[id number] Piperacillin-Tazobactam 3 75 100 .375 gm In Sodium Chloride 0.9% 100 ml @ 25 mls/hr IVPB Q8HR [facility] Rx# :[id number] Sodium Chloride 0.9% 1, 2010 000 ml @ 999 mls/hr IV . Q1H1M [facility] Rx#:[id number] metroNIDAZOLE-NS PMX 500 100 100 mg In Saline 1 100ml.bag @ 100 mls/hr IVPB Q8H [facility] Rx#:[id number] Intake, IV Titration 254.938 518.279 326.405 Amount Diltiazem 125 mg In 82.25 0 Sodium Chloride 0.9% 100 ml @ 5 MG/HR 5 mls/hr IV .Q24H [facility] Rx#:[id number] Norepinephrine 4 mg In 440.623 254 Sodium Chloride 0.9% 250 ml @ 0.05 MCG/KG/MIN 13. 826 mls/hr IV .[id number] [facility] Rx#:[id number] metroNIDAZOLE-NS PMX 500 100 mg In Saline 1 100ml.bag @ 100 mls/hr IVPB Q8H [facility] Rx#:[id number] propofoL 1,000 mg In 72.688 77.656 72.405 Empty Bag 1 bag @ Titrate IV .Q0M [facility] Rx#: [id number] Output: Drainage 95 Right Upper Abdomen 95 Urine 135 265 100 Other: Voiding Method Indwelling Catheter Indwelling Catheter Indwelling Catheter ABP, PAP, CO, CI - Last Documented Arterial Blood Pressure 115/55 - Exam Gen: awake, following commands, ventilator Resp: good air exchange, ventilator, undergoing SBT CVS: good distal perfusion x 4, GI: Exquisitely tender to palpation diffusely, distended, rebound tenderness present, involuntary guarding : no SPT, no CVAT, serrano catheter is present MSK: no pitting edema, no clubbing Neuro: non-focal, moving all extremities - Labs CBC & Chem 7: 01/05/21 05:00 01/05/21 05:00 Labs: Abnormal Lab Results - Last 24 Hours (Table) 01/04/21 01/04/21 01/05/21 Range/Units 17:58 23:59 00:24 RBC (4.30-5.90) m/uL Hgb (13.0-17.5) gm/dL Hct (39.0-53.0) % MCV (80.0-100.0) fL MCH (25.0-35.0) pg RDW (11.5-15.5) % Neutrophils # (1.3-7.7) k/uL Lymphocytes # (1.0-4.8) k/uL ABG pH (7.35-7.45) ABG pCO2 (35-45) mmHg ABG pO2 (83-108) mmHg ABG HCO3 (21-25) mmol/L ABG Total CO2 (19-24) mmol/L ABG O2 Saturation (94-97) % Sodium (137-145) mmol/L Chloride (98-107) mmol/L Carbon Dioxide (22-30) mmol/L BUN (9-20) mg/dL Creatinine (0.66-1.25) mg/dL POC Glucose (mg/dL) 73 L 65 L 145 H (75-99) mg/dL Calcium (8.4-10.2) mg/dL 01/05/21 01/05/21 01/05/21 Range/Units 05:00 05:00 05:25 RBC 3.61 L (4.30-5.90) m/uL Hgb 8.9 L (13.0-17.5) gm/dL Hct 27.5 L (39.0-53.0) % MCV 76.2 L (80.0-100.0) fL MCH 24.7 L (25.0-35.0) pg RDW 22.9 H (11.5-15.5) % Neutrophils # 8.2 H (1.3-7.7) k/uL Lymphocytes # 0.6 L (1.0-4.8) k/uL ABG pH 7.31 L (7.35-7.45) ABG pCO2 28 L (35-45) mmHg ABG pO2 109 H (83-108) mmHg ABG HCO3 14 L (21-25) mmol/L ABG Total CO2 15 L (19-24) mmol/L ABG O2 Saturation 98.4 H (94-97) % Sodium 136 L (137-145) mmol/L Chloride 113 H (98-107) mmol/L Carbon Dioxide 14 L (22-30) mmol/L BUN 66 H (9-20) mg/dL Creatinine 4.14 H (0.66-1.25) mg/dL POC Glucose (mg/dL) (75-99) mg/dL Calcium 6.9 L (8.4-10.2) mg/dL Microbiology - Last 24 Hours (Table) 01/04/21 06:35 Urine Culture - Preliminary Urine,Voided Assessment and Plan Assessment: Perforated Bowel Colonic Mass -s/p OR for bowel repair, cecal mass removal -OGT -hold all oral home meds; holding home metoprolol -on diltiazem gtt for AFib with RVR -cardiology consulted for A Fib -dilaudid PRN/tylenol IV PRN for pain control -zosyn, metronidazole -ICU level care, pulm consult Left Hydronephrosis CKD III -urology, nephrology consults -avoid nephrotoxins -IVF HTN BPH -holding home meds as above Medicine will continue to follow. Please reach out to a member of [employer] via [employer] if there are any questions/concerns.
[2021-01-05] MEDS: HYDROmorphone 0.5 MG/0.5 ML SYRINGE IVP PRN ×2 (10:29→16:27)
--- NOTE | 2021-01-05 10:54 | P.PN ---
Subjective Progress Note Date: 01/05/21 Principal diagnosis: Perforated necrotizing colonic mass Patient was activated this morning. Complaining of mild pain. Ileostomy with loose stool present, both drains with a dark serosanguineous drainage. Hemoglobin 8.9, white blood cell count 9.2. Objective - Vital Signs Vital signs: Vital Signs Temp 98.1 F 01/05/21 08:00 Pulse 92 01/05/21 09:15 Resp 24 01/05/21 09:15 BP 111/88 01/05/21 08:30 Pulse Ox 97 01/05/21 09:15 Intake & Output 01/04/21 01/05/21 01/05/21 18:59 06:59 18:59 Intake Total 3439.938 2218.279 576.405 Output Total 135 360 100 Balance 3304.938 1858.279 476.405 Weight 72.575 kg 82.1 kg Intake: IV 3185 1700 250 Lactated Ringers 1,000 ml 1000 1500 250 @ 125 mls/hr IV .Q8H [facility] Rx#:[id number] Piperacillin-Tazobactam 3 75 100 .375 gm In Sodium Chloride 0.9% 100 ml @ 25 mls/hr IVPB Q8HR [facility] Rx# :[id number] Sodium Chloride 0.9% 1, 2010 000 ml @ 999 mls/hr IV . Q1H1M [facility] Rx#:[id number] metroNIDAZOLE-NS PMX 500 100 100 mg In Saline 1 100ml.bag @ 100 mls/hr IVPB Q8H [facility] Rx#:[id number] Intake, IV Titration 254.938 518.279 326.405 Amount Diltiazem 125 mg In 82.25 0 Sodium Chloride 0.9% 100 ml @ 5 MG/HR 5 mls/hr IV .Q24H [facility] Rx#:[id number] Norepinephrine 4 mg In 440.623 254 Sodium Chloride 0.9% 250 ml @ 0.05 MCG/KG/MIN 13. 826 mls/hr IV .[id number] [facility] Rx#:[id number] metroNIDAZOLE-NS PMX 500 100 mg In Saline 1 100ml.bag @ 100 mls/hr IVPB Q8H [facility] Rx#:[id number] propofoL 1,000 mg In 72.688 77.656 72.405 Empty Bag 1 bag @ Titrate IV .Q0M [facility] Rx#: [id number] Output: Drainage 95 Right Upper Abdomen 95 Urine 135 265 100 Other: Voiding Method Indwelling Catheter Indwelling Catheter Indwelling Catheter ABP, PAP, CO, CI - Last Documented Arterial Blood Pressure 115/55 - Exam Abdomen: Soft, mild tenderness, dressing without significant drainage, ostomy functioning - Labs CBC & Chem 7: 01/05/21 05:00 01/05/21 05:00 Labs: Abnormal Lab Results - Last 24 Hours (Table) 01/04/21 01/04/21 01/05/21 Range/Units 17:58 23:59 00:24 RBC (4.30-5.90) m/uL Hgb (13.0-17.5) gm/dL Hct (39.0-53.0) % MCV (80.0-100.0) fL MCH (25.0-35.0) pg RDW (11.5-15.5) % Neutrophils # (1.3-7.7) k/uL Lymphocytes # (1.0-4.8) k/uL ABG pH (7.35-7.45) ABG pCO2 (35-45) mmHg ABG pO2 (83-108) mmHg ABG HCO3 (21-25) mmol/L ABG Total CO2 (19-24) mmol/L ABG O2 Saturation (94-97) % Sodium (137-145) mmol/L Chloride (98-107) mmol/L Carbon Dioxide (22-30) mmol/L BUN (9-20) mg/dL Creatinine (0.66-1.25) mg/dL POC Glucose (mg/dL) 73 L 65 L 145 H (75-99) mg/dL Calcium (8.4-10.2) mg/dL 01/05/21 01/05/21 01/05/21 Range/Units 05:00 05:00 05:25 RBC 3.61 L (4.30-5.90) m/uL Hgb 8.9 L (13.0-17.5) gm/dL Hct 27.5 L (39.0-53.0) % MCV 76.2 L (80.0-100.0) fL MCH 24.7 L (25.0-35.0) pg RDW 22.9 H (11.5-15.5) % Neutrophils # 8.2 H (1.3-7.7) k/uL Lymphocytes # 0.6 L (1.0-4.8) k/uL ABG pH 7.31 L (7.35-7.45) ABG pCO2 28 L (35-45) mmHg ABG pO2 109 H (83-108) mmHg ABG HCO3 14 L (21-25) mmol/L ABG Total CO2 15 L (19-24) mmol/L ABG O2 Saturation 98.4 H (94-97) % Sodium 136 L (137-145) mmol/L Chloride 113 H (98-107) mmol/L Carbon Dioxide 14 L (22-30) mmol/L BUN 66 H (9-20) mg/dL Creatinine 4.14 H (0.66-1.25) mg/dL POC Glucose (mg/dL) (75-99) mg/dL Calcium 6.9 L (8.4-10.2) mg/dL Microbiology - Last 24 Hours (Table) 01/04/21 06:35 Urine Culture - Preliminary Urine,Voided Assessment and Plan (1) Pneumoperitoneum Narrative/Plan: Patient improving today. Keep nasogastric tube until tomorrow. Consider initiation of TPN tomorrow. Continue antibiotics. Continue supportive care. Current Visit: Yes Status: Acute Code(s): K66.8 - OTHER SPECIFIED DISORDERS OF PERITONEUM SNOMED Code(s): 00248187
[2021-01-05 12:05] LABS: Glucose,Whole Blood 91 mg/dL (75-99)
--- NOTE | 2021-01-05 12:21 | P.PN ---
Subjective Progress Note Date: 01/05/21 Principal diagnosis: Postoperative ventilator management. This is a very frail, very cachectic 65-year-old male patient with a history of colon cancer, hypertension, gastroesophageal reflux disease, anxiety, marijuana use. He was diagnosed with colon cancer in October of this year and was scheduled to have surgery on January [address] Pinzon. No other treatment guided up to this point. He presented to the emergency room yesterday with acute abdominal pain. He had been having issues with nausea and vomiting for several hours prior to his arrival. No hematemesis. The CAT scan of the abdomen revealed enlarging cavitary mid to lower abdominal mass consistent with neoplasm of colonic origin with new wall perforation and free air. He was taken urgently to the operating room last evening by Dr. Nicole. He had undergone an exploratory laparotomy, drainage of the right-sided abdominal abscess, I See of cecal tumor, diverting loop ileostomy, excision abdominal wall nodule. 2 PELON drains were placed on the right side. Loop ileostomy in the left mid abdomen. He is seen today in consultation in the intensive care unit. He remains intubated and on the mechanical ventilator. Assist-control mode at a rate of 18, tidal M4 50, FiO2 40% and a PEEP of 5. Morning blood gases revealed a PaO2 of 128, pCO2 39, pH 7.25. He has lactated Ringer's running at 125 ML's per hour. Propofol at 10 mcg/kg/m. Initiated on Cardizem drip which is currently off. He did receive 4 L of fluid resuscitation. Blood pressure stable. He's afebrile. White count 5.4. Hemoglobin 9.2. Sodium 138. Potassium 3.8. Creatinine 3.29. Glucose 107. Duncan virus not detected. Chest x-ray shows no acute pulmonary process. Endotracheal tube in good position. Nasogastric tube in position. He is currently on Zosyn and Flagyl. Heparin for DVT prophylaxis. Protonix for GI prophylaxis. Progress note dated 01/05/2021. This is a 65-year-old cachectic male, with a history of colon cancer, hypertension, gastroesophageal reflux disease, anxiety, and marijuana use. The patient was diagnosed with colon cancer back in October of this year, and was scheduled to have surgery on January [address] Pinzon. He presented to the Emergency Department a couple days ago with acute abdominal pain. He was taken to the operating room by Dr. Nicole and underwent an exploratory laparotomy, drainage of the right-sided abdominal abscess, diverting loop ileostomy, and excision of abdominal wall nodule. Segundo-Pantoja drains were inserted. Yesterday, we attempted to give him a daily interruption of sedation and a spontaneous breathing trial, and his weaning parameters were not very good. He remains on the ventilator. He is on the volume assist control mode, rate 18, tidal volume 450, FiO2 30%, PEEP of 5. Arterial blood gases show pO2 109, pCO2 of 28, and the pH is 7.31. The patient's on a Cardizem drip at 10 mg an hour, D5W with 3 ampules of sodium bicarbonate at 75 mL an hour, and norepinephrine at 19 mcg/m. On pressure support of 5, and CPAP of 5, the patient's tidal volume is 550, respiratory rate is 20, minute volume is 12.2 L/m, negative inspiratory force is -26, rapid shallow breathing index is 36, and the patient did have a cuff leak. The patient is awake and alert, and we will give him a trial of extubation. White count 9.2, hemoglobin 8.9, hematocrit 27.5, and platelet count 256,000. Sodium 136, potassium 4, chlorides 113, CO2 14, anion gap 9, BUN 66, creatinine 4.14. Chest x-ray shows bilateral airspace opacities and/or atelectasis. Objective - Vital Signs Vital signs: Vital Signs Temp 98.1 F 01/05/21 08:00 Pulse 90 01/05/21 11:26 Resp 15 01/05/21 11:15 BP 111/88 01/05/21 08:30 Pulse Ox 96 01/05/21 11:15 Intake & Output 01/04/21 01/05/21 01/05/21 18:59 06:59 18:59 Intake Total 3439.938 2218.279 726.405 Output Total 135 360 155 Balance 3304.938 1858.279 571.405 Weight 72.575 kg 82.1 kg Intake: IV 3185 1700 250 Lactated Ringers 1,000 ml 1000 1500 250 @ 125 mls/hr IV .Q8H ONE Rx#:[id number] Piperacillin-Tazobactam 3 75 100 .375 gm In Sodium Chloride 0.9% 100 ml @ 25 mls/hr IVPB Q8HR [facility] Rx# :[id number] Sodium Chloride 0.9% 1, 2010 000 ml @ 999 mls/hr IV . Q1H1M [facility] Rx#:[id number] metroNIDAZOLE-NS PMX 500 100 100 mg In Saline 1 100ml.bag @ 100 mls/hr IVPB Q8H [facility] Rx#:[id number] Intake, IV Titration 254.938 518.279 476.405 Amount Dextrose 5% in Water 1, 150 000 ml @ 75 mls/hr IV . [id number] ONE with Sodium Bicarb (1 Meq/ml) 150 ml Rx#:[id number] Diltiazem 125 mg In 82.25 0 Sodium Chloride 0.9% 100 ml @ 5 MG/HR 5 mls/hr IV .Q24H [facility] Rx#:[id number] Norepinephrine 4 mg In 440.623 254 Sodium Chloride 0.9% 250 ml @ 0.05 MCG/KG/MIN 13. 826 mls/hr IV .[id number] [facility] Rx#:[id number] metroNIDAZOLE-NS PMX 500 100 mg In Saline 1 100ml.bag @ 100 mls/hr IVPB Q8H [facility] Rx#:[id number] propofoL 1,000 mg In 72.688 77.656 72.405 Empty Bag 1 bag @ Titrate IV .Q0M [facility] Rx#: [id number] Output: Drainage 95 Right Upper Abdomen 95 Urine 135 265 155 Other: Voiding Method Indwelling Catheter Indwelling Catheter Indwelling Catheter ABP, PAP, CO, CI - Last Documented Arterial Blood Pressure 111/55 - Exam No acute distress, an oral endotracheal tube is noted. The patient is not in any distress and is giving a thumbs up. HEENT examination is grossly unremarkable. Neck supple. Full range of motion. No adenopathy thyromegaly or neck vein distention. Cardiovascular examination reveals an irregular rhythm and rate. S1-S2 normal. No S3 or S4. No discernible murmur noted. Heart sounds are distant. Heart rate 90 bpm. Lungs reveal mostly clear breath sounds. Scattered rhonchi are noted. No wheezes or crackles. Breath sounds are equal bilaterally. Saturations are 96%. Abdomen soft. There are no bowel sounds. The ileostomy is noted. Extremities are intact. No cyanosis clubbing or edema. Skin is without rash or lesion. Neurologic examination is brief but nonfocal. - Labs CBC & Chem 7: 01/05/21 05:00 01/05/21 05:00 Labs: Abnormal Lab Results - Last 24 Hours (Table) 01/04/21 01/04/21 01/05/21 Range/Units 17:58 23:59 00:24 RBC (4.30-5.90) m/uL Hgb (13.0-17.5) gm/dL Hct (39.0-53.0) % MCV (80.0-100.0) fL MCH (25.0-35.0) pg RDW (11.5-15.5) % Neutrophils # (1.3-7.7) k/uL Lymphocytes # (1.0-4.8) k/uL ABG pH (7.35-7.45) ABG pCO2 (35-45) mmHg ABG pO2 (83-108) mmHg ABG HCO3 (21-25) mmol/L ABG Total CO2 (19-24) mmol/L ABG O2 Saturation (94-97) % Sodium (137-145) mmol/L Chloride (98-107) mmol/L Carbon Dioxide (22-30) mmol/L BUN (9-20) mg/dL Creatinine (0.66-1.25) mg/dL POC Glucose (mg/dL) 73 L 65 L 145 H (75-99) mg/dL Calcium (8.4-10.2) mg/dL 01/05/21 01/05/21 01/05/21 Range/Units 05:00 05:00 05:25 RBC 3.61 L (4.30-5.90) m/uL Hgb 8.9 L (13.0-17.5) gm/dL Hct 27.5 L (39.0-53.0) % MCV 76.2 L (80.0-100.0) fL MCH 24.7 L (25.0-35.0) pg RDW 22.9 H (11.5-15.5) % Neutrophils # 8.2 H (1.3-7.7) k/uL Lymphocytes # 0.6 L (1.0-4.8) k/uL ABG pH 7.31 L (7.35-7.45) ABG pCO2 28 L (35-45) mmHg ABG pO2 109 H (83-108) mmHg ABG HCO3 14 L (21-25) mmol/L ABG Total CO2 15 L (19-24) mmol/L ABG O2 Saturation 98.4 H (94-97) % Sodium 136 L (137-145) mmol/L Chloride 113 H (98-107) mmol/L Carbon Dioxide 14 L (22-30) mmol/L BUN 66 H (9-20) mg/dL Creatinine 4.14 H (0.66-1.25) mg/dL POC Glucose (mg/dL) (75-99) mg/dL Calcium 6.9 L (8.4-10.2) mg/dL Microbiology - Last 24 Hours (Table) 01/05/21 00:25 Sputum Culture - Preliminary Sputum 01/04/21 06:35 Urine Culture - Preliminary Urine,Voided Assessment and Plan Assessment: 1 Abdominal pain secondary to a large right-sided abdominal mass with an appearance of abscess, free perforation with extensive pneumoperitoneum present. Status post exploratory laparotomy, drainage of the right-sided abdominal abscess, biopsy of cecal tumor, diverting loop ileostomy, excision of abdominal wall nodule. Postoperative day #2. 2 Acute hypoxemic respiratory failure secondary to above requiring continued intubation and mechanical ventilatory support. 3 Hypotension secondary to sepsis. 4 Known history of right-sided colonic mass 2-3 months ago with pending surgery in January 2021 no other treatment thus far. 5 Acute on chronic kidney disease. 6 History of hypertension. 7 History of gastroesophageal reflux disease. 8 History of anxiety. Plan: Plan dated 01/05/2021. The patient was placed on a Cardizem drip for atrial fibrillation with RVR. The patient remains on a sodium bicarbonate drip as per nephrology. The patient's weaning parameters are excellent, and the rapid shallow breathing index was only 36, and the patient did have a positive cuff leak. We will give the patient a trial of extubation. The patient remains on antibiotics including, Flagyl, and Zosyn. The patient also remains on norepinephrine at 19 mcg/m. Prognosis is guarded. Additional recommendations and suggestions are forthcoming. We will continue to follow and make recommendations where appropriate. Time with Patient: Greater than 30
--- NOTE | 2021-01-05 12:52 | P.PN ---
Subjective Progress Note Date: 01/05/21 This is a 65-year-old gentleman who was diagnosed to have colon cancer and has undergone surgery. Details are available from H&P. Patient is still intubated. The educational recruiter wants to give a trial of extubation. Patient is in atrial fibrillation. He is a rate is controlled with IV Cardizem. Patient is not on anticoagulation. Needs to go on anticoagulation when cleared by Dr. Delgado. Patient is also on pressors and IV fluids but chest x-ray shows some infiltrates and also atelectatic changes. Heart rate is controlled currently. We'll continue current cardiac medications. 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 Objective - Vital Signs Vital signs: Vital Signs Temp 98.1 F 01/05/21 12:00 Pulse 90 01/05/21 12:30 Resp 25 H 01/05/21 12:30 BP 116/87 01/05/21 12:30 Pulse Ox 92 L 01/05/21 12:30 Intake & Output 01/04/21 01/05/21 01/05/21 18:59 06:59 18:59 Intake Total 3439.938 2218.279 1063.501 Output Total 135 360 255 Balance 3304.938 1858.279 808.501 Weight 72.575 kg 82.1 kg Intake: IV 3185 1700 250 Lactated Ringers 1,000 ml 1000 1500 250 @ 125 mls/hr IV .Q8H [facility] Rx#:[id number] Piperacillin-Tazobactam 3 75 100 .375 gm In Sodium Chloride 0.9% 100 ml @ 25 mls/hr IVPB Q8HR [facility] Rx# :[id number] Sodium Chloride 0.9% 1, 2010 000 ml @ 999 mls/hr IV . Q1H1M [facility] Rx#:[id number] metroNIDAZOLE-NS PMX 500 100 100 mg In Saline 1 100ml.bag @ 100 mls/hr IVPB Q8H [facility] Rx#:[id number] Intake, IV Titration 254.938 518.279 813.501 Amount Dextrose 5% in Water 1, 225 000 ml @ 75 mls/hr IV . [id number] ONE with Sodium Bicarb (1 Meq/ml) 150 ml Rx#:[id number] Diltiazem 125 mg In 82.25 0 58.583 Sodium Chloride 0.9% 100 ml @ 5 MG/HR 5 mls/hr IV .Q24H [facility] Rx#:[id number] Norepinephrine 4 mg In 440.623 457.513 Sodium Chloride 0.9% 250 ml @ 0.05 MCG/KG/MIN 13. 826 mls/hr IV .[id number] [facility] Rx#:[id number] metroNIDAZOLE-NS PMX 500 100 mg In Saline 1 100ml.bag @ 100 mls/hr IVPB Q8H [facility] Rx#:[id number] propofoL 1,000 mg In 72.688 77.656 72.405 Empty Bag 1 bag @ Titrate IV .Q0M [facility] Rx#: [id number] Output: Drainage 95 Right Upper Abdomen 95 Urine 135 265 255 Other: Voiding Method Indwelling Catheter Indwelling Catheter Indwelling Catheter ABP, PAP, CO, CI - Last Documented Arterial Blood Pressure 120/62 - Exam GENERAL EXAM: Patient is intubated. Her left seemed to be able to communicate HEENT: Normocephalic. N NECK: No masses, no nuchal rigidity. CHEST: No chest wall deformity. LUNGS: Mr. Knight change HEART: Irregular heart rhythm ABDOMEN: Postsurgical SKIN: No rashes CENTRAL NERVOUS SYSTEM: Deferred EXTREMITIES: [No cyanosis, clubbing or edema.] - Labs CBC & Chem 7: 01/05/21 05:00 01/05/21 05:00 Labs: Abnormal Lab Results - Last 24 Hours (Table) 01/04/21 01/04/21 01/05/21 Range/Units 17:58 23:59 00:24 RBC (4.30-5.90) m/uL Hgb (13.0-17.5) gm/dL Hct (39.0-53.0) % MCV (80.0-100.0) fL MCH (25.0-35.0) pg RDW (11.5-15.5) % Neutrophils # (1.3-7.7) k/uL Lymphocytes # (1.0-4.8) k/uL ABG pH (7.35-7.45) ABG pCO2 (35-45) mmHg ABG pO2 (83-108) mmHg ABG HCO3 (21-25) mmol/L ABG Total CO2 (19-24) mmol/L ABG O2 Saturation (94-97) % Sodium (137-145) mmol/L Chloride (98-107) mmol/L Carbon Dioxide (22-30) mmol/L BUN (9-20) mg/dL Creatinine (0.66-1.25) mg/dL POC Glucose (mg/dL) 73 L 65 L 145 H (75-99) mg/dL Calcium (8.4-10.2) mg/dL 01/05/21 01/05/21 01/05/21 Range/Units 05:00 05:00 05:25 RBC 3.61 L (4.30-5.90) m/uL Hgb 8.9 L (13.0-17.5) gm/dL Hct 27.5 L (39.0-53.0) % MCV 76.2 L (80.0-100.0) fL MCH 24.7 L (25.0-35.0) pg RDW 22.9 H (11.5-15.5) % Neutrophils # 8.2 H (1.3-7.7) k/uL Lymphocytes # 0.6 L (1.0-4.8) k/uL ABG pH 7.31 L (7.35-7.45) ABG pCO2 28 L (35-45) mmHg ABG pO2 109 H (83-108) mmHg ABG HCO3 14 L (21-25) mmol/L ABG Total CO2 15 L (19-24) mmol/L ABG O2 Saturation 98.4 H (94-97) % Sodium 136 L (137-145) mmol/L Chloride 113 H (98-107) mmol/L Carbon Dioxide 14 L (22-30) mmol/L BUN 66 H (9-20) mg/dL Creatinine 4.14 H (0.66-1.25) mg/dL POC Glucose (mg/dL) (75-99) mg/dL Calcium 6.9 L (8.4-10.2) mg/dL Microbiology - Last 24 Hours (Table) 01/05/21 00:25 Sputum Culture - Preliminary Sputum 01/04/21 06:35 Urine Culture - Preliminary Urine,Voided Assessment and Plan (1) Intra-abdominal abscess Current Visit: Yes Status: Acute Code(s): K65.1 - PERITONEAL ABSCESS SNOMED Code(s): 58858553 (2) Cecal cancer Current Visit: Yes Status: Acute Code(s): C18.0 - MALIGNANT NEOPLASM OF CE CUM SNOMED Code(s): 505476948 (3) Atrial fibrillation Current Visit: Yes Status: Acute Code(s): I48.91 - UNSPECIFIED ATRIAL FIBRILLATION SNOMED Code(s): 01142701 (4) Acute renal failure Current Visit: No Status: Acute Code(s): N17.9 - ACUTE KIDNEY FAILURE, UNSPECIFIED SNOMED Code(s): 08920330 Plan: Patient is status post surgery for colon cancer with complications. Still intubated. Attempts are being made to give a trial of extubation. Patient is in atrial fibrillation with controlled ventricular response on IV Cardizem. Not not on anticoagulation at this time. Anticoagulation to be considered when cleared by the surgeon
[2021-01-05] MEDS: LORazepam 2 MG/ML INJ IV PRN (14:09)
[2021-01-05 18:11] LABS: Glucose,Whole Blood 84 mg/dL (75-99)
[2021-01-05 23:46] LABS: Glucose,Whole Blood 99 mg/dL (75-99)
[2021-01-05] MEDS ORDERED: IPRATROPIUM-ALBUTEROL 3 ML NEB INHALATION PRN (23:46)
[2021-01-06] MEDS: PIPERACILLIN-TAZOBACTAM 3.375 GM in SODIUM CHLORIDE 0.9% 100 ML IVPB SCH ×2 (00:53→17:07)
[2021-01-06] MEDS: DEXTROSE 5% IN WATER 1,000 ML with SODIUM BICARB (1 MEQ/ML) 150 ML IV SCH ×2 (00:53→18:18)
[2021-01-06] MEDS: DILTIAZEM 125 MG in SODIUM CHLORIDE 0.9% 100 ML IV SCH (00:55)
[2021-01-06] MEDS: HYDROmorphone 0.5 MG/0.5 ML SYRINGE IVP PRN ×4 (02:04→23:44)
[2021-01-06 04:51] LABS: Anisocytosis Moderate; Basophils % (A) 0 %; Eosinophils % (A) 0 %; HGB 8.3 gm/dL (13.0-17.5); Lymphocytes # (A) 0.5 k/uL (1.0-4.8); Lymphocytes % (A) 6 %; MCH 23.9 pg (25.0-35.0); MCV 74.8 fL (80.0-100.0); Mean Platelet Volume 10.6; Microcytosis Marked; Monocytes # (A) 0.3 k/uL (0-1.0); Monocytes % (A) 3 %; Neutrophils # (A) 8.8 k/uL (1.3-7.7); Neutrophils % (A) 90 %; Platelet Count 204 k/uL (150-450); RBC 3.47 m/uL (4.30-5.90); RDW 22.8 % (11.5-15.5); WBC 9.8 k/uL (3.8-10.6)
[2021-01-06 05:16] LABS: Calcium 7.5 mg/dL (8.4-10.2); Potassium 3.5 mmol/L (3.5-5.1)
[2021-01-06] MEDS ORDERED: POTASSIUM CHLORIDE 20 MEQ in WATER FOR INJECTION 1 100ML.BAG IVPB STA (06:54)
[2021-01-06] MEDS: LORazepam 2 MG/ML INJ IV PRN ×2 (07:10→17:49)
[2021-01-06] MEDS: IPRATROPIUM-ALBUTEROL 3 ML NEB INHALATION SCH ×4 (07:35→19:03)
--- NOTE | 2021-01-06 08:14 | XR ---
EXAMINATION TYPE: XR chest 1V portable DATE OF EXAM: 01/06/2021 COMPARISON: Chest x-ray 01/05/2021 HISTORY: Extubated, abnormal chest x-ray TECHNIQUE: Single frontal view of the chest is obtained. FINDINGS: Endotracheal tube has been removed. NG tube remains coiled with the tip in the left upper quadrant, there is a right jugular central venous catheter which is unchanged. There are overlying le ads, artifacts. There is no evident pneumothorax. Bibasilar increased attenuation is present obscurin g the hemidiaphragms. Heart remains enlarged. Patchy densities present within the lungs bilaterally. The patient is rotated. IMPRESSION: Correlate for congestive heart failure, that may be basilar effusions and associated ate lectasis, pneumonia not excluded.
--- NOTE | 2021-01-06 08:24 | P.PN ---
Subjective Patient is seen in follow-up for acute kidney injury on chronic kidney disease. Extubated January 05. Currently has NG tube. On Cardizem drip for A. fib. On bicarb drip for maintenance fluids. Acidosis improving. Nonoliguric. Vital signs are stable. General: The patient appeared well nourished and normally developed. HEENT: NG tube present. LUNGS: Breath sounds decreased. HEART: Irregular rate and rhythm. ABDOMEN: Soft, no distention. EXTREMITITES: No edema. Objective - Vital Signs Vital signs: Vital Signs Temp 98.6 F 01/06/21 00:00 Pulse 115 H 01/06/21 07:48 Resp 20 01/06/21 07:00 BP 100/66 01/06/21 05:00 Pulse Ox 88 L 01/06/21 07:00 Intake & Output 01/05/21 01/06/21 01/06/21 18:59 06:59 18:59 Intake Total 2870.176 7170.5 75 Output Total 655 960 125 Balance 1218.622 187.5 -50 Weight 82.6 kg Intake: IV 350 950 75 Dextrose 5% in Water 1, 750 75 000 ml @ 75 mls/hr IV . Q02M93C ONE with Sodium Bicarb (1 Meq/ml) 150 ml Rx#:[id number] Lactated Ringers 1,000 ml 250 @ 125 mls/hr IV .Q8H [facility] Rx#:[id number] Piperacillin-Tazobactam 3 100 .375 gm In Sodium Chloride 0.9% 100 ml @ 25 mls/hr IVPB Q8HR [facility] Rx# :[id number] metroNIDAZOLE-NS PMX 500 100 100 mg In Saline 1 100ml.bag @ 100 mls/hr IVPB Q8H [facility] Rx#:[id number] Intake, IV Titration 1523.622 197.5 Amount Dextrose 5% in Water 1, 675 75 000 ml @ 75 mls/hr IV . [id number] ONE with Sodium Bicarb (1 Meq/ml) 150 ml Rx#:[id number] Diltiazem 125 mg In 58.583 122.5 Sodium Chloride 0.9% 100 ml @ 5 MG/HR 5 mls/hr IV .Q24H [facility] Rx#:[id number] Norepinephrine 4 mg In 592.634 Sodium Chloride 0.9% 250 ml @ 0.05 MCG/KG/MIN 13. 826 mls/hr IV .[id number] [facility] Rx#:[id number] Piperacillin-Tazobactam 3 125 .375 gm In Sodium Chloride 0.9% 100 ml @ 25 mls/hr IVPB Q12H [facility] Rx# :[id number] propofoL 1,000 mg In 72.405 Empty Bag 1 bag @ Titrate IV .Q0M [facility] Rx#: [id number] Output: Drainage 90 80 Right Lower Abdomen 30 20 Right Upper Abdomen 60 60 Urine 655 870 45 Other: Voiding Method Indwelling Catheter Indwelling Catheter ABP, PAP, CO, CI - Last Documented Arterial Blood Pressure 122/71 - Labs CBC & Chem 7: 01/06/21 04:40 01/06/21 04:40 Labs: Abnormal Lab Results - Last 24 Hours (Table) 01/06/21 01/06/21 Range/Units 04:40 04:40 RBC 3.47 L (4.30-5.90) m/uL Hgb 8.3 L (13.0-17.5) gm/dL Hct 26.0 L (39.0-53.0) % MCV 74.8 L (80.0-100.0) fL MCH 23.9 L (25.0-35.0) pg RDW 22.8 H (11.5-15.5) % Neutrophils # 8.8 H (1.3-7.7) k/uL Lymphocytes # 0.5 L (1.0-4.8) k/uL Chloride 113 H (98-107) mmol/L Carbon Dioxide 18 L (22-30) mmol/L BUN 65 H (9-20) mg/dL Creatinine 3.98 H (0.66-1.25) mg/dL Glucose 105 H (74-99) mg/dL Calcium 7.5 L (8.4-10.2) mg/dL Microbiology - Last 24 Hours (Table) 01/04/21 06:35 Urine Culture - Final Urine,Voided 01/05/21 00:25 Sputum Culture - Preliminary Sputum Assessment and Plan Plan: Assessment: 1. Acute kidney injury secondary to ATN secondary to sepsis. Renal function little improved. Creatinine 3.90 today. Nonoliguric. 2. 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 Unknown baseline renal function. 3. 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 On antibiotics. 4. Metabolic acidosis secondary to acute kidney injury. 5. History of hydronephrosis. Has been evaluated by urology in the past. 6. A. fib with RVR maintained on Cardizem drip. 7. Hypokalemia from poor intake and consider shifting from IV bicarb. Plan: Maintain bicarb drip. Potassium is being replaced. Avoid nephrotoxins. Continue to monitor renal function and urine output. Repeat BMP this afternoon.
[2021-01-06] MEDS ORDERED: POTASSIUM CHLORIDE 20 MEQ in WATER FOR INJECTION 1 100ML.BAG IVPB ONE (09:00)
--- NOTE | 2021-01-06 10:15 | P.PN ---
Subjective Progress Note Date: 01/06/21 65-year-old male patient, underwent exploratory laparotomy for a acute abdomen and the patient underwent exploration, drainage of a abdominal abscess, he underwent a diverting loop ileostomy and excision of an abdominal wall nodule and biopsy of the cecal tumor. There was a necrotic cecal tumor and abscess formation with perforation. As such, the tumor was highly adherent and excision of the tumor was not done. The patient received a diabetic ileostomy. Currently is postop day #2. Is awake and alert. He has an NG tube in place. His ileostomy site is viable and there is some liquidy material coming out of the stoma. The patient has [address] Hemodynamically, the patient is receiving bicarb infusion at the rate of 75 mL an hour. He is still in atrial fibrillation and he weighs heart tachycardic with a heart rate ranging between 101 120 beats per minute. Intra-abdominal cultures still pending. The patient is on IV antibiotics and he is receiving IV Zosyn and Flagyl. He is on Cardizem drip at 5 Mg an hour for rate control and the patient is on no pressors for now. He was on norepinephrine infusion earlier. He remains nothing by mouth. He looks quite cachectic and weak. Chest x-ray from today showing cardiomegaly and bilateral pleural effusions. NG tube is in a good location under the diaphragm. There is some mild pulmonary vascular congestion bilaterally. In terms of his renal function, creatinine is at 3.98 which is improved compared to yesterday. Serum bicarb is up to 18 which is also improved compared to yesterday. Anion gap is only at 8. Potassium level is at 3.5. Cultures are still pending for now. His COVID-19 testing was negative. Objective - Vital Signs Vital signs: Vital Signs Temp 98.2 F 01/06/21 08:00 Pulse 109 H 01/06/21 09:00 Resp 28 H 01/06/21 09:00 BP 112/87 01/06/21 09:00 Pulse Ox 89 L 01/06/21 09:00 Intake & Output 01/05/21 01/06/21 01/06/21 18:59 06:59 18:59 Intake Total 6237.992 6777.5 150 Output Total 655 960 175 Balance 1218.622 187.5 -25 Weight 82.6 kg Intake: IV 350 950 150 Dextrose 5% in Water 1, 750 150 000 ml @ 75 mls/hr IV . [id number] ONE with Sodium Bicarb (1 Meq/ml) 150 ml Rx#:[id number] Lactated Ringers 1,000 ml 250 @ 125 mls/hr IV .Q8H ONE Rx#:[id number] Piperacillin-Tazobactam 3 100 .375 gm In Sodium Chloride 0.9% 100 ml @ 25 mls/hr IVPB Q8HR [facility] Rx# :[id number] metroNIDAZOLE-NS PMX 500 100 100 mg In Saline 1 100ml.bag @ 100 mls/hr IVPB Q8H [facility] Rx#:[id number] Intake, IV Titration 1523.622 197.5 Amount Dextrose 5% in Water 1, 675 75 000 ml @ 75 mls/hr IV . [id number] ONE with Sodium Bicarb (1 Meq/ml) 150 ml Rx#:[id number] Diltiazem 125 mg In 58.583 122.5 Sodium Chloride 0.9% 100 ml @ 5 MG/HR 5 mls/hr IV .Q24H [facility] Rx#:[id number] Norepinephrine 4 mg In 592.634 Sodium Chloride 0.9% 250 ml @ 0.05 MCG/KG/MIN 13. 826 mls/hr IV .[id number] [facility] Rx#:[id number] Piperacillin-Tazobactam 3 125 .375 gm In Sodium Chloride 0.9% 100 ml @ 25 mls/hr IVPB Q12H [facility] Rx# :[id number] propofoL 1,000 mg In 72.405 Empty Bag 1 bag @ Titrate IV .Q0M [facility] Rx#: [id number] Output: Drainage 90 80 Right Lower Abdomen 30 20 Right Upper Abdomen 60 60 Urine 655 870 95 Other: Voiding Method Indwelling Catheter Indwelling Catheter Indwelling Catheter ABP, PAP, CO, CI - Last Documented Arterial Blood Pressure 122/62 - Exam No acute distress, awake and alert and following commands and answering questions. A bit lethargic. Is currently on oxygen at 4 L per minute nasal cannula. HEENT examination is grossly unremarkable. Neck supple. Full range of motion. No adenopathy thyromegaly or neck vein distention. Cardiovascular examination reveals an irregular rhythm and rate. S1-S2 normal. No S3 or S4. No discernible murmur noted. Heart sounds are distant. Heart rate 100-120 bpm. Lungs reveal mostly clear breath sounds. Scattered rhonchi are noted. No wheezes or crackles. Breath sounds are equal bilaterally. Saturations are 96%. Abdomen soft. There are no bowel sounds. The ileostomy is noted. Midline incision which is dry clean and intact. The patient has a viable ileostomy with a bag and some liquidy output is noted. The patient also has PELON drains. The patient has some mild diffuse direct tenderness throughout the abdomen. Extremities are intact. No cyanosis clubbing or edema. Skin is without rash or lesion. Neurologic examination is brief but nonfocal. - Labs CBC & Chem 7: 01/06/21 04:40 01/06/21 04:40 Labs: Abnormal Lab Results - Last 24 Hours (Table) 01/06/21 01/06/21 Range/Units 04:40 04:40 RBC 3.47 L (4.30-5.90) m/uL Hgb 8.3 L (13.0-17.5) gm/dL Hct 26.0 L (39.0-53.0) % MCV 74.8 L (80.0-100.0) fL MCH 23.9 L (25.0-35.0) pg RDW 22.8 H (11.5-15.5) % Neutrophils # 8.8 H (1.3-7.7) k/uL Lymphocytes # 0.5 L (1.0-4.8) k/uL Chloride 113 H (98-107) mmol/L Carbon Dioxide 18 L (22-30) mmol/L BUN 65 H (9-20) mg/dL Creatinine 3.98 H (0.66-1.25) mg/dL Glucose 105 H (74-99) mg/dL Calcium 7.5 L (8.4-10.2) mg/dL Microbiology - Last 24 Hours (Table) 01/05/21 00:25 Gram Stain - Preliminary Sputum Sputum Culture - Preliminary 01/04/21 06:35 Urine Culture - Final Urine,Voided Assessment and Plan Plan: 1 Abdominal pain secondary to a large right-sided abdominal mass with an appearance of abscess, free perforation with extensive pneumoperitoneum present. Status post exploratory laparotomy, drainage of the right-sided abdominal abscess, biopsy of cecal tumor, diverting loop ileostomy, excision of abdominal wall nodule. Postoperative day #3. 2 Acute hypoxemic respiratory failure secondary to above requiring continued intubation and mechanical ventilatory support. Extubated and currently on 3 L of oxygen by nasal cannula. The patient was extubated on 01/05/2021. 3 Hypotension secondary to sepsis. 4 Known history of right-sided colonic mass 2-3 months ago with pending surgery in January 2021 no other treatment thus far. 5 Acute on chronic kidney disease. And output is adequate and the patient remains on a bicarb infusion. Creatinine is improved compared to yesterday. Nephrology is on the case. 6 History of hypertension. 7 History of gastroesophageal reflux disease. 8 History of anxiety. Plan: Continue bicarb infusion Continue Zosyn and Flagyl Continue monitoring renal function Continue monitoring the ileostomy site output Cardizem drip at 10 mg an hour for rate control The patient nothing by mouth for now Lactic acid levels are improved Hemodynamically he is stable. We'll continue to follow. The patient incentive spirometer This is a was noted and shows mild four-vessel congestion. May given a dose of diuretic if needed. We'll try to avoid diuretics for symptoms underlying renal dysfunction and postop state. Condition remains critical. The patient ICU for another 24 hours. He was extubated yesterday. We'll continue to follow. Oncologist on the case. General surgeries on the case. Nephrology also on the case.
[2021-01-06] MEDS: metroNIDAZOLE-NS PMX 500 MG in SALINE 1 100ML.BAG IVPB SCH ×3 (10:30→23:45)
[2021-01-06] MEDS: PANTOPRAZOLE 40 MG/10 ML VIAL IV SCH (10:31)
[2021-01-06] MEDS: HEPARIN SODIUM,PORCINE/PF 5,000 UNIT/0.5 ML SYRINGE SQ SCH ×3 (10:31→23:44)
--- NOTE | 2021-01-06 10:48 | P.PN ---
Subjective Progress Note Date: 01/06/21 HISTORY OF PRESENT ILLNESS: This is a 65-year-old gentleman who is frail and cachectic with history of colon cancer, hypertension, GI reflux disease and also marijuana use who was admitted to the hospital with abdominal pain. Computed tomography scan showed possible mass consistent with neoplasm of chronic origin with a new wall perforation and free air. He was taken to the OR for expiratory laparotomy. He underwent drainage of the right side abdominal abscess, resection of the cecal tumor, diverticula loop ileostomy and excision of abdominal wall nodule. 2 PELON drains were placed on the right side, loop ileostomy in the left midabdomen. Patient had a cardiac arrhythmia consistent with atrial fibrillation. Patient was on IV Cardizem. Currently patient seemed to be in sinus rhythm with APCs are multifocal atrial rhythm. Recent echo Cardigan showed an ejection fraction of 50-50%. This is currently intubated. Chest x-ray showed no acute pulmonary process. Patient also has NG tube. We'll continue his current medical therapy. We'll make consider starting him on small dose of beta brad as needed 01/05/2021 This is a 65-year-old gentleman who was diagnosed to have colon cancer and has undergone surgery. Details are available from H&P. Patient is still intubated. The advanced practice nurse wants to give a trial of extubation. Patient is in atrial fibrillation. He is a rate is controlled with IV Cardizem. Patient is not on anticoagulation. Needs to go on anticoagulation when cleared by Dr. Delgado. Patient is also on pressors and IV fluids but chest x-ray shows some infiltrates and also atelectatic changes. Heart rate is controlled currently. We'll c ontinue current cardiac medications. 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 Patient has been extubated. He is on 4L nasal cannula. Patient remains NPO. He has a NG tube to LIS. Telemetry reveals atrial fibrillation with mildly uncontrolled ventricular rates. He remains on a cardizem drip at 10mg/hr. echocardiogram completed in October 2020 revealed ejection fraction 50-55%, mild mitral regurgitation, and mild tricuspid regurgitation. PHYSICAL EXAM: VITAL SIGNS: Reviewed. GENERAL: Well-developed in no acute distress. NECK: Supple. No JVD or thyromegaly LUNGS: Respirations even and unlabored. Lungs essentially clear to auscultation bilaterally. HEART: Tachycardic. Irregular rate and rhythm. S1 and S2 heard. Systolic murmur noted. EXTREMITIES: No clubbing or cyanosis. Peripheral pulses intact. 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, status post exploratory laparotomy, drainage right-sided abdominal abscess, biopsy of cecal tumor, diverting loop ileostomy, and excision of abdominal wall nodule New-onset persistent atrial fibrillation with RVR Acute hypoxic respiratory failure requiring intubation, extubated 01/05/2021 Acute on chronic kidney disease Hypertension GERD PLAN: Obtain 12 lead EKG Continue Cardizem infusion at 10mg/hr Continue telemetry monitoring Will initiate beta brad when patient is able to tolerate PO medications Will consider anticoagulation when cleared by general surgery Further recommendations pending patient course Nurse practitioner note has been reviewed by physician. Signing provider agrees with the documented findings, assessment, and plan of care. Objective - Vital Signs Vital signs: Vital Signs Temp 98.2 F 01/06/21 08:00 Pulse 109 H 01/06/21 09:00 Resp 28 H 01/06/21 09:00 BP 112/87 01/06/21 09:00 Pulse Ox 89 L 01/06/21 09:00 Intake & Output 01/05/21 01/06/21 01/06/21 18:59 06:59 18:59 Intake Total 9337.611 2352.5 150 Output Total 655 960 175 Balance 1218.622 187.5 -25 Weight 82.6 kg Intake: IV 350 950 150 Dextrose 5% in Water 1, 750 150 000 ml @ 75 mls/hr IV . [id number] ONE with Sodium Bicarb (1 Meq/ml) 150 ml Rx#:[id number] Lactated Ringers 1,000 ml 250 @ 125 mls/hr IV .Q8H [facility] Rx#:[id number] Piperacillin-Tazobactam 3 100 .375 gm In Sodium Chloride 0.9% 100 ml @ 25 mls/hr IVPB Q8HR [facility] Rx# :[id number] metroNIDAZOLE-NS PMX 500 100 100 mg In Saline 1 100ml.bag @ 100 mls/hr IVPB Q8H [facility] Rx#:[id number] Intake, IV Titration 1523.622 197.5 Amount Dextrose 5% in Water 1, 675 75 000 ml @ 75 mls/hr IV . [id number] ONE with Sodium Bicarb (1 Meq/ml) 150 ml Rx#:[id number] Diltiazem 125 mg In 58.583 122.5 Sodium Chloride 0.9% 100 ml @ 5 MG/HR 5 mls/hr IV .Q24H [facility] Rx#:[id number] Norepinephrine 4 mg In 592.634 Sodium Chloride 0.9% 250 ml @ 0.05 MCG/KG/MIN 13. 826 mls/hr IV .[id number] [facility] Rx#:[id number] Piperacillin-Tazobactam 3 125 .375 gm In Sodium Chloride 0.9% 100 ml @ 25 mls/hr IVPB Q12H [facility] Rx# :[id number] propofoL 1,000 mg In 72.405 Empty Bag 1 bag @ Titrate IV .Q0M [facility] Rx#: [id number] Output: Drainage 90 80 Right Lower Abdomen 30 20 Right Upper Abdomen 60 60 Urine 655 870 95 Other: Voiding Method Indwelling Catheter Indwelling Catheter Indwelling Catheter ABP, PAP, CO, CI - Last Documented Arterial Blood Pressure 122/62 - Labs CBC & Chem 7: 01/06/21 04:40 01/06/21 04:40 Labs: Abnormal Lab Results - Last 24 Hours (Table) 01/06/21 01/06/21 Range/Units 04:40 04:40 RBC 3.47 L (4.30-5.90) m/uL Hgb 8.3 L (13.0-17.5) gm/dL Hct 26.0 L (39.0-53.0) % MCV 74.8 L (80.0-100.0) fL MCH 23.9 L (25.0-35.0) pg RDW 22.8 H (11.5-15.5) % Neutrophils # 8.8 H (1.3-7.7) k/uL Lymphocytes # 0.5 L (1.0-4.8) k/uL Chloride 113 H (98-107) mmol/L Carbon Dioxide 18 L (22-30) mmol/L BUN 65 H (9-20) mg/dL Creatinine 3.98 H (0.66-1.25) mg/dL Glucose 105 H (74-99) mg/dL Calcium 7.5 L (8.4-10.2) mg/dL Microbiology - Last 24 Hours (Table) 01/05/21 00:25 Gram Stain - Preliminary Sputum Sputum Culture - Preliminary 01/04/21 06:35 Urine Culture - Final Urine,Voided
[2021-01-06 11:46] LABS: Glucose,Whole Blood 121 mg/dL (75-99)
--- NOTE | 2021-01-06 12:19 | P.PN ---
Subjective Progress Note Date: 01/06/21 Pt is in bed on nasal cannula, saturating 90%, in no distress at the time of my evaluation. BP 139/70, HR 126; on cardizem gtt . CBC without elevated WBC; on zosyn, flagyl; 2 x PELON drains in abdomen with output of 60cc and 30cc, respectively. BUN/Cr is stable to 65/3.98; I/O balance in last 24 hours is +1406cc. Objective - Vital Signs Vital signs: Vital Signs Temp 98.2 F 01/06/21 08:00 Pulse 124 H 01/06/21 11:29 Resp 28 H 01/06/21 11:00 BP 112/87 01/06/21 11:00 Pulse Ox 88 L 01/06/21 11:00 Intake & Output 01/05/21 01/06/21 01/06/21 18:59 06:59 18:59 Intake Total 2087.795 4080.5 375 Output Total 655 960 260 Balance 1218.622 187.5 115 Weight 82.6 kg Intake: IV 350 950 375 Dextrose 5% in Water 1, 750 375 000 ml @ 75 mls/hr IV . [id number] ONE with Sodium Bicarb (1 Meq/ml) 150 ml Rx#:[id number] Lactated Ringers 1,000 ml 250 @ 125 mls/hr IV .Q8H [facility] Rx#:[id number] Piperacillin-Tazobactam 3 100 .375 gm In Sodium Chloride 0.9% 100 ml @ 25 mls/hr IVPB Q8HR [facility] Rx# :[id number] metroNIDAZOLE-NS PMX 500 100 100 mg In Saline 1 100ml.bag @ 100 mls/hr IVPB Q8H [facility] Rx#:[id number] Intake, IV Titration 1523.622 197.5 Amount Dextrose 5% in Water 1, 675 75 000 ml @ 75 mls/hr IV . [id number] ONE with Sodium Bicarb (1 Meq/ml) 150 ml Rx#:[id number] Diltiazem 125 mg In 58.583 122.5 Sodium Chloride 0.9% 100 ml @ 5 MG/HR 5 mls/hr IV .Q24H [facility] Rx#:[id number] Norepinephrine 4 mg In 592.634 Sodium Chloride 0.9% 250 ml @ 0.05 MCG/KG/MIN 13. 826 mls/hr IV .[id number] [facility] Rx#:[id number] Piperacillin-Tazobactam 3 125 .375 gm In Sodium Chloride 0.9% 100 ml @ 25 mls/hr IVPB Q12H [facility] Rx# :[id number] propofoL 1,000 mg In 72.405 Empty Bag 1 bag @ Titrate IV .Q0M [facility] Rx#: [id number] Output: Drainage 90 80 Right Lower Abdomen 30 20 Right Upper Abdomen 60 60 Urine 655 870 180 Other: Voiding Method Indwelling Catheter Indwelling Catheter Indwelling Catheter ABP, PAP, CO, CI - Last Documented Arterial Blood Pressure 124/67 - Exam Gen: awake, following commands, Resp: good air exchange, tachypneic, but no accessory muscle use CVS: good distal perfusion x 4, GI: Exquisitely tender to palpation diffusely, distended, rebound tenderness present, involuntary guarding : no SPT, no CVAT, serrano catheter is present MSK: no pitting edema, no clubbing Neuro: non-focal, moving all extremities - Labs CBC & Chem 7: 01/06/21 04:40 01/06/21 04:40 Labs: Abnormal Lab Results - Last 24 Hours (Table) 01/06/21 01/06/21 01/06/21 Range/Units 04:40 04:40 11:45 RBC 3.47 L (4.30-5.90) m/uL Hgb 8.3 L (13.0-17.5) gm/dL Hct 26.0 L (39.0-53.0) % MCV 74.8 L (80.0-100.0) fL MCH 23.9 L (25.0-35.0) pg RDW 22.8 H (11.5-15.5) % Neutrophils # 8.8 H (1.3-7.7) k/uL Lymphocytes # 0.5 L (1.0-4.8) k/uL Chloride 113 H (98-107) mmol/L Carbon Dioxide 18 L (22-30) mmol/L BUN 65 H (9-20) mg/dL Creatinine 3.98 H (0.66-1.25) mg/dL Glucose 105 H (74-99) mg/dL POC Glucose (mg/dL) 121 H (75-99) mg/dL Calcium 7.5 L (8.4-10.2) mg/dL Microbiology - Last 24 Hours (Table) 01/05/21 00:25 Gram Stain - Preliminary Sputum Sputum Culture - Preliminary 01/04/21 06:35 Urine Culture - Final Urine,Voided Assessment and Plan Assessment: Perforated Bowel Colonic Mass -s/p OR for bowel repair, cecal mass removal -OGT -hold all oral home meds; holding home metoprolol -on diltiazem gtt for AFib with RVR -cardiology consulted for A Fib -dilaudid PRN/tylenol IV PRN for pain control -zosyn, metronidazole -ICU level care, pulm consult Left Hydronephrosis CKD III -urology, nephrology consults -avoid nephrotoxins -IVF HTN BPH -holding home meds as above Medicine will continue to follow. Please reach out to a member of [facility] hysicians via [employer] if there are any questions/concerns.
--- NOTE | 2021-01-06 14:23 | P.PN ---
Subjective Progress Note Date: 01/06/21 CHIEF COMPLAINT: Abdominal pain HISTORY OF PRESENT ILLNESS: Patient currently in the ICU after bowel perf oration. 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 He is postop day #2. Patient was extubated yesterday. NG tube remains in place. Patient has minimal likely greenish output through his ileostomy. Pain is controlled. Afebrile. He has been tachycardic. WBC 9.8 hemoglobin 8.3 platelets 204 cardiology following for new onset of atrial fibrillation with RVR. Patient seen and examined with Dr. palmer who is covering for Dr. Nicole PHYSICAL EXAM: VITAL SIGNS: Reviewed. GENERAL: Well-developed in no acute distress. HEENT: No sclera icterus. Extraocular movements grossly intact. Moist buccal mucosa. Head is atraumatic, normocephalic. ABDOMEN: Soft. Nondistended. Ostomy functioning PELON changes place NEUROLOGIC: Alert and oriented. Cranial nerves II through XII grossly intact. ASSESSMENT: 1. Pneumoperitoneum 2. 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 Signing provider agrees with the documented findings, assessment, and plan of care. Objective - Vital Signs Vital signs: Vital Signs Temp 98.9 F 01/06/21 12:00 Pulse 106 H 01/06/21 13:00 Resp 21 01/06/21 13:00 BP 112/87 01/06/21 13:00 Pulse Ox 95 01/06/21 13:00 Intake & Output 01/05/21 01/06/21 01/06/21 18:59 06:59 18:59 Intake Total 6416.819 6793.5 525 Output Total 655 960 260 Balance 1218.622 187.5 265 Weight 82.6 kg Intake: IV 350 950 525 Dextrose 5% in Water 1, 750 525 000 ml @ 75 mls/hr IV . [id number] ONE with Sodium Bicarb (1 Meq/ml) 150 ml Rx#:[id number] Lactated Ringers 1,000 ml 250 @ 125 mls/hr IV .Q8H [facility] Rx#:[id number] Piperacillin-Tazobactam 3 100 .375 gm In Sodium Chloride 0.9% 100 ml @ 25 mls/hr IVPB Q8HR [facility] Rx# :[id number] metroNIDAZOLE-NS PMX 500 100 100 mg In Saline 1 100ml.bag @ 100 mls/hr IVPB Q8H [facility] Rx#:[id number] Intake, IV Titration 1523.622 197.5 Amount Dextrose 5% in Water 1, 675 75 000 ml @ 75 mls/hr IV . [id number] ONE with Sodium Bicarb (1 Meq/ml) 150 ml Rx#:[id number] Diltiazem 125 mg In 58.583 122.5 Sodium Chloride 0.9% 100 ml @ 5 MG/HR 5 mls/hr IV .Q24H [facility] Rx#:[id number] Norepinephrine 4 mg In 592.634 Sodium Chloride 0.9% 250 ml @ 0.05 MCG/KG/MIN 13. 826 mls/hr IV .[id number] [facility] Rx#:[id number] Piperacillin-Tazobactam 3 125 .375 gm In Sodium Chloride 0.9% 100 ml @ 25 mls/hr IVPB Q12H [facility] Rx# :[id number] propofoL 1,000 mg In 72.405 Empty Bag 1 bag @ Titrate IV .Q0M [facility] Rx#: [id number] Output: Drainage 90 80 Right Lower Abdomen 30 20 Right Upper Abdomen 60 60 Urine 655 870 180 Other: Voiding Method Indwelling Catheter Indwelling Catheter Indwelling Catheter ABP, PAP, CO, CI - Last Documented Arterial Blood Pressure 124/67 - Labs CBC & Chem 7: 01/06/21 04:40 01/06/21 04:40 Labs: Abnormal Lab Results - Last 24 Hours (Table) 01/06/21 01/06/21 01/06/21 Range/Units 04:40 04:40 11:45 RBC 3.47 L (4.30-5.90) m/uL Hgb 8.3 L (13.0-17.5) gm/dL Hct 26.0 L (39.0-53.0) % MCV 74.8 L (80.0-100.0) fL MCH 23.9 L (25.0-35.0) pg RDW 22.8 H (11.5-15.5) % Neutrophils # 8.8 H (1.3-7.7) k/uL Lymphocytes # 0.5 L (1.0-4.8) k/uL Chloride 113 H (98-107) mmol/L Carbon Dioxide 18 L (22-30) mmol/L BUN 65 H (9-20) mg/dL Creatinine 3.98 H (0.66-1.25) mg/dL Glucose 105 H (74-99) mg/dL POC Glucose (mg/dL) 121 H (75-99) mg/dL Calcium 7.5 L (8.4-10.2) mg/dL Microbiology - Last 24 Hours (Table) 01/05/21 00:25 Gram Stain - Preliminary Sputum Sputum Culture - Preliminary Ximena albicans 01/04/21 06:35 Urine Culture - Final Urine,Voided
[2021-01-06 15:43] LABS: Calcium 7.9 mg/dL (8.4-10.2); Magnesium 2.1 mg/dL (1.6-2.3); Potassium 3.9 mmol/L (3.5-5.1)
--- NOTE | 2021-01-06 16:13 | P.CONS ---
History of Present Illness - Reason for Consult Consult date: 01/06/21 cecal mass Requesting physician: Leidy Stafford - Chief Complaint abd pain - History of Present Illness Patient is a 65-year-old white male, who has not seen a doctor for several years. The patient states that he was in his usual state of health until this year. At that time he developed some cramping pain in the right abdomen, that was associated with difficulty in urinating. There also appeared to be some exacerbation with eating and bowel movements. Patient noted that he will have to strain. The pain became progressively more severe and persistent. He noted some black stools, as well as decrease in appetite. He lost about 10 pounds over 2-3 weeks. He was seen in ER, was apparently transferred to [place] however, he left A because he was not satisfied with the care and came to [facility] ER. He had a CT of the abdomen and pelvis 10/16/20 that showed a large mass, 11 cm, associated with the right colon, involving the cecum and the hepatic flexure with possibly some associated perilesional hemorrhage. In addition he was noted to have a large wound of the prostate with masslike projection into the base of the bladder. Bilateral hydronephrosis, greater on the left compared to the right was noted. Patient was also noted to be in renal failure with creatinine greater than 4. He was therefore admitted for further management. Denied any prior history of malignancy. Last colonoscopy was at age 39. Pt was seen in ofc 11/12 with recs for imaging-which he did not complete. He was seen again on 11/26, PET did not show evidence of metastatic disease and he was to see Surgeon to plan for resection, which he did not do. He refused parenteral iron infusions for his anemia. He reports to each Physician he sees that "no one is doing anything". He is now in the hospital with perforate bowel and associated abscess. He was taken to surgery 01/04, had exp lap with drainage of abscess, bx, cecal tumor, diverting loop ileostomy and excision of abd wall nodule. Review of Systems 10 point ROS is neg except as stated in HPI Past Medical History Past Medical History: Cancer, GERD/Reflux, Hypertension Additional Past Medical History / Comment(s): colon cancer History of Any Multi-Drug Resistant Organisms: None Reported Past Surgical History: Hernia Repair Additional Past Surgical History / Comment(s): jaw surgery Past Anesthesia/Blood Transfusion Reactions: No Reported Reaction Past Psychological History: Anxiety Smoking Status: Never smoker Past Alcohol Use History: None Reported Past Drug Use History: Marijuana - Past Family History Father Family Medical History: Unable to Obtain Medications and Allergies Home Medications Medication Instructions Recorded Confirmed Type Finasteride [Proscar] 5 mg PO DAILY #30 tab 10/21/20 01/03/21 Rx amLODIPine [Norvasc] 5 mg PO BID #60 tab 10/21/20 01/03/21 Rx Metoprolol Tartrate [Lopressor] 12.5 mg PO BID 01/03/21 01/03/21 History Tamsulosin [Flomax] 0.4 mg PO BID 01/03/21 01/03/21 History Allergies Allergy/AdvReac Type Severity Reaction Status Date / Time meperidine [From Demerol] Allergy head felt Verified 01/03/21 11:57 big hydromorphone [From Dilaudid] AdvReac Mild Nausea Verified 01/03/21 11:57 Physical Exam Vitals: Vital Signs Temp Pulse Resp BP Pulse Ox 01/06/21 09:00 109 H 28 H 112/87 89 L 01/06/21 08:00 98.2 F 128 H 13 100/66 89 L 01/06/21 07:48 115 H 01/06/21 07:35 109 H 01/06/21 07:00 131 H 20 88 L 01/06/21 06:00 131 H 16 92 L 01/06/21 05:00 99 12 100/66 93 L 01/06/21 04:00 110 H 12 93 L 01/06/21 03:00 101 H 16 92 L 01/06/21 02:00 109 H 18 92 L 01/06/21 01:00 112 H 20 95 01/06/21 00:00 98.6 F 118 H 30 H 92 L 01/05/21 23:00 101 H 14 93 L 01/05/21 22:00 113 H 16 93 L 01/05/21 21:00 103 H 12 93 L 01/05/21 20:00 98.7 F 113 H 16 102/69 93 L 01/05/21 19:39 100 01/05/21 19:25 100 01/05/21 19:00 109 H 23 91 L 01/05/21 18:45 108 H 22 91 L 01/05/21 18:30 114 H 26 H 92 L 01/05/21 18:15 93 11 L 93 L 01/05/21 18:00 101 H 10 L 94 L 01/05/21 17:45 112 H 13 94 L 01/05/21 17:30 125 H 11 L 92 L 01/05/21 17:15 115 H 11 L 102/69 92 L 01/05/21 17:00 112 H 13 92 L 01/05/21 16:45 92 14 91 L 01/05/21 16:30 109 H 24 92 L 01/05/21 16:25 95 01/05/21 16:24 100 01/05/21 16:15 98 24 102/69 97 01/05/21 16:10 104 H 01/05/21 16:00 98.1 F 89 13 93 L 01/05/21 15:45 88 12 93 L 01/05/21 15:30 101 H 12 93 L 01/05/21 15:15 101 H 13 92 L 01/05/21 15:00 95 12 92 L 01/05/21 14:45 105 H 12 92 L 01/05/21 14:30 101 H 12 92 L 01/05/21 14:15 93 17 92 L 01/05/21 14:00 98 23 92 L 01/05/21 13:45 96 23 94 L 01/05/21 13:30 105 H 24 93 L 01/05/21 13:15 100 22 92 L 01/05/21 13:00 94 16 94 L 01/05/21 12:45 92 27 H 92 L 01/05/21 12:30 90 25 H 116/87 92 L 01/05/21 12:15 86 13 90 L 01/05/21 12:00 98.1 F 92 18 93 L 01/05/21 11:45 88 16 92 L 01/05/21 11:30 103 H 13 96 01/05/21 11:26 90 01/05/21 11:19 92 01/05/21 11:15 99 15 96 01/05/21 11:00 95 18 97 01/05/21 10:45 97 22 97 01/05/21 10:30 111 H 22 98 Intake and Output 01/05/21 01/06/21 01/06/21 22:59 06:59 14:59 Intake Total 790.327 922.5 150 Output Total 740 520 175 Balance 50.327 402.5 -25 Intake: IV 250 800 150 Dextrose 5% in Water 1, 150 600 150 000 ml @ 75 mls/hr IV . [id number] ONE with Sodium Bicarb (1 Meq/ml) 150 ml Rx#:[id number] Piperacillin-Tazobactam 3 100 .375 gm In Sodium Chloride 0.9% 100 ml @ 25 mls/hr IVPB Q8HR [facility] Rx# :[id number] metroNIDAZOLE-NS PMX 500 100 100 mg In Saline 1 100ml.bag @ 100 mls/hr IVPB Q8H [facility] Rx#:[id number] Intake, IV Titration 540.327 122.5 Amount Dextrose 5% in Water 1, 375 000 ml @ 75 mls/hr IV . [id number] ONE with Sodium Bicarb (1 Meq/ml) 150 ml Rx#:[id number] Diltiazem 125 mg In 122.5 Sodium Chloride 0.9% 100 ml @ 5 MG/HR 5 mls/hr IV .Q24H [facility] Rx#:[id number] Norepinephrine 4 mg In 90.327 Sodium Chloride 0.9% 250 ml @ 0.05 MCG/KG/MIN 13. 826 mls/hr IV .[id number] [facility] Rx#:[id number] Piperacillin-Tazobactam 3 75 .375 gm In Sodium Chloride 0.9% 100 ml @ 25 mls/hr IVPB Q12H [facility] Rx# :[id number] Output: Drainage 90 80 Right Lower Abdomen 30 20 Right Upper Abdomen 60 60 Urine 650 520 95 Other: Voiding Method Indwelling Catheter Indwelling Catheter Indwelling Catheter Weight 82.6 kg ABP, PAP, CO, CI - Last 8 Hours Arterial Blood Pressure 122/62 Arterial Blood Pressure 119/57 Arterial Blood Pressure 122/71 Arterial Blood Pressure 118/61 Arterial Blood Pressure 105/58 Arterial Blood Pressure 112/56 Arterial Blood Pressure 94/50 - Constitutional General appearance: cooperative, mild distress, thin - EENT Eyes: anicteric sclerae, EOMI, poor dentition ENT: hearing grossly normal - Neck Neck: no lymphadenopathy - Respiratory Respiratory: bilateral: diminished - Cardiovascular Rhythm: regular Heart sounds: normal: S1, S2 Abnormal Heart Sounds: no systolic murmur, no diastolic murmur, no rub, no S3 Gallop, no S4 Gallop, no click, no other leg Peripheral Edema: bilateral: Trace - Gastrointestinal Lt sided ostomy, yellow fluid noted, stoma pink General gastrointestinal: absent bowel sounds - Integumentary Integumentary: pale - Neurologic Neurologic: CNII-XII intact - Musculoskeletal Musculoskeletal: generalized weakness - Psychiatric Psychiatric: A&O x's 3, appropriate affect, intact judgment & insight Results CBC & Chem 7: 01/06/21 04:40 01/06/21 15:00 Labs: Abnormal Lab Results - Last 24 Hours (Table) 01/06/21 01/06/21 Range/Units 04:40 04:40 RBC 3.47 L (4.30-5.90) m/uL Hgb 8.3 L (13.0-17.5) gm/dL Hct 26.0 L (39.0-53.0) % MCV 74.8 L (80.0-100.0) fL MCH 23.9 L (25.0-35.0) pg RDW 22.8 H (11.5-15.5) % Neutrophils # 8.8 H (1.3-7.7) k/uL Lymphocytes # 0.5 L (1.0-4.8) k/uL Chloride 113 H (98-107) mmol/L Carbon Dioxide 18 L (22-30) mmol/L BUN 65 H (9-20) mg/dL Creatinine 3.98 H (0.66-1.25) mg/dL Glucose 105 H (74-99) mg/dL Calcium 7.5 L (8.4-10.2) mg/dL Microbiology - Last 24 Hours (Table) 01/05/21 00:25 Gram Stain - Preliminary Sputum Sputum Culture - Preliminary 01/04/21 06:35 Urine Culture - Final Urine,Voided Chest x-ray: report reviewed CT scan - abdomen: report reviewed CT scan - pelvis: report reviewed Assessment and Plan (1) Acute abdomen Current Visit: Yes Status: Acute Priority: High Code(s): R10.0 - ACUTE ABDOMEN SNOMED Code(s): 8817222 (2) Intra-abdominal abscess Current Visit: Yes Status: Acute Priority: High Code(s): K65.1 - P ERITONEAL ABSCESS SNOMED Code(s): 93916095 (3) Cecal cancer Current Visit: Yes Status: Acute Priority: High Code(s): C18.0 - MALIGNANT NEOPLASM OF CECUM SNOMED Code(s): 484482909 Plan: Pending path results to determine treatment course. Pt is not a candidate for treatment until completely healed from this surgery. Hopefully he will f/u as directed. Doctor attests: I performed a history and physical examination of this patient, developed impression and plan of care, discussed with dictator. I agree with dictators note, documented as a scribe.
[2021-01-06 16:23] LABS: Glucose,Whole Blood 121 mg/dL (75-99)
[2021-01-07] MEDS: PIPERACILLIN-TAZOBACTAM 3.375 GM in SODIUM CHLORIDE 0.9% 100 ML IVPB SCH ×3 (01:58→23:06)
[2021-01-07 04:21] LABS: Anisocytosis Moderate; HCT 27.6 % (39.0-53.0); HGB 8.7 gm/dL (13.0-17.5); Hypochromasia Slight; MCH 24.5 pg (25.0-35.0); MCHC 31.4 g/dL (31.0-37.0); Mean Platelet Volume 8.6; Microcytosis Moderate; Platelet Count 218 k/uL (150-450); RBC 3.54 m/uL (4.30-5.90); RDW 22.6 % (11.5-15.5); WBC 11.4 k/uL (3.8-10.6)
[2021-01-07 04:33] LABS: Potassium 3.6 mmol/L (3.5-5.1)
[2021-01-07] MEDS: DILTIAZEM 125 MG in SODIUM CHLORIDE 0.9% 100 ML IV SCH ×2 (05:19→18:29)
[2021-01-07] MEDS: HYDROmorphone 0.5 MG/0.5 ML SYRINGE IVP PRN ×5 (06:36→23:06)
[2021-01-07] MEDS: POTASSIUM CHLORIDE 20 MEQ in WATER FOR INJECTION 1 100ML.BAG IVPB SCH ×2 (06:37→08:58)
--- NOTE | 2021-01-07 07:42 | XR ---
EXAMINATION TYPE: XR chest 1V portable DATE OF EXAM: 01/07/2021 COMPARISON: Chest x-ray 01/06/2021 HISTORY: Tube placement, abnormal chest x-ray TECHNIQUE: Single frontal view of the chest is obtained. FINDINGS: Heart remains enlarged. Bibasilar density is again noted, hemidiaphragms are obscured. Chuck ateral airspace disease, prominence interstitium and central vascularity again noted. There is no teresa dent pneumothorax. Aorta is dense. Right jugular central venous catheter, orogastric tube are overlyi ng appropriate positions. IMPRESSION: Correlate for congestive heart failure with basilar effusions, pneumonia not excluded
[2021-01-07] MEDS: HEPARIN SODIUM,PORCINE/PF 5,000 UNIT/0.5 ML SYRINGE SQ SCH (08:57)
[2021-01-07] MEDS: metroNIDAZOLE-NS PMX 500 MG in SALINE 1 100ML.BAG IVPB SCH ×2 (08:58→18:31)
[2021-01-07] MEDS: PANTOPRAZOLE 40 MG/10 ML VIAL IV SCH (08:58)
--- NOTE | 2021-01-07 09:25 | P.PN ---
Subjective Patient is seen in follow-up for acute kidney injury on chronic kidney disease. Extubated January 05. Currently has NG tube. On Cardizem drip for A. fib. On bicarb drip for maintenance fluids. Acidosis slowly improving. Nonoliguric. Estrada catheter removed this morning. Vital signs are stable. General: The patient appeared well nourished and normally developed. HEENT: NG tube present. LUNGS: Breath sounds decreased. HEART: Irregular rate and rhythm. ABDOMEN: Soft, no distention. EXTREMITITES: No edema. Objective - Vital Signs Vital signs: Vital Signs Temp 98 F 01/07/21 04:00 Pulse 126 H 01/07/21 07:00 Resp 15 01/07/21 07:00 BP 112/77 01/07/21 07:00 Pulse Ox 94 L 01/07/21 07:00 Intake & Output 01/06/21 01/07/21 01/07/21 18:59 06:59 18:59 Intake Total 1025 1100 75 Output Total 950 1000 0 Balance 75 100 75 Weight 83.4 kg Intake: IV 900 1100 75 Dextrose 5% in Water 1, 900 150 000 ml @ 75 mls/hr IV . [id number] ONE with Sodium Bicarb (1 Meq/ml) 150 ml Rx#:[id number] Dextrose 5% in Water 1, 750 75 000 ml @ 75 mls/hr IV . [id number] [facility] with Sodium Bicarb (1 Meq/ml) 150 ml Rx#:[id number] Piperacillin-Tazobactam 3 100 .375 gm In Sodium Chloride 0.9% 100 ml @ 25 mls/hr IVPB Q8HR [facility] Rx# :[id number] metroNIDAZOLE-NS PMX 500 100 mg In Saline 1 100ml.bag @ 100 mls/hr IVPB Q8H [facility] Rx#:[id number] Intake, IV Titration 125 Amount Diltiazem 125 mg In 125 Sodium Chloride 0.9% 100 ml @ 5 MG/HR 5 mls/hr IV .Q24H [facility] Rx#:[id number] Output: Drainage 80 270 Right Lower Abdomen 20 60 Right Upper Abdomen 60 210 Urine 870 730 0 Other: Voiding Method Indwelling Catheter Indwelling Catheter ABP, PAP, CO, CI - Last Documented Arterial Blood Pressure 124/67 - Labs CBC & Chem 7: 01/07/21 04:00 01/07/21 04:00 Labs: Abnormal Lab Results - Last 24 Hours (Table) 01/06/21 01/06/21 01/06/21 Range/Units 11:45 15:00 16:21 WBC (3.8-10.6) k/uL RBC (4.30-5.90) m/uL Hgb (13.0-17.5) gm/dL Hct (39.0-53.0) % MCV (80.0-100.0) fL MCH (25.0-35.0) pg RDW (11.5-15.5) % Chloride 113 H (98-107) mmol/L Carbon Dioxide 19 L (22-30) mmol/L BUN 64 H (9-20) mg/dL Creatinine 3.85 H (0.66-1.25) mg/dL Glucose 113 H (74-99) mg/dL POC Glucose (mg/dL) 121 H 121 H (75-99) mg/dL Calcium 7.9 L (8.4-10.2) mg/dL 01/07/21 01/07/21 Range/Units 04:00 04:00 WBC 11.4 H (3.8-10.6) k/uL RBC 3.54 L (4.30-5.90) m/uL Hgb 8.7 L (13.0-17.5) gm/dL Hct 27.6 L (39.0-53.0) % MCV 78.0 L (80.0-100.0) fL MCH 24.5 L (25.0-35.0) pg RDW 22.6 H (11.5-15.5) % Chloride 111 H (98-107) mmol/L Carbon Dioxide 20 L (22-30) mmol/L BUN 64 H (9-20) mg/dL Creatinine 3.59 H (0.66-1.25) mg/dL Glucose 111 H (74-99) mg/dL POC Glucose (mg/dL) (75-99) mg/dL Calcium 8.0 L (8.4-10.2) mg/dL Microbiology - Last 24 Hours (Table) 01/05/21 00:25 Gram Stain - Final Sputum Sputum Culture - Final Ximena albicans Ximena sp,not albicans/galbr Assessment and Plan Plan: Assessment: 1. Acute kidney injury secondary to ATN secondary to sepsis. Renal function little improved. Creatinine 3.59 today. Nonoliguric. 2. 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 Unknown baseline renal function. 3. 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 On antibiotics. 4. Metabolic acidosis secondary to acute kidney injury. 5. History of hydronephrosis. Has been evaluated by urology in the past. 6. A. fib with RVR maintained on Cardizem drip. 7. Hypokalemia from poor intake and consider shifting from IV bicarb. Plan: Maintain bicarb drip. Potassium is being replaced. Avoid nephrotoxins. Continue to monitor renal function and urine output. Repeat BMP this afternoon.
[2021-01-07] MEDS: DEXTROSE 5% IN WATER 1,000 ML with SODIUM BICARB (1 MEQ/ML) 150 ML IV SCH ×2 (09:27→23:43)
[2021-01-07] MEDS: IPRATROPIUM-ALBUTEROL 3 ML NEB INHALATION SCH ×4 (09:31→19:45)
--- NOTE | 2021-01-07 10:46 | P.PN ---
Subjective Progress Note Date: 01/07/21 Principal diagnosis: perforated bowel, cecal tumor, post op In f/u pt is working with PT/OT and getting out of bed to chair. Objective - Vital Signs Vital signs: Vital Signs Temp 98.0 F 01/07/21 08:00 Pulse 98 01/07/21 10:00 Resp 14 01/07/21 10:00 BP 127/87 01/07/21 10:00 Pulse Ox 93 L 01/07/21 10:00 Intake & Output 01/06/21 01/07/21 01/07/21 18:59 06:59 18:59 Intake Total 1025 1100 300 Output Total 950 1000 125 Balance 75 100 175 Weight 83.4 kg Intake: IV 900 1100 300 Dextrose 5% in Water 1, 900 150 000 ml @ 75 mls/hr IV . [id number] ONE with Sodium Bicarb (1 Meq/ml) 150 ml Rx#:[id number] Dextrose 5% in Water 1, 750 300 000 ml @ 75 mls/hr IV . [id number] [facility] with Sodium Bicarb (1 Meq/ml) 150 ml Rx#:[id number] Piperacillin-Tazobactam 3 100 .375 gm In Sodium Chloride 0.9% 100 ml @ 25 mls/hr IVPB Q8HR [facility] Rx# :[id number] metroNIDAZOLE-NS PMX 500 100 mg In Saline 1 100ml.bag @ 100 mls/hr IVPB Q8H [facility] Rx#:[id number] Intake, IV Titration 125 Amount Diltiazem 125 mg In 125 Sodium Chloride 0.9% 100 ml @ 5 MG/HR 5 mls/hr IV .Q24H [facility] Rx#:[id number] Output: Drainage 80 270 Right Lower Abdomen 20 60 Right Upper Abdomen 60 210 Urine 870 730 0 Stool 125 Other: Voiding Method Indwelling Catheter Indwelling Catheter Urinal # Voids 0 ABP, PAP, CO, CI - Last Documented Arterial Blood Pressure 124/67 - Constitutional General appearance: Present: cooperative, no acute distress, thin - Musculoskeletal Musculoskeletal Comment(s): unsteady on his feet, using walker - Psychiatric Psychiatric Comment(s): Following commands - Labs CBC & Chem 7: 01/07/21 04:00 01/07/21 04:00 Labs: Abnormal Lab Results - Last 24 Hours (Table) 0901/06/21 01/06/21 Range/Units 11:45 15:00 16:21 WBC (3.8-10.6) k/uL RBC (4.30-5.90) m/uL Hgb (13.0-17.5) gm/dL Hct (39.0-53.0) % MCV (80.0-100.0) fL MCH (25.0-35.0) pg RDW (11.5-15.5) % Chloride 113 H (98-107) mmol/L Carbon Dioxide 19 L (22-30) mmol/L BUN 64 H (9-20) mg/dL Creatinine 3.85 H (0.66-1.25) mg/dL Glucose 113 H (74-99) mg/dL POC Glucose (mg/dL) 121 H 121 H (75-99) mg/dL Calcium 7.9 L (8.4-10.2) mg/dL 01/07/21 01/07/21 Range/Units 04:00 04:00 WBC 11.4 H (3.8-10.6) k/uL RBC 3.54 L (4.30-5.90) m/uL Hgb 8.7 L (13.0-17.5) gm/dL Hct 27.6 L (39.0-53.0) % MCV 78.0 L (80.0-100.0) fL MCH 24.5 L (25.0-35.0) pg RDW 22.6 H (11.5-15.5) % Chloride 111 H (98-107) mmol/L Carbon Dioxide 20 L (22-30) mmol/L BUN 64 H (9-20) mg/dL Creatinine 3.59 H (0.66-1.25) mg/dL Glucose 111 H (74-99) mg/dL POC Glucose (mg/dL) (75-99) mg/dL Calcium 8.0 L (8.4-10.2) mg/dL Microbiology - Last 24 Hours (Table) 01/05/21 00:25 Gram Stain - Final Sputum Sputum Culture - Final Ximena albicans Ximena sp,not albicans/galbr Assessment and Plan (1) Acute abdomen Current Visit: Yes Status: Acute Priority: High Code(s): R10.0 - ACUTE ABDOMEN SNOMED Code(s): 6813279 (2) Intra-abdominal abscess Current Visit: Yes Status: Acute Priority: High Code(s): K65.1 - PERITONEAL ABSCESS SNOMED Code(s): 00014907 (3) Cecal cancer Current Visit: Yes Status: Acute Priority: High Code(s): C18.0 - MALIGNANT NEOPLASM OF CECUM SNOMED Code(s): 000613022 Plan: Pending path results to determine treatment course. Pt is not a candidate for treatment until completely healed from this surgery. Hopefully he will f/u as directed. Pending Surgery recommendations for beginning diet
--- NOTE | 2021-01-07 11:05 | P.PN ---
Subjective Progress Note Date: 01/07/21 HISTORY OF PRESENT ILLNESS: This is a 65-year-old gentleman who is frail and cachectic with history of colon cancer, hypertension, GI reflux disease and also marijuana use who was admitted to the hospital with abdominal pain. Computed tomography scan showed possible mass consistent with neoplasm of chronic origin with a new wall perforation and free air. He was taken to the OR for expiratory laparotomy. He underwent drainage of the right side abdominal abscess, resection of the cecal tumor, diverticula loop ileostomy and excision of abdominal wall nodule. 2 PELON drains were placed on the right side, loop ileostomy in the left midabdomen. Patient had a cardiac arrhythmia consistent with atrial fibrillation. Patient was on IV Cardizem. Currently patient seemed to be in sinus rhythm with APCs are multifocal atrial rhythm. Recent echo Cardigan showed an ejection fraction of 50-50%. This is currently intubated. Chest x-ray showed no acute pulmonary process. Patient also has NG tube. We'll continue his current medical therapy. We'll make consider starting him on small dose of beta brad as needed 01/05/2021 This is a 65-year-old gentleman who was diagnosed to have colon cancer and has undergone surgery. Details are available from H&P. Patient is still intubated. The oil tester wants to give a trial of extubation. Patient is in atrial fibrillation. He is a rate is controlled with IV Cardizem. Patient is not on anticoagulation. Needs to go on anticoagulation when cleared by Dr. Delgado. Patient is also on pressors and IV fluids but chest x-ray shows some infiltrates and also atelectatic changes. Heart rate is controlled currently. We'll c ontinue current cardiac medications. Rest of the management as for the paid intern 01/06/2021 Patient examined this morning in the ICU. Patient has been extubated. He is on 4L nasal cannula. Patient remains NPO. He has a NG tube to LIS. Telemetry reveals atrial fibrillation with mildly uncontrolled ventricular rates. He remains on a cardizem drip at 10mg/hr. echocardiogram completed in October 2020 revealed ejection fraction 50-55%, mild mitral regurgitation, and mild tricuspid regurgitation. 01/07/2021 Patient examined this morning at the bedside. He remains in the ICU. He remains NPO. NG to LIS. Telemetry reveals atrial fibrillation with a heart rate 90-110. He remains on IV cardizem at 10mg/hr. PHYSICAL EXAM: VITAL SIGNS: Reviewed. GENERAL: Well-developed in no acute distress. NECK: Supple. No JVD or thyromegaly LUNGS: Respirations even and unlabored. Lungs essentially clear to auscultation bilaterally. HEART: Tachycardic. Irregular rate and rhythm. S1 and S2 heard. Systolic murmur noted. EXTREMITIES: No clubbing or cyanosis. Peripheral pulses intact. 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 Wean as tolerated. Continue telemetry monitoring Will initiate beta brad when patient is able to tolerate PO medications Will initiate IV heparin infusion when cleared by general surgery Further recommendations pending patient course Nurse practitioner note has been reviewed by physician. Signing provider agrees with the documented findings, assessment, and plan of care. Objective - Vital Signs Vital signs: Vital Signs Temp 98.0 F 01/07/21 08:00 Pulse 98 01/07/21 10:00 Resp 14 01/07/21 10:00 BP 127/87 01/07/21 10:00 Pulse Ox 93 L 01/07/21 10:00 Intake & Output 01/06/21 01/07/21 01/07/21 18:59 06:59 18:59 Intake Total 1025 1100 300 Output Total 950 1000 125 Balance 75 100 175 Weight 83.4 kg Intake: IV 900 1100 300 Dextrose 5% in Water 1, 900 150 000 ml @ 75 mls/hr IV . [id number] ONE with Sodium Bicarb (1 Meq/ml) 150 ml Rx#:[id number] Dextrose 5% in Water 1, 750 300 000 ml @ 75 mls/hr IV . [id number] DONG with Sodium Bicarb (1 Meq/ml) 150 ml Rx#:[id number] Piperacillin-Tazobactam 3 100 .375 gm In Sodium Chloride 0.9% 100 ml @ 25 mls/hr IVPB Q8HR [facility] Rx# :[id number] metroNIDAZOLE-NS PMX 500 100 mg In Saline 1 100ml.bag @ 100 mls/hr IVPB Q8H [facility] Rx#:[id number] Intake, IV Titration 125 Amount Diltiazem 125 mg In 125 Sodium Chloride 0.9% 100 ml @ 5 MG/HR 5 mls/hr IV .Q24H [facility]ACED [facility] Rx#:[id number] Output: Drainage 80 270 Right Lower Abdomen 20 60 Right Upper Abdomen 60 210 Urine 870 730 0 Stool 125 Other: Voiding Method Indwelling Catheter Indwelling Catheter Urinal # Voids 0 ABP, PAP, CO, CI - Last Documented Arterial Blood Pressure 124/67 - Labs CBC & Chem 7: 01/07/21 04:00 01/07/21 04:00 Labs: Abnormal Lab Results - Last 24 Hours (Table) 01/06/21 01/06/21 01/06/21 Range/Units 11:45 15:00 16:21 WBC (3.8-10.6) k/uL RBC (4.30-5.90) m/uL Hgb (13.0-17.5) gm/dL Hct (39.0-53.0) % MCV (80.0-100.0) fL MCH (25.0-35.0) pg RDW (11.5-15.5) % Chloride 113 H (98-107) mmol/L Carbon Dioxide 19 L (22-30) mmol/L BUN 64 H (9-20) mg/dL Creatinine 3.85 H (0.66-1.25) mg/dL Glucose 113 H (74-99) mg/dL POC Glucose (mg/dL) 121 H 121 H (75-99) mg/dL Calcium 7.9 L (8.4-10.2) mg/dL 01/07/21 01/07/21 Range/Units 04:00 04:00 WBC 11.4 H (3.8-10.6) k/uL RBC 3.54 L (4.30-5.90) m/uL Hgb 8.7 L (13.0-17.5) gm/dL Hct 27.6 L (39.0-53.0) % MCV 78.0 L (80.0-100.0) fL MCH 24.5 L (25.0-35.0) pg RDW 22.6 H (11.5-15.5) % Chloride 111 H (98-107) mmol/L Carbon Dioxide 20 L (22-30) mmol/L BUN 64 H (9-20) mg/dL Creatinine 3.59 H (0.66-1.25) mg/dL Glucose 111 H (74-99) mg/dL POC Glucose (mg/dL) (75-99) mg/dL Calcium 8.0 L (8.4-10.2) mg/dL Microbiology - Last 24 Hours (Table) 01/05/21 00:25 Gram Stain - Final Sputum Sputum Culture - Final Ximena albicans Ximena sp,not albicans/galbr
[2021-01-07] MEDS ORDERED: FUROSEMIDE 10 MG/ML 4 ML VIAL IV STA (11:20)
--- NOTE | 2021-01-07 11:21 | P.PN ---
Subjective Progress Note Date: 01/07/21 \ 01/07/2021, the patient is postop day 3 following his further laparotomy, drainage of an abdominal abscess, diverting loop ileostomy and excision of an abdominal wall lesion in addition to a cecal tumor biopsy. The patient still has an NG tube in place. He remains nothing by mouth. His ileostomy site seems to be viable with some liquidy material and the PELON drains are all in place. In terms of cultures, the patient they're still pending and the patient also has ximena and the sputum. Output from the NG tube is minimal. There is liquidy output in his colostomy bag. He remains nothing by mouth. In terms of his blood work, he is hemodynamically stable on no pressors. He has a serum bicar bonate is up to 20 while being off on a bicarb infusion. His BUN is at 64 with a creatinine of 3.59 which is essentially stable compared to yesterday. His white cell count today is at 11.4 with a hemoglobin of 8.7 and a platelet count is at 218. He remains on a combination of antibiotics and is receiving a combination of Zosyn and Flagyl. He is on no pressors. He remains in atrial fibrillation. He remains on a Cardizem drip at 10 mg an hour. He is able to sit up on a chair. There is using incentive spirometer. He is more interactive and left discharge compared to yesterday. As mentioned earlier, as previously covid-19 testing was negative. Chest x-ray from today shows cardiomegaly and some mild four-vessel congestion and small bilateral pleural effusion. His overall fluid balance has been positive and the patient has increased edema in lower extremities bilaterally. He remains on oxygen at 2 L per minute nasal cannula. His breathing is nonlabored. Objective - Vital Signs Vital signs: Vital Signs Temp 98.0 F 01/07/21 08:00 Pulse 98 01/07/21 10:00 Resp 14 01/07/21 10:00 BP 127/87 01/07/21 10:00 Pulse Ox 93 L 01/07/21 10:00 Intake & Output 01/06/21 01/07/21 01/07/21 18:59 06:59 18:59 Intake Total 1025 1100 300 Output Total 950 1000 125 Balance 75 100 175 Weight 83.4 kg Intake: IV 900 1100 300 Dextrose 5% in Water 1, 900 150 000 ml @ 75 mls/hr IV . [id number] ONE with Sodium Bicarb (1 Meq/ml) 150 ml Rx#:[id number] Dextrose 5% in Water 1, 750 300 000 ml @ 75 mls/hr IV . [id number] DONG with Sodium Bicarb (1 Meq/ml) 150 ml Rx#:[id number] Piperacillin-Tazobactam 3 100 .375 gm In Sodium Chloride 0.9% 100 ml @ 25 mls/hr IVPB Q8HR [facility] Rx# :[id number] metroNIDAZOLE-NS PMX 500 100 mg In Saline 1 100ml.bag @ 100 mls/hr IVPB Q8H [facility] Rx#:[id number] Intake, IV Titration 125 Amount Diltiazem 125 mg In 125 Sodium Chloride 0.9% 100 ml @ 5 MG/HR 5 mls/hr IV .Q24H [facility] Rx#:[id number] Output: Drainage 80 270 Right Lower Abdomen 20 60 Right Upper Abdomen 60 210 Urine 870 730 0 Stool 125 Other: Voiding Method Indwelling Catheter Indwelling Catheter Urinal # Voids 0 ABP, PAP, CO, CI - Last Documented Arterial Blood Pressure 124/67 - Exam No acute distress, awake and alert and following commands and answering questions. A bit lethargic. Is currently on oxygen at 2 L per minute nasal cannula. HEENT examination is grossly unremarkable. Neck supple. Full range of motion. No adenopathy thyromegaly or neck vein distention. Cardiovascular examination reveals an irregular rhythm and rate. S1-S2 normal. No S3 or S4. No discernible murmur noted. Heart sounds are distant. Heart rate 100-120 bpm. the patient remains in atrial fibrillation with rapid ventricular response. His current heart resolve 114. Lungs reveal mostly clear breath sounds. Scattered rhonchi are noted. No wheezes or crackles. Breath sounds are equal bilaterally. Saturations are 96%. Abdomen soft. There are no bowel sounds. The ileostomy is noted. Midline incision which is dry clean and intact. The patient has a viable ileostomy with a bag and some liquidy output is noted. The patient also has PELON drains. The patient has some mild diffuse direct tenderness throughout the abdomen. Extremities are intact. No cyanosis clubbing or edema. Skin is without rash or lesion. Neurologic examination is brief but nonfocal. - Labs CBC & Chem 7: 01/07/21 04:00 01/07/21 04:00 Labs: Abnormal Lab Results - Last 24 Hours (Table) 01/06/21 01/06/21 01/06/21 Range/Units 11:45 15:00 16:21 WBC (3.8-10.6) k/uL RBC (4.30-5.90) m/uL Hgb (13.0-17.5) gm/dL Hct (39.0-53.0) % MCV (80.0-100.0) fL MCH (25.0-35.0) pg RDW (11.5-15.5) % Chloride 113 H (98-107) mmol/L Carbon Dioxide 19 L (22-30) mmol/L BUN 64 H (9-20) mg/dL Creatinine 3.85 H (0.66-1.25) mg/dL Glucose 113 H (74-99) mg/dL POC Glucose (mg/dL) 121 H 121 H (75-99) mg/dL Calcium 7.9 L (8.4-10.2) mg/dL 01/07/21 01/07/21 Range/Units 04:00 04:00 WBC 11.4 H (3.8-10.6) k/uL RBC 3.54 L (4.30-5.90) m/uL Hgb 8.7 L (13.0-17.5) gm/dL Hct 27.6 L (39.0-53.0) % MCV 78.0 L (80.0-100.0) fL MCH 24.5 L (25.0-35.0) pg RDW 22.6 H (11.5-15.5) % Chloride 111 H (98-107) mmol/L Carbon Dioxide 20 L (22-30) mmol/L BUN 64 H (9-20) mg/dL Creatinine 3.59 H (0.66-1.25) mg/dL Glucose 111 H (74-99) mg/dL POC Glucose (mg/dL) (75-99) mg/dL Calcium 8.0 L (8.4-10.2) mg/dL Microbiology - Last 24 Hours (Table) 01/05/21 00:25 Gram Stain - Final Sputum Sputum Culture - Final Ximena albicans Ximena sp,not albicans/galbr Assessment and Plan Plan: 1 Abdominal pain secondary to a large right-sided abdominal mass with an appearance of abscess, free perforation with extensive pneumoperitoneum present. Status post exploratory laparotomy, drainage of the right-sided abdominal abscess, biopsy of cecal tumor, diverting loop ileostomy, excision of abdominal wall nodule. Postoperative day 3. The patient has a functional colostomy and there is some liquidy material collecting in the colostomy bag. No abdominal distention. Output from the NG tube is minimal at this point in time. 2 Acute hypoxemic respiratory failure secondary to above requiring continued intubation and mechanical ventilatory support. Extubated and currently on 2 L of oxygen by nasal cannula. The patient was extubated on 01/05/2021. 3 Hypotension secondary to sepsis. The patient is currently on no pressors. 4 Known history of right-sided colonic mass 2-3 months ago with pending surgery in January 2021 no other treatment thus far. 5 Acute on chronic kidney disease. And output is adequate and the patient remains on a bicarb infusion. Creatinine is improved compared to yesterday. Nephrology is on the case. The patient continues to be on a bicarb infusion. Serum bicarb is up to 20 6 History of hypertension. 7 History of gastroesophageal reflux disease. 8 History of anxiety. 9 atrial fibrillation with rapid ventricular response currently on a Cardizem drip for rate control at 10 mg an hour 10 increased lower extremity edema 11 lactic acidosis, improved and her lactic acid level is normalized. Plan: Continue bicarb infusion Continue Zosyn and Flagyl Continue monitoring renal function Continue monitoring the ileostomy site output Cardizem drip at 10 mg an hour for rate control Consider removing the NG tube being giving this patient some clear liquid diet and this will discuss with general surgeon Lactic acid levels are improved Hemodynamically he is stable. We'll continue to follow. The patient incentive spirometer Patient has obvious signs of fluid overload. He has increased edema lower extremities bilaterally. He also has bilateral pleural effusions and cardiomegaly and pulmonary vessel congestion. We'll given a dose of Lasix 40 mg IV push 1 and monitor his urine output. We'll continue to follow. Oncologist on the case. General surgeries on the case. Nephrology also on the case.
[2021-01-07] MEDS ORDERED: HEPARIN SODIUM 1,000 UN/ML (10ML VL) IV ONE (11:25)
[2021-01-07] MEDS ORDERED: HEPARIN SODIUM 1,000 UN/ML (10ML VL) IV PRN (11:25)
--- NOTE | 2021-01-07 11:40 | P.PN ---
<Elva Crowder - Last Filed: 01/07/21 11:27> Subjective Progress Note Date: 01/07/21 CHIEF COMPLAINT: Abdominal pain HISTORY OF PRESENT ILLNESS: Patient remains in the ICU after bowel perforation. 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 He is postop day #3. NG tube remains in place with small amount of output approximately 100 mL of clear fluid. He's been nothing by mouth with just ice chips. He had approximately of 150 ml clear/greenish output from ostomy. He has 50 mL and 25 mL of serosanguineous drainage from his PELON drain. He states his pain is well managed intolerable. Physical therapy has worked with the patient and got him up to the bedside. He remains afebrile. He did also have some air in his ileostomy bag, denies any nausea or vomiting. Cardiology is following closely for new onset of atrial fibrillation with RVR. Patient has been on a Cardizem drip. WBC 11.4 hemoglobin 8.7 hematocrit 27.6 platelet count 218,000 sodium 140 potassium 3.6 BUN 64 creatinine 3.59 PHYSICAL EXAM: VITAL SIGNS: Reviewed. GENERAL: Well-developed in no acute distress. HEENT: No sclera icterus. Extraocular movements grossly intact. Moist buccal mucosa. Head is atraumatic, normocephalic. ABDOMEN: Soft. Nondistended. Surgical incision with dressing clean dry and intact. Ostomy functioning, PELON drains in place. NEUROLOGIC: Alert and oriented. Cranial nerves II through XII grossly intact. ASSESSMENT: 1. Pneumoperitoneum 2. 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 Dr. Nicole I performed a history and examination of this patient, discussed the same with the dictator. I agree with the dictator's note ,documented as a scribe. Any additional findings or plans will be noted. Objective - Vital Signs Vital signs: Vital Signs Temp 98.0 F 01/07/21 08:00 Pulse 105 H 01/07/21 09:41 Resp 27 H 01/07/21 09:00 BP 119/84 01/07/21 09:00 Pulse Ox 95 01/07/21 09:00 Intake & Output 01/06/21 01/07/21 01/07/21 18:59 06:59 18:59 Intake Total 1025 1100 225 Output Total 950 1000 125 Balance 75 100 100 Weight 83.4 kg Intake: IV 900 1100 225 Dextrose 5% in Water 1, 900 150 000 ml @ 75 mls/hr IV . [id number] ONE with Sodium Bicarb (1 Meq/ml) 150 ml Rx#:[id number] Dextrose 5% in Water 1, 750 225 000 ml @ 75 mls/hr IV . [id number] DONG with Sodium Bicarb (1 Meq/ml) 150 ml Rx#:[id number] Piperacillin-Tazobactam 3 100 .375 gm In Sodium Chloride 0.9% 100 ml @ 25 mls/hr IVPB Q8HR [facility] Rx# :[id number] metroNIDAZOLE-NS PMX 500 100 mg In Saline 1 100ml.bag @ 100 mls/hr IVPB Q8H [facility] Rx#:[id number] Intake, IV Titration 125 Amount Diltiazem 125 mg In 125 Sodium Chloride 0.9% 100 ml @ 5 MG/HR 5 mls/hr IV .Q24H [facility] Rx#:[id number] Output: Drainage 80 270 Right Lower Abdomen 20 60 Right Upper Abdomen 60 210 Urine 870 730 0 Stool 125 Other: Voiding Method Indwelling Catheter Indwelling Catheter ABP, PAP, CO, CI - Last Documented Arterial Blood Pressure 124/67 - Labs CBC & Chem 7: 01/07/21 04:00 01/07/21 04:00 Labs: Abnormal Lab Results - Last 24 Hours (Table) 01/06/21 01/06/21 01/06/21 Range/Units 11:45 15:00 16:21 WBC (3.8-10.6) k/uL RBC (4.30-5.90) m/uL Hgb (13.0-17.5) gm/dL Hct (39.0-53.0) % MCV (80.0-100.0) fL MCH (25.0-35.0) pg RDW (11.5-15.5) % Chloride 113 H (98-107) mmol/L Carbon Dioxide 19 L (22-30) mmol/L BUN 64 H (9-20) mg/dL Creatinine 3.85 H (0.66-1.25) mg/dL Glucose 113 H (74-99) mg/dL POC Glucose (mg/dL) 121 H 121 H (75-99) mg/dL Calcium 7.9 L (8.4-10.2) mg/dL 01/07/21 01/07/21 Range/Units 04:00 04:00 WBC 11.4 H (3.8-10.6) k/uL RBC 3.54 L (4.30-5.90) m/uL Hgb 8.7 L (13.0-17.5) gm/dL Hct 27.6 L (39.0-53.0) % MCV 78.0 L (80.0-100.0) fL MCH 24.5 L (25.0-35.0) pg RDW 22.6 H (11.5-15.5) % Chloride 111 H (98-107) mmol/L Carbon Dioxide 20 L (22-30) mmol/L BUN 64 H (9-20) mg/dL Creatinine 3.59 H (0.66-1.25) mg/dL Glucose 111 H (74-99) mg/dL POC Glucose (mg/dL) (75-99) mg/dL Calcium 8.0 L (8.4-10.2) mg/dL Microbiology - Last 24 Hours (Table) 01/05/21 00:25 Gram Stain - Final Sputum Sputum Culture - Final Ximena albicans Ximena sp,not albicans/galbr <Braulio Nicole - Last Filed: 01/08/21 14:05> Subjective As above. The nasogastric tube will be removed. Begin clear liquid diet. Monitor for bleeding with resumption of anticoagulation. Continue antibiotics. Appreciate oncology input. Objective - Vital Signs Vital signs: Vital Signs Temp 98.2 F 01/08/21 04:00 Pulse 86 01/08/21 11:47 Resp 10 L 01/08/21 04:00 BP 100/77 01/08/21 04:00 Pulse Ox 93 L 01/08/21 04:00 Intake & Output 01/07/21 01/08/21 01/08/21 18:59 06:59 18:59 Intake Total 1238.653 4285 183.771 Output Total 660 700 Balance 428.333 475 183.771 Weight 83.4 kg Intake: IV 900 1175 Dextrose 5% in Water 1, 900 750 000 ml @ 75 mls/hr IV . [id number] DONG with Sodium Bicarb (1 Meq/ml) 150 ml Rx#:[id number] Piperacillin-Tazobactam 3 325 .375 gm In Sodium Chloride 0.9% 100 ml @ 25 mls/hr IVPB Q8HR [facility] Rx# :[id number] metroNIDAZOLE-NS PMX 500 100 mg In Saline 1 100ml.bag @ 100 mls/hr IVPB Q8H [facility] Rx#:[id number] Intake, IV Titration 188.333 183.771 Amount Diltiazem 125 mg In 125 Sodium Chloride 0.9% 100 ml @ 5 MG/HR 5 mls/hr IV .Q24H [facility] Rx#:[id number] Heparin Sod,Pork in 0.45% 63.333 183.771 NaCl 25,000 unit In 0.45 % NaCl 1 250ml.bag @ 11. 99 UNITS/KG/HR 10 mls/hr IV .Q24H [facility] Rx#: [id number] Output: Drainage 60 105 Right Lower Abdomen 105 Right Upper Abdomen 60 Urine 175 295 Stool 425 300 Other: Voiding Method Urinal Urinal Urinal # Voids 0 0 ABP, PAP, CO, CI - Last Documented Arterial Blood Pressure 124/67 - Labs CBC & Chem 7: 01/08/21 03:38 01/08/21 03:38 Labs: Abnormal Lab Results - Last 24 Hours (Table) 01/07/21 01/07/21 01/07/21 Range/Units 17:37 17:41 23:53 RBC (4.30-5.90) m/uL Hgb (13.0-17.5) gm/dL Hct (39.0-53.0) % MCV (80.0-100.0) fL MCH (25.0-35.0) pg RDW (11.5-15.5) % Lymphocytes # (1.0-4.8) k/uL PT (9.0-12.0) sec INR (<1.2) APTT 39.4 H (22.0-30.0) sec Fibrinogen (200-500) mg/dL Chloride 110 H (98-107) mmol/L Carbon Dioxide 21 L (22-30) mmol/L BUN 63 H (9-20) mg/dL Creatinine 3.24 H (0.66-1.25) mg/dL Glucose 118 H (74-99) mg/dL POC Glucose (mg/dL) 134 H (75-99) mg/dL Calcium 7.9 L (8.4-10.2) mg/dL 01/08/21 01/08/21 01/08/21 Range/Units 00:15 03:38 03:38 RBC 3.93 L (4.30-5.90) m/uL Hgb 9.6 L (13.0-17.5) gm/dL Hct 30.0 L (39.0-53.0) % MCV 76.4 L (80.0-100.0) fL MCH 24.5 L (25.0-35.0) pg RDW 22.0 H (11.5-15.5) % Lymphocytes # 0.9 L (1.0-4.8) k/uL PT 14.7 H (9.0-12.0) sec INR 1.5 H (<1.2) APTT 52.4 H 57.7 H (22.0-30.0) sec Fibrinogen (200-500) mg/dL Chloride (98-107) mmol/L Carbon Dioxide (22-30) mmol/L BUN (9-20) mg/dL Creatinine (0.66-1.25) mg/dL Glucose (74-99) mg/dL POC Glucose (mg/dL) (75-99) mg/dL Calcium (8.4-10.2) mg/dL 01/08/21 01/08/21 01/08/21 Range/Units 03:38 03:38 06:42 RBC (4.30-5.90) m/uL Hgb (13.0-17.5) gm/dL Hct (39.0-53.0) % MCV (80.0-100.0) fL MCH (25.0-35.0) pg RDW (11.5-15.5) % Lymphocytes # (1.0-4.8) k/uL PT (9.0-12.0) sec INR (<1.2) APTT (22.0-30.0) sec Fibrinogen 673 H (200-500) mg/dL Chloride (98-107) mmol/L Carbon Dioxide (22-30) mmol/L BUN 62 H (9-20) mg/dL Creatinine 3.63 H (0.66-1.25) mg/dL Glucose 122 H (74-99) mg/dL POC Glucose (mg/dL) 101 H (75-99) mg/dL Calcium 8.0 L (8.4-10.2) mg/dL Assessment and Plan (1) Pneumoperitoneum Current Visit: Yes Status: Acute Code(s): K66.8 - OTHER SPECIFIED DISORDERS OF PERITONEUM SNOMED Code(s): 23814222
[2021-01-07] MEDS: HEPARIN SOD,PORK IN 0.45% NACL 25,000 UNIT in 0.45% NACL 1 250ML.BAG IV SCH (12:09)
[2021-01-07 12:20] LABS: Anisocytosis Moderate; HCT 29.2 % (39.0-53.0); HGB 9.5 gm/dL (13.0-17.5); Hypochromasia Slight; MCH 24.7 pg (25.0-35.0); MCHC 32.6 g/dL (31.0-37.0); MCV 75.8 fL (80.0-100.0); Mean Platelet Volume 11.2; Microcytosis Moderate; Platelet Count 299 k/uL (150-450); Poikilocytosis Slight; RBC 3.85 m/uL (4.30-5.90); RDW 22.3 % (11.5-15.5)
[2021-01-07 12:42] LABS: INR 1.2 (<1.2)
[2021-01-07 12:43] LABS: Partial Thromboplastin Time 27.1 sec (22.0-30.0); Prothrombin Time 12.4 sec (9.0-12.0)
[2021-01-07 13:17] LABS: Neutrophils % (M) 83 %; Nucleated Red Blood Cells 0 /100 WBC (0-0); Total Cells Counted 100
--- NOTE | 2021-01-07 13:20 | P.PN ---
Subjective Progress Note Date: 01/07/21 Pt is in bed on nasal cannula, saturating 96%, in no distress at the time of my evaluation. BP 95/76, HR 125; on cardizem gtt at 10. CBC without elevated WBC; on zosyn, flagyl; 2 x PELON drains in abdomen with output of 270cc and 80cc, respectively. BUN/Cr is stable to 64/3.59; I/O balance in last 24 hours is +195cc, UOP is 1600; patient is on bicarb gtt. Objective - Vital Signs Vital signs: Vital Signs Temp 97.9 F 01/07/21 12:00 Pulse 125 H 01/07/21 13:00 Resp 18 01/07/21 13:00 BP 95/76 01/07/21 12:00 Pulse Ox 96 01/07/21 13:00 Intake & Output 01/06/21 01/07/21 01/07/21 18:59 06:59 18:59 Intake Total 1025 1100 525 Output Total 950 1000 235 Balance 75 100 290 Weight 83.4 kg 83.4 kg Intake: IV 900 1100 525 Dextrose 5% in Water 1, 900 150 000 ml @ 75 mls/hr IV . [id number] ONE with Sodium Bicarb (1 Meq/ml) 150 ml Rx#:[id number] Dextrose 5% in Water 1, 750 525 000 ml @ 75 mls/hr IV . [id number] DONG with Sodium Bicarb (1 Meq/ml) 150 ml Rx#:[id number] Piperacillin-Tazobactam 3 100 .375 gm In Sodium Chloride 0.9% 100 ml @ 25 mls/hr IVPB Q8HR [facility] Rx# :[id number] metroNIDAZOLE-NS PMX 500 100 mg In Saline 1 100ml.bag @ 100 mls/hr IVPB Q8H [facility] Rx#:[id number] Intake, IV Titration 125 Amount Diltiazem 125 mg In 125 Sodium Chloride 0.9% 100 ml @ 5 MG/HR 5 mls/hr IV .Q24H [facility] Rx#:[id number] Output: Drainage 80 270 60 Right Lower Abdomen 20 60 Right Upper Abdomen 60 210 60 Urine 870 730 50 Stool 125 Other: Voiding Method Indwelling Catheter Indwelling Catheter Urinal # Voids 0 ABP, PAP, CO, CI - Last Documented Arterial Blood Pressure 124/67 - Exam Gen: awake, following commands, Resp: good air exchange, tachypneic, but no accessory muscle use CVS: good distal perfusion x 4, GI: Exquisitely tender to palpation diffusely, distended, rebound tenderness present, involuntary guarding : no SPT, no CVAT, serrano catheter is present MSK: no pitting edema, no clubbing Neuro: non-focal, moving all extremities - Labs CBC & Chem 7: 01/07/21 11:47 01/07/21 04:00 Labs: Abnormal Lab Results - Last 24 Hours (Table) 01/06/21 01/06/21 01/07/21 Range/Units 15:00 16:21 04:00 WBC 11.4 H (3.8-10.6) k/uL RBC 3.54 L (4.30-5.90) m/uL Hgb 8.7 L (13.0-17.5) gm/dL Hct 27.6 L (39.0-53.0) % MCV 78.0 L (80.0-100.0) fL MCH 24.5 L (25.0-35.0) pg RDW 22.6 H (11.5-15.5) % PT (9.0-12.0) sec INR (<1.2) Chloride 113 H (98-107) mmol/L Carbon Dioxide 19 L (22-30) mmol/L BUN 64 H (9-20) mg/dL Creatinine 3.85 H (0.66-1.25) mg/dL Glucose 113 H (74-99) mg/dL POC Glucose (mg/dL) 121 H (75-99) mg/dL Calcium 7.9 L (8.4-10.2) mg/dL 01/07/21 01/07/21 01/07/21 Range/Units 04:00 11:47 11:47 WBC (3.8-10.6) k/uL RBC 3.85 L (4.30-5.90) m/uL Hgb 9.5 L (13.0-17.5) gm/dL Hct 29.2 L (39.0-53.0) % MCV 75.8 L (80.0-100.0) fL MCH 24.7 L (25.0-35.0) pg RDW 22.3 H (11.5-15.5) % PT 12.4 H (9.0-12.0) sec INR 1.2 H (<1.2) Chloride 111 H (98-107) mmol/L Carbon Dioxide 20 L (22-30) mmol/L BUN 64 H (9-20) mg/dL Creatinine 3.59 H (0.66-1.25) mg/dL Glucose 111 H (74-99) mg/dL POC Glucose (mg/dL) (75-99) mg/dL Calcium 8.0 L (8.4-10.2) mg/dL Microbiology - Last 24 Hours (Table) 01/05/21 00:25 Gram Stain - Final Sputum Sputum Culture - Final Ximena albicans Ximena sp,not albicans/galbr Assessment and Plan Assessment: Perforated Bowel Colonic Mass Atrial Flutter with RVR -s/p OR for bowel repair, cecal mass removal -OGT -hold all oral home meds; holding home metoprolol -on diltiazem gtt for AFlutter with RVR -cardiology consulted for A Fib -consider amiodarone in attempt to chemically cardiovert back to sinus rhythm. -dilaudid PRN/tylenol IV PRN for pain control -zosyn, metronidazole -ICU level care, pulm consult Left Hydronephrosis BELTRAN on CKD III -urology, nephrology consults -avoid nephrotoxins -IVF: bicarb gtt HTN BPH -holding home meds as above Medicine will continue to follow. Please reach out to a member of [employer] via [employer] if there are any questions/concerns.
[2021-01-07 13:46] LABS: Glucose,Whole Blood 160 mg/dL (75-99)
[2021-01-07 17:52] LABS: Calcium 7.9 mg/dL (8.4-10.2)
[2021-01-07 17:55] LABS: Potassium 4.3 mmol/L (3.5-5.1)
[2021-01-07] MEDS: LORazepam 2 MG/ML INJ IV PRN (20:15)
[2021-01-07 23:55] LABS: Glucose,Whole Blood 134 mg/dL (75-99)
[2021-01-08] MEDS: metroNIDAZOLE-NS PMX 500 MG in SALINE 1 100ML.BAG IVPB SCH ×3 (01:15→16:58)
[2021-01-08] MEDS: HYDROmorphone 0.5 MG/0.5 ML SYRINGE IVP PRN ×5 (03:50→23:36)
[2021-01-08 04:00] LABS: Anisocytosis Moderate; Basophils % (A) 0 %; Eosinophils # (A) 0.1 k/uL (0-0.7); Eosinophils % (A) 1 %; HGB 9.6 gm/dL (13.0-17.5); Lymphocytes # (A) 0.9 k/uL (1.0-4.8); Lymphocytes % (A) 11 %; MCH 24.5 pg (25.0-35.0); MCHC 32.1 g/dL (31.0-37.0); MCV 76.4 fL (80.0-100.0); Mean Platelet Volume 9.5; Microcytosis Moderate; Monocytes # (A) 0.4 k/uL (0-1.0); Monocytes % (A) 5 %; Neutrophils # (A) 7.1 k/uL (1.3-7.7); Neutrophils % (A) 81 %; Platelet Count 283 k/uL (150-450); RBC 3.93 m/uL (4.30-5.90); WBC 8.8 k/uL (3.8-10.6)
[2021-01-08 04:33] LABS: INR 1.5 (<1.2); Partial Thromboplastin Time 57.7 sec (22.0-30.0); Prothrombin Time 14.7 sec (9.0-12.0)
[2021-01-08 06:44] LABS: Glucose,Whole Blood 101 mg/dL (75-99)
--- NOTE | 2021-01-08 07:45 | XR ---
EXAMINATION TYPE: XR chest 1V portable DATE OF EXAM: 01/08/2021 COMPARISON: Chest x-ray 01/07/2021 HISTORY: Tube placement, abnormal chest x-ray TECHNIQUE: Single frontal view of the chest is obtained. FINDINGS: Patient is markedly rotated. Central venous catheter remains in place, orogastric tube is been removed. There is some interval improved visualization of the left hemidiaphragm. No evident pne umothorax. No other significant interval change. Interstitium and prominence of the central vasculari ty may be improved. IMPRESSION: Suspect some improvement in patient's volume status.
[2021-01-08] MEDS: IPRATROPIUM-ALBUTEROL 3 ML NEB INHALATION SCH ×4 (08:29→19:37)
[2021-01-08] MEDS ORDERED: FUROSEMIDE 10 MG/ML 4 ML VIAL IV STA (08:49)
--- NOTE | 2021-01-08 08:50 | P.PN ---
Subjective Progress Note Date: 01/08/21 \ 01/08/2021, the patient is postop day #4. He underwent a diverting loop ileostomy, excision of a abdominal wall lesion and a cecal tumor biopsy. The patient had also drainage of the abdominal abscess via an extensive laparotomy. He is doing well. His ileostomy is functional. There was ongoing activity and liquidy material within ileostomy bag. NG tube is removed. The patient also has PELON drains in place and the output is serosanguineous. No abdominal pain. No abdominal distention. No nausea or vomiting. He remains on Zosyn and Flagyl. Cultures are still pending. He did have a sputum culture that showed Ximena albicans. Nevertheless, intraoperative cultures are still pending for now. His white cell count at 8.8 with hemoglobin of 9.6. He is afebrile. Hemodynamically stable. He remains on a bicarb infusion. At the same time he is still in atrial fibrillation. He is on a Cardizem drip at 10 mg an hour and he is still on IV heparin regarding his atrial fibrillation. His chest x-ray from today shows improvement in aeration. There is still persistent bilateral pleural effusion larger on the right. Fluid balance has been +175 mL over the past 24 hours and the patient is producing adequate amount of urine output. No other significant events. Is able to stop on a chair. He is on room air oxygen. He is using incentive spirometer. He'll be transferred to surgical unit at a later stage. He has been started on some clear liquid diet per surgical recommendations. Objective - Vital Signs Vital signs: Vital Signs Temp 98.2 F 01/08/21 04:00 Pulse 108 H 01/08/21 08:32 Resp 10 L 01/08/21 04:00 BP 100/77 01/08/21 04:00 Pulse Ox 93 L 01/08/21 04:00 Intake & Output 01/07/21 01/08/21 01/08/21 18:59 06:59 18:59 Intake Total 8080.162 3826 Output Total 660 700 Balance 428.333 475 Weight 83.4 kg Intake: IV 900 1175 Dextrose 5% in Water 1, 900 750 000 ml @ 75 mls/hr IV . [id number] DONG with Sodium Bicarb (1 Meq/ml) 150 ml Rx#:[id number] Piperacillin-Tazobactam 3 325 .375 gm In Sodium Chloride 0.9% 100 ml @ 25 mls/hr IVPB Q8HR DONG Rx# :[id number] metroNIDAZOLE-NS PMX 500 100 mg In Saline 1 100ml.bag @ 100 mls/hr IVPB Q8H DONG Rx#:[id number] Intake, IV Titration 188.333 Amount Diltiazem 125 mg In 125 Sodium Chloride 0.9% 100 ml @ 5 MG/HR 5 mls/hr IV .Q24H DONG Rx#:[id number] Heparin Sod,Pork in 0.45% 63.333 NaCl 25,000 unit In 0.45 % NaCl 1 250ml.bag @ 11. 99 UNITS/KG/HR 10 mls/hr IV .Q24H DONG Rx#: [id number] Output: Drainage 60 105 Right Lower Abdomen 105 Right Upper Abdomen 60 Urine 175 295 Stool 425 300 Other: Voiding Method Urinal Urinal # Voids 0 0 ABP, PAP, CO, CI - Last Documented Arterial Blood Pressure 124/67 - Exam No acute distress, awake and alert and following commands and answering questions. A bit lethargic. Is currently on RA HEENT examination is grossly unremarkable. Neck supple. Full range of motion. No adenopathy thyromegaly or neck vein distention. Cardiovascular examination reveals an irregular rhythm and rate. S1-S2 normal. No S3 or S4. No discernible murmur noted. Heart sounds are distant. Heart rate 100-120 bpm. the patient remains in atrial fibrillation with rapid ventricular response. His current heart resolve 114. Lungs reveal mostly clear breath sounds. Scattered rhonchi are noted. No wheezes or crackles. Breath sounds are equal bilaterally. Saturations are 96%. Abdomen soft. There are no bowel sounds. The ileostomy is noted. Midline incision which is dry clean and intact. The patient has a viable ileostomy with a bag and some liquidy output is noted. The patient also has PELON drains. The patient has some mild diffuse direct tenderness throughout the abdomen. Extremities are intact. No cyanosis clubbing or edema. Skin is without rash or lesion. Neurologic examination is brief but nonfocal. - Labs CBC & Chem 7: 01/08/21 03:38 01/07/21 17:37 Labs: Abnormal Lab Results - Last 24 Hours (Table) 01/07/21 01/07/21 01/07/21 Range/Units 11:47 11:47 13:45 RBC 3.85 L (4.30-5.90) m/uL Hgb 9.5 L (13.0-17.5) gm/dL Hct 29.2 L (39.0-53.0) % MCV 75.8 L (80.0-100.0) fL MCH 24.7 L (25.0-35.0) pg RDW 22.3 H (11.5-15.5) % Neutrophils # (Manual) 8.30 H (1.3-7.7) k/uL Lymphocytes # (1.0-4.8) k/uL PT 12.4 H (9.0-12.0) sec INR 1.2 H (<1.2) APTT (22.0-30.0) sec Chloride (98-107) mmol/L Carbon Dioxide (22-30) mmol/L BUN (9-20) mg/dL Creatinine (0.66-1.25) mg/dL Glucose (74-99) mg/dL POC Glucose (mg/dL) 160 H (75-99) mg/dL Calcium (8.4-10.2) mg/dL 01/07/21 01/07/21 01/07/21 Range/Units 17:37 17:41 23:53 RBC (4.30-5.90) m/uL Hgb (13.0-17.5) gm/dL Hct (39.0-53.0) % MCV (80.0-100.0) fL MCH (25.0-35.0) pg RDW (11.5-15.5) % Neutrophils # (Manual) (1.3-7.7) k/uL Lymphocytes # (1.0-4.8) k/uL PT (9.0-12.0) sec INR (<1.2) APTT 39.4 H (22.0-30.0) sec Chloride 110 H (98-107) mmol/L Carbon Dioxide 21 L (22-30) mmol/L BUN 63 H (9-20) mg/dL Creatinine 3.24 H (0.66-1.25) mg/dL Glucose 118 H (74-99) mg/dL POC Glucose (mg/dL) 134 H (75-99) mg/dL Calcium 7.9 L (8.4-10.2) mg/dL 01/08/21 01/08/21 01/08/21 Range/Units 00:15 03:38 03:38 RBC 3.93 L (4.30-5.90) m/uL Hgb 9.6 L (13.0-17.5) gm/dL Hct 30.0 L (39.0-53.0) % MCV 76.4 L (80.0-100.0) fL MCH 24.5 L (25.0-35.0) pg RDW 22.0 H (11.5-15.5) % Neutrophils # (Manual) (1.3-7.7) k/uL Lymphocytes # 0.9 L (1.0-4.8) k/uL PT 14.7 H (9.0-12.0) sec INR 1.5 H (<1.2) APTT 52.4 H 57.7 H (22.0-30.0) sec Chloride (98-107) mmol/L Carbon Dioxide (22-30) mmol/L BUN (9-20) mg/dL Creatinine (0.66-1.25) mg/dL Glucose (74-99) mg/dL POC Glucose (mg/dL) (75-99) mg/dL Calcium (8.4-10.2) mg/dL 01/08/21 Range/Units 06:42 RBC (4.30-5.90) m/uL Hgb (13.0-17.5) gm/dL Hct (39.0-53.0) % MCV (80.0-100.0) fL MCH (25.0-35.0) pg RDW (11.5-15.5) % Neutrophils # (Manual) (1.3-7.7) k/uL Lymphocytes # (1.0-4.8) k/uL PT (9.0-12.0) sec INR (<1.2) APTT (22.0-30.0) sec Chloride (98-107) mmol/L Carbon Dioxide (22-30) mmol/L BUN (9-20) mg/dL Creatinine (0.66-1.25) mg/dL Glucose (74-99) mg/dL POC Glucose (mg/dL) 101 H (75-99) mg/dL Calcium (8.4-10.2) mg/dL Microbiology - Last 24 Hours (Table) 01/05/21 00:25 Gram Stain - Final Sputum Sputum Culture - Final Ximena albicans Ximena sp,not albicans/galbr Assessment and Plan Plan: 1 Abdominal pain secondary to a large right-sided abdominal mass with an appearance of abscess, free perforation with extensive pneumoperitoneum present. Status post exploratory laparotomy, drainage of the right-sided abdominal abscess, biopsy of cecal tumor, diverting loop ileostomy, excision of abdominal wall nodule. Postoperative day 4 . The patient has a functional colostomy and there is some liquidy material collecting in the colostomy bag. No abdominal distention. NG tube has been removed and the patient was started on some clear liquid diet 2 Acute hypoxemic respiratory failure secondary to above requiring continued intubation and mechanical ventilatory support. Extubated and currently on room air oxygen. The patient was extubated on 01/05/2021. Continues to have bilateral pleural effusion larger on the right 3 Hypotension secondary to sepsis. The patient is currently on no pressors. 4 Known history of right-sided colonic mass 2-3 months ago with pending surgery in January 2021 no other treatment thus far. 5 Acute on chronic kidney disease. The patient is adequate urine output. The patient continues to be on a bicarb infusion 6 History of hypertension. 7 History of gastroesophageal reflux disease. 8 History of anxiety. 9 atrial fibrillation with rapid ventricular response currently on a Cardizem drip for rate control at 10 mg an hour, also on IV heparin 10 increased lower extremity edema, stable 11 lactic acidosis, improved and her lactic acid level is normalized. 12 bilateral pleural effusion, larger on the right, stable Plan: Continue bicarb infusion, may stop if the serum bicarb has normalized. Awaiting the labs from today and if the serum bicarb is back to normal, will start patient on normal saline infusion at the rate of 75 mL an hour. Continue Zosyn and Flagyl Continue monitoring renal function Continue monitoring the ileostomy site output, NG tube has been removed Cardizem drip at 10 mg an hour for rate control, we'll reduce the Cardizem drip to 5 mg an hour and start the patient on Lopressor 25 mg by mouth twice a day and keep the IV heparin for another 24 hours NG tube has been removed Lactic acid levels are improved Hemodynamically he is stable. We'll continue to follow. The patient incentive spirometer We'll give another dose of Lasix 40 mg IV push to optimize his volume status. Chest x-ray shows bilateral pleural effusion persistent , Larger on the right transferred to surgical unit today
[2021-01-08] MEDS: PANTOPRAZOLE 40 MG/10 ML VIAL IV SCH (08:57)
[2021-01-08] MEDS: PIPERACILLIN-TAZOBACTAM 3.375 GM in SODIUM CHLORIDE 0.9% 100 ML IVPB SCH ×3 (08:57→23:37)
[2021-01-08 09:16] LABS: Potassium 3.6 mmol/L (3.5-5.1)
--- NOTE | 2021-01-08 09:49 | CDI ---
Documentation Clarification Form Date: 01/08/2021 09:31:23 AM From: Leonor Hendricks RN, CCDS Admit Date: 01/03/2021 04:22:00 PM Patient Name: Seymour Hathaway Visit Number: [id number] ATTENTION: The Clinical Documentation Specialists (CDI) and [facility] Coding Staff appreciate your assistance in clarifying documentation. Please respond to the clarification below the line at the bottom and electronically sign. The CDI & [facility] Coding staff will review the response and follow-up if needed. Please note: Queries are made part of the Legal Health Record. If you have any questions, please contact the author of this message via ITS. Dr. Franny Marquis Hypotension with sepsis is documented in the Pulmonary progress notes 01/04-01/08 in a patient that reviewed multiple fluid boluses and IV Levophed. Additional clarification regarding the documented sign and symptom is requested. 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 01/05 Nephrology Progress note: "Acute kidney injury secondary to septic syndrome, perforated colon with abscess." 01/04 2000 V/S: Temp 97.8, HR 150, RR 24, B/P 80/50, Spo2 93% RA Treatment: 01/03 0.9% NS IVF Bolus 2L followed by 130 cc/hr. 01/04 0.9% NS IVF Bolus 1L 01/04-01/05 Levophed Gtt titrate for B/P 01/04 LR @ 125cc/hr. 01/05-01/07 D5W with 3Amps HCO3 @ 75 cc/hr. 01/07 & 01/08 Lasix 40 mg IVP OT Please clarify the type of shock, if known: [x ] Septic Shock [ ] Hypovolemic Shock [ ] Other, please specify [ ] Unable to determine (Template Last Revised: June 2020) MTDD
--- NOTE | 2021-01-08 10:03 | P.PN ---
Subjective Progress Note Date: 01/08/21 HISTORY OF PRESENT ILLNESS: This is a 65-year-old gentleman who is frail and cachectic with history of colon cancer, hypertension, GI reflux disease and also marijuana use who was admitted to the hospital with abdominal pain. Computed tomography scan showed possible mass consistent with neoplasm of chronic origin with a new wall perforation and free air. He was taken to the OR for expiratory laparotomy. He underwent drainage of the right side abdominal abscess, resection of the cecal tumor, diverticula loop ileostomy and excision of abdominal wall nodule. 2 PELON drains were placed on the right side, loop ileostomy in the left midabdomen. Patient had a cardiac arrhythmia consistent with atrial fibrillation. Patient was on IV Cardizem. Currently patient seemed to be in sinus rhythm with APCs are multifocal atrial rhythm. Recent echo Cardigan showed an ejection fraction of 50-50%. This is currently intubated. Chest x-ray showed no acute pulmonary process. Patient also has NG tube. We'll continue his current medical therapy. We'll make consider starting him on small dose of beta brad as needed 01/05/2021 This is a 65-year-old gentleman who was diagnosed to have colon cancer and has undergone surgery. Details are available from H&P. Patient is still intubated. 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 Patient is in atrial fibrillation. He is a rate is controlled with IV Cardizem. Patient is not on anticoagulation. Needs to go on anticoagulation when cleared by Dr. Delgado. Patient is also on pressors and IV fluids but chest x-ray shows some infiltrates and also atelectatic changes. Heart rate is controlled currently. We'll c ontinue current cardiac medications. 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 Patient has been extubated. He is on 4L nasal cannula. Patient remains NPO. He has a NG tube to LIS. Telemetry reveals atrial fibrillation with mildly uncontrolled ventricular rates. He remains on a cardizem drip at 10mg/hr. echocardiogram completed in October 2020 revealed ejection fraction 50-55%, mild mitral regurgitation, and mild tricuspid regurgitation. 01/07/2021 Patient examined this morning at the bedside. He remains in the ICU. He remains NPO. NG to LIS. Telemetry reveals atrial fibrillation with a heart rate 90-110. He remains on IV cardizem at 10mg/hr. 01/08/2021 Patient examined this morning in the ICU. He is sitting up in the chair. He has been started on clear liquid diet. He is on IV heparin. Telemetry reveals atrial fibrillation with a heart rate 90-110. He remains on IV cardizem at 10mg/hr. PHYSICAL EXAM: VITAL SIGNS: Reviewed. GENERAL: Well-developed in no acute distress. NECK: Supple. No JVD or thyromegaly LUNGS: Respirations even and unlabored. Lungs essentially clear to auscultation bilaterally. HEART: Tachycardic. Irregular rate and rhythm. S1 and S2 heard. Systolic murmur noted. EXTREMITIES: No clubbing or cyanosis. Peripheral pulses intact. 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 When tolerating oral medications, wean off Cardizem drip. Continue IV heparin Continue telemetry monitoring Further recommendations pending patient course Nurse practitioner note has been reviewed by physician. Signing provider agrees with the documented findings, assessment, and plan of care. Objective - Vital Signs Vital signs: Vital Signs Temp 98.2 F 01/08/21 04:00 Pulse 110 H 01/08/21 08:42 Resp 10 L 01/08/21 04:00 BP 100/77 01/08/21 04:00 Pulse Ox 93 L 01/08/21 04:00 Intake & Output 01/07/21 01/08/21 01/08/21 18:59 06:59 18:59 Intake Total 0957.126 5327 Output Total 660 700 Balance 428.333 475 Weight 83.4 kg Intake: IV 900 1175 Dextrose 5% in Water 1, 900 750 000 ml @ 75 mls/hr IV . [id number] DONG with Sodium Bicarb (1 Meq/ml) 150 ml Rx#:[id number] Piperacillin-Tazobactam 3 325 .375 gm In Sodium Chloride 0.9% 100 ml @ 25 mls/hr IVPB Q8HR DONG Rx# :[id number] metroNIDAZOLE-NS PMX 500 100 mg In Saline 1 100ml.bag @ 100 mls/hr IVPB Q8H DONG Rx#:[id number] Intake, IV Titration 188.333 Amount Diltiazem 125 mg In 125 Sodium Chloride 0.9% 100 ml @ 5 MG/HR 5 mls/hr IV .Q24H DONG Rx#:[id number] Heparin Sod,Pork in 0.45% 63.333 NaCl 25,000 unit In 0.45 % NaCl 1 250ml.bag @ 11. 99 UNITS/KG/HR 10 mls/hr IV .Q24H DONG Rx#: [id number] Output: Drainage 60 105 Right Lower Abdomen 105 Right Upper Abdomen 60 Urine 175 295 Stool 425 300 Other: Voiding Method Urinal Urinal # Voids 0 0 ABP, PAP, CO, CI - Last Documented Arterial Blood Pressure 124/67 - Labs CBC & Chem 7: 01/08/21 03:38 01/08/21 03:38 Labs: Abnormal Lab Results - Last 24 Hours (Table) 01/07/21 01/07/21 01/07/21 Range/Units 11:47 11:47 13:45 RBC 3.85 L (4.30-5.90) m/uL Hgb 9.5 L (13.0-17.5) gm/dL Hct 29.2 L (39.0-53.0) % MCV 75.8 L (80.0-100.0) fL MCH 24.7 L (25.0-35.0) pg RDW 22.3 H (11.5-15.5) % Neutrophils # (Manual) 8.30 H (1.3-7.7) k/uL Lymphocytes # (1.0-4.8) k/uL PT 12.4 H (9.0-12.0) sec INR 1.2 H (<1.2) APTT (22.0-30.0) sec Chloride (98-107) mmol/L Carbon Dioxide (22-30) mmol/L BUN (9-20) mg/dL Creatinine (0.66-1.25) mg/dL Glucose (74-99) mg/dL POC Glucose (mg/dL) 160 H (75-99) mg/dL Calcium (8.4-10.2) mg/dL 01/07/21 01/07/21 01/07/21 Range/Units 17:37 17:41 23:53 RBC (4.30-5.90) m/uL Hgb (13.0-17.5) gm/dL Hct (39.0-53.0) % MCV (80.0-100.0) fL MCH (25.0-35.0) pg RDW (11.5-15.5) % Neutrophils # (Manual) (1.3-7.7) k/uL Lymphocytes # (1.0-4.8) k/uL PT (9.0-12.0) sec INR (<1.2) APTT 39.4 H (22.0-30.0) sec Chloride 110 H (98-107) mmol/L Carbon Dioxide 21 L (22-30) mmol/L BUN 63 H (9-20) mg/dL Creatinine 3.24 H (0.66-1.25) mg/dL Glucose 118 H (74-99) mg/dL POC Glucose (mg/dL) 134 H (75-99) mg/dL Calcium 7.9 L (8.4-10.2) mg/dL 01/08/21 01/08/21 01/08/21 Range/Units 00:15 03:38 03:38 RBC 3.93 L (4.30-5.90) m/uL Hgb 9.6 L (13.0-17.5) gm/dL Hct 30.0 L (39.0-53.0) % MCV 76.4 L (80.0-100.0) fL MCH 24.5 L (25.0-35.0) pg RDW 22.0 H (11.5-15.5) % Neutrophils # (Manual) (1.3-7.7) k/uL Lymphocytes # 0.9 L (1.0-4.8) k/uL PT 14.7 H (9.0-12.0) sec INR 1.5 H (<1.2) APTT 52.4 H 57.7 H (22.0-30.0) sec Chloride (98-107) mmol/L Carbon Dioxide (22-30) mmol/L BUN (9-20) mg/dL Creatinine (0.66-1.25) mg/dL Glucose (74-99) mg/dL POC Glucose (mg/dL) (75-99) mg/dL Calcium (8.4-10.2) mg/dL 01/08/21 01/08/21 Range/Units 03:38 06:42 RBC (4.30-5.90) m/uL Hgb (13.0-17.5) gm/dL Hct (39.0-53.0) % MCV (80.0-100.0) fL MCH (25.0-35.0) pg RDW (11.5-15.5) % Neutrophils # (Manual) (1.3-7.7) k/uL Lymphocytes # (1.0-4.8) k/uL PT (9.0-12.0) sec INR (<1.2) APTT (22.0-30.0) sec Chloride (98-107) mmol/L Carbon Dioxide (22-30) mmol/L BUN 62 H (9-20) mg/dL Creatinine 3.63 H (0.66-1.25) mg/dL Glucose 122 H (74-99) mg/dL POC Glucose (mg/dL) 101 H (75-99) mg/dL Calcium 8.0 L (8.4-10.2) mg/dL Microbiology - Last 24 Hours (Table) 01/05/21 00:25 Gram Stain - Final Sputum Sputum Culture - Final Ximena albicans Ximena sp,not albicans/galbr
[2021-01-08] MEDS: METOPROLOL TARTRATE 25 MG TAB PO SCH ×2 (10:13→19:44)
[2021-01-08] MEDS: HEPARIN SOD,PORK IN 0.45% NACL 25,000 UNIT in 0.45% NACL 1 250ML.BAG IV SCH (10:14)
[2021-01-08] MEDS: DILTIAZEM ORAL 30 MG TAB PO SCH ×3 (10:18→21:31)
--- NOTE | 2021-01-08 10:23 | P.PN ---
Subjective Progress Note Date: 01/08/21 Pt is in bed on room air, saturating 93%, in no distress at the time of my evaluation. BP 100/77, HR 110; on cardizem gtt at 10. CBC without elevated WBC; on zosyn, flagyl; 2 x PELON drains in abdomen with output of 60cc and 105 cc, respectively. BUN/Cr is stable to 62/3.63; I/O balance in last 24 hours is +900cc, UOP is 725; patient is on bicarb gtt. Objective - Vital Signs Vital signs: Vital Signs Temp 98.2 F 01/08/21 04:00 Pulse 110 H 01/08/21 08:42 Resp 10 L 01/08/21 04:00 BP 100/77 01/08/21 04:00 Pulse Ox 93 L 01/08/21 04:00 Intake & Output 01/07/21 01/08/21 01/08/21 18:59 06:59 18:59 Intake Total 3305.360 2046 183.771 Output Total 660 700 Balance 428.333 475 183.771 Weight 83.4 kg Intake: IV 900 1175 Dextrose 5% in Water 1, 900 750 000 ml @ 75 mls/hr IV . [id number] DONG with Sodium Bicarb (1 Meq/ml) 150 ml Rx#:[id number] Piperacillin-Tazobactam 3 325 .375 gm In Sodium Chloride 0.9% 100 ml @ 25 mls/hr IVPB Q8HR DONG Rx# :[id number] metroNIDAZOLE-NS PMX 500 100 mg In Saline 1 100ml.bag @ 100 mls/hr IVPB Q8H DONG Rx#:[id number] Intake, IV Titration 188.333 183.771 Amount Diltiazem 125 mg In 125 Sodium Chloride 0.9% 100 ml @ 5 MG/HR 5 mls/hr IV .Q24H DONG Rx#:[id number] Heparin Sod,Pork in 0.45% 63.333 183.771 NaCl 25,000 unit In 0.45 % NaCl 1 250ml.bag @ 11. 99 UNITS/KG/HR 10 mls/hr IV .Q24H DONG Rx#: [id number] Output: Drainage 60 105 Right Lower Abdomen 105 Right Upper Abdomen 60 Urine 175 295 Stool 425 300 Other: Voiding Method Urinal Urinal # Voids 0 0 ABP, PAP, CO, CI - Last Documented Arterial Blood Pressure 124/67 - Exam Gen: awake, following commands, Resp: good air exchange, tachypneic, but no accessory muscle use CVS: good distal perfusion x 4, GI: Exquisitely tender to palpation diffusely, distended, rebound tenderness present, involuntary guarding : no SPT, no CVAT, serrano catheter is present MSK: no pitting edema, no clubbing Neuro: non-focal, moving all extremities - Labs CBC & Chem 7: 01/08/21 03:38 01/08/21 03:38 Labs: Abnormal Lab Results - Last 24 Hours (Table) 01/07/21 01/07/21 01/07/21 Range/Units 11:47 11:47 13:45 RBC 3.85 L (4.30-5.90) m/uL Hgb 9.5 L (13.0-17.5) gm/dL Hct 29.2 L (39.0-53.0) % MCV 75.8 L (80.0-100.0) fL MCH 24.7 L (25.0-35.0) pg RDW 22.3 H (11.5-15.5) % Neutrophils # (Manual) 8.30 H (1.3-7.7) k/uL Lymphocytes # (1.0-4.8) k/uL PT 12.4 H (9.0-12.0) sec INR 1.2 H (<1.2) APTT (22.0-30.0) sec Chloride (98-107) mmol/L Carbon Dioxide (22-30) mmol/L BUN (9-20) mg/dL Creatinine (0.66-1.25) mg/dL Glucose (74-99) mg/dL POC Glucose (mg/dL) 160 H (75-99) mg/dL Calcium (8.4-10.2) mg/dL 01/07/21 01/07/21 01/07/21 Range/Units 17:37 17:41 23:53 RBC (4.30-5.90) m/uL Hgb (13.0-17.5) gm/dL Hct (39.0-53.0) % MCV (80.0-100.0) fL MCH (25.0-35.0) pg RDW (11.5-15.5) % Neutrophils # (Manual) (1.3-7.7) k/uL Lymphocytes # (1.0-4.8) k/uL PT (9.0-12.0) sec INR (<1.2) APTT 39.4 H (22.0-30.0) sec Chloride 110 H (98-107) mmol/L Carbon Dioxide 21 L (22-30) mmol/L BUN 63 H (9-20) mg/dL Creatinine 3.24 H (0.66-1.25) mg/dL Glucose 118 H (74-99) mg/dL POC Glucose (mg/dL) 134 H (75-99) mg/dL Calcium 7.9 L (8.4-10.2) mg/dL 01/08/21 01/08/21 01/08/21 Range/Units 00:15 03:38 03:38 RBC 3.93 L (4.30-5.90) m/uL Hgb 9.6 L (13.0-17.5) gm/dL Hct 30.0 L (39.0-53.0) % MCV 76.4 L (80.0-100.0) fL MCH 24.5 L (25.0-35.0) pg RDW 22.0 H (11.5-15.5) % Neutrophils # (Manual) (1.3-7.7) k/uL Lymphocytes # 0.9 L (1.0-4.8) k/uL PT 14.7 H (9.0-12.0) sec INR 1.5 H (<1.2) APTT 52.4 H 57.7 H (22.0-30.0) sec Chloride (98-107) mmol/L Carbon Dioxide (22-30) mmol/L BUN (9-20) mg/dL Creatinine (0.66-1.25) mg/dL Glucose (74-99) mg/dL POC Glucose (mg/dL) (75-99) mg/dL Calcium (8.4-10.2) mg/dL 01/08/21 01/08/21 Range/Units 03:38 06:42 RBC (4.30-5.90) m/uL Hgb (13.0-17.5) gm/dL Hct (39.0-53.0) % MCV (80.0-100.0) fL MCH (25.0-35.0) pg RDW (11.5-15.5) % Neutrophils # (Manual) (1.3-7.7) k/uL Lymphocytes # (1.0-4.8) k/uL PT (9.0-12.0) sec INR (<1.2) APTT (22.0-30.0) sec Chloride (98-107) mmol/L Carbon Dioxide (22-30) mmol/L BUN 62 H (9-20) mg/dL Creatinine 3.63 H (0.66-1.25) mg/dL Glucose 122 H (74-99) mg/dL POC Glucose (mg/dL) 101 H (75-99) mg/dL Calcium 8.0 L (8.4-10.2) mg/dL Microbiology - Last 24 Hours (Table) 01/05/21 00:25 Gram Stain - Final Sputum Sputum Culture - Final Ximena albicans Ximena sp,not albicans/galbr Assessment and Plan Assessment: Perforated Bowel Colonic Mass Atrial Flutter with RVR -s/p OR for bowel repair, cecal mass removal -OGT -hold all oral home meds; holding home metoprolol -on diltiazem gtt for AFlutter with RVR, on heparin gtt -cardiology consulted for A Fib -consider amiodarone in attempt to chemically cardiovert back to sinus rhythm. -dilaudid PRN/tylenol IV PRN for pain control -zosyn, metronidazole -ICU level care, pulm consult Left Hydronephrosis BELTRAN on CKD III -urology, nephrology consults -avoid nephrotoxins -IVF: bicarb gtt HTN BPH -holding home meds as above Medicine will continue to follow. Please reach out to a member of [employer] via [employer] if there are any questions/concerns.
[2021-01-08] MEDS ORDERED: POTASSIUM CHLORIDE ER 20 MEQ TAB.ER PO STA (10:55)
--- NOTE | 2021-01-08 10:56 | P.PN ---
Subjective Patient is seen in follow-up for acute kidney injury on chronic kidney disease. Extubated January 05. NG tube removed. On Cardizem drip for A. fib. On bicarb drip for maintenance fluids. Acidosis resolved. Nonoliguric. Vital signs are stable. General: The patient appeared well nourished and normally developed. HEENT: Normocephalic atraumatic. LUNGS: Breath sounds decreased. HEART: Irregular rate and rhythm. ABDOMEN: Soft, no distention. EXTREMITITES: 1+ edema. Objective - Vital Signs Vital signs: Vital Signs Temp 98.2 F 01/08/21 04:00 Pulse 110 H 01/08/21 08:42 Resp 10 L 01/08/21 04:00 BP 100/77 01/08/21 04:00 Pulse Ox 93 L 01/08/21 04:00 Intake & Output 01/07/21 01/08/21 01/08/21 18:59 06:59 18:59 Intake Total 3048.910 8038 183.771 Output Total 660 700 Balance 428.333 475 183.771 Weight 83.4 kg Intake: IV 900 1175 Dextrose 5% in Water 1, 900 750 000 ml @ 75 mls/hr IV . [id number] [facility] with Sodium Bicarb (1 Meq/ml) 150 ml Rx#:[id number] Piperacillin-Tazobactam 3 325 .375 gm In Sodium Chloride 0.9% 100 ml @ 25 mls/hr IVPB Q8HR [facility] Rx# :[id number] metroNIDAZOLE-NS PMX 500 100 mg In Saline 1 100ml.bag @ 100 mls/hr IVPB Q8H [facility] Rx#:[id number] Intake, IV Titration 188.333 183.771 Amount Diltiazem 125 mg In 125 Sodium Chloride 0.9% 100 ml @ 5 MG/HR 5 mls/hr IV .Q24H [facility] Rx#:[id number] Heparin Sod,Pork in 0.45% 63.333 183.771 NaCl 25,000 unit In 0.45 % NaCl 1 250ml.bag @ 11. 99 UNITS/KG/HR 10 mls/hr IV .Q24H [facility] Rx#: [id number] Output: Drainage 60 105 Right Lower Abdomen 105 Right Upper Abdomen 60 Urine 175 295 Stool 425 300 Other: Voiding Method Urinal Urinal # Voids 0 0 ABP, PAP, CO, CI - Last Documented Arterial Blood Pressure 124/67 - Labs CBC & Chem 7: 01/08/21 03:38 01/08/21 03:38 Labs: Abnormal Lab Results - Last 24 Hours (Table) 01/07/21 01/07/21 01/07/21 Range/Units 11:47 11:47 13:45 RBC 3.85 L (4.30-5.90) m/uL Hgb 9.5 L (13.0-17.5) gm/dL Hct 29.2 L (39.0-53.0) % MCV 75.8 L (80.0-100.0) fL MCH 24.7 L (25.0-35.0) pg RDW 22.3 H (11.5-15.5) % Neutrophils # (Manual) 8.30 H (1.3-7.7) k/uL Lymphocytes # (1.0-4.8) k/uL PT 12.4 H (9.0-12.0) sec INR 1.2 H (<1.2) APTT (22.0-30.0) sec Chloride (98-107) mmol/L Carbon Dioxide (22-30) mmol/L BUN (9-20) mg/dL Creatinine (0.66-1.25) mg/dL Glucose (74-99) mg/dL POC Glucose (mg/dL) 160 H (75-99) mg/dL Calcium (8.4-10.2) mg/dL 01/07/21 01/07/21 01/07/21 Range/Units 17:37 17:41 23:53 RBC (4.30-5.90) m/uL Hgb (13.0-17.5) gm/dL Hct (39.0-53.0) % MCV (80.0-100.0) fL MCH (25.0-35.0) pg RDW (11.5-15.5) % Neutrophils # (Manual) (1.3-7.7) k/uL Lymphocytes # (1.0-4.8) k/uL PT (9.0-12.0) sec INR (<1.2) APTT 39.4 H (22.0-30.0) sec Chloride 110 H (98-107) mmol/L Carbon Dioxide 21 L (22-30) mmol/L BUN 63 H (9-20) mg/dL Creatinine 3.24 H (0.66-1.25) mg/dL Glucose 118 H (74-99) mg/dL POC Glucose (mg/dL) 134 H (75-99) mg/dL Calcium 7.9 L (8.4-10.2) mg/dL 01/08/21 01/08/21 01/08/21 Range/Units 00:15 03:38 03:38 RBC 3.93 L (4.30-5.90) m/uL Hgb 9.6 L (13.0-17.5) gm/dL Hct 30.0 L (39.0-53.0) % MCV 76.4 L (80.0-100.0) fL MCH 24.5 L (25.0-35.0) pg RDW 22.0 H (11.5-15.5) % Neutrophils # (Manual) (1.3-7.7) k/uL Lymphocytes # 0.9 L (1.0-4.8) k/uL PT 14.7 H (9.0-12.0) sec INR 1.5 H (<1.2) APTT 52.4 H 57.7 H (22.0-30.0) sec Chloride (98-107) mmol/L Carbon Dioxide (22-30) mmol/L BUN (9-20) mg/dL Creatinine (0.66-1.25) mg/dL Glucose (74-99) mg/dL POC Glucose (mg/dL) (75-99) mg/dL Calcium (8.4-10.2) mg/dL 01/08/21 01/08/21 Range/Units 03:38 06:42 RBC (4.30-5.90) m/uL Hgb (13.0-17.5) gm/dL Hct (39.0-53.0) % MCV (80.0-100.0) fL MCH (25.0-35.0) pg RDW (11.5-15.5) % Neutrophils # (Manual) (1.3-7.7) k/uL Lymphocytes # (1.0-4.8) k/uL PT (9.0-12.0) sec INR (<1.2) APTT (22.0-30.0) sec Chloride (98-107) mmol/L Carbon Dioxide (22-30) mmol/L BUN 62 H (9-20) mg/dL Creatinine 3.63 H (0.66-1.25) mg/dL Glucose 122 H (74-99) mg/dL POC Glucose (mg/dL) 101 H (75-99) mg/dL Calcium 8.0 L (8.4-10.2) mg/dL Microbiology - Last 24 Hours (Table) 01/05/21 00:25 Gram Stain - Final Sputum Sputum Culture - Final Ximena albicans Ximena sp,not albicans/galbr Assessment and Plan Plan: Assessment: 1. Acute kidney injury secondary to ATN secondary to sepsis. Renal function little worse today. Creatinine 3.63. Nonoliguric. 2. 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 Unknown baseline renal function. 3. 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 On antibiotics. 4. Metabolic acidosis secondary to acute kidney injury. Improved with bicarbonate drip. 5. History of hydronephrosis. Has been evaluated by urology in the past. 6. A. fib with RVR maintained on Cardizem drip. 7. Hypokalemia from poor intake and intracellular shifting from IV bicarb. 8. Lower extremity edema. Plan: Hep-Lock IV fluids. Lasix 40 mg IV once today. Replace potassium. Avoid nephrotoxins. Continue to monitor renal function and urine output. Diet to be advanced per surgery. Repeat UA.
--- NOTE | 2021-01-08 10:57 | P.PN ---
<Elva Crowder - Last Filed: 01/08/21 10:50> Subjective Progress Note Date: 01/08/21 CHIEF COMPLAINT: Abdominal pain HISTORY OF PRESENT ILLNESS: Patient remains in the ICU after bowel perforation. 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 He is postop day #4. NG tube was discontinued yesterday afternoon. He has been tolerating clear liquid diet. He denies any nausea or vomiting. He's been afebrile. He has output from his ostomy, brown liquid. He has 50 mL and 25 mL of serosanguineous drainage from his PELON drain. He states his pain is well managed and intolerable. Cardiology is following closely for new onset of atrial fibrillation with RVR. Nephrology also on consult and following patient closely. Today WBC 8.8 hemoglobin 9.6 PHYSICAL EXAM: VITAL SIGNS: Reviewed. GENERAL: Well-developed in no acute distress. HEENT: No sclera icterus. Extraocular movements grossly intact. Moist buccal mucosa. Head is atraumatic, normocephalic. ABDOMEN: Soft. Nondistended. Positive bowel sounds. Surgical incision with dressing clean dry and intact. Ostomy functioning, PELON drains in place. NEUROLOGIC: Alert and oriented. Cranial nerves II through XII grossly intact. ASSESSMENT: 1. Pneumoperitoneum 2. 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 Dr. Nicole I performed a history and examination of this patient, discussed the same with the dictator. I agree with the dictator's note ,documented as a scribe. Any additional findings or plans will be noted. Objective - Vital Signs Vital signs: Vital Signs Temp 98.2 F 01/08/21 04:00 Pulse 110 H 01/08/21 08:42 Resp 10 L 01/08/21 04:00 BP 100/77 01/08/21 04:00 Pulse Ox 93 L 01/08/21 04:00 Intake & Output 01/07/21 01/08/21 01/08/21 18:59 06:59 18:59 Intake Total 8722.546 3058 Output Total 660 700 Balance 428.333 475 Weight 83.4 kg Intake: IV 900 1175 Dextrose 5% in Water 1, 900 750 000 ml @ 75 mls/hr IV . [id number] [facility] with Sodium Bicarb (1 Meq/ml) 150 ml Rx#:[id number] Piperacillin-Tazobactam 3 325 .375 gm In Sodium Chloride 0.9% 100 ml @ 25 mls/hr IVPB Q8HR [facility] Rx# :[id number] metroNIDAZOLE-NS PMX 500 100 mg In Saline 1 100ml.bag @ 100 mls/hr IVPB Q8H [facility] Rx#:[id number] Intake, IV Titration 188.333 Amount Diltiazem 125 mg In 125 Sodium Chloride 0.9% 100 ml @ 5 MG/HR 5 mls/hr IV .Q24H [facility] Rx#:[id number] Heparin Sod,Pork in 0.45% 63.333 NaCl 25,000 unit In 0.45 % NaCl 1 250ml.bag @ 11. 99 UNITS/KG/HR 10 mls/hr IV .Q24H [facility] Rx#: [id number] Output: Drainage 60 105 Right Lower Abdomen 105 Right Upper Abdomen 60 Urine 175 295 Stool 425 300 Other: Voiding Method Urinal Urinal # Voids 0 0 ABP, PAP, CO, CI - Last Documented Arterial Blood Pressure 124/67 - Labs CBC & Chem 7: 01/08/21 03:38 01/08/21 03:38 Labs: Abnormal Lab Results - Last 24 Hours (Table) 01/07/21 01/07/21 01/07/21 Range/Units 11:47 11:47 13:45 RBC 3.85 L (4.30-5.90) m/uL Hgb 9.5 L (13.0-17.5) gm/dL Hct 29.2 L (39.0-53.0) % MCV 75.8 L (80.0-100.0) fL MCH 24.7 L (25.0-35.0) pg RDW 22.3 H (11.5-15.5) % Neutrophils # (Manual) 8.30 H (1.3-7.7) k/uL Lymphocytes # (1.0-4.8) k/uL PT 12.4 H (9.0-12.0) sec INR 1.2 H (<1.2) APTT (22.0-30.0) sec Chloride (98-107) mmol/L Carbon Dioxide (22-30) mmol/L BUN (9-20) mg/dL Creatinine (0.66-1.25) mg/dL Glucose (74-99) mg/dL POC Glucose (mg/dL) 160 H (75-99) mg/dL Calcium (8.4-10.2) mg/dL 01/07/21 01/07/21 01/07/21 Range/Units 17:37 17:41 23:53 RBC (4.30-5.90) m/uL Hgb (13.0-17.5) gm/dL Hct (39.0-53.0) % MCV (80.0-100.0) fL MCH (25.0-35.0) pg RDW (11.5-15.5) % Neutrophils # (Manual) (1.3-7.7) k/uL Lymphocytes # (1.0-4.8) k/uL PT (9.0-12.0) sec INR (<1.2) APTT 39.4 H (22.0-30.0) sec Chloride 110 H (98-107) mmol/L Carbon Dioxide 21 L (22-30) mmol/L BUN 63 H (9-20) mg/dL Creatinine 3.24 H (0.66-1.25) mg/dL Glucose 118 H (74-99) mg/dL POC Glucose (mg/dL) 134 H (75-99) mg/dL Calcium 7.9 L (8.4-10.2) mg/dL 01/08/21 01/08/21 01/08/21 Range/Units 00:15 03:38 03:38 RBC 3.93 L (4.30-5.90) m/uL Hgb 9.6 L (13.0-17.5) gm/dL Hct 30.0 L (39.0-53.0) % MCV 76.4 L (80.0-100.0) fL MCH 24.5 L (25.0-35.0) pg RDW 22.0 H (11.5-15.5) % Neutrophils # (Manual) (1.3-7.7) k/uL Lymphocytes # 0.9 L (1.0-4.8) k/uL PT 14.7 H (9.0-12.0) sec INR 1.5 H (<1.2) APTT 52.4 H 57.7 H (22.0-30.0) sec Chloride (98-107) mmol/L Carbon Dioxide (22-30) mmol/L BUN (9-20) mg/dL Creatinine (0.66-1.25) mg/dL Glucose (74-99) mg/dL POC Glucose (mg/dL) (75-99) mg/dL Calcium (8.4-10.2) mg/dL 01/08/21 Range/Units 06:42 RBC (4.30-5.90) m/uL Hgb (13.0-17.5) gm/dL Hct (39.0-53.0) % MCV (80.0-100.0) fL MCH (25.0-35.0) pg RDW (11.5-15.5) % Neutrophils # (Manual) (1.3-7.7) k/uL Lymphocytes # (1.0-4.8) k/uL PT (9.0-12.0) sec INR (<1.2) APTT (22.0-30.0) sec Chloride (98-107) mmol/L Carbon Dioxide (22-30) mmol/L BUN (9-20) mg/dL Creatinine (0.66-1.25) mg/dL Glucose (74-99) mg/dL POC Glucose (mg/dL) 101 H (75-99) mg/dL Calcium (8.4-10.2) mg/dL Microbiology - Last 24 Hours (Table) 01/05/21 00:25 Gram Stain - Final Sputum Sputum Culture - Final Ximena albicans Ximena sp,not albicans/galbr <Braulio Nicole - Last Filed: 01/08/21 14:41> Subjective As above. Patient doing quite well. Estrada catheter was removed. He is tolerating clear liquids. We'll advance to full liquids. Continue increasing activity. Drain output improving. Continue IV antibiotics. Awaiting final pathology. Objective - Vital Signs Vital signs: Vital Signs Temp 98.7 F 01/08/21 12:00 Pulse 108 H 01/08/21 12:00 Resp 18 01/08/21 12:00 BP 114/83 01/08/21 12:00 Pulse Ox 96 01/08/21 12:00 Intake & Output 01/07/21 01/08/21 01/08/21 18:59 06:59 18:59 Intake Total 6354.480 0729 183.771 Output Total 660 700 Balance 428.333 475 183.771 Weight 83.4 kg Intake: IV 900 1175 Dextrose 5% in Water 1, 900 750 000 ml @ 75 mls/hr IV . [id number] [facility] with Sodium Bicarb (1 Meq/ml) 150 ml Rx#:[id number] Piperacillin-Tazobactam 3 325 .375 gm In Sodium Chloride 0.9% 100 ml @ 25 mls/hr IVPB Q8HR [facility] Rx# :[id number] metroNIDAZOLE-NS PMX 500 100 mg In Saline 1 100ml.bag @ 100 mls/hr IVPB Q8H [facility] Rx#:[id number] Intake, IV Titration 188.333 183.771 Amount Diltiazem 125 mg In 125 Sodium Chloride 0.9% 100 ml @ 5 MG/HR 5 mls/hr IV .Q24H [facility] Rx#:[id number] Heparin Sod,Pork in 0.45% 63.333 183.771 NaCl 25,000 unit In 0.45 % NaCl 1 250ml.bag @ 11. 99 UNITS/KG/HR 10 mls/hr IV .Q24H [facility] Rx#: [id number] Output: Drainage 60 105 Right Lower Abdomen 105 Right Upper Abdomen 60 Urine 175 295 Stool 425 300 Other: Voiding Method Urinal Urinal Urinal # Voids 0 0 ABP, PAP, CO, CI - Last Documented Arterial Blood Pressure 124/67 - Labs CBC & Chem 7: 01/08/21 03:38 01/08/21 03:38 Labs: Abnormal Lab Results - Last 24 Hours (Table) 01/07/21 01/07/21 01/07/21 Range/Units 17:37 17:41 23:53 RBC (4.30-5.90) m/uL Hgb (13.0-17.5) gm/dL Hct (39.0-53.0) % MCV (80.0-100.0) fL MCH (25.0-35.0) pg RDW (11.5-15.5) % Lymphocytes # (1.0-4.8) k/uL PT (9.0-12.0) sec INR (<1.2) APTT 39.4 H (22.0-30.0) sec Fibrinogen (200-500) mg/dL Chloride 110 H (98-107) mmol/L Carbon Dioxide 21 L (22-30) mmol/L BUN 63 H (9-20) mg/dL Creatinine 3.24 H (0.66-1.25) mg/dL Glucose 118 H (74-99) mg/dL POC Glucose (mg/dL) 134 H (75-99) mg/dL Calcium 7.9 L (8.4-10.2) mg/dL 01/08/21 01/08/21 01/08/21 Range/Units 00:15 03:38 03:38 RBC 3.93 L (4.30-5.90) m/uL Hgb 9.6 L (13.0-17.5) gm/dL Hct 30.0 L (39.0-53.0) % MCV 76.4 L (80.0-100.0) fL MCH 24.5 L (25.0-35.0) pg RDW 22.0 H (11.5-15.5) % Lymphocytes # 0.9 L (1.0-4.8) k/uL PT 14.7 H (9.0-12.0) sec INR 1.5 H (<1.2) APTT 52.4 H 57.7 H (22.0-30.0) sec Fibrinogen (200-500) mg/dL Chloride (98-107) mmol/L Carbon Dioxide (22-30) mmol/L BUN (9-20) mg/dL Creatinine (0.66-1.25) mg/dL Glucose (74-99) mg/dL POC Glucose (mg/dL) (75-99) mg/dL Calcium (8.4-10.2) mg/dL 01/08/21 01/08/21 01/08/21 Range/Units 03:38 03:38 06:42 RBC (4.30-5.90) m/uL Hgb (13.0-17.5) gm/dL Hct (39.0-53.0) % MCV (80.0-100.0) fL MCH (25.0-35.0) pg RDW (11.5-15.5) % Lymphocytes # (1.0-4.8) k/uL PT (9.0-12.0) sec INR (<1.2) APTT (22.0-30.0) sec Fibrinogen 673 H (200-500) mg/dL Chloride (98-107) mmol/L Carbon Dioxide (22-30) mmol/L BUN 62 H (9-20) mg/dL Creatinine 3.63 H (0.66-1.25) mg/dL Glucose 122 H (74-99) mg/dL POC Glucose (mg/dL) 101 H (75-99) mg/dL Calcium 8.0 L (8.4-10.2) mg/dL Assessment and Plan (1) Pneumoperitoneum Current Visit: Yes Status: Acute Code(s): K66.8 - OTHER SPECIFIED DISORDERS OF PERITONEUM SNOMED Code(s): 64303623
--- NOTE | 2021-01-08 15:33 | P.PN ---
Subjective Progress Note Date: 01/08/21 Principal diagnosis: perforated bowel, cecal tumor, post op In f/u pt is in chair when seen, he denies unusual abd pain, his low back and buttocks are sore, his legs are swollen. Denies any bleeding. Objective - Vital Signs Vital signs: Vital Signs Temp 98.7 F 01/08/21 12:00 Pulse 108 H 01/08/21 12:00 Resp 18 01/08/21 12:00 BP 114/83 01/08/21 12:00 Pulse Ox 96 01/08/21 12:00 Intake & Output 01/07/21 01/08/21 01/08/21 18:59 06:59 18:59 Intake Total 9713.188 5017 183.771 Output Total 660 700 Balance 428.333 475 183.771 Weight 83.4 kg Intake: IV 900 1175 Dextrose 5% in Water 1, 900 750 000 ml @ 75 mls/hr IV . [id number] [facility] with Sodium Bicarb (1 Meq/ml) 150 ml Rx#:[id number] Piperacillin-Tazobactam 3 325 .375 gm In Sodium Chloride 0.9% 100 ml @ 25 mls/hr IVPB Q8HR [facility] Rx# :[id number] metroNIDAZOLE-NS PMX 500 100 mg In Saline 1 100ml.bag @ 100 mls/hr IVPB Q8H [facility] Rx#:[id number] Intake, IV Titration 188.333 183.771 Amount Diltiazem 125 mg In 125 Sodium Chloride 0.9% 100 ml @ 5 MG/HR 5 mls/hr IV .Q24H [facility] Rx#:[id number] Heparin Sod,Pork in 0.45% 63.333 183.771 NaCl 25,000 unit In 0.45 % NaCl 1 250ml.bag @ 11. 99 UNITS/KG/HR 10 mls/hr IV .Q24H [facility] Rx#: [id number] Output: Drainage 60 105 Right Lower Abdomen 105 Right Upper Abdomen 60 Urine 175 295 Stool 425 300 Other: Voiding Method Urinal Urinal Urinal # Voids 0 0 ABP, PAP, CO, CI - Last Documented Arterial Blood Pressure 124/67 - Constitutional General appearance: Present: average body habitus, cooperative, no acute distress - EENT Eyes: Present: anicteric sclerae, EOMI ENT: Present: hearing grossly normal - Respiratory Respiratory: bilateral: diminished - Cardiovascular Rhythm: regular Heart sounds: normal: S1, S2 Abnormal Heart Sounds: Absent: systolic murmur, diastolic murmur, rub, S3 Gallop, S4 Gallop, click, other - Peripheral edema leg Peripheral Edema: bilateral: 2+, Pitting - Gastrointestinal Gastrointestinal Comment(s): dark brown liquid in ostomy, stoma is pink, no unusual tenderness when palpated General gastrointestinal: Present: soft - Neurologic Neurologic: Present: CNII-XII intact - Musculoskeletal Musculoskeletal: Present: generalized weakness - Psychiatric Psychiatric: Present: A&O x's 3, appropriate affect, intact judgment & insight - Labs CBC & Chem 7: 01/08/21 03:38 01/08/21 03:38 Labs: Abnormal Lab Results - Last 24 Hours (Table) 01/07/21 01/07/21 01/07/21 Range/Units 17:37 17:41 23:53 RBC (4.30-5.90) m/uL Hgb (13.0-17.5) gm/dL Hct (39.0-53.0) % MCV (80.0-100.0) fL MCH (25.0-35.0) pg RDW (11.5-15.5) % Lymphocytes # (1.0-4.8) k/uL PT (9.0-12.0) sec INR (<1.2) APTT 39.4 H (22.0-30.0) sec Fibrinogen (200-500) mg/dL Chloride 110 H (98-107) mmol/L Carbon Dioxide 21 L (22-30) mmol/L BUN 63 H (9-20) mg/dL Creatinine 3.24 H (0.66-1.25) mg/dL Glucose 118 H (74-99) mg/dL POC Glucose (mg/dL) 134 H (75-99) mg/dL Calcium 7.9 L (8.4-10.2) mg/dL 01/08/21 01/08/21 01/08/21 Range/Units 00:15 03:38 03:38 RBC 3.93 L (4.30-5.90) m/uL Hgb 9.6 L (13.0-17.5) gm/dL Hct 30.0 L (39.0-53.0) % MCV 76.4 L (80.0-100.0) fL MCH 24.5 L (25.0-35.0) pg RDW 22.0 H (11.5-15.5) % Lymphocytes # 0.9 L (1.0-4.8) k/uL PT 14.7 H (9.0-12.0) sec INR 1.5 H (<1.2) APTT 52.4 H 57.7 H (22.0-30.0) sec Fibrinogen (200-500) mg/dL Chloride (98-107) mmol/L Carbon Dioxide (22-30) mmol/L BUN (9-20) mg/dL Creatinine (0.66-1.25) mg/dL Glucose (74-99) mg/dL POC Glucose (mg/dL) (75-99) mg/dL Calcium (8.4-10.2) mg/dL 01/08/21 01/08/21 01/08/21 Range/Units 03:38 03:38 06:42 RBC (4.30-5.90) m/uL Hgb (13.0-17.5) gm/dL Hct (39.0-53.0) % MCV (80.0-100.0) fL MCH (25.0-35.0) pg RDW (11.5-15.5) % Lymphocytes # (1.0-4.8) k/uL PT (9.0-12.0) sec INR (<1.2) APTT (22.0-30.0) sec Fibrinogen 673 H (200-500) mg/dL Chloride (98-107) mmol/L Carbon Dioxide (22-30) mmol/L BUN 62 H (9-20) mg/dL Creatinine 3.63 H (0.66-1.25) mg/dL Glucose 122 H (74-99) mg/dL POC Glucose (mg/dL) 101 H (75-99) mg/dL Calcium 8.0 L (8.4-10.2) mg/dL Assessment and Plan (1) Acute abdomen Current Visit: Yes Status: Acute Priority: High Code(s): R10.0 - ACUTE ABDOMEN SNOMED Code(s): 3022137 (2) Intra-abdominal abscess Current Visit: Yes Status: Acute Priority: High Code(s): K65.1 - PERITONEAL ABSCESS SNOMED Code(s): 47115394 (3) Cecal cancer Current Visit: Yes Status: Acute Priority: High Code(s): C18.0 - MALIGNANT NEOPLASM OF CECUM SNOMED Code(s): 166229708 Plan: Pending path results to determine treatment course. Previous staging PET showed no evidence of metastatic disease. Pt is not a candidate for treatment until completely healed from this surgery. Hopefully he will f/u as directed. Encouraged pt to work with PT/OT Coags (PT/INR) were elevated today. No bleeding reported, Hgb stable. Fibrinogen ordered. Pt remains on heparin drip. Coags, CBC in AM.
[2021-01-08] MEDS: NOREPINEPHRINE 4 MG in SODIUM CHLORIDE 0.9% 250 ML IV SCH (15:47)
[2021-01-08] MEDS: LORazepam 2 MG/ML INJ IV PRN ×2 (18:01→20:11)
[2021-01-08 20:11] LABS: Glucose,Whole Blood 116 mg/dL (75-99)
[2021-01-09] MEDS: metroNIDAZOLE-NS PMX 500 MG in SALINE 1 100ML.BAG IVPB SCH ×3 (01:56→17:16)
[2021-01-09] MEDS: HYDROmorphone 0.5 MG/0.5 ML SYRINGE IVP PRN ×3 (03:45→12:49)
[2021-01-09] MEDS: HEPARIN SOD,PORK IN 0.45% NACL 25,000 UNIT in 0.45% NACL 1 250ML.BAG IV SCH (04:08)
[2021-01-09 04:18] LABS: Appearance,Urine Clear (Clear); Bacteria,Urine Rare /hpf; Bilirubin,Urine Negative (Negative); Blood,Urine Small (Negative); Color,Urine Yellow; Glucose,Urine (UA) Negative (Negative); Ketones,Urine Negative (Negative); Leukocyte Esterase,Urine Negative (Negative); Nitrite,Urine Negative (Negative); PH, Urine 5.5 (5.0-8.0); Protein,Urine 1+ (Negative); RBC,Urine 3 /hpf (0-5); Specific Gravity,Urine 1.013 (1.001-1.035); Urobilinogen,Urine <2.0 mg/dL (<2.0); WBC,Urine 5 /hpf (0-5)
[2021-01-09] MEDS: SODIUM CHLORIDE 0.9% 1,000 ML IV SCH (05:44)
[2021-01-09 06:02] LABS: Glucose,Whole Blood 92 mg/dL (75-99)
[2021-01-09] MEDS: IPRATROPIUM-ALBUTEROL 3 ML NEB INHALATION SCH ×4 (07:45→21:15)
[2021-01-09 08:03] LABS: Anisocytosis Moderate; Basophils % (A) 0 %; Eosinophils # (A) 0.1 k/uL (0-0.7); Eosinophils % (A) 1 %; HCT 31.8 % (39.0-53.0); HGB 9.7 gm/dL (13.0-17.5); Hypochromasia Slight; Lymphocytes # (A) 1.1 k/uL (1.0-4.8); Lymphocytes % (A) 11 %; MCH 24.3 pg (25.0-35.0); MCHC 30.4 g/dL (31.0-37.0); Microcytosis Slight; Monocytes # (A) 0.5 k/uL (0-1.0); Monocytes % (A) 5 %; Neutrophils # (A) 8.1 k/uL (1.3-7.7); Neutrophils % (A) 81 %; Platelet Count 327 k/uL (150-450); RBC 3.98 m/uL (4.30-5.90); RDW 21.2 % (11.5-15.5); WBC 10.1 k/uL (3.8-10.6)
[2021-01-09 08:31] LABS: INR 1.7 (<1.2); Partial Thromboplastin Time 47.2 sec (22.0-30.0); Prothrombin Time 16.7 sec (9.0-12.0)
[2021-01-09] MEDS: PANTOPRAZOLE 40 MG/10 ML VIAL IV SCH (08:39)
[2021-01-09 08:40] LABS: Albumin 2.4 g/dL (3.5-5.0); Calcium 8.4 mg/dL (8.4-10.2); Total Bilirubin 2.5 mg/dL (0.2-1.3); Total Protein 5.3 g/dL (6.3-8.2)
[2021-01-09] MEDS: METOPROLOL TARTRATE 50 MG TAB PO SCH ×2 (08:47→19:54)
[2021-01-09] MEDS: DILTIAZEM ORAL 60 MG TAB PO SCH ×3 (08:47→21:31)
[2021-01-09] MEDS: PIPERACILLIN-TAZOBACTAM 3.375 GM in SODIUM CHLORIDE 0.9% 100 ML IVPB SCH ×2 (08:49→19:53)
[2021-01-09 09:10] LABS: Potassium 4.4 mmol/L (3.5-5.1)
--- NOTE | 2021-01-09 10:06 | P.PN ---
Subjective Progress Note Date: 01/09/21 Pt is in bed on room air, saturating 94%, in no distress at the time of my evaluation. BP 130/73, HR 100; on dilt 60mg TID. CBC without elevated WBC; on zosyn, flagyl; 2 x PELON drains in abdomen with significant output. BUN/Cr is stable to 69/3.9; I/O balance in last 24 hours is -800cc, UOP is 800. Objective - Vital Signs Vital signs: Vital Signs Temp 97.5 F L 01/09/21 04:00 Pulse 92 01/09/21 07:55 Resp 18 01/09/21 04:00 BP 130/73 01/09/21 04:00 Pulse Ox 94 L 01/09/21 04:00 Intake & Output 01/08/21 01/09/21 01/09/21 18:59 06:59 18:59 Intake Total 758.771 208.857 Output Total 450 1335 Balance 308.771 -1126.143 Intake: IV 200 Piperacillin-Tazobactam 3 200 .375 gm In Sodium Chloride 0.9% 100 ml @ 25 mls/hr IVPB Q8HR [facility] Rx# :[id number] Intake, IV Titration 308.771 208.857 Amount Diltiazem 125 mg In 125 Sodium Chloride 0.9% 100 ml @ 5 MG/HR 5 mls/hr IV .Q24H [facility] Rx#:[id number] Heparin Sod,Pork in 0.45% 183.771 208.857 NaCl 25,000 unit In 0.45 % NaCl 1 250ml.bag @ 11. 99 UNITS/KG/HR 10 mls/hr IV .Q24H [facility] Rx#: [id number] Oral 250 Output: Drainage 85 Right Lower Abdomen 85 Urine 450 350 Stool 900 Other: Voiding Method Urinal Urinal # Voids 2 ABP, PAP, CO, CI - Last Documented Arterial Blood Pressure 124/67 - Exam Gen: awake, following commands, Resp: good air exchange, tachypneic, but no accessory muscle use CVS: good distal perfusion x 4, GI: Exquisitely tender to palpation diffusely, distended, rebound tenderness present, involuntary guarding : no SPT, no CVAT, serrano catheter is present MSK: no pitting edema, no clubbing Neuro: non-focal, moving all extremities - Labs CBC & Chem 7: 01/09/21 07:26 01/09/21 07:26 Labs: Abnormal Lab Results - Last 24 Hours (Table) 01/08/21 01/08/21 01/09/21 Range/Units 03:38 20:09 04:00 RBC (4.30-5.90) m/uL Hgb (13.0-17.5) gm/dL Hct (39.0-53.0) % MCH (25.0-35.0) pg MCHC (31.0-37.0) g/dL RDW (11.5-15.5) % Neutrophils # (1.3-7.7) k/uL PT (9.0-12.0) sec INR (<1.2) APTT (22.0-30.0) sec Fibrinogen 673 H (200-500) mg/dL Sodium (137-145) mmol/L BUN (9-20) mg/dL Creatinine (0.66-1.25) mg/dL POC Glucose (mg/dL) 116 H (75-99) mg/dL Total Bilirubin (0.2-1.3) mg/dL AST (17-59) U/L Alkaline Phosphatase (38-126) U/L Total Protein (6.3-8.2) g/dL Albumin (3.5-5.0) g/dL Urine Protein 1+ H (Negative) Urine Blood Small H (Negative) Urine Bacteria Rare H (None) /hpf 01/09/21 01/09/21 01/09/21 Range/Units 07:26 07:26 07:26 RBC 3.98 L (4.30-5.90) m/uL Hgb 9.7 L (13.0-17.5) gm/dL Hct 31.8 L (39.0-53.0) % MCH 24.3 L (25.0-35.0) pg MCHC 30.4 L (31.0-37.0) g/dL RDW 21.2 H (11.5-15.5) % Neutrophils # 8.1 H (1.3-7.7) k/uL PT 16.7 H (9.0-12.0) sec INR 1.7 H (<1.2) APTT 47.2 H (22.0-30.0) sec Fibrinogen (200-500) mg/dL Sodium 136 L (137-145) mmol/L BUN 69 H (9-20) mg/dL Creatinine 3.89 H (0.66-1.25) mg/dL POC Glucose (mg/dL) (75-99) mg/dL Total Bilirubin 2.5 H (0.2-1.3) mg/dL AST 65 H (17-59) U/L Alkaline Phosphatase 321 H (38-126) U/L Total Protein 5.3 L (6.3-8.2) g/dL Albumin 2.4 L (3.5-5.0) g/dL Urine Protein (Negative) Urine Blood (Negative) Urine Bacteria (None) /hpf Assessment and Plan Assessment: Perforated Bowel Colonic Mass Atrial Flutter with RVR -s/p OR for bowel repair, cecal mass removal -OGT -hold all oral home meds; holding home metoprolol -on diltiazem for AFlutter with RVR, on heparin gtt -cardiology consulted for A Fib -dilaudid PRN/tylenol IV PRN for pain control -zosyn, metronidazole -pulm consult Left Hydronephrosis BELTRAN on CKD III -urology, nephrology consults -avoid nephrotoxins HTN BPH -holding home meds as above Medicine will continue to follow. Please reach out to a member of [employer] via [employer] if there are any questions/concerns.
[2021-01-09] MEDS: NOREPINEPHRINE 4 MG in SODIUM CHLORIDE 0.9% 250 ML IV SCH (10:10)
--- NOTE | 2021-01-09 10:42 | P.PN ---
Subjective Patient is seen in follow-up for acute kidney injury on chronic kidney disease. Extubated January 05. NG tube removed. On Cardizem drip for A. fib. Off IV fluids. Nonoliguric. On full liquid diet. Vital signs are stable. General: The patient appeared well nourished and normally developed. HEENT: Normocephalic atraumatic. LUNGS: Breath sounds decreased. HEART: Irregular rate and rhythm. ABDOMEN: Soft, no distention. EXTREMITITES: 1+ edema. Objective - Vital Signs Vital signs: Vital Signs Temp 97.5 F L 01/09/21 04:00 Pulse 92 01/09/21 07:55 Resp 18 01/09/21 04:00 BP 130/73 01/09/21 04:00 Pulse Ox 94 L 01/09/21 04:00 Intake & Output 01/08/21 01/09/21 01/09/21 18:59 06:59 18:59 Intake Total 758.771 208.857 Output Total 450 1335 200 Balance 308.771 -1126.143 -200 Weight 83.4 kg Intake: IV 200 Piperacillin-Tazobactam 3 200 .375 gm In Sodium Chloride 0.9% 100 ml @ 25 mls/hr IVPB Q8HR [facility] Rx# :[id number] Intake, IV Titration 308.771 208.857 Amount Diltiazem 125 mg In 125 Sodium Chloride 0.9% 100 ml @ 5 MG/HR 5 mls/hr IV .Q24H [facility] Rx#:[id number] Heparin Sod,Pork in 0.45% 183.771 208.857 NaCl 25,000 unit In 0.45 % NaCl 1 250ml.bag @ 11. 99 UNITS/KG/HR 10 mls/hr IV .Q24H [facility] Rx#: [id number] Oral 250 Output: Drainage 85 Right Lower Abdomen 85 Urine 450 350 Stool 900 200 Other: Voiding Method Urinal Urinal # Voids 2 ABP, PAP, CO, CI - Last Documented Arterial Blood Pressure 124/67 - Labs CBC & Chem 7: 01/09/21 07:26 01/09/21 07:26 Labs: Abnormal Lab Results - Last 24 Hours (Table) 01/08/21 01/08/21 01/09/21 Range/Units 03:38 20:09 04:00 RBC (4.30-5.90) m/uL Hgb (13.0-17.5) gm/dL Hct (39.0-53.0) % MCH (25.0-35.0) pg MCHC (31.0-37.0) g/dL RDW (11.5-15.5) % Neutrophils # (1.3-7.7) k/uL PT (9.0-12.0) sec INR (<1.2) APTT (22.0-30.0) sec Fibrinogen 673 H (200-500) mg/dL Sodium (137-145) mmol/L BUN (9-20) mg/dL Creatinine (0.66-1.25) mg/dL POC Glucose (mg/dL) 116 H (75-99) mg/dL Total Bilirubin (0.2-1.3) mg/dL AST (17-59) U/L Alkaline Phosphatase (38-126) U/L Total Protein (6.3-8.2) g/dL Albumin (3.5-5.0) g/dL Urine Protein 1+ H (Negative) Urine Blood Small H (Negative) Urine Bacteria Rare H (None) /hpf 01/09/21 01/09/21 01/09/21 Range/Units 07:26 07:26 07:26 RBC 3.98 L (4.30-5.90) m/uL Hgb 9.7 L (13.0-17.5) gm/dL Hct 31.8 L (39.0-53.0) % MCH 24.3 L (25.0-35.0) pg MCHC 30.4 L (31.0-37.0) g/dL RDW 21.2 H (11.5-15.5) % Neutrophils # 8.1 H (1.3-7.7) k/uL PT 16.7 H (9.0-12.0) sec INR 1.7 H (<1.2) APTT 47.2 H (22.0-30.0) sec Fibrinogen (200-500) mg/dL Sodium 136 L (137-145) mmol/L BUN 69 H (9-20) mg/dL Creatinine 3.89 H (0.66-1.25) mg/dL POC Glucose (mg/dL) (75-99) mg/dL Total Bilirubin 2.5 H (0.2-1.3) mg/dL AST 65 H (17-59) U/L Alkaline Phosphatase 321 H (38-126) U/L Total Protein 5.3 L (6.3-8.2) g/dL Albumin 2.4 L (3.5-5.0) g/dL Urine Protein (Negative) Urine Blood (Negative) Urine Bacteria (None) /hpf Assessment and Plan Plan: Assessment: 1. Acute kidney injury secondary to ATN secondary to sepsis. Renal function worse today - he did receive a dose of IV Lasix yesterday. Creatinine 3.89. Nonoliguric. 2. 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 Unknown baseline renal function. 3. 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 On antibiotics. 4. Metabolic acidosis secondary to acute kidney injury. Improved with bicarbonate drip. 5. History of hydronephrosis. Has been evaluated by urology in the past. 6. A. fib with RVR maintained on Cardizem drip. 7. Hypokalemia from poor intake and intracellular shifting from IV bicarb. Replaced. Better. 8. Lower extremity edema. Plan: Off IV fluids. Hold off on diuretics today. Avoid nephrotoxins. Continue to monitor renal function and urine output. Diet to be advanced per surgery. Encouraged oral intake.
[2021-01-09] MEDS ORDERED: FUROSEMIDE 10 MG/ML 4 ML VIAL IV STA (11:37)
--- NOTE | 2021-01-09 11:39 | PN ---
PROGRESS NOTE Mr. Hathaway is in atrial fibrillation with a moderately rapid ventricular rate. He had abdominal surgery with sepsis and laparotomy. His heparin was resumed yesterday. I am suggesting that we will place him on 2.5 mg b.i.d. of Eliquis, increase metoprolol to 50 mg b.i.d. and Cardizem to 60 mg t.i.d. The patient is hemodynamically stable, has significant scrotal edema, but overall he seems to be doing better. Blood pressure is 118/70. Pulse rate is about 120, irregular. JVD of 1 cm. No carotid bruit. S1, S2 with irregular rhythm. Short systolic murmur is audible. Lungs reveal diminished air entry, bilateral lung delgado. Abdomen exam was deferred. There is scrotal edema. Lower extremities reveal diminished pulses. Central nervous system grossly no focal deficits. IMPRESSION: 1. Persistent/paroxysmal atrial fibrillation. 2. Status post laparotomy and surgery with sepsis. RECOMMENDATIONS: Will discontinue IV heparin, place him on 2.5 mg b.i.d. of Eliquis, increase metoprolol to 50 mg b.i.d., and Cardizem will be 60 mg t.i.d. MMODL / IJN: [id number] /
--- NOTE | 2021-01-09 11:40 | P.PN ---
Subjective Progress Note Date: 01/09/21 \ 01/09/2021 the patient is postop day #5. Doing well. No specific complaints. He got transferred out of the intensive care unit. He has a diverting ileostomy and a cecal tumor biopsy. He also underwent drainage of the abscess from his abdomen via an extensive laparotomy. He remains on a combination of Zosyn and Flagyl. No new cultures from the abdominal wounds. He is afebrile. He has extensive fluid overload and the patient is receiving diuretics. The patient's fluid balance is -800 mL over the past 24 hours. He remains on diuretics and he is receiving Lasix on a daily basis. No respiratory difficulties. He is hemodynamically stable. He was having issues with atrial fibrillation. He was on a Cardizem drip and anticoagulation with heparin initially. She is currently on oral Cardizem. As far as anticoagulation, the patient' remains on IV heparin drip. He is taking some clear liquid diet for surgical wound site is dry clean and intact ileostomy is functional. PELON drain are still in place and output is serosanguineous at this point in time. He is using incentive spirometer. No nausea. No vomiting. No emesis. He is working with physical therapy. Objective - Vital Signs Vital signs: Vital Signs Temp 98.1 F 01/09/21 11:08 Pulse 96 01/09/21 10:59 Resp 18 01/09/21 11:08 BP 134/65 01/09/21 11:08 Pulse Ox 98 01/09/21 11:08 Intake & Output 01/08/21 01/09/21 01/09/21 18:59 06:59 18:59 Intake Total 758.771 208.857 Output Total 450 1335 200 Balance 308.771 -1126.143 -200 Weight 83.4 kg Intake: IV 200 Piperacillin-Tazobactam 3 200 .375 gm In Sodium Chloride 0.9% 100 ml @ 25 mls/hr IVPB Q8HR [facility] Rx# :[id number] Intake, IV Titration 308.771 208.857 Amount Diltiazem 125 mg In 125 Sodium Chloride 0.9% 100 ml @ 5 MG/HR 5 mls/hr IV .Q24H [facility] Rx#:[id number] Heparin Sod,Pork in 0.45% 183.771 208.857 NaCl 25,000 unit In 0.45 % NaCl 1 250ml.bag @ 11. 99 UNITS/KG/HR 10 mls/hr IV .Q24H [facility] Rx#: [id number] Oral 250 Output: Drainage 85 Right Lower Abdomen 85 Urine 450 350 Stool 900 200 Other: Voiding Method Urinal Urinal # Voids 2 ABP, PAP, CO, CI - Last Documented Arterial Blood Pressure 124/67 - Exam No acute distress, awake and alert and following commands and answering questions. A bit lethargic. Is currently on RA HEENT examination is grossly unremarkable. Neck supple. Full range of motion. No adenopathy thyromegaly or neck vein distention. Cardiovascular examination reveals an irregular rhythm and rate. S1-S2 normal. No S3 or S4. No discernible murmur noted. Heart sounds are distant. Heart rate 100-120 bpm. the patient remains in atrial fibrillation with rapid ventricular response. His current heart resolve 114. Lungs reveal mostly clear breath sounds. Scattered rhonchi are noted. No wheezes or crackles. Breath sounds are equal bilaterally. Saturations are 96%. Abdomen soft. There are no bowel sounds. The ileostomy is noted. Midline incision which is dry clean and intact. The patient has a viable ileostomy with a bag and some liquidy output is noted. The patient also has PELON drains. The patient has some mild diffuse direct tenderness throughout the abdomen. The patient continues to have scrotal edema Extremities are intact. No cyanosis clubbing and the patient has extensive edema lower extremities bilaterally Skin is without rash or lesion. Neurologic examination is brief but nonfocal. - Labs CBC & Chem 7: 01/09/21 07:26 01/09/21 07:26 Labs: Abnormal Lab Results - Last 24 Hours (Table) 01/08/21 01/09/21 01/09/21 Range/Units 20:09 04:00 07:26 RBC 3.98 L (4.30-5.90) m/uL Hgb 9.7 L (13.0-17.5) gm/dL Hct 31.8 L (39.0-53.0) % MCH 24.3 L (25.0-35.0) pg MCHC 30.4 L (31.0-37.0) g/dL RDW 21.2 H (11.5-15.5) % Neutrophils # 8.1 H (1.3-7.7) k/uL PT (9.0-12.0) sec INR (<1.2) APTT (22.0-30.0) sec Sodium (137-145) mmol/L BUN (9-20) mg/dL Creatinine (0.66-1.25) mg/dL POC Glucose (mg/dL) 116 H (75-99) mg/dL Total Bilirubin (0.2-1.3) mg/dL AST (17-59) U/L Alkaline Phosphatase (38-126) U/L Total Protein (6.3-8.2) g/dL Albumin (3.5-5.0) g/dL Urine Protein 1+ H (Negative) Urine Blood Small H (Negative) Urine Bacteria Rare H (None) /hpf 01/09/21 01/09/21 Range/Units 07:26 07:26 RBC (4.30-5.90) m/uL Hgb (13.0-17.5) gm/dL Hct (39.0-53.0) % MCH (25.0-35.0) pg MCHC (31.0-37.0) g/dL RDW (11.5-15.5) % Neutrophils # (1.3-7.7) k/uL PT 16.7 H (9.0-12.0) sec INR 1.7 H (<1.2) APTT 47.2 H (22.0-30.0) sec Sodium 136 L (137-145) mmol/L BUN 69 H (9-20) mg/dL Creatinine 3.89 H (0.66-1.25) mg/dL POC Glucose (mg/dL) (75-99) mg/dL Total Bilirubin 2.5 H (0.2-1.3) mg/dL AST 65 H (17-59) U/L Alkaline Phosphatase 321 H (38-126) U/L Total Protein 5.3 L (6.3-8.2) g/dL Albumin 2.4 L (3.5-5.0) g/dL Urine Protein (Negative) Urine Blood (Negative) Urine Bacteria (None) /hpf Assessment and Plan Plan: 1 Abdominal pain secondary to a large right-sided abdominal mass with an appearance of abscess, free perforation with extensive pneumoperitoneum present. Status post exploratory laparotomy, drainage of the right-sided abdominal abscess, biopsy of cecal tumor, diverting loop ileostomy, excision of abdominal wall nodule. Postoperative day 5 . The patient has a functional colostomy and there is some liquidy material collecting in the colostomy bag. No abdominal distention. NG tube has been removed and the patient was started on some clear liquid diet 2 Acute hypoxemic respiratory failure secondary to above requiring continued int ubation and mechanical ventilatory support. Extubated and currently on room air oxygen. The patient was extubated on 01/05/2021. Continues to have bilateral pleural effusion larger on the right, the patient is currently on room air oxygen. The patient is being diuresed and he has some stable bilateral pleural effusion worse on the right. 3 Hypotension secondary to sepsis. The patient is currently on no pressors. For now, the patient is hemodynamically stable. 4 Known history of right-sided colonic mass 2-3 months ago with pending surgery in January 2021 no other treatment thus far. 5 Acute on chronic kidney disease. The patient is adequate urine output. The patient has a stable creatinine of 3.89 and the metabolic acidosis has recovered. 6 History of hypertension. 7 History of gastroesophageal reflux disease. 8 History of anxiety. 9 atrial fibrillation with rapid ventricular response currently on a Cardizem drip for rate control at 10 mg an hour, also on IV heparin 10 increased lower extremity edema, stable 11 lactic acidosis, improved and her lactic acid level is normalized. 12 bilateral pleural effusion, larger on the right, stable Plan: IV fluids at KVO Continue Zosyn and Flagyl Continue monitoring renal function, renal function is stable Continue monitoring the ileostomy site output, NG tube has been removed Cardizem is ordered right now and the patient is receiving Cardizem at a dose of 60 mg 3 times a day and start the patient on Lopressor 50 mg by mouth twice a day and keep the IV heparin for another 24 hours NG tube has been removed Lactic acid levels are improved Hemodynamically he is stable. We'll continue to follow. The patient incentive spirometer We'll give another dose of Lasix 40 mg IV push to optimize his volume status. Chest x-ray shows bilateral pleural effusion persistent , Larger on the right Encourage physical therapy and the patient was able to there are some weight on his legs. Overall prognosis poor based on presence of an extensive tumor in his abdomen. We'll continue to follow for another 24-48 hours
[2021-01-09 11:47] LABS: Glucose,Whole Blood 103 mg/dL (75-99)
--- NOTE | 2021-01-09 11:49 | P.PN ---
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 He is postop day #5. He was increased to full liquid diet yesterday. States he is tolerating it well, however he has a decreased appetite this morning. He denies any nausea or vomiting. He's been afebrile. He has output from his ostomy, brown liquid. He has proximately 25 mL and 10 mL of serosanguineous drainage from his PELON drain. He states his pain is well managed and intolerable. States he is starting to pass a little gas. Cardiology is following closely for new onset of atrial fibrillation with RVR. Nephrology also on consult and following patient closely. Today WBC 10.1 hemoglobin 9.7 PHYSICAL EXAM: VITAL SIGNS: Reviewed. GENERAL: Well-developed in no acute distress. HEENT: No sclera icterus. Extraocular movements grossly intact. Moist buccal mucosa. Head is atraumatic, normocephalic. ABDOMEN: Soft. Nondistended. Positive bowel sounds. Surgical incision with dressing clean dry and intact. Ostomy functioning, PELON drains in place. NEUROLOGIC: Alert and oriented. Cranial nerves II through XII grossly intact. ASSESSMENT: 1. Pneumoperitoneum 2. 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 Dr. Nicole I performed a history and examination of this patient, discussed the same with the dictator. I agree with the dictator's note ,documented as a scribe. Any ad ditional findings or plans will be noted. Objective - Vital Signs Vital signs: Vital Signs Temp 97.5 F L 01/09/21 04:00 Pulse 92 01/09/21 07:55 Resp 18 01/09/21 04:00 BP 130/73 01/09/21 04:00 Pulse Ox 94 L 01/09/21 04:00 Intake & Output 01/08/21 01/09/21 01/09/21 18:59 06:59 18:59 Intake Total 758.771 208.857 Output Total 450 1335 200 Balance 308.771 -1126.143 -200 Weight 83.4 kg Intake: IV 200 Piperacillin-Tazobactam 3 200 .375 gm In Sodium Chloride 0.9% 100 ml @ 25 mls/hr IVPB Q8HR [facility] Rx# :[id number] Intake, IV Titration 308.771 208.857 Amount Diltiazem 125 mg In 125 Sodium Chloride 0.9% 100 ml @ 5 MG/HR 5 mls/hr IV .Q24H [facility] Rx#:[id number] Heparin Sod,Pork in 0.45% 183.771 208.857 NaCl 25,000 unit In 0.45 % NaCl 1 250ml.bag @ 11. 99 UNITS/KG/HR 10 mls/hr IV .Q24H [facility] Rx#: [id number] Oral 250 Output: Drainage 85 Right Lower Abdomen 85 Urine 450 350 Stool 900 200 Other: Voiding Method Urinal Urinal # Voids 2 ABP, PAP, CO, CI - Last Documented Arterial Blood Pressure 124/67 - Labs CBC & Chem 7: 01/09/21 07:26 01/09/21 07:26 Labs: Abnormal Lab Results - Last 24 Hours (Table) 01/08/21 01/08/21 01/09/21 Range/Units 03:38 20:09 04:00 RBC (4.30-5.90) m/uL Hgb (13.0-17.5) gm/dL Hct (39.0-53.0) % MCH (25.0-35.0) pg MCHC (31.0-37.0) g/dL RDW (11.5-15.5) % Neutrophils # (1.3-7.7) k/uL PT (9.0-12.0) sec INR (<1.2) APTT (22.0-30.0) sec Fibrinogen 673 H (200-500) mg/dL Sodium (137-145) mmol/L BUN (9-20) mg/dL Creatinine (0.66-1.25) mg/dL POC Glucose (mg/dL) 116 H (75-99) mg/dL Total Bilirubin (0.2-1.3) mg/dL AST (17-59) U/L Alkaline Phosphatase (38-126) U/L Total Protein (6.3-8.2) g/dL Albumin (3.5-5.0) g/dL Urine Protein 1+ H (Negative) Urine Blood Small H (Negative) Urine Bacteria Rare H (None) /hpf 01/09/21 01/09/21 01/09/21 Range/Units 07:26 07:26 07:26 RBC 3.98 L (4.30-5.90) m/uL Hgb 9.7 L (13.0-17.5) gm/dL Hct 31.8 L (39.0-53.0) % MCH 24.3 L (25.0-35.0) pg MCHC 30.4 L (31.0-37.0) g/dL RDW 21.2 H (11.5-15.5) % Neutrophils # 8.1 H (1.3-7.7) k/uL PT 16.7 H (9.0-12.0) sec INR 1.7 H (<1.2) APTT 47.2 H (22.0-30.0) sec Fibrinogen (200-500) mg/dL Sodium 136 L (137-145) mmol/L BUN 69 H (9-20) mg/dL Creatinine 3.89 H (0.66-1.25) mg/dL POC Glucose (mg/dL) (75-99) mg/dL Total Bilirubin 2.5 H (0.2-1.3) mg/dL AST 65 H (17-59) U/L Alkaline Phosphatase 321 H (38-126) U/L Total Protein 5.3 L (6.3-8.2) g/dL Albumin 2.4 L (3.5-5.0) g/dL Urine Protein (Negative) Urine Blood (Negative) Urine Bacteria (None) /hpf <Braulio Nicole - Last Filed: 01/09/21 13:24> Subjective As well. Patient doing well. Will increase diet to regular. Begin oral pain management. Anticipate transfer to rehab early next week. Objective - Vital Signs Vital signs: Vital Signs Temp 97.7 F 01/09/21 12:02 Pulse 64 01/09/21 12:02 Resp 16 01/09/21 12:02 BP 112/87 01/09/21 12:02 Pulse Ox 96 01/09/21 12:02 Intake & Output 01/08/21 01/09/21 01/09/21 18:59 06:59 18:59 Intake Total 758.771 208.857 Output Total 450 1335 275 Balance 308.771 -1126.143 -275 Weight 83.4 kg Intake: IV 200 Piperacillin-Tazobactam 3 200 .375 gm In Sodium Chloride 0.9% 100 ml @ 25 mls/hr IVPB Q8HR [facility] Rx# :[id number] Intake, IV Titration 308.771 208.857 Amount Diltiazem 125 mg In 125 Sodium Chloride 0.9% 100 ml @ 5 MG/HR 5 mls/hr IV .Q24H [facility] Rx#:[id number] Heparin Sod,Pork in 0.45% 183.771 208.857 NaCl 25,000 unit In 0.45 % NaCl 1 250ml.bag @ 11. 99 UNITS/KG/HR 10 mls/hr IV .Q24H [facility] Rx#: [id number] Oral 250 Output: Drainage 85 Right Lower Abdomen 85 Urine 450 350 Stool 900 275 Other: Voiding Method Urinal Urinal Urinal # Voids 2 ABP, PAP, CO, CI - Last Documented Arterial Blood Pressure 124/67 - Labs CBC & Chem 7: 01/09/21 07:26 01/09/21 07:26 Labs: Abnormal Lab Results - Last 24 Hours (Table) 01/08/21 01/09/21 01/09/21 Range/Units 20:09 04:00 07:26 RBC 3.98 L (4.30-5.90) m/uL Hgb 9.7 L (13.0-17.5) gm/dL Hct 31.8 L (39.0-53.0) % MCH 24.3 L (25.0-35.0) pg MCHC 30.4 L (31.0-37.0) g/dL RDW 21.2 H (11.5-15.5) % Neutrophils # 8.1 H (1.3-7.7) k/uL PT (9.0-12.0) sec INR (<1.2) APTT (22.0-30.0) sec Sodium (137-145) mmol/L BUN (9-20) mg/dL Creatinine (0.66-1.25) mg/dL POC Glucose (mg/dL) 116 H (75-99) mg/dL Total Bilirubin (0.2-1.3) mg/dL AST (17-59) U/L Alkaline Phosphatase (38-126) U/L Total Protein (6.3-8.2) g/dL Albumin (3.5-5.0) g/dL Urine Protein 1+ H (Negative) Urine Blood Small H (Negative) Urine Bacteria Rare H (None) /hpf 01/09/21 01/09/21 01/09/21 Range/Units 07:26 07:26 11:44 RBC (4.30-5.90) m/uL Hgb (13.0-17.5) gm/dL Hct (39.0-53.0) % MCH (25.0-35.0) pg MCHC (31.0-37.0) g/dL RDW (11.5-15.5) % Neutrophils # (1.3-7.7) k/uL PT 16.7 H (9.0-12.0) sec INR 1.7 H (<1.2) APTT 47.2 H (22.0-30.0) sec Sodium 136 L (137-145) mmol/L BUN 69 H (9-20) mg/dL Creatinine 3.89 H (0.66-1.25) mg/dL POC Glucose (mg/dL) 103 H (75-99) mg/dL Total Bilirubin 2.5 H (0.2-1.3) mg/dL AST 65 H (17-59) U/L Alkaline Phosphatase 321 H (38-126) U/L Total Protein 5.3 L (6.3-8.2) g/dL Albumin 2.4 L (3.5-5.0) g/dL Urine Protein (Negative) Urine Blood (Negative) Urine Bacteria (None) /hpf Assessment and Plan (1) Pneumoperitoneum Current Visit: Yes Status: Acute Code(s): K66.8 - OTHER SPECIFIED DISORDERS OF PERITONEUM SNOMED Code(s): 95260059
--- NOTE | 2021-01-09 13:36 | P.PN ---
Subjective Progress Note Date: 01/09/21 Principal diagnosis: perforated bowel, cecal tumor, post op In f/u pt is on surgical unit, he reports decreased pain in the abd, there is some solid material in the ostomy, denies any blood. His low back and backside are sore, legs cont to be swollen, not progressive. No fever, nausea or vomiting. Objective - Vital Signs Vital signs: Vital Signs Temp 97.5 F L 01/09/21 04:00 Pulse 92 01/09/21 07:55 Resp 18 01/09/21 04:00 BP 130/73 01/09/21 04:00 Pulse Ox 94 L 01/09/21 04:00 Intake & Output 01/08/21 01/09/21 01/09/21 18:59 06:59 18:59 Intake Total 758.771 208.857 Output Total 450 1335 Balance 308.771 -1126.143 Intake: IV 200 Piperacillin-Tazobactam 3 200 .375 gm In Sodium Chloride 0.9% 100 ml @ 25 mls/hr IVPB Q8HR [facility] Rx# :[id number] Intake, IV Titration 308.771 208.857 Amount Diltiazem 125 mg In 125 Sodium Chloride 0.9% 100 ml @ 5 MG/HR 5 mls/hr IV .Q24H [facility] Rx#:[id number] Heparin Sod,Pork in 0.45% 183.771 208.857 NaCl 25,000 unit In 0.45 % NaCl 1 250ml.bag @ 11. 99 UNITS/KG/HR 10 mls/hr IV .Q24H [facility] Rx#: [id number] Oral 250 Output: Drainage 85 Right Lower Abdomen 85 Urine 450 350 Stool 900 Other: Voiding Method Urinal Urinal # Voids 2 ABP, PAP, CO, CI - Last Documented Arterial Blood Pressure 124/67 - Constitutional General appearance: Present: average body habitus, cooperative, no acute distress - EENT Eyes: Present: anicteric sclerae, EOMI ENT: Present: hearing grossly normal - Respiratory Respiratory: bilateral: diminished (bases) - Cardiovascular Rhythm: regular Heart sounds: normal: S1, S2 Abnormal Heart Sounds: Absent: systolic murmur, diastolic murmur, rub, S3 Gallop, S4 Gallop, click, other - Peripheral edema leg Peripheral Edema: bilateral: 2+, Pitting - Gastrointestinal General gastrointestinal: Present: decreased bowel sounds, soft - Neurologic Neurologic: Present: CNII-XII intact - Musculoskeletal Musculoskeletal: Present: generalized weakness - Psychiatric Psychiatric: Present: A&O x's 3, appropriate affect, intact judgment & insight - Labs CBC & Chem 7: 01/09/21 07:26 01/09/21 07:26 Labs: Abnormal Lab Results - Last 24 Hours (Table) 01/08/21 01/08/21 01/08/21 Range/Units 03:38 03:38 20:09 RBC (4.30-5.90) m/uL Hgb (13.0-17.5) gm/dL Hct (39.0-53.0) % MCH (25.0-35.0) pg MCHC (31.0-37.0) g/dL RDW (11.5-15.5) % Neutrophils # (1.3-7.7) k/uL PT (9.0-12.0) sec INR (<1.2) APTT (22.0-30.0) sec Fibrinogen 673 H (200-500) mg/dL BUN 62 H (9-20) mg/dL Creatinine 3.63 H (0.66-1.25) mg/dL Glucose 122 H (74-99) mg/dL POC Glucose (mg/dL) 116 H (75-99) mg/dL Calcium 8.0 L (8.4-10.2) mg/dL Urine Protein (Negative) Urine Blood (Negative) Urine Bacteria (None) /hpf 01/09/21 01/09/21 01/09/21 Range/Units 04:00 07:26 07:26 RBC 3.98 L (4.30-5.90) m/uL Hgb 9.7 L (13.0-17.5) gm/dL Hct 31.8 L (39.0-53.0) % MCH 24.3 L (25.0-35.0) pg MCHC 30.4 L (31.0-37.0) g/dL RDW 21.2 H (11.5-15.5) % Neutrophils # 8.1 H (1.3-7.7) k/uL PT 16.7 H (9.0-12.0) sec INR 1.7 H (<1.2) APTT 47.2 H (22.0-30.0) sec Fibrinogen (200-500) mg/dL BUN (9-20) mg/dL Creatinine (0.66-1.25) mg/dL Glucose (74-99) mg/dL POC Glucose (mg/dL) (75-99) mg/dL Calcium (8.4-10.2) mg/dL Urine Protein 1+ H (Negative) Urine Blood Small H (Negative) Urine Bacteria Rare H (None) /hpf Assessment and Plan (1) Acute abdomen Current Visit: Yes Status: Acute Priority: High Code(s): R10.0 - ACUTE ABDOMEN SNOMED Code(s): 0406872 (2) Intra-abdominal abscess Current Visit: Yes Status: Acute Priority: High Code(s): K65.1 - PERITONEAL ABSCESS SNOMED Code(s): 07205585 (3) Cecal cancer Current Visit: Yes Status: Acute Priority: High Code(s): C18.0 - MALIGNANT NEOPLASM OF CECUM SNOMED Code(s): 758934679 Plan: Pending path results to finalize treatment recommendations. Previous staging PET showed no evidence of metastatic disease. Pt is not a candidate for treatment until completely healed from this surgery. Hopefully he will f/u as directed. Encouraged pt to work with PT/OT Coags (PT/INR) were elevated yesterday, slightly improved today. Fibrinogen normal. CBC stable. Cont to monitor CBC Monitor CMP
[2021-01-09] MEDS: LORazepam 2 MG/ML INJ IV PRN (13:44)
[2021-01-09 16:53] LABS: Glucose,Whole Blood 135 mg/dL (75-99)
[2021-01-09] MEDS: HYDROcodone/APAP 5-325MG 1 EACH TAB PO PRN ×2 (17:16→21:31)
[2021-01-09] MEDS: APIXABAN 2.5 MG TABLET PO SCH (19:54)
[2021-01-09 20:17] LABS: Glucose,Whole Blood 128 mg/dL (75-99)
[2021-01-10] MEDS: HYDROmorphone 0.5 MG/0.5 ML SYRINGE IVP PRN ×2 (00:24→11:59)
[2021-01-10] MEDS: metroNIDAZOLE-NS PMX 500 MG in SALINE 1 100ML.BAG IVPB SCH ×2 (00:25→09:00)
[2021-01-10] MEDS: HYDROcodone/APAP 5-325MG 1 EACH TAB PO PRN ×2 (04:20→21:04)
[2021-01-10 06:08] LABS: Glucose,Whole Blood 124 mg/dL (75-99)
[2021-01-10] MEDS: LORazepam 2 MG/ML INJ IV PRN ×3 (06:39→21:19)
[2021-01-10] MEDS: IPRATROPIUM-ALBUTEROL 3 ML NEB INHALATION SCH ×4 (07:12→21:40)
[2021-01-10 08:16] LABS: Total Bilirubin 1.7 mg/dL (0.2-1.3)
[2021-01-10 08:35] LABS: Albumin 2.2 g/dL (3.5-5.0); Calcium 8.6 mg/dL (8.4-10.2); Total Protein 5.1 g/dL (6.3-8.2)
[2021-01-10] MEDS: PANTOPRAZOLE 40 MG/10 ML VIAL IV SCH (08:59)
[2021-01-10] MEDS: DILTIAZEM ORAL 60 MG TAB PO SCH ×3 (09:25→21:04)
[2021-01-10] MEDS: APIXABAN 2.5 MG TABLET PO SCH ×2 (09:25→21:04)
[2021-01-10] MEDS: PIPERACILLIN-TAZOBACTAM 3.375 GM in SODIUM CHLORIDE 0.9% 100 ML IVPB SCH ×2 (09:26→21:05)
[2021-01-10] MEDS: METOPROLOL TARTRATE 50 MG TAB PO SCH ×2 (09:26→21:04)
--- NOTE | 2021-01-10 11:21 | P.PN ---
Subjective Patient is seen in follow-up for acute kidney injury on chronic kidney disease. Extubated January 05. NG tube removed. Off IV fluids. Nonoliguric. On regular diet. Renal function worsening. Creatinine 4.65 today. Vital signs are stable. General: The patient appeared well nourished and normally developed. HEENT: Normocephalic atraumatic. LUNGS: Breath sounds decreased. HEART: Regular rate and rhythm. ABDOMEN: Soft, no distention. EXTREMITITES: 1+ edema. Objective - Vital Signs Vital signs: Vital Signs Temp 97.6 F 01/10/21 08:16 Pulse 72 01/10/21 10:20 Resp 18 01/10/21 08:16 BP 104/70 01/10/21 08:16 Pulse Ox 93 L 01/10/21 04:00 Intake & Output 01/09/21 01/10/21 01/10/21 18:59 06:59 18:59 Intake Total 240 Output Total 875 560 Balance -635 -560 Weight 83.4 kg 91 kg Intake: Oral 240 Output: Drainage 100 160 Right Lower Abdomen 100 140 Right Upper Abdomen 20 Urine 200 200 Stool 575 200 Other: Voiding Method Urinal Urinal # Voids 1 2 ABP, PAP, CO, CI - Last Documented Arterial Blood Pressure 124/67 - Labs CBC & Chem 7: 01/09/21 07:26 01/10/21 07:16 Labs: Abnormal Lab Results - Last 24 Hours (Table) 01/09/21 01/09/21 01/09/21 Range/Units 11:44 16:52 20:16 Sodium (137-145) mmol/L Carbon Dioxide (22-30) mmol/L BUN (9-20) mg/dL Creatinine (0.66-1.25) mg/dL Glucose (74-99) mg/dL POC Glucose (mg/dL) 103 H 135 H 128 H (75-99) mg/dL Total Bilirubin (0.2-1.3) mg/dL Alkaline Phosphatase (38-126) U/L Total Protein (6.3-8.2) g/dL Albumin (3.5-5.0) g/dL 01/10/21 01/10/21 Range/Units 06:07 07:16 Sodium 136 L (137-145) mmol/L Carbon Dioxide 21 L (22-30) mmol/L BUN 69 H (9-20) mg/dL Creatinine 4.65 H (0.66-1.25) mg/dL Glucose 101 H (74-99) mg/dL POC Glucose (mg/dL) 124 H (75-99) mg/dL Total Bilirubin 1.7 H (0.2-1.3) mg/dL Alkaline Phosphatase 392 H (38-126) U/L Total Protein 5.1 L (6.3-8.2) g/dL Albumin 2.2 L (3.5-5.0) g/dL Assessment and Plan Plan: Assessment: 1. Acute kidney injury secondary to ATN secondary to sepsis. Renal function worse today - creatinine 4.65 today. Nonoliguric. 2. 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 Unknown baseline renal function. 3. 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 On antibiotics. 4. Metabolic acidosis secondary to acute kidney injury. Improved with bicarbonate drip. 5. History of hydronephrosis. Has been evaluated by urology in the past. 6. A. fib with RVR maintained on oral meds. 7. Hypokalemia from poor intake and intracellular shifting from IV bicarb. Replaced. Better. 8. Lower extremity edema. Plan: Off IV fluids. Hold off on diuretics today. Avoid nephrotoxins. Continue to monitor renal function and urine output. Quantify proteinuria and check serologies. Continue to assess daily for need for renal replacement therapy.
--- NOTE | 2021-01-10 11:29 | P.PN ---
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 He is postop day #6. Patient is tolerating regular diet. He reports eating about half of his tray. Denies any nausea or vomiting. Ostomy is functioning. His pain is controlled. Afebrile. Sodium 136 potassium 4.0 creatinine 4.65 PHYSICAL EXAM: VITAL SIGNS: Reviewed. GENERAL: Well-developed in no acute distress. HEENT: No sclera icterus. Extraocular movements grossly intact. Moist buccal mucosa. Head is atraumatic, normocephalic. ABDOMEN: Soft. Nondistended. Ostomy functioning . Incision sites clean dry and intact. PELON drains with serosanguineous output NEUROLOGIC: Alert and oriented. Cranial nerves II through XII grossly intact. ASSESSMENT: 1. Pneumoperitoneum 2. 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 Signing provider agrees with the documented findings, assessment, and plan of care. Objective - Vital Signs Vital signs: Vital Signs Temp 97.6 F 01/10/21 08:16 Pulse 72 01/10/21 10:20 Resp 18 01/10/21 08:16 BP 104/70 01/10/21 08:16 Pulse Ox 93 L 01/10/21 04:00 Intake & Output 01/09/21 01/10/21 01/10/21 18:59 06:59 18:59 Intake Total 240 Output Total 875 560 Balance -635 -560 Weight 83.4 kg 91 kg Intake: Oral 240 Output: Drainage 100 160 Right Lower Abdomen 100 140 Right Upper Abdomen 20 Urine 200 200 Stool 575 200 Other: Voiding Method Urinal Urinal # Voids 1 2 ABP, PAP, CO, CI - Last Documented Arterial Blood Pressure 124/67 - Labs CBC & Chem 7: 01/09/21 07:26 01/10/21 07:16 Labs: Abnormal Lab Results - Last 24 Hours (Table) 01/09/21 01/09/21 01/09/21 Range/Units 11:44 16:52 20:16 Sodium (137-145) mmol/L Carbon Dioxide (22-30) mmol/L BUN (9-20) mg/dL Creatinine (0.66-1.25) mg/dL Glucose (74-99) mg/dL POC Glucose (mg/dL) 103 H 135 H 128 H (75-99) mg/dL Total Bilirubin (0.2-1.3) mg/dL Alkaline Phosphatase (38-126) U/L Total Protein (6.3-8.2) g/dL Albumin (3.5-5.0) g/dL 01/10/21 01/10/21 Range/Units 06:07 07:16 Sodium 136 L (137-145) mmol/L Carbon Dioxide 21 L (22-30) mmol/L BUN 69 H (9-20) mg/dL Creatinine 4.65 H (0.66-1.25) mg/dL Glucose 101 H (74-99) mg/dL POC Glucose (mg/dL) 124 H (75-99) mg/dL Total Bilirubin 1.7 H (0.2-1.3) mg/dL Alkaline Phosphatase 392 H (38-126) U/L Total Protein 5.1 L (6.3-8.2) g/dL Albumin 2.2 L (3.5-5.0) g/dL
[2021-01-10 11:54] LABS: Glucose,Whole Blood 124 mg/dL (75-99)
--- NOTE | 2021-01-10 13:03 | P.PN ---
Subjective Progress Note Date: 01/10/21 \ n 01/10/2021, the patient is postop day #6. Doing well. He is on room air oxygen. The triple-lumen catheter will be removed. The patient is receiving diuretics on a daily basis and the patient has been in a negative fluid balance. Still has scrotal edema in lower extremity edema. Blood work on today's evaluation shows a creatinine which is up to 4.65 from 3.89. BUN is a 69. This obviously needs to monitored knowing that the patient has a chronic kidney disease. Also, his negative fluid balance of at least 1.1 L over the past 24 hours. Tolerating his diet. No nausea. No vomiting. No diarrhea. He has liquidy output in his ileostomy bag and his surgical wound site is dry clean and intact. He also has ongoing atrial fibrillation. He remains on oral Cardizem and he is on long-term anticoagulation with Eliquis 2.5 mg by mouth twice a day. Antibiotic coverage was Flagyl and Zosyn. PELON drains are in place. Afebrile. Hemodynamically stable. Hemoglobin today is at 9.7. Objective - Vital Signs Vital signs: Vital Signs Temp 98 F 01/10/21 12:52 Pulse 66 01/10/21 12:52 Resp 16 01/10/21 12:52 BP 111/65 01/10/21 12:52 Pulse Ox 92 L 01/10/21 12:52 Intake & Output 01/09/21 01/10/21 01/10/21 18:59 06:59 18:59 Intake Total 240 Output Total 875 560 500 Balance -635 -560 -500 Weight 83.4 kg 91 kg Intake: Oral 240 Output: Drainage 100 160 Right Lower Abdomen 100 140 Right Upper Abdomen 20 Urine 200 200 Stool 575 200 500 Other: Voiding Method Urinal Urinal # Voids 1 2 ABP, PAP, CO, CI - Last Documented Arterial Blood Pressure 124/67 - Exam No acute distress, awake and alert and following commands and answering questions. Alert and awake Is currently on RA HEENT examination is grossly unremarkable. Neck supple. Full range of motion. No adenopathy thyromegaly or neck vein distention. Cardiovascular examination reveals an irregular rhythm and rate. S1-S2 normal. No S3 or S4. No discernible murmur noted. Heart sounds are distant. . the patient remains in atrial fibrillation with rapid ventricular response. His current heart resolve 114. Lungs reveal mostly clear breath sounds. Scattered rhonchi are noted. No wheezes or crackles. Breath sounds are equal bilaterally. Saturations are 96%. Abdomen soft. There are no bowel sounds. The ileostomy is noted. Midline incision which is dry clean and intact. The patient has a viable ileostomy with a bag and some liquidy output is noted. The patient also has PELON drains. The patient has some mild diffuse direct tenderness throughout the abdomen. The patient continues to have scrotal edema Extremities are intact. No cyanosis clubbing and the patient has extensive edema lower extremities bilaterally Skin is without rash or lesion. Neurologic examination is brief but nonfocal. - Labs CBC & Chem 7: 01/09/21 07:26 01/10/21 07:16 Labs: Abnormal Lab Results - Last 24 Hours (Table) 01/09/21 01/09/21 01/10/21 Range/Units 16:52 20:16 06:07 Sodium (137-145) mmol/L Carbon Dioxide (22-30) mmol/L BUN (9-20) mg/dL Creatinine (0.66-1.25) mg/dL Glucose (74-99) mg/dL POC Glucose (mg/dL) 135 H 128 H 124 H (75-99) mg/dL Total Bilirubin (0.2-1.3) mg/dL Alkaline Phosphatase (38-126) U/L Total Protein (6.3-8.2) g/dL Albumin (3.5-5.0) g/dL 01/10/21 01/10/21 Range/Units 07:16 11:53 Sodium 136 L (137-145) mmol/L Carbon Dioxide 21 L (22-30) mmol/L BUN 69 H (9-20) mg/dL Creatinine 4.65 H (0.66-1.25) mg/dL Glucose 101 H (74-99) mg/dL POC Glucose (mg/dL) 124 H (75-99) mg/dL Total Bilirubin 1.7 H (0.2-1.3) mg/dL Alkaline Phosphatase 392 H (38-126) U/L Total Protein 5.1 L (6.3-8.2) g/dL Albumin 2.2 L (3.5-5.0) g/dL Assessment and Plan Plan: 1 Abdominal pain secondary to a large right-sided abdominal mass with an appearance of abscess, free perforation with extensive pneumoperitoneum present. Status post exploratory laparotomy, drainage of the right-sided abdominal abscess, biopsy of cecal tumor, diverting loop ileostomy, excision of abdominal wall nodule. Postoperative day 5 . The patient has a functional colostomy and there is some liquidy material collecting in the colostomy bag. Diet has been advanced to regular diet 2 Acute hypoxemic respiratory failure secondary to above requiring continued intubation and mechanical ventilatory support. Extubated and currently on room air oxygen. The patient was extubated on 01/05/2021. The patient is currently on room air oxygen 3 Hypotension secondary to sepsis. The patient is currently on no pressors. For now, the patient is hemodynamically stable. 4 Known history of right-sided colonic mass 2-3 months ago with pending surgery in January 2021 no other treatment thus far. 5 Acute on chronic kidney disease. The patient is adequate urine output. renal function is being monitored. Creatinine is up to 4.6. 6 History of hypertension. 7 History of gastroesophageal reflux disease. 8 History of anxiety. 9 atrial fibrillation with rapid ventricular response currently on a Cardizeand oral Eliquis. 10 increased lower extremity edema, stable 11 lactic acidosis, improved and her lactic acid level is normalized. 12 bilateral pleural effusion, larger on the right, stable Plan: IV fluids at KVO Continue Zosyn and Flagyl Continue monitoring renal function, Continue monitoring the ileostomy site output, NG tube has been removed Cardizem at a dose of 60 mg 3 times a day and start the patient on Lopressor 50 mg by mouth twice a day and oral Eliquis at a dose of 2.5 mg twice a day The patient is still having excessive edema in lower extremities and pleural effusion. He'll be started on oral Lasix 60 mg by mouth daily Encourage physical therapy and the patient was able to there are some weight on his legs. Overall prognosis poor based on presence of an extensive tumor in his abdomen. no issues from the pulmonary or critical care standpoint and we'll sign off the case.
[2021-01-10 13:16] LABS: Anisocytosis Moderate; Basophils # (A) 0.1 k/uL (0-0.2); Basophils % (A) 1 %; Eosinophils # (A) 0.1 k/uL (0-0.7); Eosinophils % (A) 1 %; HCT 29.6 % (39.0-53.0); HGB 9.4 gm/dL (13.0-17.5); Lymphocytes # (A) 1.2 k/uL (1.0-4.8); Lymphocytes % (A) 11 %; MCH 24.9 pg (25.0-35.0); MCHC 31.8 g/dL (31.0-37.0); MCV 78.4 fL (80.0-100.0); Mean Platelet Volume 9.9; Microcytosis Moderate; Monocytes # (A) 0.6 k/uL (0-1.0); Monocytes % (A) 5 %; Neutrophils # (A) 8.8 k/uL (1.3-7.7); Neutrophils % (A) 79 %; Platelet Count 397 k/uL (150-450); RBC 3.77 m/uL (4.30-5.90); RDW 21.3 % (11.5-15.5); WBC 11.2 k/uL (3.8-10.6)
--- NOTE | 2021-01-10 13:26 | PN ---
PROGRESS NOTE HISTORY: This gentleman had a laparotomy and abdominal surgery for bowel perforation and sepsis. He is recovering nicely. After adjusting his medications, his atrial fibrillation rate is much better. He is resting comfortably. He has scrotal edema that is showing some mild improvement. No chest pain or shortness of breath. He is going to be moving to a to a senior care/rehab type facility. PHYSICAL EXAM: Blood pressure is 110/70, pulse rate is about 80 irregular. JVD of 1 cm. No carotid bruit S1-S2 heard normally regular rhythm noted. Short systolic murmur noted. Lungs reveal improved air entry. Abdomen exam deferred. Lower extremities reveal diminished pulses. Central nervous system normal. PLAN: Continue current medications. Atrial fibrillation rate is better controlled. He is on 2.5 mg b.i.d. of Eliquis which I would continue. No intervention from a cardiac standpoint. We will continue to see him p.r.n. MMYANET / TCN: [id number] /
--- NOTE | 2021-01-10 13:33 | P.PN ---
Subjective Progress Note Date: 01/10/21 Principal diagnosis: perforated Bowel cbc within safe ranges, renal function continues to increase. Patient was seen this afternoon with Dr. Saldaña. Family at bedside, we discussed results of his pathology as adenocarcinoma of the colon. It appears to be locally advanced. Unfortnetely due to perforation a clean colectomy with negative margins was unable to be performed, chemotherapy is indicated and will need to begin 4 to 5 weeks, given adequate healing. We will need port placement prior to start of chemotherapy. Objective - Vital Signs Vital signs: Vital Signs Temp 98 F 01/10/21 12:52 Pulse 66 01/10/21 12:52 Resp 16 01/10/21 12:52 BP 111/65 01/10/21 12:52 Pulse Ox 92 L 01/10/21 12:52 Intake & Output 01/09/21 01/10/21 01/10/21 18:59 06:59 18:59 Intake Total 240 Output Total 875 560 500 Balance -635 -560 -500 Weight 83.4 kg 91 kg Intake: Oral 240 Output: Drainage 100 160 Right Lower Abdomen 100 140 Right Upper Abdomen 20 Urine 200 200 Stool 575 200 500 Other: Voiding Method Urinal Urinal # Voids 1 2 ABP, PAP, CO, CI - Last Documented Arterial Blood Pressure 124/67 - Constitutional General appearance: Present: cooperative, no acute distress - EENT Eyes: Present: EOMI ENT: Present: NA/AT - Respiratory Respiratory: bilateral: diminished - Cardiovascular Rhythm: regularly irregular - Gastrointestinal Gastrointestinal Comment(s): Ostomy General gastrointestinal: Present: tenderness - Integumentary Integumentary: Present: pale - Neurologic Neurologic Comment(s): non focal - Musculoskeletal Musculoskeletal: Present: generalized weakness - Psychiatric Psychiatric: Present: A&O x's 3 - Labs CBC & Chem 7: 01/10/21 07:16 01/10/21 07:16 Labs: Abnormal Lab Results - Last 24 Hours (Table) 01/09/21 01/09/21 01/10/21 Range/Units 16:52 20:16 06:07 Sodium (137-145) mmol/L Carbon Dioxide (22-30) mmol/L BUN (9-20) mg/dL Creatinine (0.66-1.25) mg/dL Glucose (74-99) mg/dL POC Glucose (mg/dL) 135 H 128 H 124 H (75-99) mg/dL Total Bilirubin (0.2-1.3) mg/dL Alkaline Phosphatase (38-126) U/L Total Protein (6.3-8.2) g/dL Albumin (3.5-5.0) g/dL 01/10/21 01/10/21 Range/Units 07:16 11:53 Sodium 136 L (137-145) mmol/L Carbon Dioxide 21 L (22-30) mmol/L BUN 69 H (9-20) mg/dL Creatinine 4.65 H (0.66-1.25) mg/dL Glucose 101 H (74-99) mg/dL POC Glucose (mg/dL) 124 H (75-99) mg/dL Total Bilirubin 1.7 H (0.2-1.3) mg/dL Alkaline Phosphatase 392 H (38-126) U/L Total Protein 5.1 L (6.3-8.2) g/dL Albumin 2.2 L (3.5-5.0) g/dL Assessment and Plan (1) Adenocarcinoma of colon Current Visit: Yes Status: Acute Code(s): C18.9 - MALIGNANT NEOPLASM OF COLON, UNSPECIFIED SNOMED Code(s): 244257241 Plan: Await healing of recent emergent surgery. Metastatic to distant areas appears to remain negative, will need to plan for chemotherapy in 4-5 weeks. Then may re- evaluate for full surgical resection options. Patient will need port placement prior to treatment Physician Attest: I have completed the full history and physical and agree with above dictation, dictated as a scribe
--- NOTE | 2021-01-10 15:03 | P.PN ---
Subjective Progress Note Date: 01/10/21 Postop day #6 status post exploratory laparotomy above apparent cecal mass removal. Pain is very well controlled. He is on a regular diet which she is tolerating well, he is having liquid output from his ileostomy bag, he has been having difficulty urinating with frequency and urgency that has worsened over the last few days. Creatinine has been increasing as well. Bladder scan revealed more than 650 mL of postvoid residual, a Estrada catheter was placed today. Otherwise he has been hemodynamically stable and afebrile and overall improving Objective - Vital Signs Vital signs: Vital Signs Temp 98 F 01/10/21 12:52 Pulse 66 01/10/21 12:52 Resp 16 01/10/21 12:52 BP 111/65 01/10/21 12:52 Pulse Ox 92 L 01/10/21 12:52 Intake & Output 01/09/21 01/10/21 01/10/21 18:59 06:59 18:59 Intake Total 240 240 Output Total 875 560 575 Balance -635 -560 -335 Weight 83.4 kg 91 kg Intake: Oral 240 240 Output: Drainage 100 160 75 Right Lower Abdomen 100 140 75 Right Upper Abdomen 20 Urine 200 200 Stool 575 200 500 Other: Voiding Method Urinal Urinal Indwelling Catheter # Voids 1 2 ABP, PAP, CO, CI - Last Documented Arterial Blood Pressure 124/67 - Exam Gen: awake, alert and oriented, sitting in chair comfortably Resp: good air exchange, no tachypnea or accessory muscle use, no wheezing CVS: Irregularly irregular, normal rate good distal perfusion x 4, GI: Midline surgical wound appears to be intact with no signs of bleeding or infection. Diffuse tenderness to palpation, no rebound tenderness or guarding, hypoactive bowel sounds, ostomy bag in place with liquid stool MSK: no pitting edema, no clubbing Neuro: non-focal, moving all extremities - Labs CBC & Chem 7: 01/10/21 07:16 01/10/21 07:16 Labs: Abnormal Lab Results - Last 24 Hours (Table) 01/09/21 01/09/21 01/10/21 Range/Units 16:52 20:16 06:07 WBC (3.8-10.6) k/uL RBC (4.30-5.90) m/uL Hgb (13.0-17.5) gm/dL Hct (39.0-53.0) % MCV (80.0-100.0) fL MCH (25.0-35.0) pg RDW (11.5-15.5) % Neutrophils # (1.3-7.7) k/uL Sodium (137-145) mmol/L Carbon Dioxide (22-30) mmol/L BUN (9-20) mg/dL Creatinine (0.66-1.25) mg/dL Glucose (74-99) mg/dL POC Glucose (mg/dL) 135 H 128 H 124 H (75-99) mg/dL Total Bilirubin (0.2-1.3) mg/dL Alkaline Phosphatase (38-126) U/L Total Protein (6.3-8.2) g/dL Albumin (3.5-5.0) g/dL 01/10/21 01/10/21 01/10/21 Range/Units 07:16 07:16 11:53 WBC 11.2 H (3.8-10.6) k/uL RBC 3.77 L (4.30-5.90) m/uL Hgb 9.4 L (13.0-17.5) gm/dL Hct 29.6 L (39.0-53.0) % MCV 78.4 L (80.0-100.0) fL MCH 24.9 L (25.0-35.0) pg RDW 21.3 H (11.5-15.5) % Neutrophils # 8.8 H (1.3-7.7) k/uL Sodium 136 L (137-145) mmol/L Carbon Dioxide 21 L (22-30) mmol/L BUN 69 H (9-20) mg/dL Creatinine 4.65 H (0.66-1.25) mg/dL Glucose 101 H (74-99) mg/dL POC Glucose (mg/dL) 124 H (75-99) mg/dL Total Bilirubin 1.7 H (0.2-1.3) mg/dL Alkaline Phosphatase 392 H (38-126) U/L Total Protein 5.1 L (6.3-8.2) g/dL Albumin 2.2 L (3.5-5.0) g/dL Assessment and Plan Plan: # Large right-sided abdominal mass with perforation and pneumoperitoneum -. Day #6 status post expiratory laparotomy and drainage of abdominal abscess, cecal tumor biopsy, and diverting loop ileostomy -Pain is well-controlled, tolerating regular diet, colostomy is functioning well with significant amount of liquid material noted today -Follow up on pathology -No cultures were obtained during surgery. Blood cultures are negative to date -Continue IV Flagyl and Zosyn for now -Further recommendations per surgery # Acute hypoxic respiratory failure requiring mechanical ventilation -Secondary to above, extubated on 01/05/2021 -Patient is currently on room air, no signs of respirator distress # Acute on chronic kidney disease stage III -Worsening Creatinine 3.2--> 3.6--> 3.9--> 4.65 today -Initially exacerbated by severe sepsis and hypotension -Patient was found to have acute urinary retention today with more than 650 mL of urine post void residual -Estrada catheter placed -Avoid nephrotoxins, continue monitor urine output and creatinine -Patient further input from nephrology # atrial fibrillation with rapid ventricular response -currently on a Cardizem, Lopressor and oral Eliquis. Time with Patient: Less than 30
[2021-01-10] MEDS: FUROSEMIDE 20 MG TAB PO SCH (15:32)
[2021-01-10] MEDS: metroNIDAZOLE 500 MG TAB PO SCH ×2 (16:07→23:01)
[2021-01-10] MEDS: FINASTERIDE 5 MG TAB PO SCH (16:07)
[2021-01-10] MEDS: TAMSULOSIN 0.4 MG CAP.ER.24H PO SCH (16:07)
[2021-01-10 16:12] LABS: Glucose,Whole Blood 122 mg/dL (75-99)
[2021-01-10 20:38] LABS: Glucose,Whole Blood 137 mg/dL (75-99)
[2021-01-10 20:54] LABS: Hepatitis A Antibody IgM Nonreactive (Nonreactive); Hepatitis B Core IgM Nonreactive (Nonreactive); Hepatitis B Surface Antigen Nonreactive (Nonreactive); Hepatitis C IgG Antibody Nonreactive (Nonreactive)
[2021-01-10 23:51] LABS: Glucose,Whole Blood 107 mg/dL (75-99)
[2021-01-11] MEDS: HYDROcodone/APAP 5-325MG 1 EACH TAB PO PRN ×4 (02:40→23:30)
[2021-01-11] MEDS: LORazepam 2 MG/ML INJ IV PRN ×5 (02:47→23:31)
[2021-01-11 06:24] LABS: Glucose,Whole Blood 110 mg/dL (75-99)
[2021-01-11] MEDS: IPRATROPIUM-ALBUTEROL 3 ML NEB INHALATION SCH ×4 (08:03→19:20)
[2021-01-11] MEDS ORDERED: PANTOPRAZOLE 40 MG TABLET PO SCH (09:00)
[2021-01-11 09:02] LABS: Anisocytosis Moderate; Basophils % (A) 0 %; Eosinophils # (A) 0.1 k/uL (0-0.7); Eosinophils % (A) 1 %; HCT 28.5 % (39.0-53.0); HGB 8.7 gm/dL (13.0-17.5); Hypochromasia Slight; Lymphocytes % (A) 9 %; MCH 24.6 pg (25.0-35.0); MCHC 30.5 g/dL (31.0-37.0); MCV 80.5 fL (80.0-100.0); Mean Platelet Volume 9.3; Microcytosis Slight; Monocytes # (A) 0.5 k/uL (0-1.0); Monocytes % (A) 4 %; Neutrophils # (A) 9.9 k/uL (1.3-7.7); Neutrophils % (A) 84 %; Platelet Count 387 k/uL (150-450); RBC 3.55 m/uL (4.30-5.90); RDW 21.2 % (11.5-15.5); WBC 11.8 k/uL (3.8-10.6)
[2021-01-11] MEDS ORDERED: FUROSEMIDE 10 MG/ML 4 ML VIAL IV STA (09:02)
--- NOTE | 2021-01-11 09:02 | P.PN ---
Subjective Patient is seen in follow-up for acute kidney injury on chronic kidney disease. Extubated January 05. NG tube removed. Off IV fluids. Nonoliguric. On regular diet. Renal function worsening. Creatinine 4.65 yesterday. Blood pressure stable. Vital signs are stable. General: The patient appeared well nourished and normally developed. HEENT: Normocephalic atraumatic. LUNGS: Breath sounds decreased. HEART: Regular rate and rhythm. ABDOMEN: Soft, no distention. EXTREMITITES: 1+ edema. Objective - Vital Signs Vital signs: Vital Signs Temp 98.0 F 01/11/21 08:32 Pulse 80 01/11/21 08:32 Resp 14 01/11/21 08:32 BP 117/63 01/11/21 08:32 Pulse Ox 93 L 01/11/21 08:32 Intake & Output 01/10/21 01/11/21 01/11/21 18:59 06:59 18:59 Intake Total 240 180 Output Total 1525 1480 Balance -1285 -1480 180 Weight 92 kg Intake: Oral 240 180 Output: Drainage 125 30 Right Lower Abdomen 75 30 Right Upper Abdomen 50 Urine 900 600 Stool 500 850 Other: Voiding Method Indwelling Catheter Indwelling Catheter ABP, PAP, CO, CI - Last Documented Arterial Blood Pressure 124/67 - Labs CBC & Chem 7: 01/10/21 07:16 01/10/21 07:16 Labs: Abnormal Lab Results - Last 24 Hours (Table) 01/10/21 01/10/21 01/10/21 Range/Units 07:16 11:53 16:10 WBC 11.2 H (3.8-10.6) k/uL RBC 3.77 L (4.30-5.90) m/uL Hgb 9.4 L (13.0-17.5) gm/dL Hct 29.6 L (39.0-53.0) % MCV 78.4 L (80.0-100.0) fL MCH 24.9 L (25.0-35.0) pg RDW 21.3 H (11.5-15.5) % Neutrophils # 8.8 H (1.3-7.7) k/uL POC Glucose (mg/dL) 124 H 122 H (75-99) mg/dL 01/10/21 01/10/21 01/11/21 Range/Units 20:36 23:47 06:22 WBC (3.8-10.6) k/uL RBC (4.30-5.90) m/uL Hgb (13.0-17.5) gm/dL Hct (39.0-53.0) % MCV (80.0-100.0) fL MCH (25.0-35.0) pg RDW (11.5-15.5) % Neutrophils # (1.3-7.7) k/uL POC Glucose (mg/dL) 137 H 107 H 110 H (75-99) mg/dL Assessment and Plan Plan: Assessment: 1. Acute kidney injury secondary to ATN secondary to sepsis. Renal function worse today - creatinine 4.65 yesterday. Nonoliguric. Rule out obstructive uropathy. 2. 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 Unknown baseline renal function. 3. 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 On antibiotics. 4. Metabolic acidosis secondary to acute kidney injury. Improved with bicarb grzegorz drip. 5. History of hydronephrosis. Has been evaluated by urology in the past. 6. A. fib with RVR maintained on oral meds. 7. Hypokalemia from poor intake and intracellular shifting from IV bicarb. Replaced. Better. 8. Lower extremity edema. Plan: Lasix 40 mg IV once today. Encouraged oral intake. Check renal ultrasound. Avoid nephrotoxins. Continue to monitor renal function and urine output. Follow-up serologies. Continue to assess daily for need for renal replacement therapy.
[2021-01-11 09:47] LABS: Calcium 8.5 mg/dL (8.4-10.2); Magnesium 2.1 mg/dL (1.6-2.3); Phosphorus 4.8 mg/dL (2.5-4.5)
[2021-01-11] MEDS: FINASTERIDE 5 MG TAB PO SCH (09:59)
[2021-01-11] MEDS: APIXABAN 2.5 MG TABLET PO SCH (09:59)
[2021-01-11] MEDS: DILTIAZEM ORAL 60 MG TAB PO SCH ×3 (09:59→21:12)
[2021-01-11] MEDS: METOPROLOL TARTRATE 50 MG TAB PO SCH ×2 (10:00→21:12)
[2021-01-11] MEDS: TAMSULOSIN 0.4 MG CAP.ER.24H PO SCH (10:00)
[2021-01-11] MEDS: PIPERACILLIN-TAZOBACTAM 3.375 GM in SODIUM CHLORIDE 0.9% 100 ML IVPB SCH ×2 (10:00→21:13)
[2021-01-11] MEDS: metroNIDAZOLE 500 MG TAB PO SCH ×3 (10:00→23:18)
--- NOTE | 2021-01-11 10:10 | US ---
EXAMINATION TYPE: US kidneys/renal and bladder DATE OF EXAM: 01/11/2021 COMPARISON: CT January 04, 2020 CLINICAL HISTORY: aron. Abnormal labs EXAM MEASUREMENTS: Right Kidney: 11.2 x 4.8 x 4.9 cm Left Kidney: 9.4 x 4.6 x 4.4 cm Limited field of views to image kidneys due to large ABD incision, cholostomy bag, and multiple gardenia inage tubes Right Kidney: Cyst mid/lat= 1.9 x 1.6 x 1.5 cm, no evidence of hydro, lower pole gassed out Left Kidney: Limited visualization due to multiple, peristalsing bowel loops- moderate to severe hydr o as visualized on CT Bladder: Pt has cath in place 1.9 cm thin-walled cyst upper pole of the right kidney is redemonstrated. No right-sided hydronephros is. Estrada catheter decompresses bladder. Persistent fairly severe left-sided hydronephrosis. IMPRESSION: Suboptimal study. Persistent severe left-sided hydronephrosis. Estrada catheter noted.
[2021-01-11] MEDS: FUROSEMIDE 20 MG TAB PO SCH (10:15)
[2021-01-11 12:02] LABS: Glucose,Whole Blood 361 mg/dL (75-99)
--- NOTE | 2021-01-11 12:14 | P.PN ---
Subjective Progress Note Date: 01/11/21 He underwent a renal ultrasound which showed evidence of severe left-sided hydronephrosis, I reviewed his CT from January 03 which showed a atrophic left kidney. Denies any flank pain, urine is clear Objective - Vital Signs Vital signs: Vital Signs Temp 98.0 F 01/11/21 08:32 Pulse 80 01/11/21 08:32 Resp 14 01/11/21 08:32 BP 117/63 01/11/21 08:32 Pulse Ox 93 L 01/11/21 08:32 Intake & Output 01/10/21 01/11/21 01/11/21 18:59 06:59 18:59 Intake Total 240 180 Output Total 1525 1480 Balance -1285 -1480 180 Weight 92 kg Intake: Oral 240 180 Output: Drainage 125 30 Right Lower Abdomen 75 30 Right Upper Abdomen 50 Urine 900 600 Stool 500 850 Other: Voiding Method Indwelling Catheter Indwelling Catheter Indwelling Catheter ABP, PAP, CO, CI - Last Documented Arterial Blood Pressure 124/67 - Constitutional General appearance: Present: no acute distress - Gastrointestinal General gastrointestinal: Absent: tenderness (flank ) - Genitourinary Genitourinary Comment(s): urine is clear - Psychiatric Psychiatric: Present: A&O x's 3 - Labs CBC & Chem 7: 01/11/21 08:11 01/11/21 08:11 Labs: Abnormal Lab Results - Last 24 Hours (Table) 01/10/21 01/10/21 01/10/21 Range/Units 07:16 16:10 20:36 WBC 11.2 H (3.8-10.6) k/uL RBC 3.77 L (4.30-5.90) m/uL Hgb 9.4 L (13.0-17.5) gm/dL Hct 29.6 L (39.0-53.0) % MCV 78.4 L (80.0-100.0) fL MCH 24.9 L (25.0-35.0) pg MCHC (31.0-37.0) g/dL RDW 21.3 H (11.5-15.5) % Neutrophils # 8.8 H (1.3-7.7) k/uL BUN (9-20) mg/dL Creatinine (0.66-1.25) mg/dL Glucose (74-99) mg/dL POC Glucose (mg/dL) 122 H 137 H (75-99) mg/dL Phosphorus (2.5-4.5) mg/dL 01/10/21 01/11/21 01/11/21 Range/Units 23:47 06:22 08:11 WBC (3.8-10.6) k/uL RBC (4.30-5.90) m/uL Hgb (13.0-17.5) gm/dL Hct (39.0-53.0) % MCV (80.0-100.0) fL MCH (25.0-35.0) pg MCHC (31.0-37.0) g/dL RDW (11.5-15.5) % Neutrophils # (1.3-7.7) k/uL BUN 67 H (9-20) mg/dL Creatinine 4.87 H (0.66-1.25) mg/dL Glucose 119 H (74-99) mg/dL POC Glucose (mg/dL) 107 H 110 H (75-99) mg/dL Phosphorus 4.8 H (2.5-4.5) mg/dL 01/11/21 01/11/21 Range/Units 08:11 11:57 WBC 11.8 H (3.8-10.6) k/uL RBC 3.55 L (4.30-5.90) m/uL Hgb 8.7 L (13.0-17.5) gm/dL Hct 28.5 L (39.0-53.0) % MCV (80.0-100.0) fL MCH 24.6 L (25.0-35.0) pg MCHC 30.5 L (31.0-37.0) g/dL RDW 21.2 H (11.5-15.5) % Neutrophils # 9.9 H (1.3-7.7) k/uL BUN (9-20) mg/dL Creatinine (0.66-1.25) mg/dL Glucose (74-99) mg/dL POC Glucose (mg/dL) 361 H (75-99) mg/dL Phosphorus (2.5-4.5) mg/dL Assessment and Plan Assessment: 65-year-old male with history of severe left hydronephrosis found on a recent renal bladder ultrasound, of note he had a CT done on January 03 that showed a atrophic left kidney. He was evaluated for the same problem by Dr. Jiménez on January 03. Given the degree of atrophy he will not benefit from stent placement as the kidney is nonfunctioning. No surgical intervention from urology standpoint, he can have a trial of void prior to discharge
--- NOTE | 2021-01-11 12:27 | P.PN ---
Progress Note - Text Progress Note Date: 01/11/21 Patient states he feels better. His ileostomy function. On exam vital signs are stable. Abdomen soft. Patient will continue receive supportive care.
[2021-01-11 15:23] LABS: Creatinine,Urine Random 74.1 mg/dL; Protein/Creatinine Ratio,Urine 0.108
--- NOTE | 2021-01-11 16:01 | P.PN ---
Subjective Progress Note Date: 01/11/21 Postop day #7 status post exploratory laparotomy with cecal mass removal. Pain is well controlled. Patient is tolerating regular diet, ostomy is functioning well. He had urinary retention yesterday and a Estrada was placed. Urine output has been adequate, but his creatinine continues to rise. Hemoglobin dropped from 9.4 down to 8.7 and has been slowly declining the last few days. No signs of active bleeding, no signs of blood in the ostomy bag. Otherwise patient has been stable, has been afebrile, vital signs have been normal Objective - Vital Signs Vital signs: Vital Signs Temp 97.8 F 01/11/21 12:22 Pulse 70 01/11/21 14:47 Resp 17 01/11/21 14:47 BP 108/69 01/11/21 12:22 Pulse Ox 98 01/11/21 12:22 Intake & Output 01/10/21 01/11/21 01/11/21 18:59 06:59 18:59 Intake Total 240 360 Output Total 1525 1480 250 Balance -1285 -1480 110 Weight 92 kg Intake: Oral 240 360 Output: Drainage 125 30 Right Lower Abdomen 75 30 Right Upper Abdomen 50 Urine 900 600 Stool 500 850 250 Other: Voiding Method Indwelling Catheter Indwelling Catheter Indwelling Catheter ABP, PAP, CO, CI - Last Documented Arterial Blood Pressure 124/67 - Exam Gen: awake, alert and oriented, sitting in chair comfortably Resp: good air exchange, no tachypnea or accessory muscle use, no wheezing CVS: Irregularly irregular, normal rate good distal perfusion x 4, GI: Midline surgical wound appears to be intact with no signs of bleeding or infection. Diffuse tenderness to palpation, no rebound tenderness or guarding, hypoactive bowel sounds, ostomy bag in place with liquid stool MSK: no pitting edema, no clubbing Neuro: non-focal, moving all extremities - Labs CBC & Chem 7: 01/11/21 08:11 01/11/21 08:11 Labs: Abnormal Lab Results - Last 24 Hours (Table) 01/10/21 01/10/21 01/10/21 Range/Units 16:10 20:36 23:47 WBC (3.8-10.6) k/uL RBC (4.30-5.90) m/uL Hgb (13.0-17.5) gm/dL Hct (39.0-53.0) % MCH (25.0-35.0) pg MCHC (31.0-37.0) g/dL RDW (11.5-15.5) % Neutrophils # (1.3-7.7) k/uL BUN (9-20) mg/dL Creatinine (0.66-1.25) mg/dL Glucose (74-99) mg/dL POC Glucose (mg/dL) 122 H 137 H 107 H (75-99) mg/dL Phosphorus (2.5-4.5) mg/dL 01/11/21 01/11/21 01/11/21 Range/Units 06:22 08:11 08:11 WBC 11.8 H (3.8-10.6) k/uL RBC 3.55 L (4.30-5.90) m/uL Hgb 8.7 L (13.0-17.5) gm/dL Hct 28.5 L (39.0-53.0) % MCH 24.6 L (25.0-35.0) pg MCHC 30.5 L (31.0-37.0) g/dL RDW 21.2 H (11.5-15.5) % Neutrophils # 9.9 H (1.3-7.7) k/uL BUN 67 H (9-20) mg/dL Creatinine 4.87 H (0.66-1.25) mg/dL Glucose 119 H (74-99) mg/dL POC Glucose (mg/dL) 110 H (75-99) mg/dL Phosphorus 4.8 H (2.5-4.5) mg/dL 01/11/21 Range/Units 11:57 WBC (3.8-10.6) k/uL RBC (4.30-5.90) m/uL Hgb (13.0-17.5) gm/dL Hct (39.0-53.0) % MCH (25.0-35.0) pg MCHC (31.0-37.0) g/dL RDW (11.5-15.5) % Neutrophils # (1.3-7.7) k/uL BUN (9-20) mg/dL Creatinine (0.66-1.25) mg/dL Glucose (74-99) mg/dL POC Glucose (mg/dL) 361 H (75-99) mg/dL Phosphorus (2.5-4.5) mg/dL Assessment and Plan Plan: # Acute on chronic kidney disease stage III -Worsening Creatinine 3.2--> 3.6--> 3.9--> 4.65-->4.87 today -Initially exacerbated by severe sepsis and hypotension -Patient was found to have acute urinary retention on 01/10/21 with more than 650 mL of urine post void residual -Estrada catheter placed -Ultrasound reveals hydronephrosis which is chronic. No intervention indicated per Urology -Avoid nephrotoxins, continue monitor urine output and creatinine -Patient further input from nephrology # Large right-sided abdominal mass with perforation and pneumoperitoneum -Day #7 status post expiratory laparotomy and drainage of abdominal abscess, cecal tumor biopsy, and diverting loop ileostomy -Pain is well-controlled, tolerating regular diet, colostomy is functioning well -No cultures were obtained during surgery. Blood cultures are negative to date -Continue IV Flagyl and Zosyn for now -Further recommendations per surgery # Acute hypoxic respiratory failure requiring mechanical ventilation -Secondary to above, extubated on 01/05/2021 -Patient is currently on room air, no signs of respiratory distress # Normocytic anemia -Hemoglobin 8.7 has been slowly decreasing over the last 3 days -No signs of active bleeding -Check iron studies -Repeat hemoglobin and transfuse if less than 7 -Patient is currently on Eliquis, continue for now. # atrial fibrillation with rapid ventricular response -currently on a Cardizem, Lopressor and oral Eliquis. Time with Patient: Greater than 30
[2021-01-11 17:57] LABS: Glucose,Whole Blood 175 mg/dL (75-99)
[2021-01-11] MEDS: HYDROmorphone 0.5 MG/0.5 ML SYRINGE IVP PRN (20:02)
[2021-01-11] MEDS: PANTOPRAZOLE 40 MG/10 ML VIAL IVP SCH (21:12)
[2021-01-12 00:24] LABS: Glucose,Whole Blood 103 mg/dL (75-99)
[2021-01-12] MEDS: HYDROcodone/APAP 5-325MG 1 EACH TAB PO PRN ×4 (05:19→21:36)
[2021-01-12] MEDS: LORazepam 2 MG/ML INJ IV PRN ×3 (05:20→21:36)
[2021-01-12 06:36] LABS: Glucose,Whole Blood 109 mg/dL (75-99)
[2021-01-12 07:30] LABS: Calcium 8.2 mg/dL (8.4-10.2); Magnesium 1.9 mg/dL (1.6-2.3); Potassium 3.9 mmol/L (3.5-5.1)
[2021-01-12] MEDS: IPRATROPIUM-ALBUTEROL 3 ML NEB INHALATION SCH ×4 (07:30→20:52)
[2021-01-12] MEDS: PIPERACILLIN-TAZOBACTAM 3.375 GM in SODIUM CHLORIDE 0.9% 100 ML IVPB SCH ×2 (08:47→21:35)
[2021-01-12] MEDS: FINASTERIDE 5 MG TAB PO SCH (08:47)
[2021-01-12] MEDS: TAMSULOSIN 0.4 MG CAP.ER.24H PO SCH (08:47)
[2021-01-12] MEDS: METOPROLOL TARTRATE 50 MG TAB PO SCH ×2 (08:47→21:35)
[2021-01-12] MEDS: DILTIAZEM ORAL 60 MG TAB PO SCH ×3 (08:47→21:35)
[2021-01-12] MEDS: PANTOPRAZOLE 40 MG/10 ML VIAL IVP SCH ×2 (08:48→21:35)
[2021-01-12] MEDS: metroNIDAZOLE 500 MG TAB PO SCH ×3 (09:12→23:23)
[2021-01-12] MEDS ORDERED: FUROSEMIDE 10 MG/ML 4 ML VIAL IV STA (09:35)
--- NOTE | 2021-01-12 09:36 | P.PN ---
Subjective Patient is seen in follow-up for acute kidney injury on chronic kidney disease. Extubated January 05. NG tube removed. Off IV fluids. Nonoliguric. On regular diet. Renal function little better today. Creatinine 4.34. Blood pressure stable. Vital signs are stable. General: The patient appeared well nourished and normally developed. HEENT: Normocephalic atraumatic. LUNGS: Breath sounds decreased. HEART: Regular rate and rhythm. ABDOMEN: Soft, no distention. EXTREMITITES: 1+ edema. Objective - Vital Signs Vital signs: Vital Signs Temp 97.5 F L 01/12/21 08:44 Pulse 78 01/12/21 08:44 Resp 20 01/12/21 08:44 BP 110/63 01/12/21 08:44 Pulse Ox 98 01/12/21 08:44 Intake & Output 01/11/21 01/12/21 01/12/21 18:59 06:59 18:59 Intake Total 1190 320 Output Total 550 4370 Balance 640 -4370 320 Weight 89 kg Intake: Intake, IV Titration 100 Amount Piperacillin-Tazobactam 3 100 .375 gm In Sodium Chloride 0.9% 100 ml @ 25 mls/hr IVPB Q12HR [facility] Rx #:[id number] Oral 1090 320 Output: Drainage 120 Right Lower Abdomen 120 Urine 3500 Stool 550 750 Other: Voiding Method Indwelling Catheter Indwelling Catheter Indwelling Catheter ABP, PAP, CO, CI - Last Documented Arterial Blood Pressure 124/67 - Labs CBC & Chem 7: 01/11/21 08:11 01/12/21 06:45 Labs: Abnormal Lab Results - Last 24 Hours (Table) 01/11/21 01/11/21 01/11/21 Range/Units 08:11 11:57 17:55 Sodium (137-145) mmol/L BUN 67 H (9-20) mg/dL Creatinine 4.87 H (0.66-1.25) mg/dL Glucose 119 H (74-99) mg/dL POC Glucose (mg/dL) 361 H 175 H (75-99) mg/dL Calcium (8.4-10.2) mg/dL Phosphorus 4.8 H (2.5-4.5) mg/dL 01/12/21 01/12/21 01/12/21 Range/Units 00:20 06:20 06:45 Sodium 135 L (137-145) mmol/L BUN 65 H (9-20) mg/dL Creatinine 4.34 H (0.66-1.25) mg/dL Glucose (74-99) mg/dL POC Glucose (mg/dL) 103 H 109 H (75-99) mg/dL Calcium 8.2 L (8.4-10.2) mg/dL Phosphorus (2.5-4.5) mg/dL Assessment and Plan Plan: Assessment: 1. Acute kidney injury secondary to ATN secondary to sepsis. Creatinine peaked at 4.87 this admission - 4.34 today. Nonoliguric. 2. 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 Unknown baseline renal function. 3. 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 On antibiotics. 4. Metabolic acidosis secondary to acute kidney injury. Improved with bicarbonate drip. 5. History of left-sided hydronephrosis with atrophic left kidney. No interventions planned per urology at this time. 6. A. fib with RVR maintained on oral meds. 7. Hypokalemia from poor intake and intracellular shifting from IV bicarb. Replaced. Better. 8. Lower extremity edema. Improved with IV Lasix. Plan: Repeat Lasix 40 mg IV once today. Encouraged oral intake. Avoid nephrotoxins. Continue to monitor renal function and urine output. Follow-up serologies - UPC 0.1. Doubt GN. Continue to assess daily for need for renal replacement therapy.
--- NOTE | 2021-01-12 12:09 | P.PN ---
Progress Note - Text Progress Note Date: 01/12/21 Patient's main stable. He has minimal abdominal pain. His ileostomy is functioning. Abdomen soft. Wound is healing. Status post diverting ileostomy. Patient will continue supportive care.
[2021-01-12 12:19] LABS: Glucose,Whole Blood 131 mg/dL (75-99)
[2021-01-12 13:48] LABS: % Iron Saturation 13.63 (15.00-50.00)
--- NOTE | 2021-01-12 14:28 | P.PN ---
Subjective Progress Note Date: 01/12/21 no significant events overnight, pain is improving, he is tolerating regular diet, ileostomy is functioning well. He has been afebrile, vital signs are stable, Hemoccult positive from ileostomy output, hemoglobin has dropped from 9.4 down to 8.7, no signs of active bleeding currently. Renal function slightly improved, creatinine is 4.3 down from 4.8 Objective - Vital Signs Vital signs: Vital Signs Temp 97.2 F L 01/12/21 11:27 Pulse 89 01/12/21 11:27 Resp 16 01/12/21 13:45 BP 124/74 01/12/21 11:27 Pulse Ox 98 01/12/21 11:27 Intake & Output 01/11/21 01/12/21 01/12/21 18:59 06:59 18:59 Intake Total 1190 560 Output Total 550 4370 1300 Balance 640 4370 -740 Weight 89 kg Intake: Intake, IV Titration 100 Amount Piperacillin-Tazobactam 3 100 .375 gm In Sodium Chloride 0.9% 100 ml @ 25 mls/hr IVPB Q12HR [facility] Rx #:[id number] Oral 1090 560 Output: Drainage 120 Right Lower Abdomen 120 Urine 3500 800 Stool 550 750 500 Other: Voiding Method Indwelling Catheter Indwelling Catheter Indwelling Catheter ABP, PAP, CO, CI - Last Documented Arterial Blood Pressure 124/67 - Exam Gen: awake, alert and oriented, sitting in chair comfortably Resp: good air exchange, no tachypnea or accessory muscle use, no wheezing CVS: Irregularly irregular, normal rate good distal perfusion x 4, GI: Midline surgical wound appears to be intact with no signs of bleeding or infection. Diffuse tenderness to palpation, no rebound tenderness or guarding, hypoactive bowel sounds, ostomy bag in place with liquid stool MSK: no pitting edema, no clubbing Neuro: non-focal, moving all extremities - Labs CBC & Chem 7: 01/11/21 08:11 01/12/21 06:45 Labs: Abnormal Lab Results - Last 24 Hours (Table) 01/11/21 01/12/21 01/12/21 Range/Units 17:55 00:20 06:20 Sodium (137-145) mmol/L BUN (9-20) mg/dL Creatinine (0.66-1.25) mg/dL POC Glucose (mg/dL) 175 H 103 H 109 H (75-99) mg/dL Calcium (8.4-10.2) mg/dL Iron (65-175) ug/dL TIBC (228-460) ug/dL % Saturation (15.00-50.00) Transferrin (204.0-354.0) mg/dL 01/12/21 01/12/21 Range/Units 06:45 12:08 Sodium 135 L (137-145) mmol/L BUN 65 H (9-20) mg/dL Creatinine 4.34 H (0.66-1.25) mg/dL POC Glucose (mg/dL) 131 H (75-99) mg/dL Calcium 8.2 L (8.4-10.2) mg/dL Iron 19 L (65-175) ug/dL TIBC 137 L (228-460) ug/dL % Saturation 13.63 L (15.00-50.00) Transferrin 98.0 L (204.0-354.0) mg/dL Assessment and Plan Plan: # Acute on chronic kidney disease stage III -slight improvement today 3.2--> 3.6--> 3.9--> 4.65-->4.87-->4.34 -Initially exacerbated by severe sepsis and hypotension -Patient was found to have acute urinary retention on 01/10/21 with more than 650 mL of urine post void residual -Estrada catheter placed 01/10/21 -Ultrasound reveals hydronephrosis which is chronic. No intervention indicated per Urology -Avoid nephrotoxins, continue monitor urine output and creatinine -Patient further input from nephrology # Large right-sided abdominal mass with perforation and pneumoperitoneum -Day #8 status post expiratory laparotomy and drainage of abdominal abscess, cecal tumor biopsy, and diverting loop ileostomy -Pain is well-controlled, tolerating regular diet, colostomy is functioning well -No cultures were obtained during surgery. Blood cultures are negative to date -Continue IV Flagyl and Zosyn for now -Further recommendations per surgery # Acute hypoxic respiratory failure requiring mechanical ventilation -Secondary to above, extubated on 01/05/2021 -Patient is currently on room air, no signs of respiratory distress # Normocytic anemia -secondary to GI bleed, Hemoccult positive from ileostomy -Hemoglobin 8.7 has been slowly decreasing over the last 3 days -with underlying iron deficiency. Started on iron supplements -Repeat hemoglobin and transfuse if less than 7 -Patient is currently on Eliquis, continue for now unless hemoglobin continues to drop # atrial fibrillation with rapid ventricular response -currently on a Cardizem, Lopressor and oral Eliquis. Time with Patient: Greater than 30
[2021-01-12] MEDS: FERROUS SULFATE 325 MG TAB PO SCH (15:14)
[2021-01-12 18:01] LABS: Glucose,Whole Blood 157 mg/dL (75-99)
[2021-01-13] MEDS: LORazepam 2 MG/ML INJ IV PRN ×4 (00:24→14:41)
[2021-01-13] MEDS: HYDROcodone/APAP 5-325MG 1 EACH TAB PO PRN ×2 (04:45→09:23)
[2021-01-13] MEDS: FERROUS SULFATE 325 MG TAB PO SCH (06:35)
[2021-01-13] MEDS: IPRATROPIUM-ALBUTEROL 3 ML NEB INHALATION SCH ×3 (07:49→15:25)
[2021-01-13 07:54] LABS: Calcium 8.1 mg/dL (8.4-10.2); Magnesium 1.8 mg/dL (1.6-2.3); Potassium 3.9 mmol/L (3.5-5.1)
[2021-01-13 08:42] LABS: Anisocytosis Moderate; Basophils # (A) 0.1 k/uL (0-0.2); Basophils % (A) 1 %; Eosinophils # (A) 0.2 k/uL (0-0.7); Eosinophils % (A) 1 %; HCT 29.1 % (39.0-53.0); HGB 8.7 gm/dL (13.0-17.5); Hypochromasia Slight; Lymphocytes # (A) 1.1 k/uL (1.0-4.8); Lymphocytes % (A) 8 %; MCH 24.6 pg (25.0-35.0); Mean Platelet Volume 9.1; Microcytosis Slight; Monocytes # (A) 0.7 k/uL (0-1.0); Monocytes % (A) 6 %; Neutrophils # (A) 10.6 k/uL (1.3-7.7); Neutrophils % (A) 82 %; Platelet Count 520 k/uL (150-450); RBC 3.55 m/uL (4.30-5.90); RDW 21.4 % (11.5-15.5); WBC 12.9 k/uL (3.8-10.6)
[2021-01-13] MEDS: METOPROLOL TARTRATE 50 MG TAB PO SCH (09:22)
[2021-01-13] MEDS: PANTOPRAZOLE 40 MG/10 ML VIAL IVP SCH (09:22)
[2021-01-13] MEDS: PIPERACILLIN-TAZOBACTAM 3.375 GM in SODIUM CHLORIDE 0.9% 100 ML IVPB SCH (09:22)
[2021-01-13] MEDS: FINASTERIDE 5 MG TAB PO SCH (09:22)
[2021-01-13] MEDS: metroNIDAZOLE 500 MG TAB PO SCH ×2 (09:22→15:11)
[2021-01-13] MEDS: TAMSULOSIN 0.4 MG CAP.ER.24H PO SCH (09:22)
[2021-01-13] MEDS: DILTIAZEM ORAL 60 MG TAB PO SCH ×2 (09:22→15:11)
[2021-01-13] MEDS ORDERED: HYDROcodone/APAP 7.5-325MG 1 EACH TAB PO PRN (10:33)
--- NOTE | 2021-01-13 10:39 | P.PN ---
Subjective Progress Note Date: 01/13/21 Pt sitting in chair resting comfortably. Tolerating PO diet, diverting ileostomy. On IV abx per surgery. Pt is medically cleared for discharge. Objective - Vital Signs Vital signs: Vital Signs Temp 98.1 F 01/13/21 08:00 Pulse 76 01/13/21 08:00 Resp 18 01/13/21 08:00 BP 117/81 01/13/21 08:00 Pulse Ox 97 01/13/21 08:00 Intake & Output 01/12/21 01/13/21 01/13/21 18:59 06:59 18:59 Intake Total 1450 240 Output Total 2525 1050 Balance -1075 -1050 240 Weight 89.3 kg Intake: Intake, IV Titration 100 Amount Piperacillin-Tazobactam 3 100 .375 gm In Sodium Chloride 0.9% 100 ml @ 25 mls/hr IVPB Q12HR [facility] Rx #:[id number] Oral 1350 240 Output: Gastric Drainage 450 Drainage 125 100 Right Lower Abdomen 100 100 Right Upper Abdomen 25 Urine 1900 500 Stool 500 Other: Voiding Method Indwelling Catheter Indwelling Catheter Indwelling Catheter ABP, PAP, CO, CI - Last Documented Arterial Blood Pressure 124/67 - Exam Gen: awake, following commands, Resp: good air exchange, tachypneic, but no accessory muscle use CVS: good distal perfusion x 4, GI: Exquisitely tender to palpation diffusely, distended, rebound tenderness present, involuntary guarding : no SPT, no CVAT, serrano catheter is present MSK: no pitting edema, no clubbing Neuro: non-focal, moving all extremities - Labs CBC & Chem 7: 01/13/21 07:11 01/13/21 07:11 Labs: Abnormal Lab Results - Last 24 Hours (Table) 01/11/21 01/12/21 01/12/21 Range/Units 08:11 06:45 12:08 WBC (3.8-10.6) k/uL RBC (4.30-5.90) m/uL Hgb (13.0-17.5) gm/dL Hct (39.0-53.0) % MCH (25.0-35.0) pg MCHC (31.0-37.0) g/dL RDW (11.5-15.5) % Plt Count (150-450) k/uL Neutrophils # (1.3-7.7) k/uL Sodium (137-145) mmol/L Carbon Dioxide (22-30) mmol/L BUN (9-20) mg/dL Creatinine (0.66-1.25) mg/dL Glucose (74-99) mg/dL POC Glucose (mg/dL) 131 H (75-99) mg/dL Calcium (8.4-10.2) mg/dL Iron 19 L (65-175) ug/dL TIBC 137 L (228-460) ug/dL % Saturation 13.63 L (15.00-50.00) Transferrin 98.0 L (204.0-354.0) mg/dL Tot Complement (CH50) 34 L (42 - 95) U/mL 01/12/21 01/13/21 01/13/21 Range/Units 17:57 07:11 07:11 WBC 12.9 H (3.8-10.6) k/uL RBC 3.55 L (4.30-5.90) m/uL Hgb 8.7 L (13.0-17.5) gm/dL Hct 29.1 L (39.0-53.0) % MCH 24.6 L (25.0-35.0) pg MCHC 30.0 L (31.0-37.0) g/dL RDW 21.4 H (11.5-15.5) % Plt Count 520 H (150-450) k/uL Neutrophils # 10.6 H (1.3-7.7) k/uL Sodium 135 L (137-145) mmol/L Carbon Dioxide 21 L (22-30) mmol/L BUN 64 H (9-20) mg/dL Creatinine 4.06 H (0.66-1.25) mg/dL Glucose 123 H (74-99) mg/dL POC Glucose (mg/dL) 157 H (75-99) mg/dL Calcium 8.1 L (8.4-10.2) mg/dL Iron (65-175) ug/dL TIBC (228-460) ug/dL % Saturation (15.00-50.00) Transferrin (204.0-354.0) mg/dL Tot Complement (CH50) (42 - 95) U/mL Assessment and Plan Assessment: Perforated Bowel Colonic Mass Atrial Flutter with RVR -s/p OR for bowel repair, cecal mass removal -OGT -hold all oral home meds; continue home metoprolol -on diltiazem for AFlutter with RVR, on heparin gtt -cardiology consulted for A Fib -dilaudid PRN/tylenol IV PRN for pain control -zosyn, metronidazole -pulm consult Left Hydronephrosis BELTRAN on CKD III -urology, nephrology consults -avoid nephrotoxins -tamsulosin HTN BPH -Continue home meds Medicine will continue to follow. Please reach out to a member of [employer] via [employer] if there are any questions/concerns. Patient is medically cleared for discharge to SNF or Home with Home Care.
--- NOTE | 2021-01-13 11:33 | P.DS ---
<Leidy Stafford - Last Filed: 01/13/21 11:28> Providers Expected date of discharge: 01/13/21 Hospital Course: Discharge diagnosis 1. Pneumoperitoneum 2. 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 He is scheduled for colonoscopy and subsequent resection in January. Patient admits that he has been avoiding further workup to a large degree because of his fear of additional testing. He has not had a recent colonoscopy. He has been seen by oncology but no diagnosis has been made and no neoadjuvant treatment has been initiated. Patient describes intermittent nausea and intermittent constipation with nausea and vomiting. Following that however he has had gradual increase in abdominal discomfort. CAT scan was performed a large right-sided abdominal mass was identified that has the appearance of an abscess at this point. There is free perforation with extensive pneumoperitoneum present as well. This appears to likely involve the right side of his colon however the course of the duodenum is not well delineated and could be partially involved in this mass. Patient was found to be hypotensive and had evidence of tachycardia. Patient is status post exploratory laparotomy, drainage of right sided abdominal abscess, biopsy of cecal tumor, diverting loop ileostomy and excision of abdominal wall nodule for necrotic cecal tumor with abscess formation and perforation. Patient seen by multiple consultants during this admission. He is tolerating diet. His pain is controlled. He is afebrile. Patient seen by physical therapy recommending ECF placement. Patient has been cleared by consultants for discharge. Patient be discharged to an ECF facility for further rehabilitation. Incision site clean dry and intact. Please refer to chart for any further details. Physician Recovery Coordinator note has been reviewed by physician. Signing provider agrees with the documented findings, assessment, and plan of care. Patient Condition at Discharge: Stable Plan - Discharge Summary Discharge Rx Participant: No New Discharge Prescriptions: New HYDROcodone/APAP 7.5-325MG [[place] 7.5-325] 1 tab PO Q4H PRN 3 Days #18 tab PRN Reason: Pain No Action amLODIPine [Norvasc] 5 mg PO BID #60 tab Finasteride [Proscar] 5 mg PO DAILY #30 tab Metoprolol Tartrate [Lopressor] 12.5 mg PO BID Tamsulosin [Flomax] 0.4 mg PO BID Discharge Medication List Finasteride [Proscar] 5 mg PO DAILY #30 tab 10/21/20 [Rx] amLODIPine [Norvasc] 5 mg PO BID #60 tab 10/21/20 [Rx] Metoprolol Tartrate [Lopressor] 12.5 mg PO BID 01/03/21 [History] Tamsulosin [Flomax] 0.4 mg PO BID 01/03/21 [History] HYDROcodone/APAP 7.5-325MG [[place] 7.5-325] 1 tab PO Q4H PRN 3 Days #18 tab 10/0 07/31 [Rx] Follow up Appointment(s)/Referral(s): Braulio Nicole MD [Medical Doctor] - 1 Week Brendan Saldaña MD [STAFF PHYSICIAN] - 01/29/21 2:30 pm (Appt is at [address] (behind [facility])) [facility], [NON-STAFF] - 1-2 Days Seymour Daley NPC [REFERRING] - 1 Week (New Patient Appointment) Patient Instructions/Handouts: Ileostomy Care (GEN) Activity/Diet/Wound Care/Special Instructions: Medicine service to complete discharge med rec Ileostomy care Instructions/Recommendations for transition to Rehab facility: Last pouching system change: 01.10.2021 Ileostomy products for home supplied by the hospital s follows: Convatec flanges moldable #[id number] (3) Convatec pouches with filter #[id number] (3) Ostomy powder (1) No Sting prep pads (10) Mr Hathaway is to change the entire pouching system every 3- 5 days Mr Hathaway is to empty the pouch while sitting on the toilet when the pouch is 1/2 to 1/3 full Rehab please will arrange for additional ileostomy supplies as Mr Hathaway Progresses No driving while taking [place] No lifting over 10 pounds You may shower. No soaking or tub baths for 2 weeks Very light activity until you are reevaluated at your follow up appointment with your surgeon Keep a log of PELON drain output and bring with you to your follow-up appointment Milk/strip drains 2-3 times a day Discharge Disposition: TRANSFER TO SNF/ECF <Braulio Nicole - Last Filed: 01/13/21 11:39> Providers Date of admission: 01/03/21 16:22 Attending physician: Braulio Nicole Consults: 01/03/21 16:27 Consult Physician Urgent Consulting Provider: Jono Peralta Consult Reason/Comments: medical management Do you want consulting provider notified?: Yes 01/03/21 16:32 Consult Physician Urgent Consulting Provider: Adams Jiménez Consult Reason/Comments: left hydronephrosis Do you want consulting provider notified?: Yes 01/03/21 16:54 Consult Physician Routine Consulting Provider: Elo Bobby Consult Reason/Comments: CKD III Do you want consulting provider notified?: Yes 01/03/21 20:52 Consult Physician Urgent Consulting Provider: Chucho Felipe Consult Reason/Comments: Atrial flutter with a rapid rate Do you want consulting provider notified?: Yes 01/04/21 01:01 Consult Physician Routine Consulting Provider: Seymour Loza Consult Reason/Comments: ICU care Do you want consulting provider notified?: Already Contacted 01/06/21 08:21 Consult Physician Routine Consulting Provider: Brendan Saldaña Consult Reason/Comments: cecal tumor Do you want consulting provider notified?: Yes 01/11/21 11:10 Consult Physician Routine Consulting Provider: Will Botello Consult Reason/Comments: severe left sided hydronephrosis Do you want consulting provider notified?: Yes Primary care physician: Stated None - Discharge Diagnosis(es) (1) Pneumoperitoneum Current Visit: Yes Status: Acute Hospital Course: As above. Patient improving after laparotomy with drainage of neoplastic right- sided abdominal abscess and ileostomy. Patient will be transferred to rehab at this time. Keep both drains in place for now. Follow-up in office 1 week.
[2021-01-13] MEDS ORDERED: FUROSEMIDE 40 MG TAB PO SCH (13:00)
[2021-01-13 13:20] VITALS: BMI 29.0
[2021-01-13 13:54] VITALS: BP 110/76; PULSE 86; RESP 17; TEMP 97.7
[2021-01-13 14:08] LABS: C-ANCA <1:20 Titer (<1:20)
--- NOTE | 2021-01-14 11:32 | PN ---
PROGRESS NOTE Patient is seen for followup for acute kidney injury, mostly ATN. Patient's renal function has been fairly stable, with serum creatinine staying at about 4 mg/dL, actually decreasing down from peak of 4.8 to 4.0 today. The patient has had good urine output. He currently has an indwelling Estrada catheter. Gpyyqi-nfga-grry urine output documented at 3.5 L. On examination today, blood pressure 117/81, heart rate 76 per minute. He is afebrile. EXAMINATION OF THE HEART: S1 and S2. EXAMINATION OF LUNGS: Bilateral breath sounds are heard. Abdomen is soft, non-tender. Examination of lower extremities shows edema 1+ bilaterally. 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 Labs show sodium 135, potassium 3.9, chloride 105. CO2 is 21, BUN 64, creatinine 4.0, hemoglobin 8.7 g/dL. ASSESSMENT: 1. Acute kidney injury, acute tubular necrosis, currently improving slowly, nonoliguric. Patient has indwelling Estrada catheter. Will maintain him on oral dose of Lasix on a daily basis due to volume overload. 2. Mild volume overload. Add p.o. Lasix with close monitoring of renal function. 3. Chronic kidney disease secondary to obstructive uropathy, unknown baseline, possibly stage III. Previous creatinine 2.1 in October of 2020. 4. 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 5. Metabolic acidosis secondary to acute kidney injury, improved with bicarb drip. 6. History of left hydronephrosis with atrophic left kidney. No plans for intervention. 7. Atrial fibrillation with rapid ventricular response, now with controlled ventricular response. PLAN: Maintain oral Lasix. Close monitoring of labs as outpatient. Will follow up in the office in one week's time. MMODL / IJN: [id number] /
== END 2021-01-13 15:23 | DRG 853 ==
LOC: EC 11:29 → 3SCARD 16:22 → 2SICU 01-04 01:12 → 3SCARD 01-08 18:51
PROVIDERS: ADMIT Surgery; ATTEND Surgery
PROC: 0W9F0ZZ Drainage of Abdominal Wall, Open Approach (ICD-10-PCS; 2021-01-03)
PROC: 0WBF0ZX Excision of Abdominal Wall, Open Approach, Diagnostic (ICD-10-PCS; 2021-01-03)
PROC: 3E0436Z Introduction of Nutritional Substance into Central Vein, Percutaneous Approach (ICD-10-PCS; 2021-01-03)
PROC: 0DH67UZ Insertion of Feeding Device into Stomach, Via Natural or Artificial Opening (ICD-10-PCS; 2021-01-03)
PROC: 0D1B0Z4 Bypass Ileum to Cutaneous, Open Approach (ICD-10-PCS; principal; 2021-01-03 17:15)
PROC: 0DBH0ZX Excision of Cecum, Open Approach, Diagnostic (ICD-10-PCS; 2021-01-03 17:15)
PROC: 3E033XZ Introduction of Vasopressor into Peripheral Vein, Percutaneous Approach (ICD-10-PCS; 2021-01-04)
DX: A41.9 Sepsis, unspecified organism (principal); K63.1 Perforation of intestine (nontraumatic); J96.01 Acute respiratory failure with hypoxia; K65.1 Peritoneal abscess; N17.0 Acute kidney failure with tubular necrosis; R65.21 Severe sepsis with septic shock; R64 Cachexia; E87.2 Acidosis; Z99.11 Dependence on respirator [ventilator] status; C18.0 Malignant neoplasm of cecum; I48.19 Other persistent atrial fibrillation; N13.8 Other obstructive and reflux uropathy; N13.30 Unspecified hydronephrosis; J90 Pleural effusion, not elsewhere classified; K63.0 Abscess of intestine; I48.92 Unspecified atrial flutter; C79.89 Secondary malignant neoplasm of other specified sites; L02.211 Cutaneous abscess of abdominal wall; Z20.822 Contact with and (suspected) exposure to COVID-19; Z85.038 Personal history of other malignant neoplasm of large intestine; N18.30 Chronic kidney disease, stage 3 unspecified; Z79.899 Other long term (current) drug therapy; I12.9 Hypertensive chronic kidney disease with stage 1 through stage 4 chronic kidney disease, or unspecified chronic kidney disease; K21.9 Gastro-esophageal reflux disease without esophagitis; F41.9 Anxiety disorder, unspecified; R19.00 Intra-abdominal and pelvic swelling, mass and lump, unspecified site; K59.00 Constipation, unspecified; K66.8 Other specified disorders of peritoneum; I95.9 Hypotension, unspecified; R00.0 Tachycardia, unspecified; R39.12 Poor urinary stream; N32.89 Other specified disorders of bladder; N40.0 Benign prostatic hyperplasia without lower urinary tract symptoms; R39.14 Feeling of incomplete bladder emptying; D63.8 Anemia in other chronic diseases classified elsewhere; E87.6 Hypokalemia; I51.7 Cardiomegaly; Z93.3 Colostomy status; R60.0 Localized edema; N50.89 Other specified disorders of the male genital organs; E87.70 Fluid overload, unspecified; Z53.29 Procedure and treatment not carried out because of patient's decision for other reasons; Z79.01 Long term (current) use of anticoagulants; Z88.5 Allergy status to narcotic agent
CPT/HCPCS: 36415; 71045; 74176; 76770; 80048; 80053; 80074; 81001; 82272; 82533; 82570; 82805; 83540; 83550; 83605; 83690; 83735; 84100; 84156; 84165; 85025; 85027; 85384; 85610; 85730; 86038; 86160; 86162; 86225; 86255; 86334; 86335; 86850; 86900; 86901; 87070; 87086; 87205; 87635; 88305; 88341; 88342; 94002; 94003; 94640; 94760; 96361; 96374; 96375; 99285

== ENCOUNTER 2021-01-16 17:58 | Emergency (ER) | payer MEDICARE, OTHER ==
[2021-01-16 18:07] VITALS: TEMP 98.2
[2021-01-16] MEDS ORDERED: SODIUM CHLORIDE 0.9% 500 ML 500 ML IV STA (19:48)
[2021-01-16 20:08] LABS: Anisocytosis Moderate; Basophils # (A) 0.2 k/uL (0-0.2); Basophils % (A) 1 %; Eosinophils # (A) 0.1 k/uL (0-0.7); Eosinophils % (A) 1 %; HCT 28.3 % (39.0-53.0); HGB 8.8 gm/dL (13.0-17.5); Lymphocytes # (A) 1.3 k/uL (1.0-4.8); Lymphocytes % (A) 11 %; MCH 25.3 pg (25.0-35.0); MCHC 31.1 g/dL (31.0-37.0); MCV 81.5 fL (80.0-100.0); Mean Platelet Volume 8.3; Microcytosis Slight; Monocytes # (A) 0.9 k/uL (0-1.0); Monocytes % (A) 7 %; Neutrophils % (A) 77 %; Platelet Count 906 k/uL (150-450); RBC 3.47 m/uL (4.30-5.90); RDW 21.6 % (11.5-15.5); WBC 11.8 k/uL (3.8-10.6)
[2021-01-16] MEDS ORDERED: LORazepam 2 MG/ML INJ IV STA (20:10)
--- NOTE | 2021-01-16 20:18 | ED ---
General Adult HPI - General Chief complaint: Abdominal Pain Stated complaint: Infection in abdomen Time Seen by Provider: 01/16/21 19:21 Source: patient Mode of arrival: wheelchair Limitations: no limitations - History of Present Illness Initial comments: 65 year-old male patient diagnosed with colon tumor 2-3 months ago, had recent admission for pneumoperitoneum and underwent ex-lap with drainage of abdominal abscess and placement of diverting loop ileostomy, is presenting to the emergency department today for purulent drainage and redness surrounding the PELON drain insertion sites. His home care nurse instructed to come in when she evaluated his incisions this evening. Patient states the drainage inside the PELON drains has stopped. He denies any significant pain to the sites. Denies fever or chills. States he was feeling better today and able to walk around more. Dr. Nicole is his surgeon. States he is eating and drinking okay. Patient denies any recent rash, cough, shortness of breath, chest pain, back pain, numbness, tingling, dizziness, weakness, hematuria, dysuria, urinary urgency, urinary frequency, headache, visual changes, or any other complaints. - Related Data Previous Rx's Medication Instructions Recorded Ciprofloxacin HCl 500 mg PO BID 4 Days #8 tab 01/13/21 Ferrous Sulfate [Iron (65 MG 325 mg PO BID-W/MEALS #60 tab 01/13/21 Elemental)] HYDROcodone/APAP 7.5-325MG [[place] 1 tab PO Q4H PRN 3 Days #18 tab 01/13/21 7.5-325] Metoprolol Tartrate [Lopressor] 50 mg PO BID #60 tab 01/13/21 dilTIAZem HCL [dilTIAZem HCL 24Hr 180 mg PO DAILY #30 cap 01/13/21 ER (Xr)] metroNIDAZOLE [Flagyl] 500 mg PO TID 4 Days #12 tab 01/13/21 Cephalexin [Keflex] 500 mg PO Q6HR #40 cap 01/16/21 Allergies Allergy/AdvReac Type Severity Reaction Status Date / Time meperidine [From Demerol] Allergy head felt Verified 01/16/21 20:22 big hydromorphone [From Dilaudid] AdvReac Mild Nausea Verified 01/16/21 20:22 Review of Systems ROS Statement: Those systems with pertinent positive or pertinent negative responses have been documented in the HPI. ROS Other: All systems not noted in ROS Statement are negative. Past Medical History Past Medical History: Cancer, GERD/Reflux, Hypertension Additional Past Medical History / Comment(s): colon cancer,colostomy History of Any Multi-Drug Resistant Organisms: None Reported Past Surgical History: Hernia Repair Additional Past Surgical History / Comment(s): jaw surgery Past Anesthesia/Blood Transfusion Reactions: No Reported Reaction Past Psychological History: Anxiety Smoking Status: Never smoker Past Alcohol Use History: None Reported Past Drug Use History: Marijuana - Past Family History Father Family Medical History: Unable to Obtain General Exam Limitations: no limitations General appearance: alert, in no apparent distress, other (Physical well- developed, well-nourished adult male patient in no acute distress. Vital signs upon presentation temperature 98.2F, pulse 60, respirations 18, blood pressure 103/71, pulse ox 97% on room air.) ENT exam: Present: normal exam, normal oropharynx, mucous membranes moist Respiratory exam: Present: normal lung sounds bilaterally. Absent: respiratory distress, wheezes, rales, rhonchi, stridor Cardiovascular Exam: Present: regular rate, normal rhythm, normal heart sounds. Absent: systolic murmur, diastolic murmur, rubs, gallop, clicks GI/Abdominal exam: Present: soft, normal bowel sounds, other (8 lateral abdomen punctures with PELON drain show mild surrounding erythema with purulent drainage around the drain insertion site. There is midline incision with mild erythema noted to the distal incision. No drainage. Abdomen is otherwise soft and nontender.). Absent: distended, tenderness, guarding, rebound, rigid Neurological exam: Present: alert, oriented X3, CN II-XII intact Psychiatric exam: Present: normal affect, normal mood Skin exam: Present: warm, dry, intact, normal color. Absent: rash Course Vital Signs 01/16/21 01/16/21 01/16/21 18:03 20:56 22:00 Temperature 98.2 F Pulse Rate 60 62 84 Respiratory 18 16 16 Rate Blood Pressure 103/71 103/75 119/77 O2 Sat by Pulse 97 95 95 Oximetry 01/16/21 23:15 Temperature Pulse Rate 87 Respiratory 16 Rate Blood Pressure 117/83 O2 Sat by Pulse 97 Oximetry Medical Decision Making - Medical Decision Making 65 year-old male patient presents to the emergency department for evaluation of redness and purulent drainage from around his right abdomen drain sites. Physical examination did reveal mild erythema with purulent drainage around the PELON drain insertion site. Patient had mild redness to the distal portion of the abdominal incision. Labs reviewed and showed evidence of mild leukocytosis at 11.8, not significantly changed from discharge. Patient reports feeling well. No abdominal pain. He is afebrile with normal vital signs. Patient and had reported that his PELON drains were not having any output for the last couple of days. I did discuss the case with Dr. Nicole we had planned to remove the drains and start him on oral antibiotics. Discharge to home. Upon further discussion and evaluation of the drains it appears as though the drains were not being properly operated or cared for. I educated about milking the drain tubing and squeezing the bulb to promote suction. There was increased output in the drains prior to discharge. Informed Dr. Nicole that drains would be left in place. He is still okay with discharge and follow up. Patient and are agreeable with this plan. Case discussed with my attending Dr. Verdin. - Lab Data Result diagrams: 01/16/21 20:01 01/16/21 20:01 Lab Results 01/16/21 01/16/21 01/16/21 Range/Units 20:01 20:01 20:01 WBC 11.8 H (3.8-10.6) k/uL RBC 3.47 L (4.30-5.90) m/uL Hgb 8.8 L (13.0-17.5) gm/dL Hct 28.3 L (39.0-53.0) % MCV 81.5 (80.0-100.0) fL MCH 25.3 (25.0-35.0) pg MCHC 31.1 (31.0-37.0) g/dL RDW 21.6 H (11.5-15.5) % Plt Count 906 H (150-450) k/uL MPV 8.3 Neutrophils % 77 % Lymphocytes % 11 % Monocytes % 7 % Eosinophils % 1 % Basophils % 1 % Neutrophils # 9.0 H (1.3-7.7) k/uL Lymphocytes # 1.3 (1.0-4.8) k/uL Monocytes # 0.9 (0-1.0) k/uL Eosinophils # 0.1 (0-0.7) k/uL Basophils # 0.2 (0-0.2) k/uL Anisocytosis Moderate Microcytosis Slight Sodium 135 L (137-145) mmol/L Potassium 4.9 (3.5-5.1) mmol/L Chloride 107 (98-107) mmol/L Carbon Dioxide 19 L (22-30) mmol/L Anion Gap 9 mmol/L BUN 65 H (9-20) mg/dL Creatinine 3.71 H (0.66-1.25) mg/dL Est GFR (CKD-EPI)AfAm 19 (>60 ml/min/1.73 sqM) Est GFR (CKD-EPI)NonAf 16 (>60 ml/min/1.73 sqM) Glucose 110 H (74-99) mg/dL Plasma Lactic Acid Lucian (0.7-2.0) mmol/L Calcium 9.5 (8.4-10.2) mg/dL Total Bilirubin 0.9 (0.2-1.3) mg/dL AST 25 (17-59) U/L ALT 10 (4-49) U/L Alkaline Phosphatase 280 H (38-126) U/L Total Protein 6.4 (6.3-8.2) g/dL Albumin 2.8 L (3.5-5.0) g/dL Lipase 211 (23-300) U/L Urine Color Yellow Urine Appearance Clear (Clear) Urine pH 5.5 (5.0-8.0) Ur Specific [place] 1.017 (1.001-1.035) Urine Protein 1+ H (Negative) Urine Glucose (UA) Negative (Negative) Urine Ketones Negative (Negative) Urine Blood Trace H (Negative) Urine Nitrite Negative (Negative) Urine Bilirubin Negative (Negative) Urine Urobilinogen <2.0 (<2.0) mg/dL Ur Leukocyte Esterase Negative (Negative) Urine RBC 3 (0-5) /hpf Urine WBC 5 (0-5) /hpf Ur Squamous Epith Cells <1 (0-4) /hpf Urine Bacteria Rare H (None) /hpf Hyaline Casts 1 (0-2) /lpf Urine Mucus Rare H (None) /hpf 01/16/21 Range/Units 20:01 WBC (3.8-10.6) k/uL RBC (4.30-5.90) m/uL Hgb (13.0-17.5) gm/dL Hct (39.0-53.0) % MCV (80.0-100.0) fL MCH (25.0-35.0) pg MCHC (31.0-37.0) g/dL RDW (11.5-15.5) % Plt Count (150-450) k/uL MPV Neutrophils % % Lymphocytes % % Monocytes % % Eosinophils % % Basophils % % Neutrophils # (1.3-7.7) k/uL Lymphocytes # (1.0-4.8) k/uL Monocytes # (0-1.0) k/uL Eosinophils # (0-0.7) k/uL Basophils # (0-0.2) k/uL Anisocytosis Microcytosis Sodium (137-145) mmol/L Potassium (3.5-5.1) mmol/L Chloride (98-107) mmol/L Carbon Dioxide (22-30) mmol/L Anion Gap mmol/L BUN (9-20) mg/dL Creatinine (0.66-1.25) mg/dL Est GFR (CKD-EPI)AfAm (>60 ml/min/1.73 sqM) Est GFR (CKD-EPI)NonAf (>60 ml/min/1.73 sqM) Glucose (74-99) mg/dL Plasma Lactic Acid Lucian 1.2 (0.7-2.0) mmol/L Calcium (8.4-10.2) mg/dL Total Bilirubin (0.2-1.3) mg/dL AST (17-59) U/L ALT (4-49) U/L Alkaline Phosphatase (38-126) U/L Total Protein (6.3-8.2) g/dL Albumin (3.5-5.0) g/dL Lipase (23-300) U/L Urine Color Urine Appearance (Clear) Urine pH (5.0-8.0) Ur Specific [place] (1.001-1.035) Urine Protein (Negative) Urine Glucose (UA) (Negative) Urine Ketones (Negative) Urine Blood (Negative) Urine Nitrite (Negative) Urine Bilirubin (Negative) Urine Urobilinogen (<2.0) mg/dL Ur Leukocyte Esterase (Negative) Urine RBC (0-5) /hpf Urine WBC (0-5) /hpf Ur Squamous Epith Cells (0-4) /hpf Urine Bacteria (None) /hpf Hyaline Casts (0-2) /lpf Urine Mucus (None) /hpf Disposition Clinical Impression: Cellulitis of right abdominal wall Disposition: HOME SELF-CARE Condition: Good Instructions (If sedation given, give patient instructions): Cellulitis (ED) Additional Instructions: Keep wounds clean and dry. Complete antibiotic prescription and full. Follow- up with Dr. Nicole as soon as possible. Return to the emergency department for any new, worsening, or concerning symptoms. Prescriptions: Cephalexin [Keflex] 500 mg PO Q6HR #40 cap Is patient prescribed a controlled substance at d/c from ED?: No Referrals: None,Stated [Primary Care Provider] - 1-2 days
[2021-01-16 20:20] LABS: Albumin 2.8 g/dL (3.5-5.0); Calcium 9.5 mg/dL (8.4-10.2); Potassium 4.9 mmol/L (3.5-5.1); Total Bilirubin 0.9 mg/dL (0.2-1.3); Total Protein 6.4 g/dL (6.3-8.2)
[2021-01-16 20:57] VITALS: RESP 16
[2021-01-16 21:19] LABS: Appearance,Urine Clear (Clear); Bacteria,Urine Rare /hpf; Bilirubin,Urine Negative (Negative); Blood,Urine Trace (Negative); Color,Urine Yellow; Glucose,Urine (UA) Negative (Negative); Hyaline Casts,Urine 1 /lpf (0-2); Ketones,Urine Negative (Negative); Leukocyte Esterase,Urine Negative (Negative); Mucus,Urine Rare /hpf; Nitrite,Urine Negative (Negative); PH, Urine 5.5 (5.0-8.0); Protein,Urine 1+ (Negative); RBC,Urine 3 /hpf (0-5); Specific Gravity,Urine 1.017 (1.001-1.035); Squamous Epithelial Cell,Urine <1 /hpf (0-4); Urobilinogen,Urine <2.0 mg/dL (<2.0); WBC,Urine 5 /hpf (0-5)
[2021-01-16] MEDS ORDERED: cefTRIAXone IN SWFI 1,000 MG/10 ML SYRINGE IVP STA (21:53)
[2021-01-16 23:27] VITALS: BP 117/83; PULSE 87
== END 2021-01-16 23:28 | disposition home or self-care (01) ==
LOC: EC 17:58
DX: L03.311 Cellulitis of abdominal wall (principal); I10 Essential (primary) hypertension; Z88.5 Allergy status to narcotic agent; Z98.890 Other specified postprocedural states
CPT/HCPCS: 36415; 80053; 83605; 83690; 85025; 81001; 87040; 99284; 96374; 96375; J2060; J0696

== ENCOUNTER 2021-01-28 23:31 | Emergency (ER) | payer MEDICARE, OTHER ==
--- NOTE | 2021-01-28 23:41 | ED ---
Recheck HPI - General Stated Complaint: AFib Time Seen by Provider: 01/28/21 23:37 Source: RN notes reviewed, old records reviewed Mode of arrival: EMS Limitations: no limitations - History of Present Illness Initial Comments: This is a 65-year-old male to emergency. Patient Dese for evaluation regards to evaluation regarding new-onset For atrial fibrillation. Patient is ER in A. fib but currently with rate control. He states he feels much improved especially with hydration at the other facility patient is able to eat and drink here in the ears. Patient states he would prefer discharged over admission MD Complaint: abnormal lab -: days(s) Returns Today for: persistent/worsening pain related to initial visit Symptoms Since Prior Visit: no new symptoms, worsening pain Context: planned re-check Associated Symptoms: none Treatments Prior to Arrival: other medications - Related Data Home Medications Medication Instructions Recorded Confirmed ALPRAZolam [Xanax] 0.25 mg PO Q8H PRN 02/07/21 02/07/21 Cephalexin [Keflex] 500 mg PO Q8H 02/07/21 02/07/21 HYDROcodone/APAP 7.5-325MG [[place] 1 tab PO Q8H PRN 02/07/21 02/07/21 7.5-325] Ondansetron [Zofran] 4 mg PO Q6H PRN 02/07/21 02/07/21 Oxybutynin Chloride [Ditropan] 5 mg PO TID 02/07/21 02/07/21 Tamsulosin HCl [Flomax] 0.4 mg PO BID 02/07/21 02/07/21 Previous Rx's Medication Instructions Recorded Ferrous Sulfate [Iron (65 MG 325 mg PO BID-W/MEALS #60 tab 01/13/21 Elemental)] dilTIAZem HCL [dilTIAZem HCL 24Hr 180 mg PO DAILY #30 cap 01/13/21 ER (Xr)] Allergies Allergy/AdvReac Type Severity Reaction Status Date / Time meperidine [From Demerol] Allergy head felt Verified 02/07/21 20:14 big hydromorphone [From Dilaudid] AdvReac Mild Nausea Verified 02/07/21 20:14 Review of Systems ROS Statement: Those systems with pertinent positive or pertinent negative responses have been documented in the HPI. ROS Other: All systems not noted in ROS Statement are negative. Past Medical History Past Medical History: Cancer, GERD/Reflux, Hypertension Additional Past Medical History / Comment(s): colon cancer,colostomy History of Any Multi-Drug Resistant Organisms: None Reported Past Surgical History: Hernia Repair Additional Past Surgical History / Comment(s): jaw surgery Past Anesthesia/Blood Transfusion Reactions: No Reported Reaction Past Psychological History: Anxiety Smoking Status: Never smoker Past Alcohol Use History: None Reported Past Drug Use History: Marijuana - Past Family History Father Family Medical History: Unable to Obtain General Exam General appearance: alert, in no apparent distress Head exam: Present: atraumatic, normocephalic, normal inspection Eye exam: Present: normal appearance, PERRL, EOMI. Absent: scleral icterus, conjunctival injection, periorbital swelling ENT exam: Present: normal exam, mucous membranes moist Neck exam: Present: normal inspection. Absent: tenderness, meningismus, lymphadenopathy Respiratory exam: Present: normal lung sounds bilaterally. Absent: respiratory distress, wheezes, rales, rhonchi, stridor Cardiovascular Exam: Present: irregular rhythm, normal heart sounds. Absent: systolic murmur, diastolic murmur, rubs, gallop, clicks GI/Abdominal exam: Present: soft, normal bowel sounds. Absent: distended, tenderness, guarding, rebound, rigid Extremities exam: Present: normal inspection, full ROM, normal capillary refill. Absent: tenderness, pedal edema, joint swelling, calf tenderness Back exam: Present: normal inspection Neurological exam: Present: alert, oriented X3, CN II-XII intact Psychiatric exam: Present: normal affect, normal mood Skin exam: Present: warm, dry, intact, normal color. Absent: rash Course Vital Signs 01/28/21 01/28/21 01/29/21 23:49 23:53 01:55 Temperature 98.4 F Pulse Rate 98 112 H Pulse Rate [ 110 H Bi Report Developer ] Respiratory 20 22 Rate Blood Pressure 94/67 120/78 O2 Sat by Pulse 98 97 Oximetry 01/29/21 03:18 Temperature 98.3 F Pulse Rate 101 H Pulse Rate [ Bi Report Developer ] Respiratory 16 Rate Blood Pressure 122/89 O2 Sat by Pulse 98 Oximetry - Reevaluation(s) Reevaluation #1: Medical record is reviewed Transfer paperwork is also reviewed Patient symptoms are significantly improved Patient family informed results questions answered Patient is okay for discharge Medical Decision Making - Medical Decision Making 65 male who is accepted in transfer for evaluation today for new onset atrial fibrillation. At this point patient states he feels improved does not want hospital admission and is scheduled to see his doctor tomorrow. Patient is no acute distress and can be discharged home - EKG Data -: EKG Interpreted by Me (EKG shows A. fib with RVR 103 QRS 92 QTC 455) Disposition Clinical Impression: Acute renal failure, Atrial fibrillation, Weakness Disposition: HOME SELF-CARE Condition: Good Instructions (If sedation given, give patient instructions): Weakness (ED) Is patient prescribed a controlled substance at d/c from ED?: No Referrals: None,Stated [Primary Care Provider] - 1-2 days
[2021-01-29] MEDS ORDERED: ONDANSETRON 4 MG/2 ML VIAL IVP PRN (01:27)
[2021-01-29] MEDS ORDERED: MORPHINE SULFATE 4 MG/ML SYRINGE IV STA (01:27)
[2021-01-29] MEDS ORDERED: METOPROLOL TARTRATE 5 MG/5 ML VIAL IVP STA (01:27)
[2021-01-29] MEDS ORDERED: NALOXONE 0.4 MG/ML 1 ML VIAL IV PRN (01:27)
[2021-01-29] MEDS ORDERED: SODIUM CHLORIDE 0.9% 1,000 ML IV STA (01:27)
[2021-01-29] MEDS ORDERED: HYDROmorphone 1 MG/ML 1 ML SYRINGE IVP PRN (01:27)
[2021-01-29 03:27] VITALS: BP 122/89; PULSE 101; RESP 16; TEMP 98.3
== END 2021-01-29 03:18 | disposition home or self-care (01) ==
LOC: EC 23:31 → 3SCARD 01-29 01:27 → UNDOADMIN 01-29 01:27 → UNDODISIN 01-29 02:45 → EC 01-29 03:18
DX: I48.91 Unspecified atrial fibrillation (principal); N17.9 Acute kidney failure, unspecified; I10 Essential (primary) hypertension; K21.9 Gastro-esophageal reflux disease without esophagitis; Z79.899 Other long term (current) drug therapy; Z88.5 Allergy status to narcotic agent; R53.1 Weakness
CPT/HCPCS: 93005; 99284

== ENCOUNTER 2021-02-07 17:57 | Inpatient (IN) | payer MEDICARE, OTHER ==
[2021-02-07] MEDS ORDERED: PANTOPRAZOLE 40 MG/10 ML VIAL IVP STA (19:10)
[2021-02-07] MEDS ORDERED: LORazepam 2 MG/ML INJ IV STA (19:10)
[2021-02-07] MEDS ORDERED: SODIUM CHLORIDE 0.9% 1,000 ML IV STA ×2 (19:10)
--- NOTE | 2021-02-07 19:13 | ED ---
General Adult HPI - General Chief complaint: Nausea/Vomiting/Diarrhea Stated complaint: Hypotensive, dehydration Time Seen by Provider: 02/07/21 19:02 Source: patient, family, RN notes reviewed Mode of arrival: ambulatory Limitations: no limitations - History of Present Illness Initial comments: Patient is a pleasant 65-year-old male presenting to the emergency department with family with complaints of concern for dehydration. 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 Patient did have surgery however tumor was too large to be removed. Patient has had decreased appetite and nausea. Decreased oral intake. Patient has some mild abdominal discomfort that is been steady. No vomiting. Patient is still having stool move through his ostomy. No fevers. Patient has been progressively weak and fatigued over the past one week. Patient is planned to have chemotherapy in the future however needs to get stronger to do that. - Related Data Home Medications Medication Instructions Recorded Confirmed ALPRAZolam [Xanax] 0.25 mg PO Q8H PRN 02/07/21 02/07/21 Cephalexin [Keflex] 500 mg PO Q8H 02/07/21 02/07/21 HYDROcodone/APAP 7.5-325MG [[place] 1 tab PO Q8H PRN 02/07/21 02/07/21 7.5-325] Ondansetron [Zofran] 4 mg PO Q6H PRN 02/07/21 02/07/21 Oxybutynin Chloride [Ditropan] 5 mg PO TID 02/07/21 02/07/21 Tamsulosin HCl [Flomax] 0.4 mg PO BID 02/07/21 02/07/21 Previous Rx's Medication Instructions Recorded Ferrous Sulfate [Iron (65 MG 325 mg PO BID-W/MEALS #60 tab 01/13/21 Elemental)] dilTIAZem HCL [dilTIAZem HCL 24Hr 180 mg PO DAILY #30 cap 01/13/21 ER (Xr)] Allergies Allergy/AdvReac Type Severity Reaction Status Date / Time meperidine [From Demerol] Allergy head felt Verified 02/07/21 20:14 big hydromorphone [From Dilaudid] AdvReac Mild Nausea Verified 02/07/21 20:14 Review of Systems ROS Statement: Those systems with pertinent positive or pertinent negative responses have been documented in the HPI. ROS Other: All systems not noted in ROS Statement are negative. Constitutional: Denies: fever Eyes: Denies: eye pain ENT: Denies: ear pain Respiratory: Denies: cough, dyspnea Cardiovascular: Denies: chest pain Endocrine: Reports: fatigue Gastrointestinal: Reports: as per HPI, abdominal pain, nausea. Denies: vomiting Genitourinary: Denies: dysuria Musculoskeletal: Denies: back pain Skin: Denies: rash Neurological: Denies: headache Past Medical History Past Medical History: Cancer, GERD/Reflux, Hypertension Additional Past Medical History / Comment(s): colon cancer, colostomy History of Any Multi-Drug Resistant Organisms: None Reported Past Surgical History: Hernia Repair Additional Past Surgical History / Comment(s): jaw surgery Past Anesthesia/Blood Transfusion Reactions: No Reported Reaction Past Psychological History: Anxiety Smoking Status: Never smoker Past Alcohol Use History: None Reported Past Drug Use History: Marijuana - Past Family History Father Family Medical History: Unable to Obtain General Exam Limitations: no limitations General appearance: alert, in no apparent distress Head exam: Present: normocephalic Eye exam: Present: normal appearance ENT exam: Present: normal oropharynx Neck exam: Present: normal inspection Respiratory exam: Present: normal lung sounds bilaterally Cardiovascular Exam: Present: regular rate, normal rhythm GI/Abdominal exam: Present: soft, tenderness (Mild diffuse tenderness), normal bowel sounds. Absent: pulsatile mass Extremities exam: Present: normal inspection Neurological exam: Present: alert Psychiatric exam: Present: normal affect, normal mood Skin exam: Present: normal color Course Vital Signs 02/07/21 02/07/21 18:57 19:31 Temperature 96.9 F L Pulse Rate 66 67 Respiratory 20 17 Rate Blood Pressure 82/53 106/68 O2 Sat by Pulse 95 99 Oximetry Medical Decision Making - Medical Decision Making Patient reevaluated. Blood pressure improved. Patient and family updated on results and plan. Case was discussed with Dr. Salmon, who will admit For Dr. Porter. - Lab Data Result diagrams: 02/07/21 19:31 02/07/21 19:31 Lab Results 02/07/21 02/07/21 02/07/21 Range/Units 19:31 19:31 19:31 WBC 13.5 H (3.8-10.6) k/uL RBC 4.44 (4.30-5.90) m/uL Hgb 11.4 L (13.0-17.5) gm/dL Hct 36.2 L (39.0-53.0) % MCV 81.5 (80.0-100.0) fL MCH 25.6 (25.0-35.0) pg MCHC 31.4 (31.0-37.0) g/dL RDW 19.7 H (11.5-15.5) % Plt Count 541 H (150-450) k/uL MPV 7.1 Neutrophils % 86 % Lymphocytes % 7 % Monocytes % 6 % Eosinophils % 0 % Basophils % 0 % Neutrophils # 11.5 H (1.3-7.7) k/uL Lymphocytes # 0.9 L (1.0-4.8) k/uL Monocytes # 0.8 (0-1.0) k/uL Eosinophils # 0.0 (0-0.7) k/uL Basophils # 0.0 (0-0.2) k/uL Anisocytosis Slight Microcytosis Slight PT 10.7 (9.0-12.0) sec INR 1.0 (<1.2) APTT 22.7 (22.0-30.0) sec Sodium 128 L (137-145) mmol/L Potassium 6.2 H* (3.5-5.1) mmol/L Chloride 106 (98-107) mmol/L Carbon Dioxide 9 L* (22-30) mmol/L Anion Gap 13 mmol/L BUN 99 H (9-20) mg/dL Creatinine 5.12 H (0.66-1.25) mg/dL Est GFR (CKD-EPI)AfAm 13 (>60 ml/min/1.73 sqM) Est GFR (CKD-EPI)NonAf 11 (>60 ml/min/1.73 sqM) Glucose 99 (74-99) mg/dL Calcium 9.7 (8.4-10.2) mg/dL Total Bilirubin 0.6 (0.2-1.3) mg/dL AST 21 (17-59) U/L ALT 6 (4-49) U/L Alkaline Phosphatase 127 H (38-126) U/L Total Protein 7.1 (6.3-8.2) g/dL Albumin 3.1 L (3.5-5.0) g/dL Amylase 45 (30-110) U/L Lipase 155 (23-300) U/L Urine Color Urine Appearance (Clear) Urine pH (5.0-8.0) Ur Specific [place] (1.001-1.035) Urine Protein (Negative) Urine Glucose (UA) (Negative) Urine Ketones (Negative) Urine Blood (Negative) Urine Nitrite (Negative) Urine Bilirubin (Negative) Urine Urobilinogen (<2.0) mg/dL Ur Leukocyte Esterase (Negative) Urine RBC (0-5) /hpf Urine WBC (0-5) /hpf Ur Squamous Epith Cells (0-4) /hpf Uric Acid Crystals (None) /hpf Urine Bacteria (None) /hpf Urine Yeast (Budding) (None) /hpf 02/07/21 Range/Units 20:00 WBC (3.8-10.6) k/uL RBC (4.30-5.90) m/uL Hgb (13.0-17.5) gm/dL Hct (39.0-53.0) % MCV (80.0-100.0) fL MCH (25.0-35.0) pg MCHC (31.0-37.0) g/dL RDW (11.5-15.5) % Plt Count (150-450) k/uL MPV Neutrophils % % Lymphocytes % % Monocytes % % Eosinophils % % Basophils % % Neutrophils # (1.3-7.7) k/uL Lymphocytes # (1.0-4.8) k/uL Monocytes # (0-1.0) k/uL Eosinophils # (0-0.7) k/uL Basophils # (0-0.2) k/uL Anisocytosis Microcytosis PT (9.0-12.0) sec INR (<1.2) APTT (22.0-30.0) sec Sodium (137-145) mmol/L Potassium (3.5-5.1) mmol/L Chloride (98-107) mmol/L Carbon Dioxide (22-30) mmol/L Anion Gap mmol/L BUN (9-20) mg/dL Creatinine (0.66-1.25) mg/dL Est GFR (CKD-EPI)AfAm (>60 ml/min/1.73 sqM) Est GFR (CKD-EPI)NonAf (>60 ml/min/1.73 sqM) Glucose (74-99) mg/dL Calcium (8.4-10.2) mg/dL Total Bilirubin (0.2-1.3) mg/dL AST (17-59) U/L ALT (4-49) U/L Alkaline Phosphatase (38-126) U/L Total Protein (6.3-8.2) g/dL Albumin (3.5-5.0) g/dL Amylase (30-110) U/L Lipase (23-300) U/L Urine Color Yellow Urine Appearance Turbid (Clear) Urine pH 5.5 (5.0-8.0) Ur Specific [place] 1.016 (1.001-1.035) Urine Protein 1+ H (Negative) Urine Glucose (UA) Negative (Negative) Urine Ketones Negative (Negative) Urine Blood Small H (Negative) Urine Nitrite Negative (Negative) Urine Bilirubin Negative (Negative) Urine Urobilinogen <2.0 (<2.0) mg/dL Ur Leukocyte Esterase Large H (Negative) Urine RBC 47 H (0-5) /hpf Urine WBC >182 H (0-5) /hpf Ur Squamous Epith Cells 2 (0-4) /hpf Uric Acid Crystals Few H (None) /hpf Urine Bacteria Moderate H (None) /hpf Urine Yeast (Budding) Many H (None) /hpf - Radiology Data Radiology results: image reviewed (Abdominal x-ray shows no acute process) Disposition Clinical Impression: Acute renal failure Disposition: ADMITTED IP TO THIS HOSP Is patient prescribed a controlled substance at d/c from ED?: No Referrals: Jake Porter MD [Primary Care Provider] - 1-2 days Decision Time: 20:30
[2021-02-07 19:38] LABS: Anisocytosis Slight; Basophils % (A) 0 %; Eosinophils % (A) 0 %; HCT 36.2 % (39.0-53.0); HGB 11.4 gm/dL (13.0-17.5); Lymphocytes # (A) 0.9 k/uL (1.0-4.8); Lymphocytes % (A) 7 %; MCH 25.6 pg (25.0-35.0); MCHC 31.4 g/dL (31.0-37.0); MCV 81.5 fL (80.0-100.0); Mean Platelet Volume 7.1; Microcytosis Slight; Monocytes # (A) 0.8 k/uL (0-1.0); Monocytes % (A) 6 %; Neutrophils # (A) 11.5 k/uL (1.3-7.7); Neutrophils % (A) 86 %; Platelet Count 541 k/uL (150-450); RBC 4.44 m/uL (4.30-5.90); RDW 19.7 % (11.5-15.5); WBC 13.5 k/uL (3.8-10.6)
[2021-02-07 19:47] LABS: Albumin 3.1 g/dL (3.5-5.0); Calcium 9.7 mg/dL (8.4-10.2); Total Bilirubin 0.6 mg/dL (0.2-1.3); Total Protein 7.1 g/dL (6.3-8.2)
[2021-02-07 19:48] LABS: Partial Thromboplastin Time 22.7 sec (22.0-30.0); Prothrombin Time 10.7 sec (9.0-12.0)
[2021-02-07 19:58] LABS: Potassium 6.2 mmol/L (3.5-5.1)
--- NOTE | 2021-02-07 20:15 | XR ---
EXAMINATION TYPE: XR KUB DATE OF EXAM: 02/07/2021 COMPARISON: NONE HISTORY: Nausea. TECHNIQUE: 2 views upright FINDINGS: There is no sign of intestinal obstruction or pneumoperitoneum. There is some tubing over t he abdomen. There is no evidence of a mass. Lung bases are clear. There are no pathologic calcificati ons over the kidneys. IMPRESSION: Nonacute abdomen.
[2021-02-07 20:18] LABS: Appearance,Urine Turbid (Clear); Bacteria,Urine Moderate /hpf; Bilirubin,Urine Negative (Negative); Blood,Urine Small (Negative); Budding Yeast,Urine Many /hpf; Color,Urine Yellow; Glucose,Urine (UA) Negative (Negative); Ketones,Urine Negative (Negative); Leukocyte Esterase,Urine Large (Negative); Nitrite,Urine Negative (Negative); PH, Urine 5.5 (5.0-8.0); Protein,Urine 1+ (Negative); RBC,Urine 47 /hpf (0-5); Specific Gravity,Urine 1.016 (1.001-1.035); Squamous Epithelial Cell,Urine 2 /hpf (0-4); Uric Acid Crystals,Urine Few /hpf; Urobilinogen,Urine <2.0 mg/dL (<2.0); WBC,Urine >182 /hpf (0-5)
[2021-02-07] MEDS ORDERED: SODIUM CHLORIDE 0.9% 1,000 ML IV SCH (20:30)
[2021-02-07] MEDS ORDERED: ONDANSETRON 4 MG/2 ML VIAL IVP PRN (20:30)
[2021-02-07] MEDS ORDERED: NALOXONE 0.4 MG/ML 1 ML VIAL IV PRN (20:30)
[2021-02-08] MEDS: SODIUM CHLORIDE 0.9% 1,000 ML IV SCH ×4 (01:18→18:57)
[2021-02-08 02:07] LABS: ALT <6 U/L (4-49); AST 13 U/L (17-59); African American GFR (CKD) 13 (>60 ml/min/1.73 sqM); Albumin 2.6 g/dL (3.5-5.0); Albumin/Globulin Ratio 0.7; Alkaline Phosphatase 105 U/L (38-126); Anion Gap 12 mmol/L; Blood Urea Nitrogen 93 mg/dL (9-20); Calcium 8.9 mg/dL (8.4-10.2); Chloride 110 mmol/L (98-107); Globulin 3.5 g/dL; Glucose 89 mg/dL (74-99); Magnesium 2.4 mg/dL (1.6-2.3); Non-African American GFR(CKD) 12 (>60 ml/min/1.73 sqM); Phosphorus 6.5 mg/dL (2.5-4.5); Potassium 5.5 mmol/L (3.5-5.1); Sodium 131 mmol/L (137-145); Total Bilirubin 0.4 mg/dL (0.2-1.3); Total Protein 6.1 g/dL (6.3-8.2); Uric Acid 14.9 mg/dL (3.5-8.5)
[2021-02-08 02:09] LABS: Carbon Dioxide 9 mmol/L (22-30)
[2021-02-08 08:24] LABS: ALT <6 U/L (4-49); AST 13 U/L (17-59); African American GFR (CKD) 14 (>60 ml/min/1.73 sqM); Albumin 2.4 g/dL (3.5-5.0); Albumin/Globulin Ratio 0.7; Alkaline Phosphatase 95 U/L (38-126); Anion Gap 13 mmol/L; Blood Urea Nitrogen 89 mg/dL (9-20); Calcium 8.9 mg/dL (8.4-10.2); Chloride 112 mmol/L (98-107); Globulin 3.3 g/dL; Glucose 79 mg/dL (74-99); Magnesium 2.2 mg/dL (1.6-2.3); Non-African American GFR(CKD) 12 (>60 ml/min/1.73 sqM); Phosphorus 6.6 mg/dL (2.5-4.5); Potassium 5.3 mmol/L (3.5-5.1); Sodium 132 mmol/L (137-145); Total Bilirubin 0.3 mg/dL (0.2-1.3); Total Protein 5.7 g/dL (6.3-8.2)
[2021-02-08 08:27] LABS: Carbon Dioxide 7 mmol/L (22-30)
[2021-02-08] MEDS ORDERED: PANTOPRAZOLE 40 MG/10 ML VIAL IV SCH (09:00)
--- NOTE | 2021-02-08 13:02 | P.NPCON ---
History of Present Illness - Reason for Consult Consult date: 02/08/21 acute renal failure - Chief Complaint Acute kidney injury - History of Present Illness This is a 65-year-old male seen in consultation regarding acute kidney injury and chronic kidney disease Was admitted with reduced intake. Is feeling weak and tired. His creatinine on admission yesterday was 5.12 and is improved to 4.6 to this morning. His baseline creatinine is in the 3.2 range dated 01/07/2021. On 01/03/2021 he had a cecal tumor with exploratory laparotomy and the diverting ileostomy. Also had drains put in which she continues to have at this time. Workup had shown at the time that he had bilateral hydronephrosis and had a Estrada catheter that was placed about October or November 2020. A computed tomography scan on 01/03/2021 demonstrated resistant of left-sided hydronephrosis but not on the right. The most recent ultrasound done on 01/11/2021 right kidney measures 11.2 and a left kidney of 9.4 with left-sided hydronephrosis Reason is weak and emaciated and losing weight. The model ileostomy drainage is about the same. The LANA drains continued to have significant output so that the surgeon wants repeat them for right now, No history of taking any antibiotics or nonsteroidals prior to this admission Past Medical History Past Medical History: Atrial Fibrillation, Cancer, GERD/Reflux, Hypertension Additional Past Medical History / Comment(s): colon cancer, ileostomy recent from december with 2 lana drains on right abdomen. kidney disease per elevated levels last hospitalization History of Any Multi-Drug Resistant Organisms: None Reported Past Surgical History: Hernia Repair Additional Past Surgical History / Comment(s): jaw surgery, ileostomy Past Anesthesia/Blood Transfusion Reactions: No Reported Reaction Past Psychological History: Anxiety, Depression Smoking Status: Never smoker Past Alcohol Use History: None Reported Past Drug Use History: Marijuana - Past Family History Father Family Medical History: Unable to Obtain Medications and Allergies Home Medications Medication Instructions Recorded Confirmed Type Ferrous Sulfate [Iron (65 MG 325 mg PO BID-W/MEALS #60 tab 01/13/21 02/07/21 Rx Elemental)] dilTIAZem HCL [dilTIAZem HCL 24Hr 180 mg PO DAILY #30 cap 01/13/21 02/07/21 Rx ER (Xr)] ALPRAZolam [Xanax] 0.25 mg PO Q8H PRN 02/07/21 02/07/21 History Cephalexin [Keflex] 500 mg PO Q8H 02/07/21 02/07/21 History HYDROcodone/APAP 7.5-325MG [[place] 1 tab PO Q8H PRN 02/07/21 02/07/21 History 7.5-325] Ondansetron [Zofran] 4 mg PO Q6H PRN 02/07/21 02/07/21 History Oxybutynin Chloride [Ditropan] 5 mg PO TID 02/07/21 02/07/21 History Tamsulosin HCl [Flomax] 0.4 mg PO BID 02/07/21 02/07/21 History Allergies Allergy/AdvReac Type Severity Reaction Status Date / Time meperidine [From Demerol] Allergy head felt Verified 02/07/21 20:14 big hydromorphone [From Dilaudid] AdvReac Mild Nausea Verified 02/07/21 20:14 Physical Exam Vitals: Vital Signs Temp Pulse Pulse Resp BP BP BP 02/08/21 05:30 98.4 F 90 20 93/60 02/08/21 02:35 53 L 90/55 02/08/21 00:23 84/42 02/08/21 00:05 97.5 F L 87 20 80/54 83/52 02/07/21 22:00 65 17 97/51 02/07/21 19:31 67 17 106/68 02/07/21 18:57 96.9 F L 66 20 82/53 Pulse Ox 02/08/21 05:30 98 02/08/21 02:35 02/08/21 00:23 02/08/21 00:05 97 02/07/21 22:00 100 02/07/21 19:31 99 02/07/21 18:57 95 Intake and Output 02/07/21 02/08/21 02/08/21 22:59 06:59 14:59 Output Total 400 Balance -400 Output: Drainage 150 right abdomen lana 1 50 right abdomen lana 2 100 Urine 250 Uretheral (Estrada) 250 Other: Voiding Method Indwelling Catheter # Bowel Movements 1 Weight 58.967 kg 58.967 kg On examination is awake alert oriented but emaciated and cachectic HEENT exam no JVP neck is supple no facial asymmetry Lungs clear to auscultation good air entry bilaterally Heart sounds unremarkable for any murmur rub gallop Abdomen has a diverting ileostomy as well as LANA drainage. Nontender and nondistended Extremity exam was no edema Neurologically awake alert oriented but profoundly weak Results - Lab Results Most recent lab results Calcium 8.9 mg/dL (8.4-10.2) 02/08/21 07:16 Phosphorus 6.6 mg/dL (2.5-4.5) H 02/08/21 07:16 Magnesium 2.2 mg/dL (1.6-2.3) 02/08/21 07:16 02/07/21 19:31 02/08/21 07:16 Assessment and Plan Assessment: Impression 1. Acute kidney injury secondary to low intake. Additionally ileostomy drainage. Creatinine peaked at 5.12 and admission and is improved to 4.6 to with hydration. 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 Chronic kidney disease creatinine is slowly going up over the last few months. The etiology of this is obstructed left kidney which is small amount and chronic damage of the right kidney as well from previous hydronephrosis possibly from outlet obstruction at the time additionally. 3. Hyponatremia secondary to acute kidney injury 4. Hyperkalemia secondary to acute kidney injury improved potassium from 6.2- 5.3. 5. Severe non-gap acidosis bicarb is 19 and anion gap is 13 secondary to loop ileostomy drainage. 6. hyperphosphatemia from acute kidney injury and chronic kidney disease. A Biancaley tumor lysis syndrome Recommendation 1. Check uric acid in urine 2. Increase IV fluid to 200 mL an hour with strict is and os 3. We will consider decompressing the hydronephrotic left kidney if he does not improve. 4. Rasburicase 0.2 mg/kg IV dose and will re-assess based on uric acid urine output and creatinine
[2021-02-08 13:15] VITALS: BMI 19.8
[2021-02-08] MEDS ORDERED: RASBURICASE 6 MG in SODIUM CHLORIDE 0.9% 46 ML IV ONE (13:30)
--- NOTE | 2021-02-08 14:25 | P.HPIM ---
History of Present Illness H&P Date: 02/08/21 Chief Complaint: Low blood pressure This is a 65-year-old patient who follows Dr. Porter. Patient in September of this year developed some cramping pain in the right abdomen. Patient had become progressively more severe and more persistent. Also noted a black stools. Decreased appetite. He was initially seen in the ER here and transferred to [place] a left AMA because he was not satisfied with the care. Came back [facility] ER. Computed tomography scan of the abdomen on November 02 showed a large mass 11 cm along with right: Involving the cecum and hepatic flexure and some pe rilesional hemorrhage. Is also noted to have a large wound of the prostate with masslike projection into the base of the bladder. Bilateral hydronephrosis. On November 26 patient to have a PET scan that did not show any evidence of metastatic disease. He did not follow with surgeon for surgical resection. In December he was admitted with a perforated bowel and associated abscess. Taken to surgery on January 04 and expiratory laparotomy was done with drainage of abscesses. Diverting ileostomy was done with excision of abdominal wall nodule. Patient had 2 LANA drains. Patient actually went home. On January 13. He apparently came to the ER on January 28 for paroxysmal atrial fibrillation. He also saw Dr. Gaitan in the office about a week ago. And he removed some ryan. She has been told with oncology that he needs to be, stronger before any chemotherapy can be done. Patient is discomfort. Since discharge patient has been eating very little. Estring some fluids. Has been quite a bit drainage through the second LANA tube. Decreased output through the LANA tube #1. 3 days ago patient was at [facility] because of low blood pressure. He was put on Keflex. No fever reported. Patient has been losing weight. Patient does get about using a walker. Progressively more weak. He lives with his his girlfriend Yessi. Patient now presents to the ER feeling weak diet and rundown. Low blood pressure. Kidney functions rather advanced Review of systems: GEN.: Poor appetite, weight loss, weak EYES: None HEENT: None NECK: None RESPIRATORY: None CARDIOVASCULAR: None GASTROINTESTINAL: Last PE back putting out liquid stool. GENITOURINARY: None MUSCULOSKELETAL: [Loss muscle mass. 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 No smoking. Did marijuana. Lives with his girlfriend Yessi Family history: Reviewed, noncontributory to presentation Physical examination: VITAL SIGNS: 98.4, 90, 20, 93/60, 98% room air GENERAL: [BMI 19.8, laying in bed, tired appearing.. EYES: [Pupils equal. Conjunctiva pale. HEENT: External appearance of nose and ears normal, oral cavity grossly normal. NECK: JVD not raised; masses not palpable. HEART: First and second heart sounds are normal; no edema. LUNGS: Respiratory rate normal; clear to auscultation. ABDOMEN: Soft, some tenderness, liver spleen not palpable, no masses palpable. Patient has 2 LANA drains on the right site. Marked 1 and 2. Left-sided ileostomy bag. With blood-tinged liquid stool PSYCH: Alert and oriented x3; mood and affect lowl. MUSCULAR skeletal: Positive subcutaneous tissue and muscle mass. Prominent bones NEUROLOGICAL: Cranial nerves grossly intact; no facial asymmetry, power and sensation grossly intact. LYMPHATICS: No lymph nodes palpable in the axilla and neck INVESTIGATIONS, reviewed in the clinical context: Sodium 132 potassium 5.3 bicarb 7 BUN 89 creatinine 4.6 to phosphorus 6.6 albumin 2.4 UA positive for leukoesterase, WBC, bacteria KUB x-ray: Was reviewed by me: No obvious on the D. LANA drain noted. EKG tracing personally reviewed by me-atrial fibrillation. Rate of 103. PVC. Labs from 01/10/2021: BUN 69 creatinine 4.65 hemoglobin 9.4 Assessment and plan: -Hypotension, multifactorial including volume loss from decreased oral intake, poor protein status. Loss of muscle mass malnutrition. IV fluids. -Moderate protein calorie malnutrition Patient may need enteral feeding/IV nutritional support. We will get an opinion from Dr. Gaitan. 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 With extension locally. Patient's surgical note from January 03 shows necrotic cecal tumor with abscess. Currently not a candidate for chemotherapy because of very poor functional status. -Acute on chronic progressive medical debility from underlying malignancy and poor nutritional status -Normocytic anemia, combination of iron deficiency anemia and from underlying m alignancy. -Severe metabolic acidosis from renal failure -Acute and chronic kidney disease probably stage IV. Some component from hydronephrosis that was obstructive and also prerenal component. IV fluids. Follow renal function. Follow with nephrology. -Hyperkalemia secondary to renal failure Low potassium diet -Hyponatremia from decrease salt intake Encourage oral intake. -Hyperphosphatemia from renal failure - Nutritional myopathy Patient does use a cane/walker. -Possible secondary infection of the necrotic tumor mass. Consult ID. Output from LANA drain had been sent off for Gram stain and culture Care was discussed with the patient and is girlfriend Yessi vu the bedside. Prognosis guarded. Consultation to nephrology, general surgery, ID, oncology. IV fluids. Encourage oral intake. Supplement feeding through enteral tube/IV hyperalimentation to be discussed with surgery. Prognosis guarded. Follow labs closely. Given the complexity and severity of patient's condition expect the patient to be in the hospital at least for 2 overnights Past Medical History Past Medical History: Atrial Fibrillation, Cancer, GERD/Reflux, Hypertension Additional Past Medical History / Comment(s): colon cancer, ileostomy recent from december with 2 lana drains on right abdomen. kidney disease per elevated levels last hospitalization History of Any Multi-Drug Resistant Organisms: None Reported Past Surgical History: Hernia Repair Additional Past Surgical History / Comment(s): jaw surgery, ileostomy Past Anesthesia/Blood Transfusion Reactions: No Reported Reaction Past Psychological History: Anxiety, Depression Smoking Status: Never smoker Past Alcohol Use History: None Reported Past Drug Use History: Marijuana - Past Family History Father Family Medical History: Unable to Obtain Medications and Allergies Home Medications Medication Instructions Recorded Confirmed Type Ferrous Sulfate [Iron (65 MG 325 mg PO BID-W/MEALS #60 tab 01/13/21 02/07/21 Rx Elemental)] dilTIAZem HCL [dilTIAZem HCL 24Hr 180 mg PO DAILY #30 cap 01/13/21 02/07/21 Rx ER (Xr)] ALPRAZolam [Xanax] 0.25 mg PO Q8H PRN 02/07/21 02/07/21 History Cephalexin [Keflex] 500 mg PO Q8H 02/07/21 02/07/21 History HYDROcodone/APAP 7.5-325MG [[place] 1 tab PO Q8H PRN 02/07/21 02/07/21 History 7.5-325] Ondansetron [Zofran] 4 mg PO Q6H PRN 02/07/21 02/07/21 History Oxybutynin Chloride [Ditropan] 5 mg PO TID 02/07/21 02/07/21 History Tamsulosin HCl [Flomax] 0.4 mg PO BID 02/07/21 02/07/21 History Allergies Allergy/AdvReac Type Severity Reaction Status Date / Time meperidine [From Demerol] Allergy head felt Verified 02/07/21 20:14 big hydromorphone [From Dilaudid] AdvReac Mild Nausea Verified 02/07/21 20:14 Physical Exam Vitals: Vital Signs Temp Pulse Pulse Resp BP BP BP 02/08/21 05:30 98.4 F 90 20 93/60 02/08/21 02:35 53 L 90/55 02/08/21 00:23 84/42 02/08/21 00:05 97.5 F L 87 20 80/54 83/52 02/07/21 22:00 65 17 97/51 02/07/21 19:31 67 17 106/68 02/07/21 18:57 96.9 F L 66 20 82/53 Pulse Ox 02/08/21 05:30 98 02/08/21 02:35 02/08/21 00:23 02/08/21 00:05 97 02/07/21 22:00 100 02/07/21 19:31 99 02/07/21 18:57 95 Intake and Output 02/07/21 02/08/21 02/08/21 22:59 06:59 14:59 Output Total 400 Balance -400 Output: Drainage 150 right abdomen lana 1 50 right abdomen lana 2 100 Urine 250 Uretheral (Estrada) 250 Other: Voiding Method Indwelling Catheter # Bowel Movements 1 Weight 58.967 kg 58.967 kg Results CBC & Chem 7: 02/07/21 19:31 02/08/21 07:16 Labs: Abnormal Lab Results - Last 24 Hours (Table) 02/07/21 02/07/21 02/07/21 Range/Units 19:31 19:31 20:00 WBC 13.5 H (3.8-10.6) k/uL Hgb 11.4 L (13.0-17.5) gm/dL Hct 36.2 L (39.0-53.0) % RDW 19.7 H (11.5-15.5) % Plt Count 541 H (150-450) k/uL Neutrophils # 11.5 H (1.3-7.7) k/uL Lymphocytes # 0.9 L (1.0-4.8) k/uL Sodium 128 L (137-145) mmol/L Potassium 6.2 H* (3.5-5.1) mmol/L Chloride (98-107) mmol/L Carbon Dioxide 9 L* (22-30) mmol/L BUN 99 H (9-20) mg/dL Creatinine 5.12 H (0.66-1.25) mg/dL Plasma Lactic Acid Lucian (0.7-2.0) mmol/L Uric Acid (3.5-8.5) mg/dL Phosphorus (2.5-4.5) mg/dL Magnesium (1.6-2.3) mg/dL AST (17-59) U/L Alkaline Phosphatase 127 H (38-126) U/L Total Protein (6.3-8.2) g/dL Albumin 3.1 L (3.5-5.0) g/dL Urine Protein 1+ H (Negative) Urine Blood Small H (Negative) Ur Leukocyte Esterase Large H (Negative) Urine RBC 47 H (0-5) /hpf Urine WBC >182 H (0-5) /hpf Uric Acid Crystals Few H (None) /hpf Urine Bacteria Moderate H (None) /hpf Urine Yeast (Budding) Many H (None) /hpf 02/08/21 02/08/21 02/08/21 Range/Units 01:18 01:18 07:16 WBC (3.8-10.6) k/uL Hgb (13.0-17.5) gm/dL Hct (39.0-53.0) % RDW (11.5-15.5) % Plt Count (150-450) k/uL Neutrophils # (1.3-7.7) k/uL Lymphocytes # (1.0-4.8) k/uL Sodium 131 L 132 L (137-145) mmol/L Potassium 5.5 H 5.3 H (3.5-5.1) mmol/L Chloride 110 H 112 H (98-107) mmol/L Carbon Dioxide 9 L* 7 L* (22-30) mmol/L BUN 93 H 89 H (9-20) mg/dL Creatinine 4.85 H 4.62 H (0.66-1.25) mg/dL Plasma Lactic Acid Lucian 0.6 L (0.7-2.0) mmol/L Uric Acid 14.9 H (3.5-8.5) mg/dL Phosphorus 6.5 H 6.6 H (2.5-4.5) mg/dL Magnesium 2.4 H (1.6-2.3) mg/dL AST 13 L 13 L (17-59) U/L Alkaline Phosphatase (38-126) U/L Total Protein 6.1 L 5.7 L (6.3-8.2) g/dL Albumin 2.6 L 2.4 L (3.5-5.0) g/dL Urine Protein (Negative) Urine Blood (Negative) Ur Leukocyte Esterase (Negative) Urine RBC (0-5) /hpf Urine WBC (0-5) /hpf Uric Acid Crystals (None) /hpf Urine Bacteria (None) /hpf Urine Yeast (Budding) (None) /hpf 02/08/21 Range/Units 07:16 WBC (3.8-10.6) k/uL Hgb (13.0-17.5) gm/dL Hct (39.0-53.0) % RDW (11.5-15.5) % Plt Count (150-450) k/uL Neutrophils # (1.3-7.7) k/uL Lymphocytes # (1.0-4.8) k/uL Sodium (137-145) mmol/L Potassium (3.5-5.1) mmol/L Chloride (98-107) mmol/L Carbon Dioxide (22-30) mmol/L BUN (9-20) mg/dL Creatinine (0.66-1.25) mg/dL Plasma Lactic Acid Lucian (0.7-2.0) mmol/L Uric Acid 14.6 H (3.5-8.5) mg/dL Phosphorus (2.5-4.5) mg/dL Magnesium (1.6-2.3) mg/dL AST (17-59) U/L Alkaline Phosphatase (38-126) U/L Total Protein (6.3-8.2) g/dL Albumin (3.5-5.0) g/dL Urine Protein (Negative) Urine Blood (Negative) Ur Leukocyte Esterase (Negative) Urine RBC (0-5) /hpf Urine WBC (0-5) /hpf Uric Acid Crystals (None) /hpf Urine Bacteria (None) /hpf Urine Yeast (Budding) (None) /hpf Microbiology - Last 24 Hours (Table) 02/07/21 20:00 Urine Culture - Preliminary Urine,Voided Thrombosis Risk Factor Assmnt - Choose All That Apply Any of the Below Risk Factors Present?: Yes Each Factor Represents 1 point: Medical pt on bed rest Other Risk Factors: Yes Each Risk Factor Represents 2 Points: Age 61-74 years, Patient confined to bed, Malignancy Other congenital or acquired thrombophilia - If yes, enter type in comment: No Thrombosis Risk Factor Assessment Total Risk Factor Score: 7 Thrombosis Risk Factor Assessment Level: High Risk
[2021-02-08] MEDS: LORazepam 2 MG/ML INJ IV PRN ×2 (14:57→21:31)
--- NOTE | 2021-02-08 15:11 | P.CONS ---
History of Present Illness - Reason for Consult Consult date: 02/08/21 Colon cancer Requesting physician: Jaylon Salmon - Chief Complaint Weakness - History of Present Illness Mr. Hathaway is a very pleasant 65 yo male who has a recent history of colon cancer, 11cm right sided colon tumor on imaging from 10/2020. Course was complicated by delayed care due to noncompliance and failure to follow up and obtain imaging as recommended, and he ended up with perforation and emergent surgery in 12/2020, at which time tumor was noted to be 17cm on CT. Unfortunately he had gross disease left behind due to adherence of the tumor to the retroperitoneum, however the bulk of disease was removed. He continues to struggle with healing from surgery, and has drains in place. For the past week he has been having increased vomiting as well as persistent diarrhea. Decreased oral intake due to lack of taste as well as vomiting. Also has baseline CKD, baseline Cr seems to be around 3-4 dating back to 10/2020. Here now due to decreased PO intake and increased weakness due to dehydration. Work up revealed BELTRAN on CKD, Cr 5.12, K 6.2, and elevated phosphorus. Calcium normal at 8's. He was admitted with nephrology consult. Cr improving with hydration. We were consulted for his colon cancer and ?TLS?. Uric acid was checked and was elevated at 14.9. Labs also revealed leukocytosis and thrombocytosis, as well as mild normocytic anemia, Hgb 11. He has known iron deficiency with last iron panel from early 01/2021 revealing 13% saturation, which is improved from 10/2020. Leukocytosis and thrombocytosis has been stable/improving since his surgery a month ago. Pt recently seen by Dr. Saldaña for follow up and plan was to proceed with restaging PET scan, which has not been done yet but is scheduled on 02/12/21, and determine if he needs palliative vs curative intent chemotherapy with FOLFOX. Pt has not been started on chemotherapy yet and has not has staging work up postoperatively, although preoperatively CT AP and CXR without any obvious metastatic disease. Cancer History: He was initially seen at [facility] on 10/17/20. Had not seen a physician for several years prior to this. He began having abdominal cramping pain and right-sided abdominal pain with difficulty in urination as well as black stools decreased appetite with 10 pound associated weight loss over 2-3 weeks. He went to the local hospital and was transferred to [place] where he left [facility] and came to the ER at [facility]. In the ER he was found to have acute renal failure. CT of the abdomen pelvis revealed a large mass at 11 cm right colon as well as an enlarged prostate with bilateral hydronephrosis, greater on the left compared to the right. Last colonoscopy was at age 39. He had a Estrada catheter that was placed with improvement in his creatinine. He was seen by surgery however metastatic workup was recommended o rie his renal function improved prior to proceeding with surgery. He was also found to be iron deficient and received IV iron and was discharged with indwelling Estrada catheter. He was seen by Dr. Saldaña on 11/12/20. He had not had repeat scans at that time. He was having regular bowel movements although somewhat small at time of first encounter with Dr. Saldaña as well as urination without difficulty after his Estrada was removed and he was placed on medication to "shrink the prostate". Baseline CEA was normal. PET scan was scheduled however he missed his appointment due to concerns of claustrophobia. He declined stress testing by cardiology for surgical risk assessment. He declined further IV iron and preferred to take oral iron. He subsequently eventually had a PET scan done on 12/03/20 which was negative for metastatic disease. There was uptake in the bladder and the left ureter of uncertain significance and urothelial primary was not ruled out. Patient stated that he had a cystoscopy during his follow-up that was negative. Plan was to proceed with surgery on 01/24/21 at that time despite lack of cardiac evaluation however he was admitted on 01/03/21 due to increasing abdominal pain and distention and was found to have helped perforation at the site of the tumor with associated abscess. He was emergently taken for surgery on 01/04/21 with resection of the right-sided abdominal mass that appeared to be a poorly differentiated adenocarcinoma with enteric differentiation, colonic primary favored. Operative note mentions that the mass appeared to be starting in the cecum or lower ascending colon and was densely adherent to the retroperitoneum with gross residual tumor left behind. The primary site of origin was unresectable due to dense adherence. The abscess was drained and a loop ileostomy was created. His abdominal wall mass was also resected which was benign. He received IV antibiotics and was discharged on 01/13/21 on oral antibiotics. He ended up in the ER on 01/28/21 due to difficulty in urination and not feeling well with low blood pressure and irregular heartbeat. He was found to have urinary obstruction and had a Estrada catheter placed as well as was hydrated and discharged home. He was seen by Dr. Saldaña on 01/29/21 in clinic and continue to have mild intermittent cramping abdominal pain however at that time he denied any fevers or nausea or vomiting. He did have weight loss as well as significant generalized weakness. He also had a decrease in appetite. Still had drains and ryan. No bleeding. Ostomy with good output. Repeat PET scan was ordered plan of proceeding with systemic chemotherapy with FOLFOX in attempt to reduce tumor further and proceed with possible definitive surgery if tumor shrinks if that was negative for metastatic disease. Otherwise, if metastatic disease, will need palliative intent chemotherapy with FOLFOX. Past Medical History Past Medical History: Atrial Fibrillation, Cancer, GERD/Reflux, Hypertension Additional Past Medical History / Comment(s): colon cancer, ileostomy recent from december with 2 lana drains on right abdomen. kidney disease per elevated levels last hospitalization History of Any Multi-Drug Resistant Organisms: None Reported Past Surgical History: Hernia Repair Additional Past Surgical History / Comment(s): jaw surgery, ileostomy Past Anesthesia/Blood Transfusion Reactions: No Reported Reaction Past Psychological History: Anxiety, Depression Smoking Status: Never smoker Past Alcohol Use History: None Reported Past Drug Use History: Marijuana - Past Family History Father Family Medical History: Unable to Obtain Medications and Allergies Home Medications Medication Instructions Recorded Confirmed Type Ferrous Sulfate [Iron (65 MG 325 mg PO BID-W/MEALS #60 tab 01/13/21 02/07/21 Rx Elemental)] dilTIAZem HCL [dilTIAZem HCL 24Hr 180 mg PO DAILY #30 cap 01/13/21 02/07/21 Rx ER (Xr)] ALPRAZolam [Xanax] 0.25 mg PO Q8H PRN 02/07/21 02/07/21 History Cephalexin [Keflex] 500 mg PO Q8H 02/07/21 02/07/21 History HYDROcodone/APAP 7.5-325MG [Rumely 1 tab PO Q8H PRN 02/07/21 02/07/21 History 7.5-325] Ondansetron [Zofran] 4 mg PO Q6H PRN 02/07/21 02/07/21 History Oxybutynin Chloride [Ditropan] 5 mg PO TID 02/07/21 02/07/21 History Tamsulosin HCl [Flomax] 0.4 mg PO BID 02/07/21 02/07/21 History Allergies Allergy/AdvReac Type Severity Reaction Status Date / Time meperidine [From Demerol] Allergy head felt Verified 02/07/21 20:14 big hydromorphone [From Dilaudid] AdvReac Mild Nausea Verified 02/07/21 20:14 Physical Exam Vitals: Vital Signs Temp Pulse Pulse Resp BP BP BP 02/08/21 12:12 97.8 F 56 L 16 95/64 02/08/21 05:30 98.4 F 90 20 93/60 02/08/21 02:35 53 L 90/55 02/08/21 00:23 84/42 02/08/21 00:05 97.5 F L 87 20 80/54 83/52 02/07/21 22:00 65 17 97/51 02/07/21 19:31 67 17 106/68 02/07/21 18:57 96.9 F L 66 20 82/53 Pulse Ox 02/08/21 12:12 97 02/08/21 05:30 98 02/08/21 02:35 02/08/21 00:23 02/08/21 00:05 97 02/07/21 22:00 100 02/07/21 19:31 99 02/07/21 18:57 95 Intake and Output 02/07/21 02/08/21 02/08/21 22:59 06:59 14:59 Output Total 400 Balance -400 Output: Drainage 150 right abdomen lana 1 50 right abdomen lana 2 100 Urine 250 Uretheral (Estrada) 250 Other: Voiding Method Indwelling Catheter # Bowel Movements 1 Weight 58.967 kg 58.967 kg Gen.: Patient well-nourished and appears to be in no acute distress. HEENT: No icterus. Mucosa moist. Lungs: No respiratory distress Abdomen: Soft, nontender. Ostomy in place without any signs of infection. Liquid stool in ostomy bag. Neuro: Alert and oriented 3. Skin: No jaundice. Psych: Appropriate affect. Results CBC & Chem 7: 02/07/21 19:31 02/08/21 07:16 Labs: Abnormal Lab Results - Last 24 Hours (Table) 02/07/21 02/07/21 02/07/21 Range/Units 19:31 19:31 20:00 WBC 13.5 H (3.8-10.6) k/uL Hgb 11.4 L (13.0-17.5) gm/dL Hct 36.2 L (39.0-53.0) % RDW 19.7 H (11.5-15.5) % Plt Count 541 H (150-450) k/uL Neutrophils # 11.5 H (1.3-7.7) k/uL Lymphocytes # 0.9 L (1.0-4.8) k/uL Sodium 128 L (137-145) mmol/L Potassium 6.2 H* (3.5-5.1) mmol/L Chloride (98-107) mmol/L Carbon Dioxide 9 L* (22-30) mmol/L BUN 99 H (9-20) mg/dL Creatinine 5.12 H (0.66-1.25) mg/dL Plasma Lactic Acid Lucian (0.7-2.0) mmol/L Uric Acid (3.5-8.5) mg/dL Phosphorus (2.5-4.5) mg/dL Magnesium (1.6-2.3) mg/dL AST (17-59) U/L Alkaline Phosphatase 127 H (38-126) U/L Total Protein (6.3-8.2) g/dL Albumin 3.1 L (3.5-5.0) g/dL Urine Protein 1+ H (Negative) Urine Blood Small H (Negative) Ur Leukocyte Esterase Large H (Negative) Urine RBC 47 H (0-5) /hpf Urine WBC >182 H (0-5) /hpf Uric Acid Crystals Few H (None) /hpf Urine Bacteria Moderate H (None) /hpf Urine Yeast (Budding) Many H (None) /hpf 02/08/21 02/08/21 02/08/21 Range/Units 01:18 01:18 07:16 WBC (3.8-10.6) k/uL Hgb (13.0-17.5) gm/dL Hct (39.0-53.0) % RDW (11.5-15.5) % Plt Count (150-450) k/uL Neutrophils # (1.3-7.7) k/uL Lymphocytes # (1.0-4.8) k/uL Sodium 131 L 132 L (137-145) mmol/L Potassium 5.5 H 5.3 H (3.5-5.1) mmol/L Chloride 110 H 112 H (98-107) mmol/L Carbon Dioxide 9 L* 7 L* (22-30) mmol/L BUN 93 H 89 H (9-20) mg/dL Creatinine 4.85 H 4.62 H (0.66-1.25) mg/dL Plasma Lactic Acid Lucian 0.6 L (0.7-2.0) mmol/L Uric Acid 14.9 H (3.5-8.5) mg/dL Phosphorus 6.5 H 6.6 H (2.5-4.5) mg/dL Magnesium 2.4 H (1.6-2.3) mg/dL AST 13 L 13 L (17-59) U/L Alkaline Phosphatase (38-126) U/L Total Protein 6.1 L 5.7 L (6.3-8.2) g/dL Albumin 2.6 L 2.4 L (3.5-5.0) g/dL Urine Protein (Negative) Urine Blood (Negative) Ur Leukocyte Esterase (Negative) Urine RBC (0-5) /hpf Urine WBC (0-5) /hpf Uric Acid Crystals (None) /hpf Urine Bacteria (None) /hpf Urine Yeast (Budding) (None) /hpf 02/08/21 Range/Units 07:16 WBC (3.8-10.6) k/uL Hgb (13.0-17.5) gm/dL Hct (39.0-53.0) % RDW (11.5-15.5) % Plt Count (150-450) k/uL Neutrophils # (1.3-7.7) k/uL Lymphocytes # (1.0-4.8) k/uL Sodium (137-145) mmol/L Potassium (3.5-5.1) mmol/L Chloride (98-107) mmol/L Carbon Dioxide (22-30) mmol/L BUN (9-20) mg/dL Creatinine (0.66-1.25) mg/dL Plasma Lactic Acid Lucian (0.7-2.0) mmol/L Uric Acid 14.6 H (3.5-8.5) mg/dL Phosphorus (2.5-4.5) mg/dL Magnesium (1.6-2.3) mg/dL AST (17-59) U/L Alkaline Phosphatase (38-126) U/L Total Protein (6.3-8.2) g/dL Albumin (3.5-5.0) g/dL Urine Protein (Negative) Urine Blood (Negative) Ur Leukocyte Esterase (Negative) Urine RBC (0-5) /hpf Urine WBC (0-5) /hpf Uric Acid Crystals (None) /hpf Urine Bacteria (None) /hpf Urine Yeast (Budding) (None) /hpf Microbiology - Last 24 Hours (Table) 02/08/21 09:02 Body Fluid Culture - Preliminary [facility] 02/07/21 20:00 Urine Culture - Preliminary Urine,Voided Chest x-ray: report reviewed CT scan - abdomen: report reviewed CT scan - pelvis: report reviewed Assessment and Plan Assessment: 1. BELTRAN on CKD 2. Hyperuricemia 3. Colon cancer s/p incomplete resection 4. Leukocytosis, likely reactive 5. Anemia 6. Thrombocytosis, likely reactive 7. Electrolyte abnormality Plan: Mr. Hathaway is a very pleasant 65-year-old gentleman who is here for vomiting, diarrhea, and increasing weakness for the past week. He has an unfortunate history of newly found colon cancer that was initially found on imaging and a October 2020 admission. Unfortunately due to lack of compliance patient's care was delayed. He was also found to have renal dysfunction and upon initial prese ntation due to bilateral hydronephrosis from enlarged prostate. Renal function improved however did not normalize with Estrada catheter placement. Prior to receiving his definitive surgery course was complicated by bowel perforation with abscess requiring emergent surgery on 01/04/21 status post debulking of his tumor which was adherent to the retroperitoneum as well as abdominal wall mass removal which was benign. He was supposed to proceed with a restaging PET which is scheduled on 03/11/21 followed by chemotherapy, either curative intent versus palliative intent depending on PET results however he ended up here in the hospital with increased vomiting and weakness. Found to have acute on chronic kidney disease with a creatinine of 5.12 from a baseline of around 3. This is improving with hydration. Also with hyperkalemia and hyperphosphatemia. Leukocytosis which is stable since his surgery as well as thrombocytosis which was higher a couple weeks ago and now is slowly improving, likely recovery from surgery. Doubt that he has tumor lysis despite elevated uric acid which was found. His calcium is normal. He does not have ongoing large burden of disease unless he is found to have significant metastatic disease. Also colon cancer does not tend to cause spontaneous tumor lysis and he has not yet received any treatment. Even with treatment colon cancer does not typically cause tumor lysis as it does not respond very quickly to chemotherapy as would a hematologic malignancy or possibly small cell carcinoma. Agree with continued hydration and nephrology following for his renal dysfunction. I am worried that he might have obstruction with the worsening diarrhea and vomiting. He would benefit from abdominal imaging with acute abdominal series and if there is any concerns on this would proceed with further imaging workup as needed. He was inquiring about feeding tube. He may or may not benefit from this as I doubt that he will increase his intake with a feeding tube as his problem is not a functional proximal obstruction that prevents him from eating. He will need to continue to recover from surgery and rule out any new possible infections. I suspect his leukocytosis is reactive and improving slowly however it was slightly increased during this admission. We'll need to monitor and rule out acute infection as well. He continues to be slightly iron deficient which is likely contributing to his persistent mild anemia as well. We'll proceed with an acute abdominal series at this time. Again doubt this is tumor lysis. Continue hydration and supportive care. We'll continue to follow patient with you. Discussed with patient and his family at bedside and they're agreeable to the plan. All of their questions were answered.
--- NOTE | 2021-02-08 15:32 | P.PN ---
Progress Note - Text Progress Note Date: 02/08/21 Patient not in room. Down for imaging at the time of assessment.
--- NOTE | 2021-02-08 15:45 | P.GSCN ---
History of Present Illness Consult date: 02/08/21 History of present illness: CHIEF COMPLAINT: Weakness HISTORY OF PRESENT ILLNESS: The patient is a 65 year old male with history of perforated colon cancer 01/03/21 status post diverting loop ileostomy who presented to the emergency room with poor oral intake, generalized weakness and moderate weight loss over 1 to 2 months. He presents with elevated creatinine in acute renal failure 5.12. He had elevated WBC count over 13,000. He reported mild abdominal discomfort with nausea. General surgery is consulted for his nausea and abdominal pain. PAST MEDICAL HISTORY: See list and reviewed PAST SURGICAL HISTORY: See list and reviewed MEDICATIONS: See list and reviewed ALLERGIES: See list and reviewed SOCIAL HISTORY: See list and reviewed FAMILY HISTORY: See list and reviewed REVIEW OF ORGAN SYSTEMS: CONSTITUTIONAL: No fevers or chills. Has recent weight loss. EYES: Denies any trouble with vision. No glasses. HEENT: No difficulties with hearing. No nosebleeds. No difficulty swallowing. RESPIRATORY: Denies pneumonia. Denies any troubles with breathing or dyspnea on exertion. CARDIOVASCULAR: Has hypertensive heart disease. Has atrial fibrillation. GASTROINTESTINAL: Has gastroesophageal reflux disease. GENITOURINARY: Has increased urinary frequency. NEUROLOGICAL: Denies any numbness or tingling along the distal extremities. No seizure disorders or headaches. MUSCULOSKELETAL: Denies any back pain, stiffness or joint arthritis. SKIN: No current skin cancer. No rash. PSYCHIATRIC: Has anxiety. Has depression. ENDOCRINE: Denies current thyroid disorders. Denies any blood sugar glucose intolerance. HEME/LYMPHATIC: Denies any lumps and bumps around the neck. No recent deep venous thrombosis. ALLERGY/IMMUNOLOGY: No immunoglobulin therapy. No immune deficiencies. BREAST: Denies current breast lumps, pain or nipple discharge. PHYSICAL EXAM: VITALS: Reviewed CONSTITUTIONAL: Well developed and in no acute distress. Cachectic in appearance. EYES: Conjuctivae without sclera icterus. Extraocular movements grossly intact. HEAD, EARS, NOSE, THROAT: Moist buccal mucosa. Head is atraumatic, normocephalic. Hears conversational speech. No nasal drainage. NECK: Supple. No JV distention. No gross thyroidomegaly. RESPIRATORY: Non-labored respirations and equal bilateral excursions. No gross wheezes. CARDIOVASCULAR: 2+ radial pulses. ABDOMEN: No peritonitis. Ostomy patent. LANA present. LYMPH: No gross neck lymphadenopathy. MUSCULOSKELETAL: No clubbing, caynosis. SKIN: Warm and well perfused with good skin turgor. NEUROLOGIC: Cranial nerves II through XII grossly intact. No focal or lateralizing signs. PSYCH: Appropriate affect. Alert and oriented to person, place and time. Displays appropriate insight. CLINCAL LABS: Reviewed. WBC over 13,000. Creatinine elevated 5.16. Hgb low at 11.4 with anemia. IMAGING: Independently reviewed abdominal xray without free air or bowel obstruction. RADIOLOGY: Report reviewed of the abdominal xray with non-obstructive bowel gas pattern. RECORDS: previous old records reviewed from 01/03/21 with new onset atrial fibrillation, poorly differentiated adenocarcinoma on pathology. ASSESSMENT: 1. Dehydration 2. Acute kidney injury due to dehydration 3. Nausea 4. Colon cancer 5. Loop ileostomy PLAN: 1. IV fluid hydration. 2. IV antibiotics 3. Nephrology consultation for acute kidney injury. 4. Recommend nutritional assessment. Thank you for this kind consultation. Past Medical History Past Medical History: Atrial Fibrillation, Cancer, GERD/Reflux, Hypertension Additional Past Medical History / Comment(s): colon cancer, ileostomy recent from december with 2 lana drains on right abdomen. kidney disease per elevated levels last hospitalization History of Any Multi-Drug Resistant Organisms: None Reported Past Surgical History: Hernia Repair Additional Past Surgical History / Comment(s): jaw surgery, ileostomy Past Anesthesia/Blood Transfusion Reactions: No Reported Reaction Past Psychological History: Anxiety, Depression Smoking Status: Never smoker Past Alcohol Use History: None Reported Past Drug Use History: Marijuana - Past Family History Father Family Medical History: Unable to Obtain Medications and Allergies Home Medications Medication Instructions Recorded Confirmed Type Ferrous Sulfate [Iron (65 MG 325 mg PO BID-W/MEALS #60 tab 01/13/21 02/07/21 Rx Elemental)] dilTIAZem HCL [dilTIAZem HCL 24Hr 180 mg PO DAILY #30 cap 01/13/21 02/07/21 Rx ER (Xr)] ALPRAZolam [Xanax] 0.25 mg PO Q8H PRN 02/07/21 02/07/21 History Cephalexin [Keflex] 500 mg PO Q8H 02/07/21 02/07/21 History HYDROcodone/APAP 7.5-325MG [[place] 1 tab PO Q8H PRN 02/07/21 02/07/21 History 7.5-325] Ondansetron [Zofran] 4 mg PO Q6H PRN 02/07/21 02/07/21 History Oxybutynin Chloride [Ditropan] 5 mg PO TID 02/07/21 02/07/21 History Tamsulosin HCl [Flomax] 0.4 mg PO BID 02/07/21 02/07/21 History Allergies Allergy/AdvReac Type Severity Reaction Status Date / Time meperidine [From Demerol] Allergy head felt Verified 02/07/21 20:14 big hydromorphone [From Dilaudid] AdvReac Mild Nausea Verified 02/07/21 20:14 Surgical - Exam Vital Signs Temp Pulse Resp BP Pulse Ox 96.9 F L 66 20 82/53 95 02/07/21 18:57 02/07/21 18:57 02/07/21 18:57 02/07/21 18:57 02/07/21 18:57 Results - Labs 02/07/21 19:31 02/08/21 07:16 Abnormal Lab Results - Last 24 Hours (Table) 02/07/21 02/07/21 02/07/21 Range/Units 19:31 19:31 20:00 WBC 13.5 H (3.8-10.6) k/uL Hgb 11.4 L (13.0-17.5) gm/dL Hct 36.2 L (39.0-53.0) % RDW 19.7 H (11.5-15.5) % Plt Count 541 H (150-450) k/uL Neutrophils # 11.5 H (1.3-7.7) k/uL Lymphocytes # 0.9 L (1.0-4.8) k/uL Sodium 128 L (137-145) mmol/L Potassium 6.2 H* (3.5-5.1) mmol/L Chloride (98-107) mmol/L Carbon Dioxide 9 L* (22-30) mmol/L BUN 99 H (9-20) mg/dL Creatinine 5.12 H (0.66-1.25) mg/dL Plasma Lactic Acid Lucian (0.7-2.0) mmol/L Uric Acid (3.5-8.5) mg/dL Phosphorus (2.5-4.5) mg/dL Magnesium (1.6-2.3) mg/dL AST (17-59) U/L Alkaline Phosphatase 127 H (38-126) U/L Total Protein (6.3-8.2) g/dL Albumin 3.1 L (3.5-5.0) g/dL Urine Protein 1+ H (Negative) Urine Blood Small H (Negative) Ur Leukocyte Esterase Large H (Negative) Urine RBC 47 H (0-5) /hpf Urine WBC >182 H (0-5) /hpf Uric Acid Crystals Few H (None) /hpf Urine Bacteria Moderate H (None) /hpf Urine Yeast (Budding) Many H (None) /hpf 02/08/21 02/08/21 02/08/21 Range/Units 01:18 01:18 07:16 WBC (3.8-10.6) k/uL Hgb (13.0-17.5) gm/dL Hct (39.0-53.0) % RDW (11.5-15.5) % Plt Count (150-450) k/uL Neutrophils # (1.3-7.7) k/uL Lymphocytes # (1.0-4.8) k/uL Sodium 131 L 132 L (137-145) mmol/L Potassium 5.5 H 5.3 H (3.5-5.1) mmol/L Chloride 110 H 112 H (98-107) mmol/L Carbon Dioxide 9 L* 7 L* (22-30) mmol/L BUN 93 H 89 H (9-20) mg/dL Creatinine 4.85 H 4.62 H (0.66-1.25) mg/dL Plasma Lactic Acid Lucian 0.6 L (0.7-2.0) mmol/L Uric Acid 14.9 H (3.5-8.5) mg/dL Phosphorus 6.5 H 6.6 H (2.5-4.5) mg/dL Magnesium 2.4 H (1.6-2.3) mg/dL AST 13 L 13 L (17-59) U/L Alkaline Phosphatase (38-126) U/L Total Protein 6.1 L 5.7 L (6.3-8.2) g/dL Albumin 2.6 L 2.4 L (3.5-5.0) g/dL Urine Protein (Negative) Urine Blood (Negative) Ur Leukocyte Esterase (Negative) Urine RBC (0-5) /hpf Urine WBC (0-5) /hpf Uric Acid Crystals (None) /hpf Urine Bacteria (None) /hpf Urine Yeast (Budding) (None) /hpf 02/08/21 02/08/21 Range/Units 07:16 13:48 WBC (3.8-10.6) k/uL Hgb (13.0-17.5) gm/dL Hct (39.0-53.0) % RDW (11.5-15.5) % Plt Count (150-450) k/uL Neutrophils # (1.3-7.7) k/uL Lymphocytes # (1.0-4.8) k/uL Sodium (137-145) mmol/L Potassium (3.5-5.1) mmol/L Chloride (98-107) mmol/L Carbon Dioxide (22-30) mmol/L BUN (9-20) mg/dL Creatinine (0.66-1.25) mg/dL Plasma Lactic Acid Lucian (0.7-2.0) mmol/L Uric Acid 14.6 H 14.4 H (3.5-8.5) mg/dL Phosphorus (2.5-4.5) mg/dL Magnesium (1.6-2.3) mg/dL AST (17-59) U/L Alkaline Phosphatase (38-126) U/L Total Protein (6.3-8.2) g/dL Albumin (3.5-5.0) g/dL Urine Protein (Negative) Urine Blood (Negative) Ur Leukocyte Esterase (Negative) Urine RBC (0-5) /hpf Urine WBC (0-5) /hpf Uric Acid Crystals (None) /hpf Urine Bacteria (None) /hpf Urine Yeast (Budding) (None) /hpf Microbiology - Last 24 Hours (Table) 02/08/21 09:02 [facility] 20:00 Urine Culture - Preliminary Urine,Voided Diabetes panel 02/07/21 02/08/21 02/08/21 Range/Units 19:31 01:18 07:16 Sodium 128 L 131 L 132 L (137-145) mmol/L Potassium 6.2 H* 5.5 H 5.3 H (3.5-5.1) mmol/L Chloride 106 110 H 112 H (98-107) mmol/L Carbon Dioxide 9 L* 9 L* 7 L* (22-30) mmol/L BUN 99 H 93 H 89 H (9-20) mg/dL Creatinine 5.12 H 4.85 H 4.62 H (0.66-1.25) mg/dL Glucose 99 89 79 (74-99) mg/dL Calcium 9.7 8.9 8.9 (8.4-10.2) mg/dL AST 21 13 L 13 L (17-59) U/L ALT 6 <6 <6 (4-49) U/L Alkaline Phosphatase 127 H 105 95 (38-126) U/L Total Protein 7.1 6.1 L 5.7 L (6.3-8.2) g/dL Albumin 3.1 L 2.6 L 2.4 L (3.5-5.0) g/dL Calcium panel 02/07/21 02/08/21 02/08/21 Range/Units 19:31 01:18 07:16 Calcium 9.7 8.9 8.9 (8.4-10.2) mg/dL Phosphorus 6.5 H 6.6 H (2.5-4.5) mg/dL Albumin 3.1 L 2.6 L 2.4 L (3.5-5.0) g/dL Pituitary panel 02/07/21 02/08/21 02/08/21 Range/Units 19:31 01:18 07:16 Sodium 128 L 131 L 132 L (137-145) mmol/L Potassium 6.2 H* 5.5 H 5.3 H (3.5-5.1) mmol/L Chloride 106 110 H 112 H (98-107) mmol/L Carbon Dioxide 9 L* 9 L* 7 L* (22-30) mmol/L BUN 99 H 93 H 89 H (9-20) mg/dL Creatinine 5.12 H 4.85 H 4.62 H (0.66-1.25) mg/dL Glucose 99 89 79 (74-99) mg/dL Calcium 9.7 8.9 8.9 (8.4-10.2) mg/dL Adrenal panel 02/07/21 02/08/21 02/08/21 Range/Units 19:31 01:18 07:16 Sodium 128 L 131 L 132 L (137-145) mmol/L Potassium 6.2 H* 5.5 H 5.3 H (3.5-5.1) mmol/L Chloride 106 110 H 112 H (98-107) mmol/L Carbon Dioxide 9 L* 9 L* 7 L* (22-30) mmol/L BUN 99 H 93 H 89 H (9-20) mg/dL Creatinine 5.12 H 4.85 H 4.62 H (0.66-1.25) mg/dL Glucose 99 89 79 (74-99) mg/dL Calcium 9.7 8.9 8.9 (8.4-10.2) mg/dL Total Bilirubin 0.6 0.4 0.3 (0.2-1.3) mg/dL AST 21 13 L 13 L (17-59) U/L ALT 6 <6 <6 (4-49) U/L Alkaline Phosphatase 127 H 105 95 (38-126) U/L Total Protein 7.1 6.1 L 5.7 L (6.3-8.2) g/dL Albumin 3.1 L 2.6 L 2.4 L (3.5-5.0) g/dL Assessment and Plan (1) Acute renal failure Current Visit: Yes Status: Acute Code(s): N17.9 - ACUTE KIDNEY FAILURE, UNSPECIFIED SNOMED Code(s): 56734358 (2) Adenocarcinoma of colon Current Visit: No Status: Acute Code(s): C18.9 - MALIGNANT NEOPLASM OF COLON, UNSPECIFIED SNOMED Code(s): 993090350 (3) Cecal cancer Current Visit: No Status: Acute Priority: High Code(s): C18.0 - MALIGNANT NEOPLASM OF CECUM SNOMED Code(s): 933710597 (4) Nausea & vomiting Current Visit: Yes Status: Acute Code(s): R11.2 - NAUSEA WITH VOMITING, UNSPECIFIED SNOMED Code(s): 85943907
--- NOTE | 2021-02-08 15:51 | XR ---
EXAMINATION TYPE: XR abdomen acute w cxr DATE OF EXAM: 02/08/2021 COMPARISON: Yesterday HISTORY: Vomiting and diarrhea TECHNIQUE: 3 views FINDINGS: There is some blunting of the right costophrenic angle. Heart is normal. Lungs are clear of consolidation. There are no hilar masses. Bony thorax is intact. There is some drainage catheters ov er the mid abdomen. IMPRESSION: There is a small right pleural effusion that is new compared to yesterday. No heart failu re. Nonacute abdomen.
[2021-02-08] MEDS: PIPERACILLIN-TAZOBACTAM 3.375 GM in SODIUM CHLORIDE 0.9% 100 ML IVPB SCH (18:57)
[2021-02-08] MEDS: FAMOTIDINE 20 MG TAB PO SCH (20:18)
[2021-02-08] MEDS: DILTIAZEM CD 180 MG CAP.ER.24H PO SCH (20:18)
[2021-02-08] MEDS ORDERED: FAMOTIDINE 20 MG TAB PO SCH (21:00)
[2021-02-09] MEDS: SODIUM CHLORIDE 0.9% 1,000 ML IV SCH ×5 (00:37→17:42)
--- NOTE | 2021-02-09 00:53 | P.CONS ---
History of Present Illness - Reason for Consult Consult date: 02/08/21 abdominal abscess Requesting physician: Jaylon Salmon - Chief Complaint weakness and decreased oral intake x days - History of Present Illness History of present illness : Patient is 65-year male with a past medical history sniffing for colon cancer in this patient who was recently admitted at this facility patient is status post exploratory laparotomy with dra butler of the right-sided abdominal abscess biopsy of the cecal tumor diverting loop ileostomy procedure was completed on 01/04/2021 no overall cultures patient was subsequently discharged home on 01/13/2021 on no antibiotics to the prison patient has not been brought back to the ER by the family concerning for dehydration as the patient has been eating or drinking anything and did have significant output from his ileostomy bag patient complaining of some vague abdominal pain more of a dull aching 4 to 5-10 radiation nausea but no vomiting patient on presentation to the hospital was afebrile and no fever has been recorded subsequently patient did have white count of 13.5 with a left shift did have elevated BUN and creatinine level exams are normal the amylase lipase were normal urine was positive park PCR was negative patient did have a KUB x-ray nonacute abdominal patient was started on Rocephin infectious disease was consulted for abdominal abscess in this patient do have a LANA drain which is draining purulent secretions Review of system: CONSTITUTIONAL: Positive for weakness denies high-grade fever. EYES: No complaint. ENT: No complaint. RESPIRATORY: No complaint. CARDIOVASCULAR: No complaint. GENITOURINARY: No complaint. GASTROINTESTINAL: As per history of present illness. MUSCULOSKELETAL: No complaint. INTEGUMENTARY: No complaint. PSYCHOLOGIC: No complaint. ENDOCRINE: No complaint. NEUROLOGIC: No complaint. Past medical history : Reviewed, documented below Past surgical history : Reviewed, documented below Social history: Reviewed, documented below Medications: Reviewed, as documented below EXAMINATION: Vital sigans= Reviewed and documented below GENERAL DESCRIPTION: Elderly male lying in bed, no distress. No tachypnea or accessory muscle of respiration use. HEENT: Shows Pallor , no scleral icterus. Oral mucous membrane is dry. NECK: Trachea central, no thyromegaly. LUNGS: Unlabored breathing decreased breath sound at bases. No wheeze or cr ackle. HEART: S1, S2, regular rate and rhythm. ABDOMEN: Soft, soft mild tenderness , purulent secretion in the LANA drain EXTREMITIES: No edema of feet. SKIN: No rash, no masses palpable. NEUROLOGICAL: The patient is awake, alert, oriented x3, mood and affect normal. LABS AND RADIOLOGY: Reviewed results see below Assessment :1- Patient presented to hospital with abdominal pain nausea decreased oral intake and high output from his ileostomy in this patient who did have a perforated colon cancer status post laparotomy with right colectomy and drainage of the abscess in this patient discharged from the hospital on 01/13/2021 on no antibiotics now with evidence of significant purulent secretion in the LANA drain elevated white count concerning for abdominal abscess likely from enteric gram-negative pathogens 2-renal insufficiency and high risk of nephrotoxicity Plan: 1-discontinue Rocephin 2-start the patient on Zosyn 3-obtain CT abdominal pelvis with oral contrast only because of his elevated creatinine We will follow on clinical condition and cultures to further adjust medication if needed Thank you for this consultation we will follow the patient along with you Past Medical History Past Medical History: Atrial Fibrillation, Cancer, GERD/Reflux, Hypertension Additional Past Medical History / Comment(s): colon cancer, ileostomy recent from december with 2 lana drains on right abdomen. kidney disease per elev ated levels last hospitalization History of Any Multi-Drug Resistant Organisms: None Reported Past Surgical History: Hernia Repair Additional Past Surgical History / Comment(s): jaw surgery, ileostomy Past Anesthesia/Blood Transfusion Reactions: No Reported Reaction Past Psychological History: Anxiety, Depression Smoking Status: Never smoker Past Alcohol Use History: None Reported Past Drug Use History: Marijuana - Past Family History Father Family Medical History: Unable to Obtain Medications and Allergies Home Medications Medication Instructions Recorded Confirmed Type Ferrous Sulfate [Iron (65 MG 325 mg PO BID-W/MEALS #60 tab 01/13/21 02/07/21 Rx Elemental)] dilTIAZem HCL [dilTIAZem HCL 24Hr 180 mg PO DAILY #30 cap 01/13/21 02/07/21 Rx ER (Xr)] ALPRAZolam [Xanax] 0.25 mg PO Q8H PRN 02/07/21 02/07/21 History Cephalexin [Keflex] 500 mg PO Q8H 02/07/21 02/07/21 History HYDROcodone/APAP 7.5-325MG [[place] 1 tab PO Q8H PRN 02/07/21 02/07/21 History 7.5-325] Ondansetron [Zofran] 4 mg PO Q6H PRN 02/07/21 02/07/21 History Oxybutynin Chloride [Ditropan] 5 mg PO TID 02/07/21 02/07/21 History Tamsulosin HCl [Flomax] 0.4 mg PO BID 02/07/21 02/07/21 History Allergies Allergy/AdvReac Type Severity Reaction Status Date / Time meperidine [From Demerol] Allergy head felt Verified 02/07/21 20:14 big hydromorphone [From Dilaudid] AdvReac Mild Nausea Verified 02/07/21 20:14 Physical Exam Vitals: Vital Signs Temp Pulse Pulse Resp BP BP BP 02/08/21 12:12 97.8 F 56 L 16 95/64 02/08/21 05:30 98.4 F 90 20 93/60 02/08/21 02:35 53 L 90/55 02/08/21 00:23 84/42 02/08/21 00:05 97.5 F L 87 20 80/54 83/52 02/07/21 22:00 65 17 97/51 02/07/21 19:31 67 17 106/68 02/07/21 18:57 96.9 F L 66 20 82/53 Pulse Ox 02/08/21 12:12 97 02/08/21 05:30 98 02/08/21 02:35 02/08/21 00:23 02/08/21 00:05 97 02/07/21 22:00 100 02/07/21 19:31 99 02/07/21 18:57 95 Intake and Output 02/07/21 02/08/21 02/08/21 22:59 06:59 14:59 Output Total 400 95 Balance -400 -95 Output: Drainage 150 95 right abdomen lana 1 50 20 right abdomen lana 2 100 75 Urine 250 Uretheral (Estrada) 250 Other: Voiding Method Indwelling Catheter # Bowel Movements 1 Weight 58.967 kg 58.967 kg 58.967 kg Results CBC & Chem 7: 02/07/21 19:31 02/08/21 07:16 Labs: Abnormal Lab Results - Last 24 Hours (Table) 02/07/21 02/07/21 02/07/21 Range/Units 19:31 19:31 20:00 WBC 13.5 H (3.8-10.6) k/uL Hgb 11.4 L (13.0-17.5) gm/dL Hct 36.2 L (39.0-53.0) % RDW 19.7 H (11.5-15.5) % Plt Count 541 H (150-450) k/uL Neutrophils # 11.5 H (1.3-7.7) k/uL Lymphocytes # 0.9 L (1.0-4.8) k/uL Sodium 128 L (137-145) mmol/L Potassium 6.2 H* (3.5-5.1) mmol/L Chloride (98-107) mmol/L Carbon Dioxide 9 L* (22-30) mmol/L BUN 99 H (9-20) mg/dL Creatinine 5.12 H (0.66-1.25) mg/dL Plasma Lactic Acid Lucian (0.7-2.0) mmol/L Uric Acid (3.5-8.5) mg/dL Phosphorus (2.5-4.5) mg/dL Magnesium (1.6-2.3) mg/dL AST (17-59) U/L Alkaline Phosphatase 127 H (38-126) U/L Total Protein (6.3-8.2) g/dL Albumin 3.1 L (3.5-5.0) g/dL Urine Protein 1+ H (Negative) Urine Blood Small H (Negative) Ur Leukocyte Esterase Large H (Negative) Urine RBC 47 H (0-5) /hpf Urine WBC >182 H (0-5) /hpf Uric Acid Crystals Few H (None) /hpf Urine Bacteria Moderate H (None) /hpf Urine Yeast (Budding) Many H (None) /hpf 02/08/21 02/08/21 02/08/21 Range/Units 01:18 01:18 07:16 WBC (3.8-10.6) k/uL Hgb (13.0-17.5) gm/dL Hct (39.0-53.0) % RDW (11.5-15.5) % Plt Count (150-450) k/uL Neutrophils # (1.3-7.7) k/uL Lymphocytes # (1.0-4.8) k/uL Sodium 131 L 132 L (137-145) mmol/L Potassium 5.5 H 5.3 H (3.5-5.1) mmol/L Chloride 110 H 112 H (98-107) mmol/L Carbon Dioxide 9 L* 7 L* (22-30) mmol/L BUN 93 H 89 H (9-20) mg/dL Creatinine 4.85 H 4.62 H (0.66-1.25) mg/dL Plasma Lactic Acid Lucian 0.6 L (0.7-2.0) mmol/L Uric Acid 14.9 H (3.5-8.5) mg/dL Phosphorus 6.5 H 6.6 H (2.5-4.5) mg/dL Magnesium 2.4 H (1.6-2.3) mg/dL AST 13 L 13 L (17-59) U/L Alkaline Phosphatase (38-126) U/L Total Protein 6.1 L 5.7 L (6.3-8.2) g/dL Albumin 2.6 L 2.4 L (3.5-5.0) g/dL Urine Protein (Negative) Urine Blood (Negative) Ur Leukocyte Esterase (Negative) Urine RBC (0-5) /hpf Urine WBC (0-5) /hpf Uric Acid Crystals (None) /hpf Urine Bacteria (None) /hpf Urine Yeast (Budding) (None) /hpf 02/08/21 02/08/21 Range/Units 07:16 13:48 WBC (3.8-10.6) k/uL Hgb (13.0-17.5) gm/dL Hct (39.0-53.0) % RDW (11.5-15.5) % Plt Count (150-450) k/uL Neutrophils # (1.3-7.7) k/uL Lymphocytes # (1.0-4.8) k/uL Sodium (137-145) mmol/L Potassium (3.5-5.1) mmol/L Chloride (98-107) mmol/L Carbon Dioxide (22-30) mmol/L BUN (9-20) mg/dL Creatinine (0.66-1.25) mg/dL Plasma Lactic Acid Lucian (0.7-2.0) mmol/L Uric Acid 14.6 H 14.4 H (3.5-8.5) mg/dL Phosphorus (2.5-4.5) mg/dL Magnesium (1.6-2.3) mg/dL AST (17-59) U/L Alkaline Phosphatase (38-126) U/L Total Protein (6.3-8.2) g/dL Albumin (3.5-5.0) g/dL Urine Protein (Negative) Urine Blood (Negative) Ur Leukocyte Esterase (Negative) Urine RBC (0-5) /hpf Urine WBC (0-5) /hpf Uric Acid Crystals (None) /hpf Urine Bacteria (None) /hpf Urine Yeast (Budding) (None) /hpf Microbiology - Last 24 Hours (Table) 02/08/21 09:02 Body Fluid Culture - Preliminary [place] 02/07/21 20:00 Urine Culture - Preliminary Urine,Voided
[2021-02-09] MEDS: PIPERACILLIN-TAZOBACTAM 3.375 GM in SODIUM CHLORIDE 0.9% 100 ML IVPB SCH ×3 (02:23→21:27)
[2021-02-09] MEDS: DILTIAZEM CD 180 MG CAP.ER.24H PO SCH (08:24)
[2021-02-09] MEDS: IOPAMIDOL CONTRAST (ORAL USE) VIAL PO PRN ×2 (08:31→09:47)
[2021-02-09] MEDS: HYDROcodone/APAP 7.5-325MG 1 EACH TAB PO PRN (09:46)
[2021-02-09] MEDS: LORazepam 2 MG/ML INJ IV PRN (09:53)
--- NOTE | 2021-02-09 10:39 | CT ---
EXAMINATION TYPE: CT abdomen pelvis wo con DATE OF EXAM: 02/09/2021 COMPARISON: CT 01/03/2021 HISTORY: Intra abd abscess CT DLP: 330.3 mGycm Automated exposure control for dose reduction was used. TECHNIQUE: Helical acquisition of images from the lung bases through the pelvis. Patient received or al contrast only FINDINGS: The cavitary mass in the upper abdomen is again noted, there are drains present both within the cavity and adjacent to the mass anteriorly, there is an ostomy in the left lower quadrant, no ev ident bowel obstruction. Cavitary mass measures approximately 14 x 8.5 x 16.5 cm The hiatal hernia with partial intrathoracic stomach is again seen. Lack of intravenous contrast coul d compromise sensitivity. There are anasarca changes present LUNG BASES: There are bilateral pleural effusions right greater than left, there is associated compre ssive atelectasis. AORTA: No significant abnormality is appreciated. LIVER/GB: Air within the liver has resolved, there are some scattered low dense foci similar to prior , gallbladder is contracted. PANCREAS: No significant abnormality is seen. SPLEEN: No significant abnormality is seen. ADRENALS: No significant abnormality is seen. KIDNEYS: Marked left-sided hydronephrosis is again seen, very thin renal parenchyma noted on the left , there is hypoattenuation seen within the renal collecting system on the right which may represent s ome nonobstructive. Calculi REPRODUCTIVE ORGANS: Prostate is enlarged. URINARY BLADDER: Catheterized with a Estrada, there is air within the bladder, urinary bladder shows a thickened wall. FREE AIR: No Free Air is visible. The pneumoperitoneum seen on previous exam has largely resolved, s ome minimal free air is present adjacent to the drains and mass ASCITES: None visible. PELVIC ADENOPATHY: None visualized. RETROPERITONEAL ADENOPATHY: No Retroperitoneal Adenopathy visible. OSSEOUS STRUCTURES: No significant abnormality is seen. IMPRESSION: POSTOP CHANGES, POSTPROCEDURAL CHANGES DESCRIBED. THERE ARE NEW BILATERAL PLEURAL EFFUSIONS, ANASA RCA.
--- NOTE | 2021-02-09 11:02 | P.PN ---
Subjective Progress Note Date: 02/09/21 Principal diagnosis: This is 65-year-old male seen in consultation because of acute kidney injury secondary to decreased intake and ileostomy drainage. Creatinine peaked at 5.12 and improved to 4.6 yesterday with hydration. 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 he had hyponatremia secondary to acute kidney injury hyperkalemia with potassium of 6.2, severe non- gap acidosis secondary to ileostomy drainage and hyperphosphatemia from acute kidney injury and possible lysis syndrome He was given rasburicase IV fluid was increased to 200 mL an hour. Uric acid went down from 14.9-3.1 He is urine output as of last 24 hours is 107 5 mL and total output 171 5 mL Total intake is 200 mL/h of normal saline Today's labs are pending, he just came back from computed tomography scan after getting some sedation therefore is very somnolent Objective - Vital Signs Vital signs: Vital Signs Temp 98.2 F 02/09/21 05:16 Pulse 61 02/09/21 08:00 Resp 14 02/09/21 08:00 BP 100/66 02/09/21 05:16 Pulse Ox 98 02/09/21 05:16 Intake & Output 02/08/21 02/09/21 02/09/21 18:59 06:59 18:59 Output Total 920 795 Balance -920 -795 Weight 58.967 kg Output: Drainage 95 170 right abdomen lana 1 20 70 right abdomen lana 2 75 100 Urine 625 450 Stool 200 175 Other: Voiding Method Indwelling Catheter Indwelling Catheter Indwelling Catheter # Bowel Movements 1 On examination somnolent post computed tomography scan and Ativan No JVP noted facial symmetry noted Lungs are clear with somewhat less than optimal air entry Heart sounds unremarkable Abdomen soft scaphoid nondistended with ileostomy and LANA drainages Extremity exam was no edema - Labs CBC & Chem 7: 02/07/21 19:31 02/08/21 07:16 Labs: Abnormal Lab Results - Last 24 Hours (Table) 02/08/21 02/09/21 02/09/21 Range/Units 13:48 05:30 05:41 Uric Acid 14.4 H 3.1 L (3.5-8.5) mg/dL Ur Random Uric Acid 13.5 L (37.0-92.0) mg/dL Microbiology - Last 24 Hours (Table) 02/08/21 09:02 Gram Stain - Preliminary [place] Fluid Culture - Preliminary Gram Neg Bacilli 02/07/21 20:00 Urine Culture - Preliminary Urine,Voided Ximena albicans 02/08/21 01:10 Blood Culture - Preliminary Blood No Growth after 24 hours 02/08/21 01:26 Blood Culture - Preliminary Blood No Growth after 24 hours Assessment and Plan Assessment: Impression 1. Acute kidney injury secondary to low intake. Additionally ileostomy dr grubbs. Creatinine peaked at 5.12 and admission and is improved to 4.6 to with hydration. Possible spontaneous tumor lysis syndrome. Treated with rasburicase, yesterday 1 dose uric acid came down other labs are pending urine output is adequate 2. Chronic kidney disease creatinine is slowly going up over the last few months. The etiology of this is obstructed left kidney, and the cause of the obstruction likely is tumor 3. Hyponatremia secondary to acute kidney injury, pending labs today 4. Hyperkalemia secondary to acute kidney injury improved potassium from 6.2- 5.3 as of yesterday. Pending labs today 5. Severe non-gap acidosis bicarb is 19 and anion gap is 13 secondary to loop ileostomy drainage. Pending labs today 6. hyperphosphatemia from acute kidney injury and chronic kidney disease. Spontaneous tumor lysis syndrome Recommendation 1. Reduce IV fluids 200 mL an hour of normal saline 2. We will consider decompressing the hydronephrotic left kidney if he does not improve. 3. Watch calcium phosphorus and electrolytes
--- NOTE | 2021-02-09 12:41 | P.CRDCN ---
History of Present Illness Consult date: 02/09/21 Requesting physician: Jaylon Salmon Reason for Consult (text): atrial fibrillation with RVR Chief complaint: dehydration History of present illness: This is a 65-year-old gentleman who is minimally responsive at the time of my examination. Answers yes and no to some questions but is difficult to arouse, quite drowsy. Patient is quite frail and cachectic. Has a history of colon cancer diagnosed earlier this year with delay in treatment and subsequent perforated bowel and underwent surgery last month without complete excision of the tumor due to adherence to the retroperitoneum. Underwent diverting ileostomy at that time. He has a history of hypertension, GERD and marijuana use. Also history of paroxysmal atrial fibrillation during his previous admission. At that time he was started on diltiazem 180 mg daily as well as metoprolol tartrate 50 mg by mouth twice a day. 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 Since discharge the patient has been having poor oral intake with output and his ileostomy. Was admitted with dehydration and acute renal failure with a creatinine of 5.1. We were asked to see the patient in consultation for atrial fibrillation with rapid ventricular response. At the time of my examination the patient is still in atrial fibrillation with rapid ventricular response. He is currently on diltiazem 180 mg daily. Blood pressure is low. He is receiving IV fluids. There was initially plans for outpatient PET scan for restaging at which time it would be determined whether the patient would be a candidate for either palliative or curative chemotherapy. Past Medical History Past Medical History: Atrial Fibrillation, Cancer, GERD/Reflux, Hypertension Additional Past Medical History / Comment(s): colon cancer, ileostomy recent from december with 2 lana drains on right abdomen. kidney disease per el evated levels last hospitalization History of Any Multi-Drug Resistant Organisms: None Reported Past Surgical History: Hernia Repair Additional Past Surgical History / Comment(s): jaw surgery, ileostomy Past Anesthesia/Blood Transfusion Reactions: No Reported Reaction Past Psychological History: Anxiety, Depression Smoking Status: Never smoker Past Alcohol Use History: None Reported Past Drug Use History: Marijuana - Past Family History Father Family Medical History: Unable to Obtain Medications and Allergies Home Medications Medication Instructions Recorded Confirmed Type Ferrous Sulfate [Iron (65 MG 325 mg PO BID-W/MEALS #60 tab 01/13/21 02/07/21 Rx Elemental)] dilTIAZem HCL [dilTIAZem HCL 24Hr 180 mg PO DAILY #30 cap 01/13/21 02/07/21 Rx ER (Xr)] ALPRAZolam [Xanax] 0.25 mg PO Q8H PRN 02/07/21 02/07/21 History Cephalexin [Keflex] 500 mg PO Q8H 02/07/21 02/07/21 History HYDROcodone/APAP 7.5-325MG [[place] 1 tab PO Q8H PRN 02/07/21 02/07/21 History 7.5-325] Ondansetron [Zofran] 4 mg PO Q6H PRN 02/07/21 02/07/21 History Oxybutynin Chloride [Ditropan] 5 mg PO TID 02/07/21 02/07/21 History Tamsulosin HCl [Flomax] 0.4 mg PO BID 02/07/21 02/07/21 History Allergies Allergy/AdvReac Type Severity Reaction Status Date / Time meperidine [From Demerol] Allergy head felt Verified 02/07/21 20:14 big hydromorphone [From Dilaudid] AdvReac Mild Nausea Verified 02/07/21 20:14 Physical Exam Vitals: Vital Signs Temp Pulse Resp BP BP Pulse Ox 02/09/21 11:34 97.7 F 77 14 76/52 99 02/09/21 08:00 61 14 02/09/21 05:16 98.2 F 61 14 100/66 98 02/09/21 00:30 98.9 F 79 16 91/49 97 02/09/21 00:26 97 02/08/21 20:10 147 H 02/08/21 19:15 97.4 F L 75 18 99/64 94 L Intake and Output 02/08/21 02/09/21 02/09/21 22:59 06:59 14:59 Output Total 920 700 590 Balance -920 -700 -590 Output: Drainage 95 75 90 right abdomen lana 1 35 35 30 right abdomen lana 2 60 40 60 Urine 625 450 Stool 200 175 500 Other: Voiding Method Indwelling Catheter Indwelling Catheter # Bowel Movements 1 1 PHYSICAL EXAMINATION: This is a 65-year-old gentleman who is minimally responsive, malnourished and cachectic. VITAL SIGNS: Blood pressure 100/66, heart rate in 120s, respirations 14, temp 98.2F. Patient is 98 % on room air. HEENT: Head is atraumatic, normocephalic. Pupils are equal, round. Sclerae anicteric. Conjunctivae are clear. Mucous membranes of the mouth are moist. Neck is supple. There is no elevated jugular venous pressure. No carotid bruit is heard. CHEST EXAMINATION: Lungs reveal diminished air entry bilaterally. No wheezes rales or rhonchi. Respirations even and nonlabored. HEART EXAMINATION: Heart irregular rate and rhythm with tachycardia, positive S1 and S2. No S3. No S4. No clicks, rubs or murmurs. ABDOMEN: Dressing dry and intact, ileostomy with liquid stool EXTREMITIES: 2+ peripheral pulses with no evidence of peripheral edema and no calf tenderness noted. NEUROLOGIC EXAMINATION: Patient is drowsy, minimally responsive. Results 02/07/21 19:31 02/08/21 07:16 Current Medications Generic Name Dose Route Start Last Admin Trade Name Freq PRN Reason Stop Dose Admin Hydrocodone Bitart/Acetaminophen 1 each 02/08/21 19:58 02/09/21 09:46 Hydrocodone/Apap 7.5-325mg 1 Each Tab PO 1 each Q8H PRN Administration Pain Diltiazem HCl 180 mg 02/08/21 20:00 02/09/21 08:24 Diltiazem Cd 180 Mg Cap.Er.24h PO 180 mg DAILY DONG Administration Famotidine 20 mg 02/08/21 21:00 02/08/21 20:18 Famotidine 20 Mg Tab PO 20 mg HS DONG Administration Sodium Chloride 1,000 mls @ 200 mls/hr 02/08/21 13:15 02/09/21 08:25 Saline 0.9% IV 200 mls/hr .Q5H DONG Administration Piperacillin Sod/Tazobactam 100 mls @ 25 mls/hr 02/08/21 18:00 02/09/21 08:24 Sod 3.375 gm/ Sodium Chloride IVPB 25 mls/hr Q8H DONG Administration Sodium Chloride 1,000 mls @ 100 mls/hr 02/09/21 11:15 Saline 0.9% IV .Q10H DONG Lorazepam 0.5 mg 02/07/21 20:30 02/09/21 09:53 Lorazepam 2 Mg/Ml Inj IV 0.5 mg Q6HR PRN Administration Anxiety Metoprolol Tartrate 25 mg 02/09/21 12:45 Metoprolol Tartrate 25 Mg Tab PO BID DONG Naloxone HCl 0.2 mg 02/07/21 20:30 Naloxone 0.4 Mg/Ml 1 Ml Vial IV Q2M PRN Opioid Reversal Ondansetron HCl 4 mg 02/07/21 20:30 Ondansetron 4 Mg/2 Ml Vial IVP Q8HR PRN Nausea And Vomiting Intake and Output 02/08/21 02/09/21 02/09/21 22:59 06:59 14:59 Output Total 920 700 590 Balance -920 -700 -590 Output: Drainage 95 75 90 right abdomen lana 1 35 35 30 right abdomen lana 2 60 40 60 Urine 625 450 Stool 200 175 500 Other: Voiding Method Indwelling Catheter Indwelling Catheter # Bowel Movements 1 1 02/07/21 19:31 02/08/21 07:16 Assessment and Plan Assessment: #1 paroxysmal atrial fibrillation with rapid ventricular response, not anticoagulated #2 acute kidney injury #3 colon cancer Plan: From 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 We will add low-dose beta brad. I'll hold off on anticoagulation at this time. Unfortunately patient's prognosis remains quite guarded. We will continue to follow the patient and provide further recommendations at this time. CAB DRIVER note has been reviewed, I agree with a documented findings and plan of care. Patient was seen and examined.
[2021-02-09] MEDS: METOPROLOL TARTRATE 25 MG TAB PO SCH ×2 (13:10→21:27)
--- NOTE | 2021-02-09 15:00 | P.PN ---
Subjective Progress Note Date: 02/09/21 CHIEF COMPLAINT: Weakness HISTORY OF PRESENT ILLNESS: The patient is a 65 year old male with history of perforated colon cancer 01/03/21 status post diverting loop ileostomy return to the hospital due to dehydration and poor oral intake. at bedside reports she has a poor appetite. He has moderate weight loss. He has LANA drains from his initial surgery over one month ago. REVIEW OF ORGAN SYSTEMS: Has weight loss. No chest pain. No shortness of breath. Has anorexia. PHYSICAL EXAM: VITALS: Reviewed CONSTITUTIONAL: Well developed and in no acute distress. Cachectic in appearance. EYES: Conjuctivae without sclera icterus. Extraocular movements grossly intact. HEAD, EARS, NOSE, THROAT: Moist buccal mucosa. Head is atraumatic, normocephalic. Hears conversational speech. No nasal drainage. RESPIRATORY: Non-labored respirations and equal bilateral excursions. No gross wheezes. CARDIOVASCULAR: 2+ radial pulses. ABDOMEN: Ostomy patent with brown liquid stool LANA present. MUSCULOSKELETAL: No clubbing, caynosis. SKIN: Warm and well perfused with good skin turgor. NEUROLOGIC: Cranial nerves II through XII grossly intact. No focal or lateralizing signs. PSYCH: Lethargic. CLINCAL LABS: Reviewed. Uric acid level decreasing. IMAGING: CT of the abdomen pelvis from last night reviewed without contrast. LANA drain at the right upper quadrant. No diffuse free air noted. This is my independent interpretation. RADIOLOGY: CT of the abdomen pelvis report demonstrates postsurgical changes. No large fluid collection or abscess identified. ASSESSMENT: 1. Dehydration 2. Acute kidney injury due to dehydration 3. Nausea 4. Colon cancer 5. Loop ileostomy PLAN: 1. Repeat CBC due to leukocytosis on presentation. 2. Per discussion with his , patient has poor appetite. Evaluation of gastrostomy tube pending. Objective - Vital Signs Vital signs: Vital Signs Temp 97.7 F 02/09/21 11:34 Pulse 77 02/09/21 11:34 Resp 14 02/09/21 11:34 BP 76/52 02/09/21 11:34 Pulse Ox 99 02/09/21 11:34 Intake & Output 02/08/21 02/09/21 02/09/21 18:59 06:59 18:59 Output Total 920 790 590 Balance -920 795 -590 Weight 58.967 kg Output: Drainage 95 170 90 right abdomen lana 1 20 70 30 right abdomen lana 2 75 100 60 Urine 625 450 Stool 200 175 500 Other: Voiding Method Indwelling Catheter Indwelling Catheter Indwelling Catheter # Bowel Movements 1 - Labs CBC & Chem 7: 02/07/21 19:31 02/08/21 07:16 Labs: Abnormal Lab Results - Last 24 Hours (Table) 02/08/21 02/09/21 02/09/21 Range/Units 13:48 05:30 05:41 Uric Acid 14.4 H 3.1 L (3.5-8.5) mg/dL Ur Random Uric Acid 13.5 L (37.0-92.0) mg/dL Microbiology - Last 24 Hours (Table) 02/08/21 09:02 [facility] - [facility] Gram Neg Bacilli 02/07/21 20:00 Urine Culture - Preliminary Urine,Voided Ximena albicans 02/08/21 01:10 Blood Culture - Preliminary Blood No Growth after 24 hours 02/08/21 01:26 Blood Culture - Preliminary Blood No Growth after 24 hours Assessment and Plan (1) Acute renal failure Current Visit: Yes Status: Acute Code(s): N17.9 - ACUTE KIDNEY FAILURE, UNSPECIFIED SNOMED Code(s): 21126583 (2) Adenocarcinoma of colon Current Visit: No Status: Acute Code(s): C18.9 - MALIGNANT NEOPLASM OF COLON, UNSPECIFIED SNOMED Code(s): 351370805 (3) Cecal cancer Current Visit: No Status: Acute Priority: High Code(s): C18.0 - MALIGNANT NEOPLASM OF CECUM SNOMED Code(s): 023270326 (4) Nausea & vomiting Current Visit: Yes Status: Acute Code(s): R11.2 - NAUSEA WITH VOMITING, UNSPECIFIED SNOMED Code(s): 13303759
--- NOTE | 2021-02-09 15:42 | P.PN ---
Progress Note - Text Progress Note Date: 02/09/21 Chief Complaint: Low blood pressure This is a 65-year-old patient who follows Dr. Porter. Patient in September of this year developed some cramping pain in the right abdomen. Patient had become progressively more severe and more persistent. Also noted a black stools. Decreased appetite. He was initially seen in the ER here and transferred to [place] a left AMA because he was not satisfied with the care. Came back [facility] ER. Computed tomography scan of the abdomen on November 02 showed a large mass 11 cm along with right: Involving the cecum and hepatic flexure and some perilesional hemorrhage. Is also noted to have a large wound of the prostate with masslike projection into the base of the bladder. Bilateral hydronephrosis. On November 26 patient to have a PET scan that did not show any evidence of metastatic disease. He did not follow with surgeon for surgical resection. In December he was admitted with a perforated bowel and associated abscess. Taken to surgery on January 04 and expiratory laparotomy was done with drainage of abscesses. Diverting ileostomy was done with excision of abdominal wall nodule. Patient had 2 PELON drains. Patient actually went home. On January 13. He apparently came to the ER on January 28 for paroxysmal atrial fibrillation. He also saw Dr. Gaitan in the office about a week ago. And he removed some ryan. She has been told with oncology that he needs to be, stronger before any chemotherapy can be done. Patient is discomfort. Since discharge patient has been eating very little. Estring some fluids. Has been quite a bit drainage through the second PELON tube. Decreased output through the PELON tube #1. 3 days ago patient was at [facility] because of low blood pressure. He was put on Keflex. No fever reported. Patient has been losing weight. Patient does get about using a walker. Progressively more weak. He lives with his his girlfriend Yessi. Patient now presents to the ER feeling weak diet and rundown. Low blood pressure. Kidney functions rather advanced February 09: Patient on IV Zosyn. Patient went into atrial fibrillation with rapid ventricular rate. Cardiology consulted. Lopressor 25 mg twice a day added. Tired. Getting IV fluids. Girlfriend at bedside. Review of systems: Was done for constitutional, cardiovascular, GI, pulmonary. relevant finding as above Active Medications Hydrocodone Bitart/Acetaminophen (Hydrocodone/Apap 7.5-325mg 1 Each Tab) 1 each PO Q8H PRN PRN Reason: Pain Last Admin: 02/09/21 09:46 Dose: 1 each Documented by: Diltiazem HCl (Diltiazem Cd 180 Mg Cap.Er.24h) 180 mg PO DAILY [facility] Last Admin: 02/09/21 08:24 Dose: 180 mg Documented by: Famotidine (Famotidine 20 Mg Tab) 20 mg PO HS [facility] Last Admin: 02/08/21 20:18 Dose: 20 mg Documented by: Sodium Chloride (Saline 0.9%) 1,000 mls @ 100 mls/hr IV .Q10H DONG Piperacillin Sod/Tazobactam (Sod 3.375 gm/ Sodium Chloride) 100 mls @ 25 mls/hr IVPB Q12HR DONG Lorazepam (Lorazepam 2 Mg/Ml Inj) 0.5 mg IV Q6HR PRN PRN Reason: Anxiety Last Admin: 02/09/21 09:53 Dose: 0.5 mg Documented by: Metoprolol Tartrate (Metoprolol Tartrate 25 Mg Tab) 25 mg PO BID [facility] Last Admin: 02/09/21 13:10 Dose: 25 mg Documented by: Naloxone HCl (Naloxone 0.4 Mg/Ml 1 Ml Vial) 0.2 mg IV Q2M PRN PRN Reason: Opioid Reversal Ondansetron HCl (Ondansetron 4 Mg/2 Ml Vial) 4 mg IVP Q8HR PRN PRN Reason: Nausea And Vomiting Past medical history to include: Atrial fibrillation, GERD, hypertension, colon cancer, ileostomy, weight 2 PELON drains, ileostomy, CK D Social history: 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 No smoking. Did marijuana. Lives with his girlfriend Yessi Family history: Reviewed, noncontributory to presentation Physical examination: VITAL SIGNS: 97.7, 77, 14, 76 x 52, 99% room air GENERAL: laying in bed, tired appearing.. EYES: [Pupils equal. Conjunctiva pale. HEENT: External appearance of nose and ears normal, oral cavity grossly normal. NECK: JVD not raised; masses not palpable. HEART: Heart sounds irregular; no edema. LUNGS: Respiratory rate normal; clear to auscultation. ABDOMEN: Soft, some tenderness, liver spleen not palpable, no masses palpable. Patient has 2 PELON drains on the right site. Marked 1 and 2. Left-sided ileostomy bag. With blood-tinged liquid stool PSYCH: Alert and oriented x3; mood and affect lowl. MUSCULAR skeletal: Positive subcutaneous tissue and muscle mass. Prominent bones INVESTIGATIONS, reviewed in the clinical context: February 09: Sodium 132 potassium 5.3 bicarb 7 BUN 89 creatinine 4.6 to uric acid 14.6 albumin 2.4 Sodium 132 potassium 5.3 bicarb 7 BUN 89 creatinine 4.6 to phosphorus 6.6 albumin 2.4 UA positive for leukoesterase, WBC, bacteria KUB x-ray: Was reviewed by me: No obvious on the D. PELON drain noted. EKG tracing personally reviewed by me-atrial fibrillation. Rate of 103. PVC. Labs from 01/10/2021: BUN 69 creatinine 4.65 hemoglobin 9.4 Assessment and plan: -Hypotension, multifactorial including volume loss from decreased oral intake, poor protein status. Loss of muscle mass malnutrition.: Slow to respond IV fluids. -Moderate protein calorie malnutrition Patient may need enteral feeding/IV nutritional support. We will get an opinion from Dr. Gaitan. 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 With extension locally. Patient's surgical note from January 03 shows necrotic cecal tumor with abscess. Currently not a candidate for chemotherapy because of very poor functional status. -Acute on chronic progressive medical debility from underlying malignancy and poor nutritional status -Normocytic anemia, combination of iron deficiency anemia and from underlying malignancy. -Severe metabolic acidosis from renal failure -Acute and chronic kidney disease probably stage IV. Some component from hydronephrosis that was obstructive and also prerenal component.: Slow to respond IV fluids. Follow renal function. Follow with nephrology. -Hyperkalemia secondary to renal failure Low potassium diet -Hyponatremia from decrease salt intake Encourage oral intake. -Hyperphosphatemia from renal failure - Nutritional myopathy Patient does use a cane/walker. -Possible secondary infection of the necrotic tumor mass. Consult ID. Output from PELON drain had been sent off for Gram stain and culture. IV Zosyn -Hyper- uricemia Started on Lopressor 25 mg twice a day. IV Zosyn. Other medications to continue. Prognosis guarded.
[2021-02-09] MEDS: FAMOTIDINE 20 MG TAB PO SCH (21:27)
[2021-02-10] MEDS: SODIUM CHLORIDE 0.9% 1,000 ML IV SCH ×2 (01:18→09:08)
--- NOTE | 2021-02-10 01:19 | PN ---
PROGRESS NOTE DATE OF SERVICE: 02/09/2021 REASON FOR FOLLOWUP: Intraabdominal abscess. INTERVAL HISTORY: The patient is afebrile. The patient is breathing comfortably. Remains sleepy and lethargic. Not a very good historian. No vomiting or diarrhea has been reported. PHYSICAL EXAMINATION: Blood pressure 98/63, pulse of 75, temperature of 97.4. He is 93% on room air. General description is an elderly male lying in bed in no distress. RESPIRATORY SYSTEM: Unlabored breathing. Clear to auscultation anteriorly. HEART: S1, S2. Regular rate and rhythm. ABDOMEN: Soft. No tenderness. EXTREMITIES: No edema of the feet. LABS: No CBC was done today. Abdominal culture with Gram-negative bacilli. CT did show and a fluid collection. DIAGNOSTIC IMPRESSION AND PLAN: Patient with intraabdominal abscess recent surgery but clear drainage through the PELON, culture with Gram-negative. Patient is covered with Zosyn. Chest will be reviewed with the radiologist. Prognosis remains guarded. Continue supportive care. MMODL / IJN: [id number] /
[2021-02-10] MEDS: LORazepam 2 MG/ML INJ IV PRN ×3 (05:04→23:41)
[2021-02-10 06:30] LABS: Anisocytosis Slight; Basophils # (A) 0.1 k/uL (0-0.2); Basophils % (A) 1 %; Eosinophils # (A) 0.2 k/uL (0-0.7); Eosinophils % (A) 2 %; HCT 34.3 % (39.0-53.0); HGB 10.2 gm/dL (13.0-17.5); Hypochromasia Marked; Lymphocytes # (A) 0.8 k/uL (1.0-4.8); Lymphocytes % (A) 9 %; MCH 25.1 pg (25.0-35.0); MCHC 29.7 g/dL (31.0-37.0); MCV 84.5 fL (80.0-100.0); Mean Platelet Volume 7.1; Microcytosis Slight; Monocytes # (A) 0.8 k/uL (0-1.0); Monocytes % (A) 8 %; Neutrophils # (A) 6.9 k/uL (1.3-7.7); Neutrophils % (A) 78 %; Platelet Count 468 k/uL (150-450); RBC 4.06 m/uL (4.30-5.90); RDW 19.9 % (11.5-15.5); WBC 8.9 k/uL (3.8-10.6)
--- NOTE | 2021-02-10 08:35 | XR ---
EXAMINATION TYPE: XR chest 2V DATE OF EXAM: 02/10/2021 COMPARISON: 01/08/2021 TECHNIQUE: PA and lateral views submitted. HISTORY: Hypoxia FINDINGS: Heart size is normal. Patient is rotated with no evidence of pneumothorax or pleural effusion. Small bilateral pleural effusion suggested. No overt failure. IMPRESSION: 1. Cardiomegaly correlate for bilateral small pleural effusion
[2021-02-10] MEDS: METOPROLOL TARTRATE 25 MG TAB PO SCH ×2 (09:08→20:08)
[2021-02-10] MEDS: DILTIAZEM CD 180 MG CAP.ER.24H PO SCH (09:08)
[2021-02-10] MEDS: PIPERACILLIN-TAZOBACTAM 3.375 GM in SODIUM CHLORIDE 0.9% 100 ML IVPB SCH ×2 (09:09→20:09)
[2021-02-10 09:13] LABS: Magnesium 2.3 mg/dL (1.5-2.4)
--- NOTE | 2021-02-10 10:10 | P.PN ---
Subjective This is a 65-year-old male with a past medical history of metastatic colon cancer, subsequent perforated bowel and underwent surgery 01/2021 without complete excision of the tumor due to adherence to the retroperitoneum, Underwent diverting ileostomy, paroxysmal atrial fibrillation, GERD, hypertension. He follows in the office with Dr. Ugalde. Cardiology was consulted for atrial fibrillation with ventricular response. Patient presented to the hospital with dehydration and acute renal failure with a creatinine of 5.1. Of note, previous admission 01/2021, he was found to be in atrial fibrillation, he was started on diltiazem 180 mg daily as well as metoprolol tartrate 50 mg by mouth twice a day. Initially recommended to start anticoagula tion but this was not done due to significant drainage of his LANA drains. 02/10/21: Patient seen at bedside, no acute distress. He is more alert this morning. He denies any chest pain, shortness of breath, lightheadedness, dizziness, palpitations. Labs reviewed from yesterday, sodium 132, potassium 4.3, BUN 89, serum creatinine 4.6, WBC 8.9, hemoglobin 10.2, platelets 468. Patient is currently maintained on Cardizem 180 mg daily, Pepcid, metoprolol tartrate 25 mg twice a day, IV Zosyn and IV fluids. Telemetry reviewed patient in atrial fibrillation, with variable heart rates, mostly [id number], with PVCs, and one episode of 8 beat run of NSVT Blood pressure 95/60, heart rate 73, afebrile and saturations greater than 92% on room air GENERAL: In no acute distress. NECK: Supple without JVD LUNGS: Breath sounds clear to auscultation bilaterally. Respiration equal and unlabored. No wheezes, rales or rhonchi. HEART: Irregular rate and rhythm without murmurs, rubs or gallops. S1 and S2 heard. EXTREMITIES: Normal range of motion, no edema. No clubbing or cyanosis. Peripheral pulses intact. ASSESSMENT Paroxysmal atrial fibrillation with rapid ventricular response, not on patient due to previous bleeding. Acute kidney injury History of metastatic colon cancer History of hypertensionhypotensive this admission History of loop ileostomy PLAN From cardiology perspective, we will continue current medical therapy with Cardizem and metoprolol tartrate. We will hold off on anticoagulation at this time. Unfortunately patient's prognosis remains quite guarded. We will continue to follow the patient and provide further recommendations at this time. Nurse Practitioner note has been reviewed, I agree with a documented findings and plan of care. Patient was seen and examined. Objective - Vital Signs Vital signs: Vital Signs Temp 97.5 F L 02/10/21 04:51 Pulse 136 H 02/10/21 09:05 Resp 16 02/10/21 04:51 BP 97/60 02/10/21 09:05 Pulse Ox 99 02/10/21 04:51 Intake & Output 02/09/21 02/10/21 02/10/21 18:59 06:59 18:59 Intake Total 1800 1300 Output Total 1450 455 Balance 350 845 Intake: Intake, IV Titration 1800 1300 Amount Piperacillin-Tazobactam 3 100 .375 gm In Sodium Chloride 0.9% 100 ml @ 25 mls/hr IVPB Q12HR DONG Rx #:[id number] Piperacillin-Tazobactam 3 100 .375 gm In Sodium Chloride 0.9% 100 ml @ 25 mls/hr IVPB Q8H DONG Rx#: [id number] Sodium Chloride 0.9% 1, 300 1200 000 ml @ 100 mls/hr IV . Q10H DONG Rx#:[id number] Sodium Chloride 0.9% 1, 1400 000 ml @ 200 mls/hr IV . Q5H DONG Rx#:[id number] Output: Drainage 150 55 right abdomen lana 1 50 15 right abdomen lana 2 100 40 Urine 400 400 Stool 900 Other: Voiding Method Indwelling Catheter Indwelling Catheter - Labs CBC & Chem 7: 02/10/21 05:59 02/08/21 07:16 Labs: Abnormal Lab Results - Last 24 Hours (Table) 02/09/21 02/09/21 02/10/21 Range/Units 05:30 05:41 05:59 RBC 4.06 L (4.30-5.90) m/uL Hgb 10.2 L (13.0-17.5) gm/dL Hct 34.3 L (39.0-53.0) % MCHC 29.7 L (31.0-37.0) g/dL RDW 19.9 H (11.5-15.5) % Plt Count 468 H (150-450) k/uL Lymphocytes # 0.8 L (1.0-4.8) k/uL Uric Acid 3.1 L (3.7-8.7) mg/dL Ur Random Uric Acid 13.5 L (37.0-92.0) mg/dL Microbiology - Last 24 Hours (Table) 02/08/21 01:26 Blood Culture - Preliminary Blood No Growth after 48 hours 02/08/21 01:10 Blood Culture - Preliminary Blood No Growth after 48 hours 02/08/21 09:02 Gram Stain - Preliminary Segundo-Pantoja Body Fluid Culture - Preliminary Gram Neg Bacilli 02/07/21 20:00 Urine Culture - Preliminary Urine,Voided Ximena albicans
--- NOTE | 2021-02-10 11:03 | P.PN ---
Subjective Progress Note Date: 02/10/21 Principal diagnosis: Right-sided colon mass Patient hospitalized over the weekend with fatigue and poor appetite. Patient well-known to our service from previous exploratory laparotomy with drainage of right-sided abdominal abscess and debridement of necrotic tumor. Patient has a loop ileostomy in place. Ostomy has been functioning well. Patient admits that he has not been eating or drinking at home. No significant pain or discomfort. 2 drains still present in place. CAT scan reviewed. Large necrotic mass still present with some air in the mass itself. Patient has not decided on hospice measures. There has been some discussion about palliative chemotherapy. Objective - Vital Signs Vital signs: Vital Signs Temp 97.5 F L 02/10/21 04:51 Pulse 136 H 02/10/21 09:05 Resp 16 02/10/21 04:51 BP 97/60 02/10/21 09:05 Pulse Ox 99 02/10/21 04:51 Intake & Output 02/09/21 02/10/21 02/10/21 18:59 06:59 18:59 Intake Total 1800 1300 Output Total 1450 455 Balance 350 845 Intake: Intake, IV Titration 1800 1300 Amount Piperacillin-Tazobactam 3 100 .375 gm In Sodium Chloride 0.9% 100 ml @ 25 mls/hr IVPB Q12HR DONG Rx #:[id number] Piperacillin-Tazobactam 3 100 .375 gm In Sodium Chloride 0.9% 100 ml @ 25 mls/hr IVPB Q8H DONG Rx#: [id number] Sodium Chloride 0.9% 1, 300 1200 000 ml @ 100 mls/hr IV . Q10H DONG Rx#:[id number] Sodium Chloride 0.9% 1, 1400 000 ml @ 200 mls/hr IV . Q5H DONG Rx#:[id number] Output: Drainage 150 55 right abdomen lana 1 50 15 right abdomen lana 2 100 40 Urine 400 400 Stool 900 Other: Voiding Method Indwelling Catheter Indwelling Catheter - Exam Abdomen: Soft, undescended, right-sided abdominal mass, minimal tenderness, ostomy function, both drains in place with mucopurulent drainage - Labs CBC & Chem 7: 02/10/21 05:59 02/08/21 07:16 Labs: Abnormal Lab Results - Last 24 Hours (Table) 02/10/21 Range/Units 05:59 RBC 4.06 L (4.30-5.90) m/uL Hgb 10.2 L (13.0-17.5) gm/dL Hct 34.3 L (39.0-53.0) % MCHC 29.7 L (31.0-37.0) g/dL RDW 19.9 H (11.5-15.5) % Plt Count 468 H (150-450) k/uL Lymphocytes # 0.8 L (1.0-4.8) k/uL Microbiology - Last 24 Hours (Table) 02/08/21 01:26 Blood Culture - Preliminary Blood No Growth after 48 hours 02/08/21 01:10 Blood Culture - Preliminary Blood No Growth after 48 hours 02/08/21 09:02 Gram Stain - Preliminary Segundo-Pantoja Body Fluid Culture - Preliminary Gram Neg Bacilli 02/07/21 20:00 Urine Culture - Preliminary Urine,Voided Ximena albicans Assessment and Plan (1) Adenocarcinoma of colon Narrative/Plan: Continue encouraging oral intake. Keep drains in place. Discussed with patient whether he would like to proceed with any further treatment. He continues to consider hospice measures which would be quite reasonable. No further surgery planned. We'll follow Current Visit: No Status: Acute Code(s): C18.9 - MALIGNANT NEOPLASM OF COLON, UNSPECIFIED SNOMED Code(s): 751092563
[2021-02-10 11:20] LABS: ALT <5 U/L (10-49); AST 9 U/L (14-35); Albumin 2.4 g/dL (3.8-4.9); Albumin/Globulin Ratio 0.74 (1.60-3.17); Alkaline Phosphatase 118 U/L (41-126); Anion Gap 15.04 mmol/L (4.00-12.00); BUN/Creat Ratio 18.21 Ratio (12.00-20.00); Blood Urea Nitrogen 78.1 mg/dL (9.0-27.0); Calcium 8.7 mg/dL (8.7-10.3); Carbon Dioxide 7.7 mmol/L (21.6-31.8); Chloride 114 mmol/L (96-109); Globulin 3.2 g/dL (1.6-3.3); Glucose 66 mg/dL (70-110); Non-African American GFR(CKD) 13.4 (60.0-200.0); Potassium 4.7 mmol/L (3.5-5.5); Sodium 137 mmol/L (135-145); Total Protein 5.6 g/dL (6.2-8.2)
[2021-02-10 11:25] LABS: African American GFR (CKD) 15.6 (60.0-200.0)
[2021-02-10] MEDS: DEXTROSE 5% IN WATER 1,000 ML with SODIUM BICARB (1 MEQ/ML) 150 ML IV SCH (15:31)
--- NOTE | 2021-02-10 16:54 | PN ---
PROGRESS NOTE Patient is seen for followup for acute kidney injury. He has had increased output from his ileostomy and has been maintained on IV fluids. Renal function has improved to some degree, with creatinine decreasing to about 4.3 from 5.1 on initial admission, with previous creatinine most of October, December and January around 3 to 4 mg/dL. Patient has underlying obstructive uropathy with chronic long-standing hydronephrosis. He also has colon cancer and is status post explorative laparotomy done on 01/03/2021. There is concern for possible tumor lysis syndrome and patient has received Rasburicase. On examination today, he is lying in bed. He does not feel good, is complaining of fatigue. No acute distress. Blood pressure was 80/64, heart rate 86 per minute. Patient is afebrile. EXAMINATION OF THE HEART: S1 and S2. EXAMINATION OF LUNGS: Decreased breath sounds at the bases. Abdomen is soft. Mild tenderness noted. Examination of lower extremities shows no significant edema. ARCHITECTURAL JOB CAPTAIN EXAM: Grossly intact. Labs show sodium 137, potassium 4.7, chloride 114, CO2 7.7, BUN 78, serum creatinine 4.3. Uric acid was 13.5 yesterday. ASSESSMENT: 1. Acute kidney injury associated with hypovolemia and obstructive uropathy as well as component of acute tubular necrosis and from tumor lysis syndrome. Currently with indwelling Estrada catheter; urine output for 24 hours at 1.2 L. Blood pressure is on the lower side. Patient is maintained on IV fluids. He remains significantly acidotic. I will add IV bicarb. Consult Urology regarding the hydronephrosis. 2. 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 Renal function has been slowly worsening. 3. Severe metabolic acidosis, anion gap and [id number], associated with loss of gastrointestinal fluid and renal failure. 4. Hyperphosphatemia associated with renal failure as well as possible underlying tumor lysis syndrome. 5. Abdominal abscess, status post drainage and debridement of necrotic tumor with loop ileostomy. PLAN: Start bicarb drip. Discontinue normal saline. Continue with antibiotics. Hold Cardizem, as blood pressure is low. Decrease dose of metoprolol as well. Overall prognosis is guarded. MMODL / IJN: [id number] /
--- NOTE | 2021-02-10 18:30 | P.PN ---
Subjective Progress Note Date: 02/10/21 Principal diagnosis: Colon cancer, Metabolic acidosis He is weak in bed, family at bedside. There is urine output in catheter. Ostomy with output, not excessive. He is acidotic, Sodium bicarbonate is running. Objective - Vital Signs Vital signs: Vital Signs Temp 97.7 F 02/10/21 11:50 Pulse 86 02/10/21 11:50 Resp 16 02/10/21 11:50 BP 80/64 02/10/21 11:50 Pulse Ox 97 02/10/21 11:50 Intake & Output 02/09/21 02/10/21 02/10/21 18:59 06:59 18:59 Intake Total 1800 1300 Output Total 1450 455 655 Balance 350 845 -655 Intake: Intake, IV Titration 1800 1300 Amount Piperacillin-Tazobactam 3 100 .375 gm In Sodium Chloride 0.9% 100 ml @ 25 mls/hr IVPB Q12HR DONG Rx #:[id number] Piperacillin-Tazobactam 3 100 .375 gm In Sodium Chloride 0.9% 100 ml @ 25 mls/hr IVPB Q8H DONG Rx#: [id number] Sodium Chloride 0.9% 1, 300 1200 000 ml @ 100 mls/hr IV . Q10H DONG Rx#:[id number] Sodium Chloride 0.9% 1, 1400 000 ml @ 200 mls/hr IV . Q5H DONG Rx#:[id number] Output: Drainage 150 55 55 right abdomen lana 1 50 15 15 right abdomen lana 2 100 40 40 Urine 400 400 Stool 900 600 Other: Voiding Method Indwelling Catheter Indwelling Catheter Indwelling Catheter - Constitutional General appearance: Present: cooperative - EENT Eyes: Present: EOMI ENT: Present: NA/AT - Neck Neck: Present: normal ROM - Respiratory Respiratory: bilateral: diminished - Cardiovascular Rhythm: irregularly irregular - Gastrointestinal General gastrointestinal: Present: soft - Integumentary Integumentary: Present: pale - Psychiatric Psychiatric Comment(s): Lethargic. - Labs CBC & Chem 7: 02/10/21 05:59 02/10/21 05:59 Labs: Abnormal Lab Results - Last 24 Hours (Table) 02/10/21 02/10/21 Range/Units 05:59 05:59 RBC 4.06 L (4.30-5.90) m/uL Hgb 10.2 L (13.0-17.5) gm/dL Hct 34.3 L (39.0-53.0) % MCHC 29.7 L (31.0-37.0) g/dL RDW 19.9 H (11.5-15.5) % Plt Count 468 H (150-450) k/uL Lymphocytes # 0.8 L (1.0-4.8) k/uL Chloride 114 H (96-109) mmol/L Carbon Dioxide 7.7 L* (21.6-31.8) mmol/L Anion Gap 15.04 H (4.00-12.00) mmol/L BUN 78.1 H (9.0-27.0) mg/dL Creatinine 4.3 H (0.6-1.5) mg/dL Est GFR (CKD-EPI)AfAm 15.6 L (60.0-200.0) Est GFR (CKD-EPI)NonAf 13.4 L (60.0-200.0) Glucose 66 L (70-110) mg/dL AST 9 L (14-35) U/L ALT <5 L (10-49) U/L Total Protein 5.6 L (6.2-8.2) g/dL Albumin 2.4 L (3.8-4.9) g/dL Albumin/Globulin Ratio 0.74 L (1.60-3.17) g/dL Microbiology - Last 24 Hours (Table) 02/08/21 09:02 Gram Stain - Preliminary Segundo-Pantoja Body Fluid Culture - Preliminary Gram Neg Bacilli Enterococcus faecium Alpha Hemolytic Streptococcus 02/08/21 01:26 Blood Culture - Preliminary Blood No Growth after 48 hours 02/08/21 01:10 Blood Culture - Preliminary Blood No Growth after 48 hours 02/07/21 20:00 Urine Culture - Preliminary Urine,Voided Ximena albicans Assessment and Plan (1) Metabolic acidosis Current Visit: Yes Status: Acute Code(s): E87.2 - ACIDOSIS SNOMED Code(s): 01940197 (2) Acute renal failure Current Visit: Yes Status: Acute Code(s): N17.9 - ACUTE KIDNEY FAILURE, UNSPECIFIED SNOMED Code(s): 85559673 (3) Adenocarcinoma of colon Current Visit: No Status: Acute Code(s): C18.9 - MALIGNANT NEOPLASM OF COLON, UNSPECIFIED SNOMED Code(s): 581870584 Plan: Acutely ill patient with metabolic acidosis. Per primary team and other services. He will need to improve overall performance, recover from this hospitalization, and be free of infectious process and improvement in adherence. He has not followed up with recommendations as outpatient this far, we discussed with patient and family today. Monitor closely. Daily CBC, CMP, Repeat betancourt cultures
--- NOTE | 2021-02-10 19:36 | P.PN ---
Progress Note - Text Progress Note Date: 02/10/21 Chief Complaint: Low blood pressure This is a 65-year-old patient who follows Dr. Porter. Patient in September of this year developed some cramping pain in the right abdomen. Patient had become progressively more severe and more persistent. Also noted a black stools. Decreased appetite. He was initially seen in the ER here and transferred to [facility] a left AMA because he was not satisfied with the care. Came back [facility] ER. Computed tomography scan of the abdomen on November 02 showed a large mass 11 cm along with right: Involving the cecum and hepatic flexure and some perilesional hemorrhage. Is also noted to have a large wound of the prostate with masslike projection into the base of the bladder. Bilateral hydronephrosis. On November 26 patient to have a PET scan that did not show any evidence of metastatic disease. He did not follow with surgeon for surgical resection. In December he was admitted with a perforated bowel and associated abscess. Taken to surgery on January 04 and expiratory laparotomy was done with drainage of abscesses. Diverting ileostomy was done with excision of abdominal wall nodule. Patient had 2 PELON drains. Patient actually went home. On January 13. He apparently came to the ER on January 28 for paroxysmal atrial fibrillation. He also saw Dr. Gaitan in the office about a week ago. And he removed some ryan. She has been told with oncology that he needs to be, stronger before any chemotherapy can be done. Patient is discomfort. Since discharge patient has been eating very little. Estring some fluids. Has been quite a bit drainage through the second PELON tube. Decreased output through the PELON tube #1. 3 days ago patient was at [facility] because of low blood pressure. He was put on Keflex. No fever reported. Patient has been losing weight. Patient does get about using a walker. Progressively more weak. He lives with his his girlfriend Yessi. Patient now presents to the ER feeling weak diet and rundown. Low blood pressure. Kidney functions rather advanced February 09: Patient on IV Zosyn. Patient went into atrial fibrillation with rapid ventricular rate. Cardiology consulted. Lopressor 25 mg twice a day added. Tired. Getting IV fluids. Girlfriend at bedside. February 10: Continue his IV Zosyn. Heart rate and 1 teens. On Lopressor. Tired. Good output through the ileostomy bag.-Brown. PELON drain has creamish output. Review of systems: Was done for constitutional, cardiovascular, GI, pulmonary. relevant finding as above Active Medications Hydrocodone Bitart/Acetaminophen (Hydrocodone/Apap 7.5-325mg 1 Each Tab) 1 each PO Q8H PRN PRN Reason: Pain Last Admin: 02/09/21 09:46 Dose: 1 each Documented by: Famotidine (Famotidine 20 Mg Tab) 20 mg PO HS [facility] Last Admin: 02/09/21 21:27 Dose: 20 mg Documented by: Piperacillin Sod/Tazobactam (Sod 3.375 gm/ Sodium Chloride) 100 mls @ 25 mls/hr IVPB Q12HR [facility] Last Admin: 02/10/21 09:09 Dose: 25 mls/hr Documented by: Sodium Bicarbonate 150 ml/ (Dextrose/Water) 1,150 mls @ 100 mls/hr IV .[id number] [facility] Last Admin: 02/10/21 15:31 Dose: 100 mls/hr Documented by: Lorazepam (Lorazepam 2 Mg/Ml Inj) 0.5 mg IV Q6HR PRN PRN Reason: Anxiety Last Admin: 02/10/21 17:19 Dose: 0.5 mg Documented by: Metoprolol Tartrate (Metoprolol Tartrate 25 Mg Tab) 25 mg PO BID [facility] Last Admin: 02/10/21 09:08 Dose: 25 mg Documented by: Naloxone HCl (Naloxone 0.4 Mg/Ml 1 Ml Vial) 0.2 mg IV Q2M PRN PRN Reason: Opioid Reversal Ondansetron HCl (Ondansetron 4 Mg/2 Ml Vial) 4 mg IVP Q8HR PRN PRN Reason: Nausea And Vomiting Past medical history to include: Atrial fibrillation, GERD, hypertension, colon cancer, ileostomy, weight 2 PELON drains, ileostomy, CK D Social history: 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 No smoking. Did marijuana. Lives with his girlfriend Yessi Family history: Reviewed, noncontributory to presentation Physical examination: VITAL SIGNS: Afebrile, 86, 16, 80/64, 97% on room air GENERAL: laying in bed, tired EYES: [Pupils equal. Conjunctiva pale. HEENT: External appearance of nose and ears normal, oral cavity grossly normal. NECK: JVD not raised; masses not palpable. HEART: Heart sounds irregular; no edema. LUNGS: Respiratory rate normal; clear to auscultation. ABDOMEN: Soft, some tenderness, liver spleen not palpable, no masses palpable. Patient has 2 PELON drains on the right site. Marked 1 and 2. Left-sided ileostomy bag.-Liquid brown stool PSYCH: Alert and oriented x3; mood and affect low. MUSCULAR skeletal: Positive subcutaneous tissue and muscle mass. Prominent bones INVESTIGATIONS, reviewed in the clinical context: February 10: Sodium 137 potassium 4.7 white count 7.7 creatinine 4.3 white count 8.9 and he will globin 10.2 platelets 468 PELON drain culture growing: Gram-negative bacilli, enterococcus VCM, alphahemolytic streptococcus February 09: Sodium 132 potassium 5.3 bicarb 7 BUN 89 creatinine 4.6 to uric acid 14.6 albumin 2.4 Sodium 132 potassium 5.3 bicarb 7 BUN 89 creatinine 4.6 to phosphorus 6.6 albumin 2.4 UA positive for leukoesterase, WBC, bacteria KUB x-ray: Was reviewed by me: No obvious on the D. PELON drain noted. EKG tracing personally reviewed by me-atrial fibrillation. Rate of 103. PVC. Labs from 01/10/2021: BUN 69 creatinine 4.65 hemoglobin 9.4 Assessment and plan: -Hypotension, multifactorial including volume loss from decreased oral intake, poor protein status. Loss of muscle mass malnutrition.: Slow to respond IV fluids. -Moderate protein calorie malnutrition Patient may need enteral feeding/IV nutritional support. We will get an opinion from Dr. Nicole. 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 With extension locally. Patient's surgical note from January 03 shows necrotic cecal tumor with abscess. Currently not a candidate for chemotherapy because of very poor functional status. -Necrotic tumor mass/abscess with cultures growing gram-negative bacilli, enterococcus VCM, alphahemolytic streptococcus. -Acute on chronic progressive medical debility from underlying malignancy and poor nutritional status IV Zosyn -Normocytic anemia, combination of iron deficiency anemia and from underlying malignancy. -Severe metabolic acidosis from renal failure: Slow to respond Sodium bicarbonate drip. -Acute and chronic kidney disease probably stage IV. Some component from hydronephrosis that was obstructive and also prerenal component.: Slow to respond IV fluids. Follow renal function. Follow with nephrology. -Hyperkalemia secondary to renal failure: Better Low potassium diet -Hyponatremia from decrease salt intake: Better Encourage oral intake. -Hyperphosphatemia from renal failure - Nutritional myopathy Patient does use a cane/walker. -Possible secondary infection of the necrotic tumor mass. Consult ID. Output from PELON drain had been sent off for Gram stain and culture. IV Zosyn -Hyper- uricemia Lopressor 25 mg twice a day. IV Zosyn. Eating some. Prognosis guarded. Started on sodium bicarbonate drip.
[2021-02-10] MEDS: HYDROcodone/APAP 7.5-325MG 1 EACH TAB PO PRN (20:09)
[2021-02-10] MEDS: FAMOTIDINE 20 MG TAB PO SCH (20:09)
--- NOTE | 2021-02-10 22:28 | PN ---
PROGRESS NOTE DATE OF SERVICE: 02/10/2021 REASON FOR FOLLOWUP: Intraabdominal abscess. INTERVAL HISTORY: The patient is afebrile. He is breathing slightly comfortably today. The patient denies having any chest pain. No worsening cough. No worsening abdominal pain. No vomiting. Did have output in his ileostomy. PHYSICAL EXAMINATION: Blood pressure 91/62 with a pulse of 93, temperature 97.5. He is 95% on room air. General description is an elderly male lying in bed in no distress. RESPIRATORY SYSTEM: Unlabored breathing. Decreased intensity of breath sounds. No wheeze. HEART: S1, S2. Regular rate and rhythm. ABDOMEN: Soft. Mildly tender. No guarding or rigidity. LABS: Hemoglobin is 10.2 with white count 8.9, creatinine 4.39. Abdominal culture has been finalized with Enterococcus, Gram-negative Streptococcus. DIAGNOSTIC IMPRESSION AND PLAN: Patient with intraabdominal abscess in this patient who did have a cavitated tumor, status post resection. Culture positive for Enterococcus, Gram-negative Streptococcus. Patient is covered with Rocephin; to continue. Overall prognosis remains guarded. He may benefit from hospice-oriented care. Continue supportive care. MMODL / IJN: [id number] /
[2021-02-11] MEDS: DEXTROSE 5% IN WATER 1,000 ML with SODIUM BICARB (1 MEQ/ML) 150 ML IV SCH ×2 (04:11→14:23)
[2021-02-11] MEDS: METOPROLOL TARTRATE 25 MG TAB PO SCH ×2 (08:31→20:32)
[2021-02-11] MEDS: PIPERACILLIN-TAZOBACTAM 3.375 GM in SODIUM CHLORIDE 0.9% 100 ML IVPB SCH ×2 (08:31→20:32)
--- NOTE | 2021-02-11 10:11 | P.PN ---
Subjective This is a 65-year-old male with a past medical history of metastatic colon cancer, subsequent perforated bowel and underwent surgery 01/2021 without complete excision of the tumor due to adherence to the retroperitoneum, Underwent diverting ileostomy, paroxysmal atrial fibrillation, GERD, hypertension. He follows in the office with Dr. Ugalde. Cardiology was consulted for atrial fibrillation with ventricular response. Patient presented to the hospital with dehydration and acute renal failure with a creatinine of 5.1. Of note, previous admission 01/2021, he was found to be in atrial fibrillation, he was started on diltiazem 180 mg daily as well as metoprolol tartrate 50 mg by mouth twice a day. Initially recommended to start anticoagula tion but this was not done due to significant drainage of his LANA drains. 02/11/2021 Patient seen at bedside, no acute distress. He denies any chest pain, shortness of breath, lightheadedness, dizziness, palpitations. Labs reviewed from yesterday, sodium 137, potassium 4.7, chloride 114, carbon dioxide 7.7, anion gap 15, BUN 78, serum creatinine 4.3, magnesium 2.3, WBC 8.9, hemoglobin 10.2, platelets 468. His cardizem was discontinued to due hypotension. Patient is currently maintained on metoprolol tartrate 25 mg twice a day, IV Zosyn, pepcid, IV sodium bicarb. Telemetry reviewed patient in atrial fibrillation, with variable heart rates, mostly [id number], with PVCs Blood pressure 116/76, afebrile oxygen saturations greater than 92% on room air GENERAL: In no acute distress. NECK: Supple without JVD LUNGS: Breath sounds clear to auscultation bilaterally. Respiration equal and unlabored. No wheezes, rales or rhonchi. HEART: Irregular rate and rhythm without murmurs, rubs or gallops. S1 and S2 heard. EXTREMITIES: Normal range of motion, no edema. No clubbing or cyanosis. Peripheral pulses intact. ASSESSMENT Paroxysmal atrial fibrillation with rapid ventricular response, not on patient due to previous bleeding. Acute kidney injury History of metastatic colon cancer History of hypertensionhypotensive this admission History of loop ileostomy PLAN From cardiology perspective, we will continue current medical therapy with metoprolol tartrate. Cardizem on hold due to hypotension. We will hold off on anticoagulation at this time. Unfortunately patient's prognosis remains quite guarded. We will follow the patient as needed at this time. Please reach out with further questions or concerns. Nurse Practitioner note has been reviewed, I agree with a documented findings and plan of care. Patient was seen and examined. Objective - Vital Signs Vital signs: Vital Signs Temp 97.4 F L 02/11/21 05:39 Pulse 106 H 02/11/21 08:23 Resp 16 02/11/21 05:39 BP 116/70 02/11/21 08:23 Pulse Ox 98 02/11/21 08:23 Intake & Output 02/10/21 02/11/21 02/11/21 18:59 06:59 18:59 Intake Total 540 1420 Output Total 1890 1072 Balance -1350 348 Intake: Intake, IV Titration 1300 Amount Dextrose 5% in Water 1, 1200 000 ml @ 100 mls/hr IV . [id number] DONG with Sodium Bicarb (1 Meq/ml) 150 ml Rx#:[id number] Piperacillin-Tazobactam 3 100 .375 gm In Sodium Chloride 0.9% 100 ml @ 25 mls/hr IVPB Q12HR DONG Rx #:[id number] Oral 540 120 Output: Drainage 90 42 right abdomen lana 1 20 0 right abdomen lana 2 70 42 Urine 300 580 Stool 1500 450 Other: Voiding Method Indwelling Catheter Indwelling Catheter - Labs CBC & Chem 7: 02/10/21 05:59 02/10/21 05:59 Labs: Abnormal Lab Results - Last 24 Hours (Table) 02/10/21 Range/Units 05:59 Chloride 114 H (96-109) mmol/L Carbon Dioxide 7.7 L* (21.6-31.8) mmol/L Anion Gap 15.04 H (4.00-12.00) mmol/L BUN 78.1 H (9.0-27.0) mg/dL Creatinine 4.3 H (0.6-1.5) mg/dL Est GFR (CKD-EPI)AfAm 15.6 L (60.0-200.0) Est GFR (CKD-EPI)NonAf 13.4 L (60.0-200.0) Glucose 66 L (70-110) mg/dL AST 9 L (14-35) U/L ALT <5 L (10-49) U/L Total Protein 5.6 L (6.2-8.2) g/dL Albumin 2.4 L (3.8-4.9) g/dL Albumin/Globulin Ratio 0.74 L (1.60-3.17) g/dL Microbiology - Last 24 Hours (Table) 02/08/21 01:26 Blood Culture - Preliminary Blood No Growth after 72 hours 02/08/21 01:10 Blood Culture - Preliminary Blood No Growth after 72 hours 02/07/21 20:00 Urine Culture - Final Urine,Voided Ximena albicans Enterococcus faecalis 02/08/21 09:02 Gram Stain - Preliminary [place]-Delong Body Fluid Culture - Preliminary Gram Neg Bacilli Enterococcus faecium Alpha Hemolytic Streptococcus
--- NOTE | 2021-02-11 13:38 | P.PN ---
Progress Note - Text Progress Note Date: 02/11/21 Chief Complaint: Low blood pressure This is a 65-year-old patient who follows Dr. Porter. Patient in September of this year developed some cramping pain in the right abdomen. Patient had become progressively more severe and more persistent. Also noted a black stools. Decreased appetite. He was initially seen in the ER here and transferred to [facility] a left AMA because he was not satisfied with the care. Came back [facility] ER. Computed tomography scan of the abdomen on November 02 showed a large mass 11 cm along with right: Involving the cecum and hepatic flexure and some perilesional hemorrhage. Is also noted to have a large wound of the prostate with masslike projection into the base of the bladder. Bilateral hydronephrosis. On November 26 patient to have a PET scan that did not show any evidence of metastatic disease. He did not follow with surgeon for surgical resection. In December he was admitted with a perforated bowel and associated abscess. Taken to surgery on January 04 and expiratory laparotomy was done with drainage of abscesses. Diverting ileostomy was done with excision of abdominal wall nodule. Patient had 2 PELON drains. Patient actually went home. On January 13. He apparently came to the ER on January 28 for paroxysmal atrial fibrillation. He also saw Dr. Gaitan in the office about a week ago. And he removed some ryan. She has been told with oncology that he needs to be, stronger before any chemotherapy can be done. Patient is discomfort. Since discharge patient has been eating very little. Estring some fluids. Has been quite a bit drainage through the second PELON tube. Decreased output through the PELON tube #1. 3 days ago patient was at [facility] because of low blood pressure. He was put on Keflex. No fever reported. Patient has been losing weight. Patient does get about using a walker. Progressively more weak. He lives with his his girlfriend Yessi. Patient now presents to the ER feeling weak diet and rundown. Low blood pressure. Kidney functions rather advanced February 09: Patient on IV Zosyn. Patient went into atrial fibrillation with rapid ventricular rate. Cardiology consulted. Lopressor 25 mg twice a day added. Tired. Getting IV fluids. Girlfriend at bedside. February 10: Continue his IV Zosyn. Heart rate and 1 teens. On Lopressor. Tired. Good output through the ileostomy bag.-Brown. PELON drain has creamish output. February 11: IV Zosyn. Eating small amounts. Remains in atrial fibrillation with a heart rate in 1 teens. Cardizem had to the low blood pressure. Liquid stool output through the ileostomy bag. PELON drain continues with creamish output. Spoke to [employer]IT[employer] Grace from oncology team. They'll meet with the family and decide further course of action. Review of systems: Was done for constitutional, cardiovascular, GI, pulmonary. relevant finding as above Active Medications Hydrocodone Bitart/Acetaminophen (Hydrocodone/Apap 7.5-325mg 1 Each Tab) 1 each PO Q8H PRN PRN Reason: Pain Last Admin: 02/10/21 20:09 Dose: 1 each Documented by: Famotidine (Famotidine 20 Mg Tab) 20 mg PO HS [facility] Last Admin: 02/10/21 20:09 Dose: 20 mg Documented by: Piperacillin Sod/Tazobactam (Sod 3.375 gm/ Sodium Chloride) 100 mls @ 25 mls/hr IVPB Q12HR [facility] Last Admin: 02/11/21 08:31 Dose: 25 mls/hr Documented by: Sodium Bicarbonate 150 ml/ (Dextrose/Water) 1,150 mls @ 100 mls/hr IV .[id number] [facility] Last Admin: 02/11/21 04:11 Dose: 100 mls/hr Documented by: Lorazepam (Lorazepam 2 Mg/Ml Inj) 0.5 mg IV Q6HR PRN PRN Reason: Anxiety Last Admin: 02/10/21 23:41 Dose: 0.5 mg Documented by: Metoprolol Tartrate (Metoprolol Tartrate 25 Mg Tab) 25 mg PO BID [facility] Last Admin: 02/11/21 08:31 Dose: 25 mg Documented by: Naloxone HCl (Naloxone 0.4 Mg/Ml 1 Ml Vial) 0.2 mg IV Q2M PRN PRN Reason: Opioid Reversal Ondansetron HCl (Ondansetron 4 Mg/2 Ml Vial) 4 mg IVP Q8HR PRN PRN Reason: Nausea And Vomiting Past medical history to include: Atrial fibrillation, GERD, hypertension, colon cancer, ileostomy, weight 2 PELON drains, ileostomy, CK D Social history: 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 No smoking. Did marijuana. Lives with his girlfriend Yessi Family history: Reviewed, noncontributory to presentation Physical examination: VITAL SIGNS: 98, 83, 16, 93 x 62, 99% room air GENERAL: laying in bed, tired EYES: Pupils equal. Conjunctiva pale. HEENT: External appearance of nose and ears normal, oral cavity grossly normal. NECK: JVD not raised; masses not palpable. HEART: Heart sounds irregular; no edema. LUNGS: Respiratory rate normal; clear to auscultation. ABDOMEN: Soft, some tenderness, liver spleen not palpable, no masses palpable. Patient has 2 PELON drains on the right site. Marked 1 and 2. Left-sided ileostomy bag.-Liquid brown stool PSYCH: Alert and oriented x3; mood and affect low. MUSCULAR skeletal: Positive subcutaneous tissue and muscle mass. Prominent bones INVESTIGATIONS, reviewed in the clinical context: February 10: Sodium 137 potassium 4.7 white count 7.7 creatinine 4.3 white count 8.9 and he will globin 10.2 platelets 468 PELON drain culture growing: Gram-negative bacilli, enterococcus VCM, alphahemolytic streptococcus February 09: Sodium 132 potassium 5.3 bicarb 7 BUN 89 creatinine 4.6 to uric acid 14.6 albumin 2.4 Sodium 132 potassium 5.3 bicarb 7 BUN 89 creatinine 4.6 to phosphorus 6.6 albumin 2.4 UA positive for leukoesterase, WBC, bacteria KUB x-ray: Was reviewed by me: No obvious on the D. PELON drain noted. EKG tracing personally reviewed by me-atrial fibrillation. Rate of 103. PVC. Labs from 01/10/2021: BUN 69 creatinine 4.65 hemoglobin 9.4 Assessment and plan: -Hypotension, multifactorial including volume loss from decreased oral intake, poor protein status. Loss of muscle mass malnutrition.: Slow to respond IV fluids. -Moderate protein calorie malnutrition Patient may need enteral feeding/IV nutritional support. We will get an opinion from Dr. Nicole. 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 With extension locally. Patient's surgical note from January 03 shows necrotic cecal tumor with abscess. Currently not a candidate for chemotherapy because of very poor functional status. -Necrotic tumor mass/abscess with cultures growing gram-negative bacilli, enterococcus VCM, alphahemolytic streptococcus. IV Zosyn -Acute on chronic progressive medical debility from underlying malignancy and poor nutritional status PT OT -Normocytic anemia, combination of iron deficiency anemia and from underlying malignancy. Follow H&H -Severe metabolic acidosis from renal failure: Slow to respond Sodium bicarbonate drip. -Acute and chronic kidney disease probably stage IV. Some component from hydronephrosis that was obstructive and also prerenal component.: Slow to respond IV fluids. Follow renal function. Follow with nephrology. -Hyperkalemia secondary to renal failure: Better Low potassium diet -Hyponatremia from decrease salt intake: Better Encourage oral intake. -Hyperphosphatemia from renal failure - Nutritional myopathy Patient does use a cane/walker. -Hyper- uricemia Lopressor 25 mg twice a day. IV Zosyn. Eating some. Prognosis guarded. Started on sodium bicarbonate drip. Oncology is planning a family meeting with the patient and his significant other. We will go from there.
--- NOTE | 2021-02-11 13:49 | PN ---
PROGRESS NOTE Patient is seen for followup for acute kidney injury and severe metabolic acidosis. Patient was started on sodium bicarb drip yesterday. This morning, he is sitting up in a bedside chair. He is comfortable. Denies any significant complaints. Labs are pending from today. Blood pressure remains on the lower side. PHYSICAL EXAMINATION: On examination today, blood pressure 93/62, heart rate 83 per minute. He is afebrile. Examination of the heart S1, S2. Examination of lungs decreased breath sounds at the bases. Abdomen is soft, nontender. Examination of lower extremities shows edema 1+ bilaterally. 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 LABS: Not available from today. ASSESSMENT: 1. Acute kidney injury, obstructive uropathy as well as component of acute tubular necrosis from tumor lysis syndrome, currently with indwelling Estrada catheter, 24 hour urine output of about 2.9 L, which is improved. Awaiting labs from today. 2. 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 If serum creatinine is not significantly improved, we will proceed with urology consult. 3. Chronic kidney disease, NKF stage 4-5 with baseline creatinine about 3.2-4 mg/dL associated with obstructive uropathy. The patient may need stent placement. 4. Severe metabolic acidosis, anion gap and non gap associated with loss of GI fluid and renal failure. 5. Abdominal abscess status post drainage and debridement of necrotic tumor with loop ileostomy. 6. Hyperphosphatemia associated with renal failure as well as possible underlying tumor lysis syndrome. PLAN: Check labs today. Continue with the bicarb drip. Consult Urology if no further improvement in renal function. MMODL / IJN: [id number] /
[2021-02-11] MEDS: LORazepam 2 MG/ML INJ IV PRN ×2 (14:23→20:35)
--- NOTE | 2021-02-11 19:14 | P.PN ---
Subjective Progress Note Date: 02/11/21 Principal diagnosis: Right-sided colon mass Patient denies any significant pain. No significant oral intake today. He has not had any meeting yet with oncology. Leah present at bedside. Ostomy working well. Objective - Vital Signs Vital signs: Vital Signs Temp 98 F 02/11/21 11:48 Pulse 78 02/11/21 18:55 Resp 17 02/11/21 18:54 BP 98/60 02/11/21 18:54 Pulse Ox 98 02/11/21 18:54 Intake & Output 02/11/21 02/11/21 02/12/21 06:59 18:59 06:59 Intake Total 1420 2440 240 Output Total 1072 Balance 348 2440 240 Weight 58.967 kg Intake: Intake, IV Titration 1300 1200 Amount Dextrose 5% in Water 1, 1200 1100 000 ml @ 100 mls/hr IV . [id number] DONG with Sodium Bicarb (1 Meq/ml) 150 ml Rx#:[id number] Piperacillin-Tazobactam 3 100 100 .375 gm In Sodium Chloride 0.9% 100 ml @ 25 mls/hr IVPB Q12HR DONG Rx #:[id number] Oral 120 1240 240 Output: Drainage 42 right abdomen lana 1 0 right abdomen lana 2 42 Urine 580 Stool 450 Other: Voiding Method Indwelling Catheter Indwelling Catheter - Exam Abdomen: Soft, nondistended, right-sided mass, ostomy functioning, both drains seropurulent - Labs CBC & Chem 7: 02/10/21 05:59 02/10/21 05:59 Labs: Microbiology - Last 24 Hours (Table) 02/08/21 09:02 Gram Stain - Preliminary [place]-Pantoja Body Fluid Culture - Preliminary Stenotrophomonas maltophilia Enterococcus faecium Alpha Hemolytic Streptococcus 02/08/21 01:26 Blood Culture - Preliminary Blood No Growth after 72 hours 02/08/21 01:10 Blood Culture - Preliminary Blood No Growth after 72 hours 02/07/21 20:00 Urine Culture - Final Urine,Voided Ximena albicans Enterococcus faecalis Assessment and Plan (1) Adenocarcinoma of colon Narrative/Plan: Patient with continuous gradual decline after recent exploratory laparotomy with drainage of abdominal abscess and diversion. Patient plans to discuss options of hospice with oncology later today. Will follow. Current Visit: No Status: Acute Code(s): C18.9 - MALIGNANT NEOPLASM OF COLON, UNSPECIFIED SNOMED Code(s): 420504916
[2021-02-11] MEDS: FAMOTIDINE 20 MG TAB PO SCH (20:32)
--- NOTE | 2021-02-11 22:40 | PN ---
PROGRESS NOTE DATE OF SERVICE: 02/11/2021 REASON FOR FOLLOWUP: Intraabdominal abscess. INTERVAL HISTORY: The patient is afebrile. The patient is breathing comfortably. The patient denies having any chest pain, shortness of breath or cough. No vomiting or diarrhea. PHYSICAL EXAMINATION: Blood pressure 101/70 with a pulse of 51, temperature 98.4. He is 98% on room air. General description is an elderly male up in the bed in no distress. RESPIRATORY SYSTEM: Unlabored breathing. Decreased intensity of breath sounds. No wheeze. HEART: S1, S2. Regular rate and rhythm. ABDOMEN: Soft. Mild tenderness. LABS: Creatinine 4.3, BUN of 78, white count 8.9. DIAGNOSTIC IMPRESSION AND PLAN: Patient with intraabdominal abscess in this patient with a history of tumor with recent abdominal surgery. Abdominal cultures grew multiple pathogens, including Stenotrophomonas and Enterococcus. Patient is covered with Zosyn; to continue. Levaquin will be added to cover for the Stenotrophomonas as for the Bactrim DS with a plan for possible hospice; may be appropriate. Continue supportive care. MMODL / IJN: [id number] /
[2021-02-12] MEDS: DEXTROSE 5% IN WATER 1,000 ML with SODIUM BICARB (1 MEQ/ML) 150 ML IV SCH ×2 (04:09→18:27)
[2021-02-12] MEDS: LORazepam 2 MG/ML INJ IV PRN ×3 (04:40→21:18)
[2021-02-12] MEDS: PIPERACILLIN-TAZOBACTAM 3.375 GM in SODIUM CHLORIDE 0.9% 100 ML IVPB SCH ×2 (08:52→19:49)
[2021-02-12] MEDS: LEVOFLOXACIN 250 MG TAB PO SCH (10:06)
[2021-02-12] MEDS: METOPROLOL TARTRATE 25 MG TAB PO SCH ×2 (10:06→20:07)
[2021-02-12 10:18] LABS: ALT <6 U/L (4-49); AST 13 U/L (17-59); African American GFR (CKD) 20 (>60 ml/min/1.73 sqM); Albumin 2.2 g/dL (3.5-5.0); Albumin/Globulin Ratio 0.7; Alkaline Phosphatase 101 U/L (38-126); Anion Gap 5 mmol/L; Blood Urea Nitrogen 71 mg/dL (9-20); Calcium 8.3 mg/dL (8.4-10.2); Carbon Dioxide 22 mmol/L (22-30); Chloride 107 mmol/L (98-107); Glucose 107 mg/dL (74-99); Magnesium 1.9 mg/dL (1.6-2.3); Non-African American GFR(CKD) 17 (>60 ml/min/1.73 sqM); Potassium 3.8 mmol/L (3.5-5.1); Sodium 134 mmol/L (137-145); Total Bilirubin 0.4 mg/dL (0.2-1.3); Total Protein 5.2 g/dL (6.3-8.2)
[2021-02-12 10:31] LABS: Anisocytosis Moderate; HCT 30.9 % (39.0-53.0); HGB 10.1 gm/dL (13.0-17.5); MCH 25.6 pg (25.0-35.0); MCHC 32.6 g/dL (31.0-37.0); Mean Platelet Volume 7.5; Microcytosis Moderate; Platelet Count 495 k/uL (150-450); Poikilocytosis Slight; RBC 3.94 m/uL (4.30-5.90); RDW 20.1 % (11.5-15.5); WBC 6.3 k/uL (3.8-10.6)
[2021-02-12 10:37] LABS: MCV 78.4 fL (80.0-100.0)
[2021-02-12 11:35] LABS: Basophils # (M) 0.06 k/uL (0-0.2); Eosinophils # (M) 0.06 k/uL (0-0.7); Lymphocytes # (M) 1.26 k/uL (1.0-4.8); Monocytes # (M) 0.76 k/uL (0-1.0); Neutrophils # (M) 4.16 k/uL (1.3-7.7); Neutrophils % (M) 66 %; Nucleated Red Blood Cells 0 /100 WBC (0-0); Total Cells Counted 100
--- NOTE | 2021-02-12 12:05 | PN ---
PROGRESS NOTE Patient is seen for followup for acute kidney injury and severe metabolic acidosis. Patient is maintained on a bicarb drip. His CO2 has improved. Serum creatinine has improved as well to 3.45 now. Patient has an indwelling Estrada catheter; 24-hour urine output at 2.9 L. On examination today, blood pressure is 104/67, heart rate 61 per minute. Patient is afebrile. EXAMINATION OF THE HEART: S1 and S2. EXAMINATION OF LUNGS: Decreased breath sounds at the bases. Abdomen is soft, non-tender. Examination of lower extremities shows edema 1+ bilaterally. 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 Labs show sodium 134, potassium 3.8, BUN 71, creatinine 3.45, hemoglobin 10.1 g/dL. ASSESSMENT: 1. Acute kidney injury, multifactorial, including acute tubular necrosis, tumor lysis syndrome and obstructive uropathy, currently with indwelling Estrada catheter with good urine output. Renal function is improving. 2. Chronic kidney disease, stage 4 to 5, secondary to obstructive uropathy with CT showing significant left hydronephrosis. 3. Severe metabolic acidosis associated with GI fluid loss and renal failure. 4. Abdominal abscess, status post drainage and debridement of necrotic tumor with loop ileostomy. 5. Hyperphosphatemia secondary to renal failure as well as tumor lysis syndrome. PLAN: Continue with the bicarb drip for now. Patient states that he wants to go home. He seems to be requesting hospice care. KAITLINL / TCN: [id number] /
--- NOTE | 2021-02-12 13:08 | P.PN ---
Progress Note - Text Progress Note Date: 02/12/21 Patient doing about the same. Still not eating or drinking much on his own. Family is waiting to speak with oncology although they had expressed interest in hospice. Apparently patient would like to go home with home hospice. Keep drains in place. Continue encouraging oral intake.
--- NOTE | 2021-02-12 16:47 | P.PN ---
Subjective Progress Note Date: 02/12/21 Principal diagnosis: Colon cancer, Metabolic acidosis Patient in chair, he states he knows he wont get better, he doesnt feel like eating and doesnt want to move. He would like hospice care. Family at bedside (multiple family members). It was explained that as far as cancer goes he needs to have improved performance, although the cancer itself could be treated if he was to become stronger. Objective - Vital Signs Vital signs: Vital Signs Temp 98.7 F 02/12/21 05:00 Pulse 64 02/12/21 05:00 Resp 16 02/12/21 05:00 BP 107/63 02/12/21 05:00 Pulse Ox 96 02/12/21 05:00 Intake & Output 02/11/21 02/12/21 02/12/21 18:59 06:59 18:59 Intake Total 2440 1780 Output Total 460 Balance 2440 1320 Weight 58.967 kg Intake: Intake, IV Titration 1200 1300 Amount Dextrose 5% in Water 1, 1100 1200 000 ml @ 100 mls/hr IV . [id number] DONG with Sodium Bicarb (1 Meq/ml) 150 ml Rx#:[id number] Piperacillin-Tazobactam 3 100 100 .375 gm In Sodium Chloride 0.9% 100 ml @ 25 mls/hr IVPB Q12HR DONG Rx #:[id number] Oral 1240 480 Output: Drainage 110 right abdomen lana 1 30 right abdomen lana 2 80 Stool 350 Other: Voiding Method Indwelling Catheter Indwelling Catheter - Exam Pale NAD Weak Abdomen: Recent surgery Ostomy Ext: No edema Flat Affect - Labs CBC & Chem 7: 02/12/21 09:23 02/12/21 09:23 Labs: Microbiology - Last 24 Hours (Table) 02/08/21 01:10 Blood Culture - Preliminary Blood No Growth after 96 hours 02/08/21 01:26 Blood Culture - Preliminary Blood No Growth after 96 hours 02/10/21 19:25 Blood Culture - Preliminary Blood No Growth after 24 hours 02/10/21 19:18 Blood Culture - Preliminary Blood No Growth after 24 hours 02/08/21 09:02 Gram Stain - Preliminary [place]-Pantoja Body Fluid Culture - Preliminary Stenotrophomonas maltophilia Enterococcus faecium Alpha Hemolytic Streptococcus Assessment and Plan (1) Metabolic acidosis Current Visit: Yes Status: Acute Code(s): E87.2 - ACIDOSIS SNOMED Code(s): 17361983 (2) Acute renal failure Current Visit: Yes Status: Acute Code(s): N17.9 - ACUTE KIDNEY FAILURE, UNSPECIFIED SNOMED Code(s): 13008720 (3) Adenocarcinoma of colon Current Visit: No Status: Acute Code(s): C18.9 - MALIGNANT NEOPLASM OF COLON, UNSPECIFIED SNOMED Code(s): 074776383 Plan: Acutely ill patient with metabolic acidosis. Per primary team and other services. He will need to improve overall performance, recover from this hospitalization, and be free of infectious process and improvement in adherence. He has not followed up with recommendations as outpatient this far, we discussed with patient and family today. Patient is requesting hospice care and does not feel the desire to go through rehab, and/or therapy for cancer. All choices and expectations of options given to patient and family and they have asked for hospice care at [facility] if possible, consult is in place.
--- NOTE | 2021-02-12 16:59 | PN ---
PROGRESS NOTE DATE OF SERVICE: 02/12/2021 REASON FOR FOLLOWUP: Abdominal abscess. INTERVAL HISTORY: Patient is afebrile. The patient is currently breathing comfortably. She is hemodynamically stable, slightly more awake, alert. No vomiting, diarrhea or any other changes reported. Patient denies any worsening abdominal pain. PHYSICAL EXAMINATION: Blood pressure 105/73 with a pulse of 47. Temperature 97.9. He is 93% on room air. General description is an elderly male lying in bed in no distress. Respiratory system: Unlabored breathing, clear to auscultation anteriorly. Heart S1, S2. Regular rate and rhythm. Abdomen soft, no tenderness. LABS: Hemoglobin 10.1, white count 6.3, creatinine 3.45. Culture with Stenotrophomonas Enterococcus . DIAGNOSTIC IMPRESSION AND PLAN: Patient with abdominal abscess with necrotic tumor with culture positive for multiple pathogen. Patient covered with Zosyn that will continue while waiting for the final decision by family. Continue supportive care. MMODL / IJN: [id number] /
[2021-02-12] MEDS: ESCITALOPRAM 10 MG TAB PO SCH (18:33)
[2021-02-12] MEDS: FAMOTIDINE 20 MG TAB PO SCH (19:49)
--- NOTE | 2021-02-12 20:51 | P.PN ---
Progress Note - Text Progress Note Date: 02/12/21 Chief Complaint: Low blood pressure This is a 65-year-old patient who follows Dr. Porter. Patient in September of this year developed some cramping pain in the right abdomen. Patient had become progressively more severe and more persistent. Also noted a black stools. Decreased appetite. He was initially seen in the ER here and transferred to [place] a left [facility] because he was not satisfied with the care. Came back [facility] ER. Computed tomography scan of the abdomen on November 02 showed a large mass 11 cm along with right: Involving the cecum and hepatic flexure and some perilesional hemorrhage. Is also noted to have a large wound of the prostate with masslike projection into the base of the bladder. Bilateral hydronephrosis. On November 26 patient to have a PET scan that did not show any evidence of metastatic disease. He did not follow with surgeon for surgical resection. In December he was admitted with a perforated bowel and associated abscess. Taken to surgery on January 04 and expiratory laparotomy was done with drainage of abscesses. Diverting ileostomy was done with excision of abdominal wall nodule. Patient had 2 PELON drains. Patient actually went home. On January 13. He apparently came to the ER on January 28 for paroxysmal atrial fibrillation. He also saw Dr. Gaitan in the office about a week ago. And he removed some ryan. She has been told with oncology that he needs to be, stronger before any chemotherapy can be done. Patient is discomfort. Since discharge patient has been eating very little. Estring some fluids. Has been quite a bit drainage through the second PELON tube. Decreased output through the PELON tube #1. 3 days ago patient was at [facility] because of low blood pressure. He was put on Keflex. No fever reported. Patient has been losing weight. Patient does get about using a walker. Progressively more weak. He lives with his his girlfriend Yessi. Patient now presents to the ER feeling weak diet and rundown. Low blood pressure. Kidney functions rather advanced February 09: Patient on IV Zosyn. Patient went into atrial fibrillation with rapid ventricular rate. Cardiology consulted. Lopressor 25 mg twice a day added. Tired. Getting IV fluids. Girlfriend at bedside. February 10: Continue his IV Zosyn. Heart rate and 1 teens. On Lopressor. Tired. Good output through the ileostomy bag.-Brown. PELON drain has creamish output. February 11: IV Zosyn. Eating small amounts. Remains in atrial fibrillation with a heart rate in 1 teens. Cardizem had to the low blood pressure. Liquid stool output through the ileostomy bag. PELON drain continues with creamish output. Spoke to PHARMACIST HELPER Grace from oncology team. They'll meet with the family and decide further course of action. February 12: Decreased oral intake. Atrial fibrillation. Patient earlier met with the oncology team along with family members. Decided to proceed with hospice. advertising operations manager involved. I spoke to several family members and patient. And his significant other. Questions answered. Looking into hospice. Active Medications Hydrocodone Bitart/Acetaminophen (Hydrocodone/Apap 7.5-325mg 1 Each Tab) 1 each PO Q8H PRN PRN Reason: Pain Last Admin: 02/10/21 20:09 Dose: 1 each Documented by: Escitalopram Oxalate (Escitalopram 10 Mg Tab) 10 mg PO DAILY [facility] Last Admin: 02/12/21 18:33 Dose: 10 mg Documented by: Famotidine (Famotidine 20 Mg Tab) 20 mg PO HS [facility] Last Admin: 02/12/21 19:49 Dose: 20 mg Documented by: Piperacillin Sod/Tazobactam (Sod 3.375 gm/ Sodium Chloride) 100 mls @ 25 mls/hr IVPB Q12HR [facility] Last Admin: 02/12/21 19:49 Dose: 25 mls/hr Documented by: Sodium Bicarbonate 150 ml/ (Dextrose/Water) 1,150 mls @ 100 mls/hr IV .[id number] [facility] Last Admin: 02/12/21 18:27 Dose: Not Given Documented by: Levofloxacin (Levofloxacin 250 Mg Tab) 250 mg PO DAILY [facility] Last Admin: 02/12/21 10:06 Dose: 250 mg Documented by: Lorazepam (Lorazepam 2 Mg/Ml Inj) 0.5 mg IV Q6HR PRN PRN Reason: Anxiety Last Admin: 02/12/21 15:38 Dose: 0.5 mg Documented by: Metoprolol Tartrate (Metoprolol Tartrate 25 Mg Tab) 25 mg PO BID [facility] Last Admin: 02/12/21 20:07 Dose: Not Given Documented by: Naloxone HCl (Naloxone 0.4 Mg/Ml 1 Ml Vial) 0.2 mg IV Q2M PRN PRN Reason: Opioid Reversal Ondansetron HCl (Ondansetron 4 Mg/2 Ml Vial) 4 mg IVP Q8HR PRN PRN Reason: Nausea And Vomiting Past medical history to include: Atrial fibrillation, GERD, hypertension, colon cancer, ileostomy, weight 2 PELON drains, ileostomy, CK D Social history: 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 No smoking. Did marijuana. Lives with his girlfriend Yessi Family history: Reviewed, noncontributory to presentation Physical examination: VITAL SIGNS: 97.9, 47, 16, 10 5 x 73, 96% room air GENERAL: laying in bed, tired EYES: Pupils equal. Conjunctiva pale. HEENT: External appearance of nose and ears normal, oral cavity grossly normal. NECK: JVD not raised; masses not palpable. HEART: Heart sounds irregular; no edema. LUNGS: Respiratory rate normal; clear to auscultation. ABDOMEN: Soft, some tenderness, liver spleen not palpable, no masses palpable. Patient has 2 PELON drains on the right site. Marked 1 and 2. Left-sided ileostomy bag.-Liquid brown stool PSYCH: Alert and oriented x3; mood and affect low. MUSCULAR skeletal: Positive subcutaneous tissue and muscle mass. Prominent bones INVESTIGATIONS, reviewed in the clinical context: February 12: Obesity 6.3 hemoglobin 10.1 platelets 195 potassium 3.8 creatinine 3.45 bicarb February 10: Sodium 137 potassium 4.7 white count 7.7 creatinine 4.3 white count 8.9 and he will globin 10.2 platelets 468 PELON drain culture growing: Gram-negative bacilli, enterococcus VCM, alphahemolytic streptococcus February 09: Sodium 132 potassium 5.3 bicarb 7 BUN 89 creatinine 4.6 to uric acid 14.6 albumin 2.4 Sodium 132 potassium 5.3 bicarb 7 BUN 89 creatinine 4.6 to phosphorus 6.6 albumin 2.4 UA positive for leukoesterase, WBC, bacteria KUB x-ray: Was reviewed by me: No obvious on the D. PELON drain noted. EKG tracing personally reviewed by me-atrial fibrillation. Rate of 103. PVC. Labs from 01/10/2021: BUN 69 creatinine 4.65 hemoglobin 9.4 Assessment and plan: -Hypotension, multifactorial including volume loss from decreased oral intake, poor protein status. Loss of muscle mass malnutrition.: Slow to respond IV fluids. 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 With extension locally. Patient's surgical note from January 03 shows necrotic cecal tumor with abscess. Currently not a candidate for chemotherapy because of very poor functional status. Patient has a right fully accepted hospice. advertising operations manager involved. -Necrotic tumor mass/abscess with cultures growing gram-negative bacilli, enterococcus VCM, alphahemolytic streptococcus. IV Zosyn -Acute on chronic progressive medical debility from underlying malignancy and poor nutritional status PT OT -Normocytic anemia, combination of iron deficiency anemia and from underlying malignancy. Follow H&H -Severe metabolic acidosis from renal failure: Slow to respond Sodium bicarbonate drip. -Acute and chronic kidney disease probably stage IV. Some component from hydronephrosis that was obstructive and also prerenal component.: Slow to respond IV fluids. Follow renal function. Follow with nephrology. -Hyperkalemia secondary to renal failure: Better Low potassium diet -Hyponatremia from decrease salt intake: Better Encourage oral intake. -Hyperphosphatemia from renal failure - Nutritional myopathy Patient does use a cane/walker. -Hyper- uricemia -DO NOT RESUSCITATE. Hospice consulted. Looking for placement. Continue current treatment plan. Supportive care. Prognosis poor
[2021-02-13] MEDS: DEXTROSE 5% IN WATER 1,000 ML with SODIUM BICARB (1 MEQ/ML) 150 ML IV SCH ×2 (04:37→14:19)
[2021-02-13 06:42] LABS: Anisocytosis Slight; Basophils # (A) 0.1 k/uL (0-0.2); Basophils % (A) 1 %; Eosinophils # (A) 0.1 k/uL (0-0.7); Eosinophils % (A) 2 %; HCT 33.2 % (39.0-53.0); HGB 10.8 gm/dL (13.0-17.5); Lymphocytes # (A) 1.4 k/uL (1.0-4.8); Lymphocytes % (A) 17 %; MCH 25.5 pg (25.0-35.0); MCHC 32.7 g/dL (31.0-37.0); Mean Platelet Volume 7.5; Microcytosis Moderate; Monocytes # (A) 0.7 k/uL (0-1.0); Monocytes % (A) 8 %; Neutrophils # (A) 5.6 k/uL (1.3-7.7); Neutrophils % (A) 70 %; Platelet Count 607 k/uL (150-450); RBC 4.26 m/uL (4.30-5.90); RDW 19.7 % (11.5-15.5); WBC 7.9 k/uL (3.8-10.6)
[2021-02-13] MEDS: METOPROLOL TARTRATE 25 MG TAB PO SCH (08:31)
[2021-02-13] MEDS: LEVOFLOXACIN 250 MG TAB PO SCH (08:31)
[2021-02-13] MEDS: ESCITALOPRAM 10 MG TAB PO SCH (08:32)
[2021-02-13] MEDS: LORazepam 2 MG/ML INJ IV PRN (09:11)
[2021-02-13] MEDS: PIPERACILLIN-TAZOBACTAM 3.375 GM in SODIUM CHLORIDE 0.9% 100 ML IVPB SCH (09:12)
[2021-02-13 11:50] VITALS: BP 88/56; PULSE 89; RESP 17; TEMP 97.9
--- NOTE | 2021-02-13 12:48 | PN ---
PROGRESS NOTE Patient is seen for followup for acute kidney injury and severe metabolic acidosis. He is maintained on bicarb drip. However, patient has been stating that he wants to go home. This morning plan is to be discharged home with hospice. He has underlying metastatic colon cancer. On examination today, blood pressure was 88/56, heart rate 89 per minute. He is afebrile. EXAMINATION OF THE HEART: S1 and S2. EXAMINATION OF LUNGS: Decreased breath sounds at the bases. Abdomen is soft. Mild tenderness noted. Examination of lower extremities shows no significant edema. ROLL TRUCKER exam shows patient is quite weak. Labs are not available from today. ASSESSMENT: 1. Acute kidney injury, acute tubular necrosis and obstructive uropathy. Currently with indwelling Estrada catheter. No plans for dialysis. 2. 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 CT scan showing left hydronephrosis. 3. Severe metabolic acidosis associated with gastrointestinal fluid loss and renal failure. 4. Abdominal abscess/necrotic tumor, status post drainage and debridement of necrotic tumor with ileostomy. 5. Hyperphosphatemia associated with renal failure and tumor lysis syndrome. PLAN: Agree with hospice care. MMODL / IJN: [id number] /
--- NOTE | 2021-02-13 13:18 | PN ---
PROGRESS NOTE DATE OF SERVICE: 02/13/2021 REASON FOR FOLLOWUP: Abdominal abscess. INTERVAL HISTORY: The patient is afebrile. The patient is more awake and alert. He mentioned he is feeling better and would like to go home. No chest pain, shortness of breath or cough. Abdominal pain is currently controlled. No vomiting. PHYSICAL EXAMINATION: Blood pressure 120/78 with a pulse of 55, temperature 98.2. He is 96% on room air. General description is an elderly male lying in bed in no distress. RESPIRATORY SYSTEM: Unlabored breathing. Clear to auscultation anteriorly. HEART: S1, S2. Regular rate and rhythm. ABDOMEN: Soft. No tenderness. LABS: Hemoglobin is 10.9, white count of 7.9. DIAGNOSTIC IMPRESSION AND PLAN: Patient with intraabdominal abscess in this patient who did have a necrotic tumor, status post surgery, and plan is for possible hospice. Abdominal culture with multiple pathogens, covered with Zosyn, Levaquin. Prognosis remains guarded. Continue supportive care. MMODL / IJN: [id number] /
--- NOTE | 2021-02-13 13:53 | P.DS ---
Providers Date of admission: 02/07/21 20:30 Expected date of discharge: 02/13/21 Attending physician: Jaylon Salmon Consults: 02/07/21 20:31 Consult Physician Routine Consulting Provider: Brendan Saldaña Consult Reason/Comments: Oncological care Do you want consulting provider notified?: Yes Consult Physician Routine Consulting Provider: Tahira Singh Consult Reason/Comments: arf Do you want consulting provider notified?: Yes 02/08/21 13:10 Consult Physician Routine Consulting Provider: Braulio Nicole Consult Reason/Comments: abd abscess Do you want consulting provider notified?: Yes 02/08/21 13:12 Consult Physician Routine Consulting Provider: Ward Chacon Consult Reason/Comments: abd abscess Do you want consulting provider notified?: Yes 02/08/21 18:33 Consult Physician Routine Consulting Provider: Chucho Felipe Consult Reason/Comments: Afib Do you want consulting provider notified?: Yes Primary care physician: [facility] Course: Chief Complaint: Low blood pressure This is a 65-year-old patient who follows Dr. Porter. Patient in September of this year developed some cramping pain in the right abdomen. Patient had become progressively more severe and more persistent. Also noted a black stools. Decreased appetite. He was initially seen in the ER here and transferred to [place] a left [place] because he was not satisfied with the care. Came back [facility] ER. Computed tomography scan of the abdomen on November 02 showed a large mass 11 cm along with right: Involving the cecum and hepatic flexure and some perilesional hemorrhage. Is also noted to have a large wound of the prostate with masslike projection into the base of the bladder. Bilateral hydronephrosis. On November 26 patient to have a PET scan that did not show any evidence of metastatic disease. He did not follow with surgeon for surgical resection. In December he was admitted with a perforated bowel and associated abscess. Taken to surgery on January 04 and expiratory laparotomy was done with drainage of abscesses. Diverting ileostomy was done with excision of abdominal wall nodule. Patient had 2 PELON drains. Patient actually went home. O n January 13. He apparently came to the ER on January 28 for paroxysmal atrial fibrillation. He also saw Dr. Gaitan in the office about a week ago. And he removed some ryan. She has been told with oncology that he needs to be, stronger before any chemotherapy can be done. Patient is discomfort. Since discharge patient has been eating very little. Estring some fluids. Has been quite a bit drainage through the second PELON tube. Decreased output through the PELON tube #1. 3 days ago patient was at [facility] because of low blood pressure. He was put on Keflex. No fever reported. Patient has been losing weight. Patient does get about using a walker. Progressively more weak. He lives with his his girlfriend Yessi. Patient now presents to the ER feeling weak diet and rundown. Low blood pressure. Kidney functions rather advanced February 09: Patient on IV Zosyn. Patient went into atrial fibrillation with rapid ventricular rate. Cardiology consulted. Lopressor 25 mg twice a day added. Tired. Getting IV fluids. Girlfriend at bedside. February 10: Continue his IV Zosyn. Heart rate and 1 teens. On Lopressor. Tired. Good output through the ileostomy bag.-Brown. PELON drain has creamish output. February 11: IV Zosyn. Eating small amounts. Remains in atrial fibrillation with a heart rate in 1 teens. Cardizem had to the low blood pressure. Liquid stool output through the ileostomy bag. PELON drain continues with creamish output. Spoke to TANI Edwards from oncology team. They'll meet with the family and decide further course of action. February 12: Decreased oral intake. Atrial fibrillation. Patient earlier met with the oncology team along with family members. Decided to proceed with hospice. manager health involved. I spoke to several family members and patient. And his significant other. Questions answered. Looking into hospice. February 13: Patient be transferred to hospice house [facility]. Under [facility]. Ambulance transfer. No further questions per patient. Discussed with case planner. Hospital this will address hospice medications for comfort. Consultation: Dr. Chacon from ID Dr. Redman from nephrology Dr. Saldaña from oncology Dr. 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 Did marijuana. Lives with his girlfriend Yessi Family history: Reviewed, noncontributory to presentation Physical examination: VITAL SIGNS: 97.9, 89, 17, 88/56, 95% room air GENERAL: laying in bed, tired , awake EYES: Pupils equal. Conjunctiva pale. HEENT: External appearance of nose and ears normal, oral cavity grossly normal. NECK: JVD not raised; masses not palpable. HEART: Heart sounds irregular; no edema. LUNGS: Respiratory rate normal; clear to auscultation. ABDOMEN: Soft, some tenderness, liver spleen not palpable, no masses palpable. Patient has 2 PELON drains on the right site. Marked 1 and 2. Left-sided ileostomy bag.-Liquid brown stool PSYCH: Alert and oriented x3; mood and affect low. MUSCULAR skeletal: Decreased subcutaneous tissue and muscle mass. Prominent bones INVESTIGATIONS, reviewed in the clinical context: February 13: White count 7.9 hemoglobin 10.8 platelets 607 February 12: hemoglobin 10.1 platelets 195 potassium 3.8 creatinine 3.45 bicarb 22 February 10: Sodium 137 potassium 4.7 white count 7.7 creatinine 4.3 white count 8.9 and he will globin 10.2 platelets 468 PELON drain culture growing: Gram-negative bacilli, enterococcus VCM, alphahemolytic streptococcus February 09: Sodium 132 potassium 5.3 bicarb 7 BUN 89 creatinine 4.6 to uric acid 14.6 albumin 2.4 Sodium 132 potassium 5.3 bicarb 7 BUN 89 creatinine 4.6 to phosphorus 6.6 albumin 2.4 UA positive for leukoesterase, WBC, bacteria KUB x-ray: Was reviewed by me: No obvious on the D. PELON drain noted. EKG tracing personally reviewed by me-atrial fibrillation. Rate of 103. PVC. Labs from 01/10/2021: BUN 69 creatinine 4.65 hemoglobin 9.4 Assessment and plan: -Hypotension, multifactorial including volume loss from decreased oral intake, poor protein status. Loss of muscle mass malnutrition.: Slow to respond Received IV fluids. 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 With extension locally. Patient's surgical note from January 03 shows necrotic cecal tumor with abscess. Currently not a candidate for chemotherapy because of very poor functional status. Patient has accepted hospice. [facility] [place]. -Necrotic tumor mass/abscess with cultures growing gram-negative bacilli, enterococcus VCM, alphahemolytic streptococcus. IV Zosyn-discontinue -Acute on chronic progressive medical debility from underlying malignancy and poor nutritional status PT OT -Normocytic anemia, combination of iron deficiency anemia and from underlying malignancy. -Severe metabolic acidosis from renal failure: Slow to respond Sodium bicarbonate drip. Stopped -Acute and chronic kidney disease probably stage IV. Some component from hydronephrosis that was obstructive and also prerenal component.: Slow to respond IV fluids. Follow renal function. Follow with nephrology. -Hyperkalemia secondary to renal failure: Better Low potassium diet -Hyponatremia from decrease salt intake: Better Encourage oral intake. -Hyperphosphatemia from renal failure - Nutritional myopathy Patient does use a cane/walker. -Hyper- uricemia -DO NOT RESUSCITATE. Disposition: Hospice house in [place]. Plan - Discharge Summary Discharge Rx Participant: Yes New Discharge Prescriptions: New Metoprolol Tartrate [Lopressor] 25 mg PO BID tab Levofloxacin [Levaquin] 250 mg PO DAILY tab Continue Tamsulosin HCl [Flomax] 0.4 mg PO BID Oxybutynin Chloride [Ditropan] 5 mg PO TID Discontinued dilTIAZem HCL [dilTIAZem HCL 24Hr ER (Xr)] 180 mg PO DAILY #30 cap Ondansetron [Zofran] 4 mg PO Q6H PRN PRN Reason: Nausea Cephalexin [Keflex] 500 mg PO Q8H ALPRAZolam [Xanax] 0.25 mg PO Q8H PRN PRN Reason: Anxiety HYDROcodone/APAP 7.5-325MG [[place] 7.5-325] 1 tab PO Q8H PRN PRN Reason: Pain Ferrous Sulfate [Iron (65 MG Elemental)] 325 mg PO BID-W/MEALS #60 tab Discharge Medication List Oxybutynin Chloride [Ditropan] 5 mg PO TID 02/07/21 [History] Tamsulosin HCl [Flomax] 0.4 mg PO BID 02/07/21 [History] Levofloxacin [Levaquin] 250 mg PO DAILY tab 02/13/21 [Rx] Metoprolol Tartrate [Lopressor] 25 mg PO BID tab 02/13/21 [Rx] Follow up Appointment(s)/Referral(s): Seymour Daley [facility] [REFERRING] - Of [facility] [NON-STAFF] - Patient Instructions/Handouts: Hospice (DC) Discharge/Stand Alone Forms: Personal Ribbon [facility]inder
[2021-02-13 17:41] LABS: ALT <5 U/L (10-49); AST 12 U/L (14-35); African American GFR (CKD) 22.2 (60.0-200.0); Albumin 2.4 g/dL (3.8-4.9); Alkaline Phosphatase 105 U/L (41-126); BUN/Creat Ratio 20.63 Ratio (12.00-20.00); Calcium 8.5 mg/dL (8.7-10.3); Carbon Dioxide 18.7 mmol/L (21.6-31.8); Chloride 104 mmol/L (96-109); Glucose 92 mg/dL (70-110); Non-African American GFR(CKD) 19.1 (60.0-200.0); Potassium 4.2 mmol/L (3.5-5.5); Sodium 138 mmol/L (135-145); Total Protein 5.4 g/dL (6.2-8.2)
== END 2021-02-13 17:15 | disposition home or self-care (01) | DRG 682 ==
LOC: EC 17:57 → 5NMEDONC 20:30
PROVIDERS: ADMIT Hospitalist; ATTEND Hospitalist
DX: N17.0 Acute kidney failure with tubular necrosis (principal); K65.1 Peritoneal abscess; N13.8 Other obstructive and reflux uropathy; C18.0 Malignant neoplasm of cecum; C79.9 Secondary malignant neoplasm of unspecified site; E44.0 Moderate protein-calorie malnutrition; Z68.1 Body mass index [BMI] 19.9 or less, adult; E87.1 Hypo-osmolality and hyponatremia; E87.2 Acidosis; I47.2 Ventricular tachycardia; R64 Cachexia; N18.4 Chronic kidney disease, stage 4 (severe); Z51.5 Encounter for palliative care; Z66 Do not resuscitate; Z20.822 Contact with and (suspected) exposure to COVID-19; D63.0 Anemia in neoplastic disease; D47.3 Essential (hemorrhagic) thrombocythemia; D50.9 Iron deficiency anemia, unspecified; E83.39 Other disorders of phosphorus metabolism; F32.9 Major depressive disorder, single episode, unspecified; I12.9 Hypertensive chronic kidney disease with stage 1 through stage 4 chronic kidney disease, or unspecified chronic kidney disease; I95.9 Hypotension, unspecified; N13.30 Unspecified hydronephrosis; E86.0 Dehydration; B95.2 Enterococcus as the cause of diseases classified elsewhere; E86.1 Hypovolemia; E87.5 Hyperkalemia; F41.9 Anxiety disorder, unspecified; I49.3 Ventricular premature depolarization; I48.0 Paroxysmal atrial fibrillation; N40.1 Benign prostatic hyperplasia with lower urinary tract symptoms; R11.2 Nausea with vomiting, unspecified; R53.81 Other malaise; E79.0 Hyperuricemia without signs of inflammatory arthritis and tophaceous disease; K21.9 Gastro-esophageal reflux disease without esophagitis; D72.829 Elevated white blood cell count, unspecified; Z53.09 Procedure and treatment not carried out because of other contraindication; Z93.2 Ileostomy status; Z91.19 Patient's noncompliance with other medical treatment and regimen; Z98.890 Other specified postprocedural states; Z90.49 Acquired absence of other specified parts of digestive tract; Z88.5 Allergy status to narcotic agent
CPT/HCPCS: 36415; 71046; 74018; 74022; 74176; 80053; 81001; 82150; 83605; 83690; 83735; 84100; 84550; 84560; 85025; 85610; 85730; 87040; 87070; 87077; 87086; 87186; 87205; 87635; 96361; 96374; 96375; 99285